=== PATIENT | female | born 1945 | race Caucasian/White ===

== ENCOUNTER → 2017-02-12 | Outpatient (CLI) | payer OTHER ==
[2017-02-12 17:01] LABS: ALT/SGPT 19 U/L (12-78); BLOOD UREA NITROGEN 8 mg/dl (7-18); BUN/CREATININE RATIO 9.8 (10-20); CALCIUM 8.9 mg/dl (8.5-10.1); CARBON DIOXIDE 29 mmol/L (21-32); CHLORIDE 106 mmol/L (98-107); CREATININE 0.86 mg/dl (0.60-1.20); GLUCOSE 106 mg/dl (70-99); POTASSIUM 4.2 mmol/L (3.5-5.1); SODIUM 142 mmol/L (136-145)
[2017-02-12 17:04] LABS: ALB/GLOB RATIO 1.2 (0.9-2); ALKALINE PHOSPHATASE 58 U/L (45-117); AST/SGOT 13 U/L (15-37)
[2017-02-12 18:19] LABS: BASO ABS # 0.07 K/uL (0-0.2); COMPLETE YES; EOS % 2.7 %; HEMATOCRIT 39.6 % (37-47); IG% 0.3 %; LYMPH % 27.1 %; MEAN CELL VOLUME 98.5 fL (80-100); MEAN CORPUSCULAR HEMOGLOBIN 34.3 pg (25-34); MEAN CORPUSCULAR HGB CONC 34.8 g/dl (32-36); MEAN PLATELET VOLUME 10.4 fL (7.4-10.4); MONO % 5.1 %; NEUT % 63.8 %; PLATELET COUNT 206 K/uL (130-400); RED BLOOD COUNT 4.02 M/uL (4.2-5.4); WHITE BLOOD COUNT 7.02 K/uL (4.8-10.8)
== END | disposition home or self-care (01) ==
LOC: C.LABBFT 15:50
PROVIDERS: ATTEND Physician Assistant Medical
DX: R10.811 Right upper quadrant abdominal tenderness (principal)

== ENCOUNTER → 2017-02-18 | Outpatient (CLI) | payer OTHER ==
--- NOTE | 2017-02-18 10:00 | DIAGNOSTIC IMAGING REPORT ---
Right upper quadrant ultrasound GALLBLADDER-ABD LIMITED CLINICAL HISTORY: Pain nausea TECHNIQUE: Ultrasound COMPARISON STUDY: None FINDINGS: Normal gallbladder. Gallbladder wall 2 mm. Common bile duct 5 mm. Liver demonstrates a left hepatic lobe cyst measuring 3.5 cm at maximum. Mild fatty infiltration. Pancreas and right kidney are unremarkable. 2 cm right renal cyst. IMPRESSION: Small cysts of the right kidney as well as liver. Otherwise negative study. Electronically signed by: Dieter Zee M.D. 02/18/2017 9:58 AM Dictated Date/Time: 02/18/2017 9:57 AM
== END | disposition home or self-care (01) ==
LOC: C.ULTR 09:10
PROVIDERS: ATTEND Physician Assistant Medical
DX: R10.811 Right upper quadrant abdominal tenderness (principal); N28.1 Cyst of kidney, acquired; K76.89 Other specified diseases of liver

== ENCOUNTER → 2017-02-19 | Outpatient (CLI) | payer OTHER ==
--- NOTE | 2017-02-19 13:13 | DIAGNOSTIC IMAGING REPORT ---
RIGHT KNEE 3 VIEWS CLINICAL HISTORY: BILATERAL KNEE PAIN Right pain COMPARISON: None DISCUSSION: Rather significant degenerative change all major joint compartments right knee. This is most significant involving the lateral compartment on the tunnel projection. Mild osteophytic change. Sclerosis of the articular services. Less prominent findings involve the left knee. There is no evidence for soft tissue swelling. 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 Mild degenerative change left knee. Electronically signed by: Dieter Zee M.D. 02/19/2017 1:11 PM Dictated Date/Time: 02/19/2017 1:10 PM
== END | disposition home or self-care (01) ==
LOC: C.RDSM 13:43
PROVIDERS: ATTEND Physician Assistant
DX: M25.569 Pain in unspecified knee (principal)

== ENCOUNTER → 2017-03-01 | Outpatient (CLI) | payer OTHER ==
[~2017-03-01] MED LIST: SINCALIDE IV ONE; SODIUM CHLORIDE 0.9% IV ONE
--- NOTE | 2017-03-01 13:01 | DIAGNOSTIC IMAGING REPORT ---
NUCLEAR HEPATOBILIARY SCAN WITH EJECTION FRACTION IMAGING CLINICAL HISTORY: Right upper quadrant abdominal pain. COMPARISON STUDY: Abdominal ultrasound dated 02/18/2017. TECHNIQUE: Dynamic images of the liver and anterior abdomen were obtained every 5 minutes for a total of 60 minutes following the IV administration of 5.5mCi of technetium 99m Choletec. 1.92 mcg of sincalide was then injected with additional images acquired every 5 minutes for 45 minutes to calculate the gallbladder ejection fraction. FINDINGS: The hepatobiliary scan shows prompt and homogeneous hepatic uptake. There is visualized activity within the intra and extrahepatic biliary tree at 15 minutes, and within the gallbladder at 20 minutes. There is normal biliary to bowel transit, with small bowel visualized by 35 minutes. On the sincalide imaging, the gallbladder ejection fraction was measured at 99%. IMPRESSION: 1. Unremarkable nuclear hepatobiliary scan. There is no scintigraphic evidence of cholecystitis. 2. The gallbladder ejection fraction measured 99% which is normal. Electronically signed by: Hua Huff M.D. 03/01/2017 12:59 PM Dictated Date/Time: 03/01/2017 12:57 PM
== END | disposition home or self-care (01) ==
LOC: C.NUCL 10:01
PROVIDERS: ATTEND Internal Medicine
DX: R10.811 Right upper quadrant abdominal tenderness (principal)

== ENCOUNTER → 2017-04-19 | Outpatient (CLI) | payer OTHER ==
[2017-04-19 17:43] LABS: HEMATOCRIT 40.4 % (37-47); MEAN CELL VOLUME 102.5 fL (80-100); MEAN CORPUSCULAR HEMOGLOBIN 34.8 pg (25-34); MEAN CORPUSCULAR HGB CONC 33.9 g/dl (32-36); MEAN PLATELET VOLUME 10.4 fL (7.4-10.4); PLATELET COUNT 220 K/uL (130-400); RED BLOOD COUNT 3.94 M/uL (4.2-5.4); WHITE BLOOD COUNT 7.03 K/uL (4.8-10.8)
[2017-04-19 17:55] LABS: ALT/SGPT 21 U/L (12-78); BLOOD UREA NITROGEN 15 mg/dl (7-18); BUN/CREATININE RATIO 15.4 (10-20); CARBON DIOXIDE 28 mmol/L (21-32); CHLORIDE 106 mmol/L (98-107); CREATININE 0.97 mg/dl (0.60-1.20); GLUCOSE 90 mg/dl (70-99); SODIUM 141 mmol/L (136-145)
[2017-04-19 18:05] LABS: ALB/GLOB RATIO 1.1 (0.9-2); ALKALINE PHOSPHATASE 60 U/L (45-117); AST/SGOT 13 U/L (15-37)
[2017-04-19 18:32] LABS: CALCIUM 9.5 mg/dl (8.5-10.1)
[2017-04-20 06:16] LABS: ESTIMATED AVERAGE GLUCOSE 108 mg/dl; HA1C FLAG Normal (Normal)
== END | disposition home or self-care (01) ==
LOC: C.LABBFT 12:35
PROVIDERS: ATTEND Internal Medicine
DX: I10 Essential (primary) hypertension (principal); R73.01 Impaired fasting glucose; E03.9 Hypothyroidism, unspecified

== ENCOUNTER 2018-02-10 18:03 | Emergency (ER) | payer OTHER ==
[~2018-02-10] VITALS: Ht 167.6 cm; Wt 96.1 kg
[2018-02-10 18:16] VITALS: TEMP 37; Ht 167.6 cm; Wt 96.1 kg
[2018-02-10] MEDS ORDERED: PRLSR20 PO (20:25)
[2018-02-10] MEDS ORDERED: LISI-725 PO (20:25)
[2018-02-10] MEDS ORDERED: LEVO112T4 PO (20:25)
[2018-02-10] MEDS ORDERED: ESCI10TA17 PO (20:25)
[2018-02-10] MEDS ORDERED: ATOR-22 PO (20:25)
[2018-02-10 20:43] LABS: BASO % 0.5 %; BASO ABS # 0.04 K/uL (0-0.2); EOS % 1.8 %; EOS ABS # 0.14 K/uL (0-0.5); HEMATOCRIT 38.7 % (37-47); HEMOGLOBIN 13.2 g/dL (12.0-16.0); IG# 0.02 K/uL (0.00-0.02); LYMPH % 18.1 %; LYMPH ABS # 1.42 K/uL (1.2-3.4); MEAN CELL VOLUME 100.8 fL (80-100); MEAN CORPUSCULAR HEMOGLOBIN 34.4 pg (25-34); MEAN CORPUSCULAR HGB CONC 34.1 g/dl (32-36); MEAN PLATELET VOLUME 10.2 fL (7.4-10.4); MONO % 7.4 %; MONO ABS # 0.58 K/uL (0.11-0.59); NEUT % 71.9 %; NEUT ABS # 5.65 K/uL (1.4-6.5); PLATELET COUNT 194 K/uL (130-400); RED CELL DISTRIBUTION WIDTH CV 14.1 % (11.5-14.5); RED CELL DISTRIBUTION WIDTH SD 52.1 fL (36.4-46.3); WHITE BLOOD COUNT 7.85 K/uL (4.8-10.8)
[2018-02-10 21:04] LABS: ALBUMIN 3.5 gm/dl (3.4-5.0); CREATININE 0.82 mg/dl (0.60-1.20); POTASSIUM 3.6 mmol/L (3.5-5.1)
--- NOTE | 2018-02-10 21:04 | DIAGNOSTIC IMAGING REPORT ---
ABD/PELVIS WITHOUT FOR STONE CLINICAL HISTORY: 73 years-old Female presenting with left abd pain, blood in urine. TECHNIQUE: Multidetector CT of the abdomen and pelvis was performed without the use of intravenous contrast. IV contrast: None. A dose lowering technique was used consistent with the principles of ALARA (as low as reasonably achievable). COMPARISON: None. CT DOSE (mGy.cm): The estimated cumulative dose is 1652.65 mGy.cm. 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 Lung bases: Lungs and pleural spaces clear. Normal heart size. No pericardial or pleural effusion. Liver: Normal morphology. Density consistent with hepatic steatosis. Multilobular hypodensity in the left hepatic lobe indeterminate but likely hepatic cyst. Biliary: No gross biliary ductal dilatation allowing for noncontrast technique. Normal gallbladder. Pancreas: Mild parenchymal atrophy. Spleen: Normal. Adrenal glands: Normal. Kidneys and ureters: Well-defined fat-containing 12 mm lesion in the interpolar region of the left kidney. No nephrolithiasis. Prominent parapelvic cyst suggested on the right. No hydronephrosis. Ureters normal. Bladder: Incompletely evaluated secondary to underdistention. Pelvic organs: Uterus surgically absent. No adnexal masses. Bowel: Diverticulosis of the sigmoid colon with extensive pericolonic inflammatory change in the mid to distal sigmoid colon. No adjacent fluid collection. No adjacent extraluminal gas. Few additional scattered diverticula noted in the descending colon. Mild stool burden. The appendix may be absent. No bowel obstruction. Small hiatal hernia. Peritoneal cavity: No free fluid or intraperitoneal gas. Lymph nodes: No gross lymphadenopathy allowing for noncontrast technique. Vasculature: Atherosclerosis of the normal caliber abdominal aorta. Abdominal wall: Small fat-containing umbilical hernia. Musculoskeletal: Degenerative changes of the spine. Degenerative changes of the right sacroiliac joint. IMPRESSION: 1. Findings consistent with acute uncomplicated diverticulitis of the sigmoid colon. No abscess or extraluminal gas. 2. 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 3. Hepatic steatosis. Electronically signed by: Anoop Toney M.D. 02/10/2018 9:03 PM Dictated Date/Time: 02/10/2018 8:57 PM
[2018-02-10 21:07] LABS: TOTAL PROTEIN 7.4 gm/dl (6.4-8.2)
[2018-02-10] MEDS ORDERED: PIPERACILLIN/TAZOBACTAM 4.5 GM/100ML D5W IV STA (21:26)
[2018-02-10] MEDS ORDERED: AMOXICIL/CLAVU 875MG HOME PACK PO ONE (21:45)
[2018-02-10 23:20] VITALS: BP 176/87; PULSE 72; O2SAT 98
[2018-02-10] MEDS ORDERED: AMOX875T PO (23:22)
--- NOTE | 2018-02-11 01:44 | EMERGENCY ROOM VISIT NOTE ---
History Report prepared by Kaity: Mariya Melo Under the Supervision of: Dr. Karl Brothers M.D. First contact with patient: 20:00 Chief Complaint: ABDOMINAL PAIN Stated Complaint: PAIN IN STOMACH AREA Nursing Triage Summary: patient reports ongoing abdominal pain for two days History of Present Illness The patient is a 73 year old female who presents to the Emergency Room with complaints of worsening abdominal pain for the past few days. The patient states that the pain is in the middle of her stomach and on the left side. She currently rates her pain as an 8/10 in severity. She reports that yesterday it was a 10/10 in severity and she couldn't walk. She notes that she has never had this pain before. The patient states that she has tried taking Ibuprofen with no relief. The patient complains of back pain. She states that it feels like her back is swelling. Pt denies a history of kidney stones, LOC, headache, fevers, chills, diaphoresis , visual changes, neck pain, chest pain, breathing difficulties, nausea, vomiting, melena, hematochezia, urinary symptoms, numbness, weakness, lymphadenopathy, rash, or other complaints. Source of History: patient Onset: few days ago Position: abdomen Symptom Intensity: 8/10 Timing: worsening Associated Symptoms: + back pain Review of Systems See HPI for pertinent positives and negatives. A total of ten systems were reviewed and were otherwise negative. Past Medical & Surgical Medical Problems: (1) Graves disease (2) Hypertension (3) Hyperthyroidism Surgical Problems: (1) S/P hysterectomy Family History Patient reports no known family medical history. Social History Smoking Status: Current Every Day Smoker Alcohol Use: occasionally Marital Status: Housing Status: lives with significant other Current/Historical Medications Scheduled Amoxicillin & Pot Clavulanate (Augmentin 875-125 mg), 875 MG PO BID Atorvastatin (Lipitor), 1 TAB PO DAILY Escitalopram (Lexapro), 10 MG PO DAILY Levothyroxine Sodium (Levothyroxine Sodium), 1 TAB PO DAILY Omeprazole (Prilosec), 20 MG PO DAILY Miscellaneous Medications Lisinopril (Zestril), 20 MG PO Allergies Coded Allergies: No Known Allergies (Verified , 10/22/04) Physical Exam Vital Signs Date Time Temp Pulse Resp B/P (MAP) Pulse Ox O2 Delivery O2 Flow Rate FiO2 02/10/18 23:20 72 16 176/87 98 Room Air 02/10/18 21:55 75 18 156/89 94 Room Air 02/10/18 20:30 78 18 136/80 95 Room Air 02/10/18 20:28 73 02/10/18 18:16 37.0 88 20 181/76 95 Room Air Physical Exam GENERAL: Awake, alert, uncomfortable-appearing, in no distress HENT: Normocephalic, atraumatic. Oropharynx unremarkable. EYES: Normal conjunctiva. Sclera non-icteric. NECK: Supple. No nuchal rigidity. FROM. No masses. RESPIRATORY: Clear to auscultation. No wheezes. No rales. Normal respiratory effort. CARDIAC: Normal rate. Normal rhythm. No murmurs. No rubs. Extremities warm and well perfused. Pulses equal. No JVD. GI: Soft, non-distended. Periumbilical, left lower quadrant, and left upper lateral tenderness to palpation. No rebound or guarding. No masses. RECTAL: Deferred. MUSCULOSKELETAL: Atraumatic. Chest examination reveals no tenderness. The back is symmetrical on inspection without obvious abnormality. There is no CVA tenderness to palpation. No joint edema. LOWER EXTREMITIES: Calves are equal size bilaterally and non-tender. No edema. No discoloration. NEURO: Normal sensorium. No sensory or motor deficits noted. SKIN: No rash or jaundice noted. Medical Decision & Procedures ER Provider Diagnostic Interpretation: Radiology results as stated below per my review and radiologist interpretation: ABD/PELVIS WITHOUT FOR STONE CLINICAL HISTORY: 73 years-old Female presenting with left abd pain, blood in urine. TECHNIQUE: Multidetector CT of the abdomen and pelvis was performed without the use of intravenous contrast. IV contrast: None. A dose lowering technique was used consistent with the principles of ALARA (as low as reasonably achievable). COMPARISON: None. CT DOSE (mGy.cm): The estimated cumulative dose is 1652.65 mGy.cm. FINDINGS: [employer] topogram: Unremarkable. Lung bases: Lungs and pleural spaces clear. Normal heart size. No pericardial or pleural effusion. Liver: Normal morphology. Density consistent with hepatic steatosis. Multilobular hypodensity in the left hepatic lobe indeterminate but likely hepatic cyst. Biliary: No gross biliary ductal dilatation allowing for noncontrast technique. Normal gallbladder. Pancreas: Mild parenchymal atrophy. Spleen: Normal. Adrenal glands: Normal. Kidneys and ureters: Well-defined fat-containing 12 mm lesion in the interpolar region of the left kidney. No nephrolithiasis. Prominent parapelvic cyst suggested on the right. No hydronephrosis. Ureters normal. Bladder: Incompletely evaluated secondary to underdistention. Pelvic organs: Uterus surgically absent. No adnexal masses. Bowel: Diverticulosis of the sigmoid colon with extensive pericolonic inflammatory change in the mid to distal sigmoid colon. No adjacent fluid collection. No adjacent extraluminal gas. Few additional scattered diverticula noted in the descending colon. Mild stool burden. The appendix may be absent. No bowel obstruction. Small hiatal hernia. Peritoneal cavity: No free fluid or intraperitoneal gas. Lymph nodes: No gross lymphadenopathy allowing for noncontrast technique. Vasculature: Atherosclerosis of the normal caliber abdominal aorta. Abdominal wall: Small fat-containing umbilical hernia. Musculoskeletal: Degenerative changes of the spine. Degenerative changes of the right sacroiliac joint. IMPRESSION: 1. Findings consistent with acute uncomplicated diverticulitis of the sigmoid colon. No abscess or extraluminal gas. 2. 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 3. Hepatic steatosis. Electronically signed by: Anoop Tonye M.D. 02/10/2018 9:03 PM Dictated Date/Time: 02/10/2018 8:57 PM Laboratory Results 02/10/18 20:25 Red Blood Count 3.84, Mean Corpuscular Volume 100.8, Mean Corpuscular Hemoglobin 34.4, Mean Corpuscular Hemoglobin Concent 34.1, Mean Platelet Volume 10.2, Neutrophils (%) (Auto) 71.9, Lymphocytes (%) (Auto) 18.1, Monocytes (%) ( Auto) 7.4, Eosinophils (%) (Auto) 1.8, Basophils (%) (Auto) 0.5, Neutrophils # ( Auto) 5.65, Lymphocytes # (Auto) 1.42, Monocytes # (Auto) 0.58, Eosinophils # ( Auto) 0.14, Basophils # (Auto) 0.04 02/10/18 20:25 Test 02/10/18 20:15 02/10/18 20:25 Urine Color DK YELLOW Urine Appearance CLEAR (CLEAR) Urine pH 5.5 (4.5-7.5) Urine Specific [place] 1.023 (1.000-1.030) Urine Protein NEG (NEG) Urine Glucose (UA) NEG (NEG) Urine Ketones TRACE (NEG) Urine Occult Blood 2+ (NEG) Urine Nitrite NEG (NEG) Urine Bilirubin NEG (NEG) Urine Urobilinogen NEG (NEG) Urine Leukocyte Esterase NEG (NEG) Urine WBC (Auto) 1-5 /hpf (0-5) Urine RBC (Auto) 10-30 /hpf (0-4) Urine Hyaline Casts (Auto) 1-5 /lpf (0-5) Urine Epithelial Cells (Auto) >30 /lpf (0-5) Urine Bacteria (Auto) NEG (NEG) White Blood Count 7.85 K/uL (4.8-10.8) Red Blood Count 3.84 M/uL (4.2-5.4) Hemoglobin 13.2 g/dL (12.0-16.0) Hematocrit 38.7 % (37-47) Mean Corpuscular Volume 100.8 fL (80-100) Mean Corpuscular Hemoglobin 34.4 pg (25-34) Mean Corpuscular Hemoglobin Concent 34.1 g/dl (32-36) Platelet Count 194 K/uL (130-400) Mean Platelet Volume 10.2 fL (7.4-10.4) Neutrophils (%) (Auto) 71.9 % Lymphocytes (%) (Auto) 18.1 % Monocytes (%) (Auto) 7.4 % Eosinophils (%) (Auto) 1.8 % Basophils (%) (Auto) 0.5 % Neutrophils # (Auto) 5.65 K/uL (1.4-6.5) Lymphocytes # (Auto) 1.42 K/uL (1.2-3.4) Monocytes # (Auto) 0.58 K/uL (0.11-0.59) Eosinophils # (Auto) 0.14 K/uL (0-0.5) Basophils # (Auto) 0.04 K/uL (0-0.2) RDW Standard Deviation 52.1 fL (36.4-46.3) RDW Coefficient of Variation 14.1 % (11.5-14.5) Immature Granulocyte % (Auto) 0.3 % Immature Granulocyte # (Auto) 0.02 K/uL (0.00-0.02) Anion Gap 6.0 mmol/L (3-11) Est Creatinine Clear Calc Drug Dose 73.5 ml/min Estimated GFR () 83.4 Estimated GFR (Non- 72.0 BUN/Creatinine Ratio 14.6 (10-20) Calcium Level 9.0 mg/dl (8.5-10.1) Total Bilirubin 0.6 mg/dl (0.2-1) Direct Bilirubin 0.2 mg/dl (0-0.2) Aspartate Amino Transf (AST/SGOT) 12 U/L (15-37) Alanine Aminotransferase (ALT/SGPT) 16 U/L (12-78) Alkaline Phosphatase 59 U/L (45-117) Total Protein 7.4 gm/dl (6.4-8.2) Albumin 3.5 gm/dl (3.4-5.0) Lipase 103 U/L (73-393) Laboratory results reviewed by me Medications Administered Medications (Trade) Dose Ordered Sig/Harman Route Start Time Stop Time Status Last Admin Dose Admin Piperacillin Sod/ Tazobactam Sod (Zosyn Iv) 4.5 gm NOW STAT IV 02/10/18 21:26 02/10/18 21:27 DC 02/10/18 21:51 4.5 GM Amoxicillin/ Clavulanate Potassium (Augmentin 875MG Home Pack) 1 homepack UD ONCE PO 02/10/18 21:45 02/10/18 21:46 DC 02/10/18 23:19 1 HOMEPACK ECG Per My Interpretation Indication: abdominal pain Rate (beats per minute): 74 Rhythm: normal sinus Findings: nonspecific-ST abn (Lateral), no acute ischemic change, no ectopy Comparison ECG Date: 10/23/2004 Change: Non specific ST laterally is new. ED Course 2001: The patient was evaluated in room C4. A complete history and physical exam was performed. 2125: Ordered Zosyn Iv 4.5 gm IV. 2133: I reevaluated the patient and she feels great. WE are going to let her finish the IV Zosyn and then she will be discharged. 2144: Ordered Augmentin 875MG Home Pack 1 homepack PO. 2222: I reevaluated the patient. Discussed results and discharge instructions: She verbalized understanding and agreement. The patient is ready for discharge. Medical Decision Prior records/ancillary studies reviewed. Triage Nursing notes reviewed and agree them. The patient's history was concerning for abdominal pain. Differential diagnosis: Etiologies such as appendicitis, diverticulitis, PUD, biliary pathology, UTI, pancreatitis, obstruction, mesenteric ischemia, aortic pathology, infections, inflammatory bowel disease, renal colic, as well as others were entertained. Physical examination findings: As above. ER treatment provided: Patient declined analgesia on multiple occasions IV Zosyn On reassessment the patient felt better. Augmentin home pack Diagnostics interpreted by me: ECG: Normal without acute ischemia The labs revealed an unremarkable CBC and chemistry panel. Urinalysis showed some hematuria. Imaging studies: CAT scan as above. Uncomplicated diverticulitis. Clinically the patient is doing well. There is no evidence of abscess or perforation. She declined analgesia. I discussed treatment options and she prefers to go home. Augmentin will be initiated. She will need close follow- up with her primary physician. If she worsens in any way she was instructed come back to the ER immediately. By the evaluation outlined above emergent etiologies such as appendicitis, diverticulitis, PUD, biliary pathology, UTI, pancreatitis, obstruction, mesenteric ischemia, aortic pathology, infections, inflammatory bowel disease, renal colic, as well as others were deemed relatively unlikely. The patient was informed about the findings as listed above. All questions were answered and she was pleased with the treatment. Return instructions were outlined and the patient was discharged in stable condition. Outpatient prescription management: Augmentin Referral: The patient was referred back to their primary care physician for follow-up for a recheck of the current condition. Medication Reconcilliation Current Medication List: was personally reviewed by me Blood Pressure Screening Patient's blood pressure: Elevated blood pressure Blood pressure disposition: Referred to PCP Impression Primary Impression: Diverticulitis Scribe Attestation The scribe's documentation has been prepared under my direction and personally reviewed by me in its entirety. I confirm that the note above accurately reflects all work, treatment, procedures, and medical decision making performed by me. Departure Information Dispostion Home / Self-Care Prescriptions Amoxicillin & Pot Clavulanate (Augmentin 875-125 mg) 1 Tab Tab 875 MG PO BID for 9 Days, #18 TAB Prov: Karl Brothers MD 02/10/18 Referrals Vince Reed M.D. (PCP) Forms Call Back Authorization, HOME CARE DOCUMENTATION FORM, IMPORTANT VISIT INFORMATION Patient Instructions My [facility] Additional Instructions DIVERTICULITIS INSTRUCTIONS: Amoxicillin Clavulanate (Augmentin) 875mg: Take one pill twice daily for 10 days for your bowel infection. All antibiotics can cause diarrhea. If this occurs and you feel worse or it does not resolve in 1-2 days follow up with your doctor or return to the Emergency Department as this could be signs of serious underlying problems. Any medication can cause an allergic reaction, stop the pills immediately and return to the ER for rash, hives, breathing difficulties, or swelling. Acetaminophen(Tylenol) may be used for fever or pain. Use 1000mg every six hours as needed. Avoid using more than 4000mg in a 24 hour period. Rest and drink plenty of fluids as tolerated. Slow sips of water or sports drinks are recommended instead of large amounts all at once. Continue current medications. Once your stomach is settled start with a clear liquid diet (jello, soup broth, etc.) and then advance as tolerated. You should avoid full, heavy meals for about 24 hrs from the time your symptoms resolved. Return to the ER immediately for worsening or persistent abdominal pain, vomiting, fevers, chest pains, difficulty breathing, black or bloody stools, worsening of your condition, or as needed. Follow up with your primary physician Wednesday for a recheck of your current condition.
== END 2018-02-10 23:28 | disposition home or self-care (01) ==
LOC: C.EDB 18:06 → C.EDC 23:28
DX: K57.32 Diverticulitis of large intestine without perforation or abscess without bleeding (principal); E05.00 Thyrotoxicosis with diffuse goiter without thyrotoxic crisis or storm; I10 Essential (primary) hypertension; Z90.710 Acquired absence of both cervix and uterus; F17.200 Nicotine dependence, unspecified, uncomplicated; Z79.899 Other long term (current) drug therapy

== ENCOUNTER 2018-03-08 20:00 | Emergency (ER) | payer OTHER ==
[~2018-03-08] VITALS: Ht 167.6 cm; Wt 96.3 kg
[~2018-03-08 20:00] MED LIST changes: +ATOR-22 PO; +ESCI10TA17 PO; +LEVO112T4 PO; +LISI-725 PO; +PRLSR20 PO; -SINCALIDE IV ONE; -SODIUM CHLORIDE 0.9% IV ONE
[2018-03-08 20:06] VITALS: TEMP 36.7; Ht 167.6 cm; Wt 96.3 kg
--- NOTE | 2018-03-08 21:04 | DIAGNOSTIC IMAGING REPORT ---
R KNEE 3 VIEWS CLINICAL HISTORY: Right knee pain COMPARISON: 02/19/2017 DISCUSSION: No acute fractures are visualized. There are progressive osteoarthritic changes. IMPRESSION: 1. Slight progression in the moderately advanced osteoarthritic change 2. No acute fractures Electronically signed by: Luis Carlos Farfan M.D. 03/08/2018 9:03 PM Dictated Date/Time: 03/08/2018 9:02 PM
--- NOTE | 2018-03-08 21:22 | EMERGENCY ROOM VISIT NOTE ---
ED Visit Note First contact with patient: 20:14 CHIEF COMPLAINT: "Right knee pain, popped". HISTORY OF PRESENT ILLNESS: The patient is a 73-year-old female who presents to the emergency department via private vehicle accompanied by male with complaints of right knee pain. The patient states that she has been experiencing right knee pain since earlier today around 6:30 PM when she was ambulating on steps, and felt as though her right leg was then to give out on her and her right knee popped and now she has pain in the posterior aspect of the right knee. She notes some degenerative change to the right knee/ arthritis. She denies any pain currently, swelling currently, or bruising. She states that it is worse with weightbearing. She denies any recent surgeries , injuries, or history of clots. She took 2 ibuprofen prior to arrival. REVIEW OF SYSTEMS: A review of systems was performed with positives and pertinent negatives listed in the history of present illness. All other systems were reviewed and are negative. ALLERGIES: No known drug allergies. MEDICATIONS: As noted below PMH: Hysterectomy, teeth extraction SOCIAL HISTORY: Patient lives locally. PHYSICAL EXAM: VITALS: Vitals are noted on the nurse's note and reviewed by myself. Vital signs stable. She is hypertensive. Oil Trough to be situational. GENERAL: 73-year-old female, in no acute distress, nondiaphoretic, well- developed well-nourished. SKIN: The skin was without rashes, erythema, edema, or bruising. EXTREMITIES: There is tenderness to palpation overlying the patient's posterior right knee. No calf tenderness. Negative Homans sign. Decreased range of motion secondary to tenderness. IMAGING: R KNEE 3 VIEWS CLINICAL HISTORY: Right knee pain COMPARISON: 02/19/2017 DISCUSSION: No acute fractures are visualized. There are progressive osteoarthritic changes. IMPRESSION: 1. Slight progression in the moderately advanced osteoarthritic change 2. No acute fractures Electronically signed by: Luis Carlos Farfan M.D. 03/08/2018 9:03 PM Dictated Date/Time: 03/08/2018 9:02 PM EMERGENCY DEPARTMENT COURSE: Patient was seen and evaluated in room D9. She has posterior knee pain status post a popping sound. This appears to be musculoskeletal in nature and given this event believe that DVT is much less likely. X-ray was obtained. Results as above. There appears to be some degenerative change. She certainly could have ligamentous injury therefore I will place her in a knee immobilizer and she is to follow with orthopedics. She is to maintain nonweightbearing status. She was given a walker. She is to return with worsening. She is to utilize vqje-ytz-[id number] pain medication as needed. She was educated upon management, educated upon worrisome symptoms which to return, had questions answered prior to discharge, and was discharged home in good condition. In regard to her blood pressure elevation I suspect this is likely secondary to situation however she is to follow with her family doctor regarding this. In the evaluation and treatment of this patient, the following differential diagnoses were considered: Patellar Fracture, Tibial Plateau Fracture, Distal Femur Fracture, ACL Injury, PCL Injury, Collateral Ligament Injury, Pes Anserine Bursitis, Maisonneuve Fracture. Problem List Medical Problems: (1) Graves disease Status: Chronic (2) Hypertension Status: Chronic Surgical Problems: (1) S/P hysterectomy Status: Resolved Current/Historical Medications Scheduled Atorvastatin (Lipitor), 1 TAB PO DAILY Escitalopram (Lexapro), 10 MG PO DAILY Levothyroxine Sodium (Levothyroxine Sodium), 1 TAB PO DAILY Omeprazole (Prilosec), 20 MG PO DAILY Miscellaneous Medications Lisinopril (Zestril), 20 MG PO Allergies Coded Allergies: No Known Allergies (Verified , 10/22/04) Vital Signs Date Time Temp Pulse Resp B/P (MAP) Pulse Ox O2 Delivery O2 Flow Rate FiO2 03/08/18 21:37 72 18 151/90 97 Room Air 03/08/18 20:06 36.7 73 18 190/116 99 Room Air Departure Information Impression Primary Impression: Knee pain Dispostion Home / Self-Care Condition GOOD Referrals Vince Reed M.D. (PCP) Anoop Wang M.D. Patient Instructions My [facility] Additional Instructions You have been treated in the Emergency Department for Knee Pain. Please have your blood pressure rechecked with family doctor For pain control, you can use the following [id number]-[id number] medicines - Regular strength (325mg/tab) Tylenol (acetaminophen) 2 tabs every 4-6 hours as needed. Do not exceed 12 tablets in a 24 hour period. Avoid taking more than 3 grams (3000 mg) of Tylenol per day. This includes any other sources of acetaminophen you may take on a regular basis. - Regular strength (200 mg/tab) Advil (ibuprofen) 1-2 tabs every 4-6 hours as needed. Do not exceed a dose of 3200 mg per day. If this is a recent injury (<24 hrs), ice can be applied to the area of pain for the first 3 days to help decrease pain and inflammation. Ice massages can be performed by freezing water in a paper cup, peeling back the cup to expose the ice and then massaging over the affected area. You have been provided the number for an Orthopaedic Surgeon. You should call this number as soon as possible to establish a follow-up visit from today's Emergency Department visit. Keep the knee brace in place until cleared by Orthopedics. Use the crutches you have been provided to keep ALL weight off of the knee until weight bearing is tolerable. Return to the Emergency Department if your current symptoms worsen despite treatment course outlined above.
[2018-03-08 21:37] VITALS: BP 151/90; PULSE 72; O2SAT 97
== END 2018-03-08 21:43 | disposition home or self-care (01) ==
LOC: C.EDB 20:01 → C.EDD 21:43
DX: M25.561 Pain in right knee (principal); E05.00 Thyrotoxicosis with diffuse goiter without thyrotoxic crisis or storm; I10 Essential (primary) hypertension; Z79.899 Other long term (current) drug therapy

== ENCOUNTER → 2018-06-07 | Outpatient (CLI) | payer OTHER ==
[~2018-06-07] MED LIST changes: +OPTIRAY 320 IV PRN
--- NOTE | 2018-06-07 16:33 | DIAGNOSTIC IMAGING REPORT ---
SOFT TISSUE NECK WITH HISTORY: 73 years-old Female ANTERIOR NECK PAIN, R/O ABSCESS VS MASS acute anterior neck pain and swelling COMPARISON: None available TECHNIQUE: Multiple axial CT images of the soft tissues of the neck were obtained following the intravenous administration of 88 mL Optiray 320 IV contrast. A dose lowering technique was used consistent with the principals of AIDE. FINDINGS: The nasopharynx, oral pharynx and hypopharynx are patent. Mild secretions noted within the vallecula. There is mild redundancy, thickening and rightward deviation about the left false vocal cord, image 120 series 3. No definite associated soft tissue mass identified. The true vocal cords appear normal. Air is noted within the glottic tissues. The bilateral parotid, sublingual and submandibular glands appear to be symmetric and within normal limits. No peritonsillar or retropharyngeal abscess. There are no pathologically enlarged lymph nodes about the neck identified. No thyroid mass. No definite thyroid tissue identified. Mixed plaquing about the bilateral carotid bulbs without high-grade stenosis identified. Mild paraseptal and centrilobular emphysematous changes about the imaged lung apices. Dependent groundglass opacities suggest atelectasis. Orbits and soft tissues appear unremarkable. No drainable fluid collections or focal inflammatory changes. Bones appear intact. Large left mastoid effusion with fluid also noted within the left middle ear cavity. Right mastoid air cells and middle ear cavities are clear. There is a suggested small osteoma of the right ethmoid air, 3 mm. Mild mucosal thickening of the maxillary sinuses and ethmoid air cells. Bilateral mathieu bullosa. Multilevel intervertebral disc space narrowing with spondylitic spurring and facet arthropathy. IMPRESSION: 1. Mild redundancy, thickening and rightward deviation about the left false vocal cord is noted without definite mass. This could be further evaluated with direct visualization. 2. Mild mucosal secretions noted within the vallecula. 3. No adenopathy or focal soft tissue swelling. 4. Emphysema. The above report was generated using voice recognition software. It may contain grammatical, syntax or spelling errors. Electronically signed by: Brant De Jesus M.D. 06/07/2018 4:32 PM Dictated Date/Time: 06/07/2018 4:22 PM
== END | disposition home or self-care (01) ==
LOC: C.CTS 16:02
PROVIDERS: ATTEND Nurse Practitioner
DX: M54.2 Cervicalgia (principal); J43.9 Emphysema, unspecified

== ENCOUNTER 2020-04-29 13:15 | Inpatient (IN) ==
[2020-04-29] MEDS ORDERED: ONDANSETRON INJ 2 MG/ML 2 ML VIAL IV STA (15:12)
[2020-04-29] MEDS ORDERED: SODIUM CHLORIDE 0.9% 1000ML 1,000 ML IV STA (15:12)
[2020-04-29] MEDS: HYDROmorphone INJ 0.5 MG/0.5 ML SYR IV PRN ×2 (15:27→18:33)
[2020-04-29 15:30] LABS: Basophils # (auto) 0.03 K/uL (0-0.2); Basophils % (auto) 0.4 %; Eosinophils # (auto) 0.08 K/uL (0-0.5); Hemoglobin 14.8 g/dL (12.0-16.0); Immature Granulocytes # (auto) 0.02 K/uL (0.00-0.02); Immature Granulocytes % (auto) 0.2 %; Lymphocytes # (auto) 1.05 K/uL (1.2-3.4); Lymphocytes % (auto) 12.5 %; Mean Corpuscular Hemoglobin 35.2 pg (25-34); Mean Corpuscular Hgb Conc 33.6 g/dL (32-36); Mean Corpuscular Volume 104.5 fL (80-100); Mean Platelet Volume 10.1 fL (7.4-10.4); Monocytes # (auto) 0.34 K/uL (0.11-0.59); Monocytes % (auto) 4.1 %; Neutrophils # (auto) 6.87 K/uL (1.4-6.5); Neutrophils % (auto) 81.8 %; Platelet Count 207 K/uL (130-400); RDW Coefficient of Variation 13.6 % (11.5-14.5); RDW Standard Deviation 51.9 fL (36.4-46.3); Red Blood Count 4.21 M/uL (4.2-5.4); White Blood Count 8.39 K/uL (4.8-10.8)
--- NOTE | 2020-04-29 15:33 | Electrocardiogram Report ---
Test Reason : Blood Pressure : / mmHG Vent. Rate : 060 BPM Atrial Rate : 060 BPM P-R Int : 192 ms QRS Dur : 082 ms QT Int : 408 ms P-R-T Axes : 034 070 050 degrees QTc Int : 408 ms Sinus rhythm with marked sinus arrhythmia Otherwise normal ECG When compared with ECG of 21-MAR-2019 18:39, Nonspecific T wave abnormality, improved in Lateral leads Confirmed by Saravanan Sims ([id number]) on 04/29/2020 3:33:03 PM Referred By: Confirmed By:Benoit Sims
[2020-04-29 15:50] LABS: Albumin Level 3.8 gm/dl (3.4-5.0); BUN Creatinine Ratio 11.4 (10-20); Calcium 9.1 mg/dl (8.5-10.1); Est GFR (African American) 73.5; Est GFR (Non-African American) 63.4; Potassium 3.5 mmol/L (3.5-5.1)
[2020-04-29 15:53] LABS: Albumin Globulin Ratio 1.1 (0.9-2); Bilirubin,Total 0.7 mg/dl (0.2-1); Globulin 3.5 gm/dl (2.5-4.0); Total Protein 7.3 gm/dl (6.4-8.2)
--- NOTE | 2020-04-29 16:23 | CT Scan Report ---
CT SCAN OF THE ABDOMEN AND PELVIS WITHOUT IV CONTRAST CLINICAL HISTORY: Vomiting. Lower abdominal pain. COMPARISON STUDY: Abdominal CT dated 07/13/2019. TECHNIQUE: CT scan of the abdomen and pelvis is performed from the lung bases to the proximal femora. Images are reviewed in the axial, sagittal, and coronal planes. IV contrast was not administered for this examination. Note that the examination was performed in suboptimal fashion without oral and IV contrast. A dose lowering technique was utilized adhering to the principles of ALARA. CT DOSE: 1077.42 mGycm FINDINGS: Lung bases: The heart is mildly enlarged and without pericardial effusion. There is a moderate hiatal hernia. Emphysematous changes suspected. There is bibasilar scarring/atelectasis. No airspace consol idation is seen typical for pneumonia and there is no pleural effusion. Liver: The unenhanced liver is normal in size, contour, and attenuation. There is no intrahepatic benjamin iary ductal dilatation. A 3.2 cm cyst is noted in the left lobe. Gallbladder: Unremarkable. Spleen: Normal in size and attenuation. Pancreas: The unenhanced pancreas is atrophic and grossly unremarkable. Adrenal glands: Unremarkable. Kidneys: The unenhanced kidneys demonstrate cortical atrophy and are without hydronephrosis. There ar e no renal calculi identified. 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 Parapelv ic cysts are noted on the right. Abdominal vasculature: The abdominal aorta is normal in course and caliber noting moderate atheroscle rotic calcification. Bowel: The colon is distended and filled with gas and stool. There is an abrupt change in caliber in the sigmoid colon seen on image #373. The rectosigmoid is decompressed, and the appearance is consist ent with a distal colonic obstruction. There is mild wall thickening and pericolonic inflammation see n involving the obstructed colon. The small bowel loops are normal in caliber. There is moderate sigm oid diverticulosis without CT evidence of acute diverticulitis. The appendix is not identified. Peritoneum: There is no intraperitoneal free air or abdominal ascites. There is a small fat and fluid containing umbilical hernia. Lymphadenopathy: None. Pelvic viscera: The bladder is normal as imaged. The uterus is surgically absent. No adnexal lesion i s seen. Skeletal structures: The skeletal structures are osteopenic. There is moderate lumbosacral spondylosi s. No lytic or blastic lesions are seen. IMPRESSION: 1. Findings are consistent with a distal colonic obstruction at the junction between the descending c olon/sigmoid. This could be related to stricture or obstructing stool. Underlying mass lesion would b e impossible to exclude and nonemergent follow-up with endoscopy is recommended for further assessmen t. 2. There is wall thickening with pericolonic inflammation identified involving the majority of the co pipe. This could related to obstruction or possibly an associated colitis. Clinical correlation will b e required. 3. The small bowel loops are normal in caliber. No intraperitoneal free air is seen. 4. There is moderate diverticulosis of the sigmoid colon without CT evidence of acute diverticulitis. 5. Moderate hiatal hernia. 6. Additional findings as above. ACT 112: Negative or not required by law. Electronically signed by: Hua Huff M.D. 04/29/2020 4:22 PM
--- NOTE | 2020-04-29 18:08 | History & Physical Report ---
Date of Service April 29, 2020 Assessment & Plan (1) Colonic obstruction: CT imaging appears to show a distinct cut-off in the descending colon/sigmoid. Distally there is compressed bowel; proximally the colon is dilated. Concerning for colonic mass. Diverticular stricture could also cause such. NPO. IV fluids. Pain meds. Consult Dr Rooney from GI - flex sig? other study for definitive diagnosis? Consult Dr Pichardo from gen surg. (2) Hypothyroidism: TSH minimally elevated 12/2019. repeat TSH am. Give levothyroxine IV at 1/2 the usual PO dose. (3) Tobacco dependence: nicoderm patch 21mg/day [facility] counseling [facility] to quit (4) Alcohol dependence: multiple days per week she consumes whiskey and beer. start on alcohol withdrawal protocol with gabapentin scheduled and PO ativan prn. thiamine 200mg IV BID. folic acid 1mg IV daily. place on telemetry. (5) COPD (chronic obstructive pulmonary disease): with early exacerbation?? place on scheduled nebs. O2 to maintain sats 90% or more. (6) Hypertension: place on scheduled hydralazine TID. enalapril IV prn for high systolics. treat abdominal pain. hold PO BP meds. (7) GERD (gastroesophageal reflux disease): IV PPI once daily (8) DVT prophylaxis: start lovenox once daily tomorrow evening care d/w GI and gen surg History of Present Illness Chief Complaint: abdominal pain and bloating Primary Care Provider: Vince Reed MD 75yo female with hypothyroidism, long-standing tobacco and alcohol dependence, and HTN who presents with 1 week of worsening abdominal pain, abdominal bloating, constipation (last BM was Wednesday - small, hard/firm, no blood) and then 3 episodes of vomiting today. No fever but has had chills. Has never had colonoscopy. Had 1 episode of diverticulitis in the past - she thinks about a year ago. Denies weight loss. Has had good appetite over the last few months but she developed anorexia in the last week. Allergies Allergy/AdvReac Type Severity Reaction Status Date / Time No Known Allergies Allergy Unknown Verified 04/29/20 17:04 Home Medications Home Medications Medication Instructions Recorded Confirmed Type albuterol sulfate [Ventolin HFA] 2 puff INHALATION QID PRN 03/21/19 04/29/20 History aspirin [Aspir-81] 81 mg PO QAM 03/21/19 04/29/20 History ibuprofen 200 mg PO TID PRN 03/21/19 04/29/20 History lisinopril 40 mg PO QAM 07/13/19 04/29/20 History atorvastatin 20 mg tablet 20 mg PO HS #90 tab 11/22/19 04/29/20 Rx omeprazole 20 mg capsule,delayed 20 mg PO QAM #90 cap 11/22/19 04/29/20 Rx release escitalopram oxalate 10 mg tablet 10 mg PO QAM #90 tab 12/18/19 04/29/20 Rx levothyroxine 125 mcg PO QAM 04/29/20 04/29/20 History oxybutynin chloride 5 mg PO QAM 04/29/20 04/29/20 History Past Med/Surg History Medical History Diverticulitis (Inactive 2017) Graves disease (Chronic) treated with radiation Hematuria, microscopic Hypertension (Chronic) Hyperthyroidism Mixed hearing loss, bilateral (Inactive) Psoriasis (Inactive) Surgical History History of tonsillectomy History of tubal ligation History of vaginal hysterectomy Family History Mother Ovarian cancer Father Myocardial infarction Denies family history of Colorectal cancer Social History (Updated 04/29/20 @ 18:26 by Douglas Ceja) Preferred Language: Belarusian Communication Ability: Effective Visual Impairment: No Limitations Hearing Ability: Normal Manager Product Required: No Beliefs That Will Affect Care: None marital status: Current Living Situation: Spouse current occupational status: retired Other Information That Helps Us Care for You: 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 Feels Safe at Home: Yes Safety Concerns: Feels Safe At This Time Smoking Status: Current every day smoker Tobacco Type: cigarettes ; Age Started Using Tobacco: 22 ; packs per day: 2 ; Cigarettes Per Day: 40 ; Hx Alcohol Use: Yes Alcohol type: beer and hard liquor Alcohol Intake Frequency: Daily Hx Substance Use: No Review of Systems Constitutional: + fatigue; no fever and no weight loss Eyes: + spots in vision (red spots - 2-3 mornings ago - now resolved; no flashes of light) Ear, Nose, Mouth, Throat: no dysphagia Respiratory: + cough and + dyspnea on exertion Cardiovascular: + edema; no chest pain Gastrointestinal: + abdominal pain, + bloating, + nausea, + vomiting and + constipation; no blood in stools Genitourinary: no dysuria Musculoskeletal: + back pain and + joint pain (knees) Integumentary: no rash Neurologic: no loss of sensation Psychiatric: + depression and + anxiety Endocrine: no diabetes Hematologic / Lymphatic: no easy bleeding and no easy bruising Physical Exam Constitutional: + acute distress (due to abd pain ), + ill appearing and + obese; no altered mental status Eyes: + anicteric sclerae and PERRL ENMT: external ear and nose normal, oropharynx normal Neck: trachea midline, no thyromegaly Respiratory: no respiratory distress Auscultation: + crackles (bases) and + wheezes (extensive b/l ) Cardiovascular: Rate/Rhythm: regular rate and regular rhythm Heart Sounds: normal S1 and normal S2; no murmur Vessels: posterior tibial pulses present and dorsalis pedis pulses present; no JVD Extremities: no edema Gastrointestinal (Abdomen): Inspection/Auscultation: + abdomen distended and normal bowel sounds Percussion/Palpation: + abdomen tender (multiple locations/generalized); no guarding, abdomen not rigid and no hepatosplenomegaly Musculoskeletal: no cyanosis or clubbing, extremities motor strength 5/5 Skin: no rashes, warm and dry Neurologic: deep tendon reflexes 2+ bilaterally and moves all extremities Psychiatric: Orientation: alert and oriented x 3 Lymphatic: no cervical lymphadenopathy and no subclavicular lymphadenopathy Results & Data Results & Data ([facility]) Vital Signs (Past 12 Hours) Vital Signs Temp Pulse Pulse Resp BP BP Pulse Ox 04/29/20 15:16 80 18 166/78 H 97 04/29/20 14:56 96 04/29/20 14:04 36.9 C 97 H 18 198/93 H 96 Laboratory Results Laboratory Results - last 24 hr 04/29/20 04/29/20 15:22 15:22 WBC 8.39 RBC 4.21 Hgb 14.8 Hct 44.0 MCV 104.5 H MCH 35.2 H MCHC 33.6 RDW Std Deviation 51.9 H RDW Coeff of Alan 13.6 Plt Count 207 MPV 10.1 Immature Gran % (Auto) 0.2 Neut % (Auto) 81.8 Lymph % (Auto) 12.5 Rawlins % (Auto) 4.1 Eos % (Auto) 1.0 Baso % (Auto) 0.4 Immature Gran # (Auto) 0.02 Neut # (Auto) 6.87 H Lymph # (Auto) 1.05 L Rawlins # (Auto) 0.34 Eos # (Auto) 0.08 Baso # (Auto) 0.03 Sodium 138 Potassium 3.5 Chloride 104 Carbon Dioxide 27 Anion Gap 8.0 BUN 10 Creatinine 0.90 Est Cr Clr Drug Dosing 67.0 Est GFR ( Amer) 73.5 Est GFR (Non-Af Amer) 63.4 BUN/Creatinine Ratio 11.4 Glucose 109 H Calcium 9.1 Total Bilirubin 0.7 AST 16 ALT 21 Alkaline Phosphatase 78 Total Protein 7.3 Albumin 3.8 Globulin 3.5 Albumin/Globulin Ratio 1.1 [address]ase [address] abd/pelvis - IMPRESSION: 1. Findings are consistent with a distal colonic obstruction at the junction between the descending colon/sigmoid. This could be related to stricture or obstructing stool. Underlying mass lesion would be impossible to exclude and nonemergent follow-up with endoscopy is recommended for further assessment. 2. There is wall thickening with pericolonic inflammation identified involving the majority of the colon. This could related to obstruction or possibly an associated colitis. Clinical correlation will be required. 3. The small bowel loops are normal in caliber. No intraperitoneal free air is seen. 4. There is moderate diverticulosis of the sigmoid colon without CT evidence of acute diverticulitis. 5. Moderate hiatal hernia. EKG - sinus arrhythmia, no acute ST changes Code Status & VTE Plan Code Status full VTE Prophylaxis Plan VTE Prophylaxis will be ordered: Yes PG Care Time/CCT Total # of Minutes Spent Total Time Spent with Patient: Total time spent is greater than 50% in coordination of care (as documented) at patient's floor/unit and/or counseling patient: Coding Level of Care Code 85819 Initial Inpt Care Lvl 3 Diagnoses Colonic obstruction K56.609 Hypothyroidism E03.9 Hypothyroidism type: acquired Tobacco dependence F17.200 Alcohol dependence F10.20 Substance use status: uncomplicated COPD (chronic obstructive pulmonary disease) J44.9 COPD type: unspecified COPD Hypertension I10 Hypertension type: essential hypertension GERD (gastroesophageal reflux disease) K21.9 Esophagitis presence: esophagitis presence not specified DVT prophylaxis Z29.9 (1) Alcohol dependence Substance use status: uncomplicated Qualified Code(s): F10.20 - Alcohol dependence, uncomplicated (2) Hypothyroidism Hypothyroidism type: acquired Qualified Code(s): E03.9 - Hypothyroidism, unspecified (3) COPD (chronic obstructive pulmonary disease) COPD type: unspecified COPD Qualified Code(s): J44.9 - Chronic obstructive pulmonary disease, unspecified (4) Hypertension Hypertension type: essential hypertension Qualified Code(s): I10 - Essential (primary) hypertension (5) GERD (gastroesophageal reflux disease) Esophagitis presence: esophagitis presence not specified Qualified Code(s): K21.9 - Gastro-esophageal reflux disease without esophagitis
--- NOTE | 2020-04-29 18:58 | Emergency Department Note ---
Impression & Plan Colonic obstruction, Abdominal pain, lower, Nausea & vomiting ED Provider Note NAME: AVRIL LEE AGE: 75 SEX: F ARRIVES VIA: Walk-In INFORMANT: [Patient] ED PROVIDER(S): Karl Brothers MD CHIEF COMPLAINT: Lower abdominal pain PLAN: Disposition: Admitted Condition: [Good] MEDICAL DECISION MAKING: Patient presented because of nausea and vomiting with lower abdominal pain. She was afebrile and did not have any peritoneal findings on exam. She was treated with Dilaudid and Zofran. Her blood work was unremarkable except for mild dehydration. Her twelve-lead ECG revealed a sinus rhythm without ischemia. CT imaging was performed and was concerning for a colonic obstruction. Mild colitis present. I did consult with gastroenterology, Dr. Rooney, general surgery, Dr. Christopher Pichardo, and internal medicine, Dr. Ceja. The patient was feeling better on reassessment after medication. She will be admitted by internal medicine with general surgery and GI consultation. Triage Nursing notes reviewed and agree them. Vital Signs: reviewed and remarkable for hypertension Differential diagnosis: Appendicitis, ovarian cyst, ovarian torsion, ectopic , TOA, PID, infections, diverticulitis, UTI, obstruction, mesenteric ischemia, aortic pathology, inflammatory bowel disease, renal colic, PUD, pancreatitis, biliary pathology, hernia, volvulus, constipation, as well as other pathologies. ER treatment provided: Saline hydration Dilaudid Zofran Diagnostics interpreted by me: ECG: Rate: 60 Rhythm:Normal sinus with sinus arrhythmia [place]:Normal QRS:Normal ST segements:No elevation or depression Other:No PACs or PVCs Cardiac Monitoring: Cardiac monitoring ordered by me: The patient was placed on continuous cardiac monitoring and observed. It revealed a normal sinus rhythm at 65 beats per minute without ectopy or evidence of dysrhythmia. Laboratory studies: [See below] unremarkable CBC and chemistry panel. Imaging studies: Obstruction noted at the distal descending colon with the junction of the sigmoid. Mild colitis present. I refer you to the EMR for further details. Consultation(s): General surgery Gastroenterology Internal medicine HPI: The patient is a 75 year old female who presents to the Emergency Room with complaints of lower abdominal pain. This started several days ago and is worsening. The patient also notes the following associated symptoms, nausea and vomiting. The patient has found no relieving factors. Current pain is rated as 6/10. Patient notes some mild change in bowel movement with some constipation. She has a chronic cough and states she has COPD. No new respiratory symptoms. No sick contacts. Pt denies LOC, headache, fevers, chills, diaphoresis, visual changes, neck pain, chest pain, breathing difficulties, back pain, melena, hematochezia, urinary symptoms, numbness, weakness, lymphadenopathy, rash, or other complaints. ROS: See above HPI for pertinent positives & negatives. A total of [10] systems reviewed and were otherwise negative. PAST MEDICAL HISTORY:[See Below] COPD, hypothyroidism, hypertension PAST SURGICAL HISTORY:[See Below]tubal ligation FAMILY HISTORY:[See Below] SOCIAL HISTORY:[See Below] HOME MEDICATIONS:[See Below] ALLERGIES:[See Below] VITALS:[See Below] PHYSICAL EXAMINATION: GENERAL: Awake, alert, uncomfortable-appearing, in no distress HENT: Normocephalic, atraumatic. Oropharynx unremarkable. EYES: Normal conjunctiva. Sclera non-icteric. NECK: Inspection normal. Non-tender. Supple. No nuchal rigidity. FROM. No masses. RESPIRATORY: Clear to auscultation. No wheezes. No rales. Normal respiratory effort. CARDIAC: Normal rate. Normal rhythm. No murmurs. No rubs. Extremities warm and well perfused. Pulses equal. No JVD. GI: Soft, non-distended. Bilateral lower quadrant tenderness to palpation. No rebound or guarding. No masses. RECTAL: Deferred. MUSCULOSKELETAL: Atraumatic. Chest examination reveals no tenderness. The back is symmetrical on inspection without obvious abnormality. There is no CVA tenderness to palpation. No joint edema. LOWER EXTREMITIES: Calves are equal size bilaterally and non-tender. No edema. No discoloration. NEURO: Normal sensorium. No sensory or motor deficits noted. SKIN: No rash or jaundice noted. ED COURSE: [Critical Care:] [None] Karl Brothers MD Past Med/Surg History Medical History Diverticulitis (Inactive 2017) Graves disease (Chronic) treated with radiation Hematuria, microscopic Hypertension (Chronic) Hyperthyroidism Mixed hearing loss, bilateral (Inactive) Psoriasis (Inactive) Surgical History History of tonsillectomy History of tubal ligation History of vaginal hysterectomy Family History Mother Ovarian cancer Father Myocardial infarction Denies family history of Colorectal cancer Social History (Updated 04/29/20 @ 18:26 by Douglas Ceja) Preferred Language: Telugu Communication Ability: Effective Visual Impairment: No Limitations Hearing Ability: Normal Bpm Analyst Required: No Beliefs That Will Affect Care: None marital status: Current Living Situation: Spouse current occupational status: retired Other Information That Helps Us Care for You: 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 Feels Safe at Home: Yes Safety Concerns: Feels Safe At This Time Smoking Status: Current every day smoker Tobacco Type: cigarettes ; Age Started Using Tobacco: 22 ; packs per day: 2 ; Cigarettes Per Day: 40 ; Hx Alcohol Use: Yes Alcohol type: beer and hard liquor Alcohol Intake Frequency: Daily Hx Substance Use: No Allergies Allergies Allergy/AdvReac Type Severity Reaction Status Date / Time No Known Allergies Allergy Unknown Verified 04/29/20 17:04 Home Meds Home Medications Medication Instructions Recorded Confirmed albuterol sulfate [Ventolin HFA] 2 puff INHALATION QID PRN 03/21/19 04/29/20 aspirin [Aspir-81] 81 mg PO QAM 03/21/19 04/29/20 ibuprofen 200 mg PO TID PRN 03/21/19 04/29/20 lisinopril 40 mg PO QAM 07/13/19 04/29/20 levothyroxine 125 mcg PO QAM 04/29/20 04/29/20 oxybutynin chloride 5 mg PO QAM 04/29/20 04/29/20 Previous Rx's Medication Instructions Recorded atorvastatin 20 mg tablet 20 mg PO HS #90 tab 11/22/19 omeprazole 20 mg capsule,delayed 20 mg PO QAM #90 cap 11/22/19 release escitalopram oxalate 10 mg tablet 10 mg PO QAM #90 tab 12/18/19 levothyroxine 112 mcg tablet 112 mcg PO QAM #30 tab 01/01/20 Results & Data (ED) Vital Signs Vital Signs - 24 hr 04/29/20 14:04 04/29/20 14:56 04/29/20 15:16 Temperature 36.9 C Temperature Source Oral Pulse Rate 97 H Pulse Rate [Apical] 80 Pulse Rhythm Regular Pulse Strength Normal Respiratory Rate 18 18 Respiratory Effort / Characteristics Non-Labored Spontaneous Respiratory Depth Normal Respiratory Pattern Regular Blood Pressure 198/93 H Blood Pressure [Left Arm] 166/78 H Blood Pressure Mean 128 Blood Pressure Mean [Left Arm] 107 Blood Pressure Position Sitting Pulse Oximetry 96 96 97 Oxygen Delivery Method Room Air Room Air Room Air Oxygen Flow Rate Sepsis Recent Fever Within 48 Hours No Sepsis New/Unexplained Change in Mental Status No Sepsis Action Taken by Nursing No Action Required 04/29/20 17:00 Temperature Temperature Source Pulse Rate Pulse Rate [Apical] 92 H Pulse Rhythm Pulse Strength Respiratory Rate 18 Respiratory Effort / Characteristics Respiratory Depth Respiratory Pattern Blood Pressure Blood Pressure [Left Arm] 171/102 H Blood Pressure Mean Blood Pressure Mean [Left Arm] 125 Blood Pressure Position Pulse Oximetry 95 Oxygen Delivery Method Nasal Cannula Oxygen Flow Rate 2 Sepsis Recent Fever Within 48 Hours Sepsis New/Unexplained Change in Mental Status Sepsis Action Taken by Nursing Laboratory Data Result diagrams: 04/29/20 15:22 04/29/20 15:22 Lab Results 04/29/20 04/29/20 Range/Units 15:22 15:22 WBC 8.39 (4.8-10.8) K/uL RBC 4.21 (4.2-5.4) M/uL Hgb 14.8 (12.0-16.0) g/dL Hct 44.0 (37-47) % MCV 104.5 H (80-100) fL MCH 35.2 H (25-34) pg MCHC 33.6 (32-36) g/dL RDW Std Deviation 51.9 H (36.4-46.3) fL RDW Coeff of Alan 13.6 (11.5-14.5) % Plt Count 207 (130-400) K/uL MPV 10.1 (7.4-10.4) fL Immature Gran % (Auto) 0.2 % Neut % (Auto) 81.8 % Lymph % (Auto) 12.5 % [place] % (Auto) 4.1 % Eos % (Auto) 1.0 % Baso % (Auto) 0.4 % Immature Gran # (Auto) 0.02 (0.00-0.02) K/uL Neut # (Auto) 6.87 H (1.4-6.5) K/uL Lymph # (Auto) 1.05 L (1.2-3.4) K/uL [place] # (Auto) 0.34 (0.11-0.59) K/uL Eos # (Auto) 0.08 (0-0.5) K/uL Baso # (Auto) 0.03 (0-0.2) K/uL Sodium 138 (136-145) mmol/L Potassium 3.5 (3.5-5.1) mmol/L Chloride 104 (98-107) mmol/L Carbon Dioxide 27 (21-32) mmol/L Anion Gap 8.0 (3-11) BUN 10 (7-18) mg/dl Creatinine 0.90 (0.6-1.2) mg/dl Est Cr Clr Drug Dosing 67.0 ml/min Est GFR ( Amer) 73.5 Est GFR (Non-Af Amer) 63.4 BUN/Creatinine Ratio 11.4 (10-20) Glucose 109 H (70-99) mg/dl Calcium 9.1 (8.5-10.1) mg/dl Total Bilirubin 0.7 (0.2-1) mg/dl AST 16 (15-37) U/L ALT 21 (12-78) U/L Alkaline Phosphatase 78 (45-117) U/L Total Protein 7.3 (6.4-8.2) gm/dl Albumin 3.8 (3.4-5.0) gm/dl Globulin 3.5 (2.5-4.0) gm/dl Albumin/Globulin Ratio 1.1 (0.9-2) Lipase 86 (73-393) U/L Administered Medications Hydromorphone HCl (Dilaudid) 0.5 mg IV Q15M PRN PRN Reason: Pain Stop: 05/13/20 15:11 Last Admin: 04/29/20 18:33 Dose: 0.5 mg Documented by: [id number] Admin: 04/29/20 15:27 Dose: 0.5 mg Documented by: [id number] Sodium Chloride (Nss 1000ml) 1,000 mls @ 125 mls/hr IV .Q8H STA Stop: 04/29/20 23:11 Last Admin: 04/29/20 15:28 Dose: 125 mls/hr Documented by: [id number] Discontinued Medications Ondansetron HCl (Zofran) 4 mg IV NOW STA Stop: 04/29/20 15:13 Last Admin: 04/29/20 15:28 Dose: 4 mg Documented by: [id number] Discharge Plan Visit Data Chief Complaint: Abdominal Pain Stated Complaint: ABD PAIN,COUGH,VOMITING,SOB,CONSTIPATION ED Provider: Karl Brothers Discharge Problem: Colonic obstruction, Abdominal pain, lower, Nausea & vomiting Forms Stand Alone Forms: [facility] [employer] Prescriptions Prescriptions: No Action atorvastatin 20 mg tablet 20 mg PO HS Qty: 90 RF: 3 omeprazole 20 mg capsule,delayed release(DR/EC) 20 mg PO QAM Qty: 90 RF: 3 escitalopram oxalate 10 mg tablet 10 mg PO QAM Qty: 90 RF: 3 levothyroxine 112 mcg tablet 112 mcg PO QAM Qty: 30 RF: 11 aspirin [Aspir-81] 81 mg Tablet,Delayed Release (Dr/Ec) 81 mg PO QAM RF: 0 ibuprofen 200 mg Tablet 200 mg PO TID PRN (Reason: Pain) RF: 0 albuterol sulfate [Ventolin HFA] 90 mcg/actuation HFA aerosol inhaler 2 puff inhalation QID PRN (Reason: Shortness Of Breath) RF: 0 levothyroxine 125 mcg tablet 125 mcg PO QAM RF: 0 oxybutynin chloride 5 mg tablet extended release 24hr 5 mg PO QAM RF: 0 lisinopril 40 mg tablet 40 mg PO QAM RF: 0
[2020-04-29] MEDS: D5NSS + 20MEQ KCL 20 MEQ/1,000 ML BAG IV SCH (20:23)
[2020-04-29] MEDS ORDERED: LORazepam 1 MG TAB PO PRN (20:46)
[2020-04-29] MEDS ORDERED: ENALAPRILAT 0.625 MG in SYRINGE 9.5 ML IV PRN (20:46)
[2020-04-29] MEDS ORDERED: GABAPENTIN 400 MG CAP PO ONE (20:46)
[2020-04-29] MEDS ORDERED: ACETAMINOPHEN 1000 MG/100 ML IV IV PRN (20:46)
[2020-04-29] MEDS ORDERED: ONDANSETRON INJ 2 MG/ML 2 ML VIAL IV PRN (20:46)
[2020-04-29] MEDS ORDERED: GABAPENTIN 800MG ALCOHOL WITHDRAWAL LOAD PO STA (20:46)
[2020-04-29] MEDS ORDERED: HYDROmorphone INJ 0.5 MG/0.5 ML SYR IV PRN (20:46)
[2020-04-29] MEDS ORDERED: THIAMINE HCL 200 MG in SYRINGE 9 ML IV SCH (21:00)
[2020-04-29] MEDS: HydrALAZINE HCL 20 MG/ML VIAL IV SCH (21:27)
[2020-04-29] MEDS: ALBUT/IPRATROP 3MG/0.5MG NEB 3 ML VIAL NEB SCH (21:30)
[2020-04-29] MEDS: FOLIC ACID 1 MG in SYRINGE 9.8 ML IV SCH (21:36)
[2020-04-29] MEDS: THIAMINE HCL 200 MG in SODIUM CHLORIDE 0.9% 50 ML IV SCH (21:37)
[2020-04-29] MEDS ORDERED: SOD PHOSPHATE/SOD BIPHOSPHATE ENEMA 132 ML BTL PR STA (21:52)
[2020-04-30 03:33] LABS: Appearance Urine Turbid (Clear); Bacteria Urine Automated 2+ (Negative); Blood Urine 3+ (Negative); Color Urine Dark Yellow; Epithelial Cell Urine Auto >30 /lpf (0-5); Glucose Urine UA Negative (Negative); Ketones Urine Negative (Negative); Leukocyte Esterase Urine Trace (Negative); Nitrite Urine Negative (Negative); Protein Urine 2+ (Negative); Specific Gravity Urine 1.025 (1.000-1.030); Urobilinogen Urine Negative (Negative); WBC Urine Automated >30 /hpf (0-5); pH Urine 5.5 (4.5-7.5)
[2020-04-30 03:46] LABS: Bilirubin Urine Negative (Negative); Ictotest Urine Negative (Negative)
[2020-04-30 03:48] LABS: Mucus Urine Present (None Prsent)
[2020-04-30] MEDS: HydrALAZINE HCL 20 MG/ML VIAL IV SCH ×3 (06:21→21:00)
[2020-04-30] MEDS: D5NSS + 20MEQ KCL 20 MEQ/1,000 ML BAG IV SCH (06:22)
[2020-04-30] MEDS: GABAPENTIN 400 MG CAP PO SCH ×3 (06:22→20:52)
--- NOTE | 2020-04-30 06:57 | Surgery Consultation ---
Date of Consultation April 30, 2020 Assessment & Plan (1) Abdominal pain, lower: waiting for gi evaluation no acute abd issues at this time Patient was taken for colonoscopy yesterday unable to do because of respiratory compromise May consider repeating colonoscopy under general anesthesia but I will leave that decision to GI At this point there is no acute evidence that surgical intervention is needed unless she would develop more abdominal distention and more proximal colonic distention We will follow along with you History of Present Illness Reason for Consultation: Abdominal pain sigmoid obstruction Attending Physician: Douglas Ceja History of Present Illness This 75-year-old female with significant past medical history including hypertension COPD alcohol and tobacco abuse is at approximate 1 week history of abdominal pain with associated emesis and no bowel movement for approximately 3 days was evaluated by CT scan which showed an obstructing lesion in the sigmoid colon not sure if this may be a stool plug or diverticular or a malignancy Allergies Allergy/AdvReac Type Severity Reaction Status Date / Time No Known Allergies Allergy Unknown Verified 04/29/20 17:04 Home Medications Home Medications Medication Instructions Recorded Confirmed Type albuterol sulfate [Ventolin HFA] 2 puff INHALATION QID PRN 03/21/19 04/29/20 History aspirin [Aspir-81] 81 mg PO QAM 03/21/19 04/29/20 History ibuprofen 200 mg PO TID PRN 03/21/19 04/29/20 History lisinopril 40 mg PO QAM 07/13/19 04/29/20 History atorvastatin 20 mg tablet 20 mg PO HS #90 tab 11/22/19 04/29/20 Rx omeprazole 20 mg capsule,delayed 20 mg PO QAM #90 cap 11/22/19 04/29/20 Rx release escitalopram oxalate 10 mg tablet 10 mg PO QAM #90 tab 12/18/19 04/29/20 Rx levothyroxine 125 mcg PO QAM 04/29/20 04/29/20 History oxybutynin chloride 5 mg PO QAM 04/29/20 04/29/20 History Patient History Medical History Diverticulitis (Inactive 2017) Graves disease (Chronic) treated with radiation Hematuria, microscopic Hypertension (Chronic) Hyperthyroidism Mixed hearing loss, bilateral (Inactive) Psoriasis (Inactive) Surgical History History of tonsillectomy History of tubal ligation History of vaginal hysterectomy Family History Mother Ovarian cancer Father Myocardial infarction Denies family history of Colorectal cancer Social History (Updated 04/29/20 @ 18:26 by Douglas Ceja) Preferred Language: Welsh Communication Ability: Effective Visual Impairment: No Limitations Hearing Ability: Normal Police Pilot Required: No Beliefs That Will Affect Care: None marital status: Current Living Situation: Spouse current occupational status: retired Other Information That Helps Us Care for You: 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 Feels Safe at Home: Yes Safety Concerns: Feels Safe At This Time Smoking Status: Current every day smoker Tobacco Type: cigarettes ; Age Started Using Tobacco: 22 ; packs per day: 2 ; Cigarettes Per Day: 40 ; Hx Alcohol Use: Yes Alcohol type: beer and hard liquor Alcohol Intake Frequency: Daily Hx Substance Use: No Physical Exam Physical Exam: She was alert obese in no distress complaining some abdominal pain Eyes: PERRL, conjunctivae normal, anicteric sclerae ENMT: external ear and nose normal, oropharynx normal Neck: trachea midline, no thyromegaly Respiratory: normal respiratory effort, lungs clear to auscultation Cardiovascular: RRR, no murmur, no edema Rate/Rhythm: regular rate Gastrointestinal (Abdomen): The abdomen is prominent due to her weight there is no localized tenderness she has some generalized guarding Results & Data Vital Signs (Past 12 Hours) Vital Signs Temp Pulse Pulse Pulse Resp BP BP 04/30/20 05:05 36.8 C 90 18 124/72 04/30/20 00:32 95 H 04/30/20 00:14 36.8 C 98 H 20 168/75 H 04/29/20 21:30 90 18 04/29/20 20:46 106 H 04/29/20 20:44 36.5 C 102 H 20 148/93 H 04/29/20 20:01 24 144/83 H 04/29/20 19:18 22 178/111 H Pulse Ox 04/30/20 05:05 95 04/30/20 00:32 04/30/20 00:14 92 04/29/20 21:30 92 04/29/20 20:46 04/29/20 20:44 92 04/29/20 20:01 90 04/29/20 19:18 90 PG Care Time/CCT Total # of Minutes Spent Total Time Spent with Patient: Total time spent is greater than 50% in coordination of care (as documented) at patient's floor/unit and/or counseling patient: Coding Level of Care Code 21890 Inpt Consult Level 4 Diagnoses Abdominal pain, lower R10.30
[2020-04-30 07:00] LABS: Hemoglobin 13.4 g/dL (12.0-16.0); Mean Corpuscular Hemoglobin 35.3 pg (25-34); Mean Corpuscular Hgb Conc 33.5 g/dL (32-36); Mean Corpuscular Volume 105.3 fL (80-100); Mean Platelet Volume 10.1 fL (7.4-10.4); Platelet Count 189 K/uL (130-400); RDW Coefficient of Variation 13.7 % (11.5-14.5); RDW Standard Deviation 52.6 fL (36.4-46.3); White Blood Count 9.36 K/uL (4.8-10.8)
[2020-04-30] MEDS ORDERED: SOD PHOSPHATE/SOD BIPHOSPHATE ENEMA 132 ML BTL PR ONE (07:00)
[2020-04-30] MEDS: ALBUT/IPRATROP 3MG/0.5MG NEB 3 ML VIAL NEB SCH ×4 (07:03→19:47)
[2020-04-30 07:32] LABS: BUN Creatinine Ratio 12.6 (10-20); Calcium 7.9 mg/dl (8.5-10.1); Est GFR (African American) 78.8; Magnesium 2.1 mg/dl (1.8-2.4); Potassium 3.3 mmol/L (3.5-5.1)
[2020-04-30 07:43] LABS: Thyroid Stimulating Hormone 4.46 uIu/ml (0.300-4.500)
--- NOTE | 2020-04-30 07:56 | Hospitalist Progress Note ---
Date of Service April 30, 2020 Assessment & Plan (1) Acute and chronic respiratory failure: Patient certainly has a baseline of COPD with extensive smoking history. Patient developed some lethargy and tachypnea with escalating hypoxia prior to endoscopy and any anesthesia given. Patient was rescued with BiPAP was transferred to telemetry unit given Solu-Medrol and ABG was obtained as well as a chest x-ray. In case symptoms were cardiogenic that she does have a pleuritic chest pain associated with that troponin EKG will also be obtained. Patient be continued on DuoNeb therapy. (2) Colonic obstruction: CT 04/30/20 IMPRESSION: 1. Findings are consistent with a distal colonic obstruction at the junction between the descending colon/sigmoid. This could be related to stricture or obstructing stool. Underlying mass lesion would be impossible to exclude 2. There is wall thickening with pericolonic inflammation identified involving the majority of the colon. This could related to obstruction or possibly an associated colitis. Clinical correlation will be required. 3. The small bowel loops are normal in caliber. No intraperitoneal free air is seen. 4. There is moderate diverticulosis of the sigmoid colon without CT evidence of acute diverticulitis. 5. Moderate hiatal hernia Consult Dr Rooney from GI -unable to perform sigmoidoscopy today. Consideration would be to do an operative study involving general surgery coordination. Given concerns for inflammation associate with this mass antibiotics will be begun, these also serves to treat any bronchitis or infectious component for COPD. Zosyn was chosen Consult Dr Pichardo from gen surg. (3) Hypothyroidism: TSH minimally elevated 12/2019. repeat TSH am. Give levothyroxine IV at 1/2 the usual PO dose. 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 start on alcohol withdrawal protocol with gabapentin scheduled and PO ativan prn. thiamine 200mg IV BID. folic acid 1mg IV daily. place on telemetry. (6) COPD (chronic obstructive pulmonary disease): (7) Hypertension: place on scheduled hydralazine TID. enalapril IV prn for high systolics. treat abdominal pain. hold PO BP meds. (8) GERD (gastroesophageal reflux disease): IV PPI once daily (9) DVT prophylaxis: SCDs will be used Admission and Anticipated Discharge Date Admission Date: April 29, 2020 Subjective pt was complaining of pleuritic chest pain that was associated with a non productive cough and feeling of shortness of breath along with abdominal distension later while in endoscopy she developed acute respiratory failure and lethargy cancelling the colonoscopy that was to be done for colonic obstruction Review of Systems Review of Systems: Moderate respiratory distress and fatigue no headache, blurry or double vision no speech or swallowing issues Pleuritic chest pain, but no pressure or palpitations Significant shortness of breath nonproductive cough no wheezes accessory muscle use no abdominal pain, nausea or vomiting, diarrhea or constipation no dysuria, hematuria or frequency no focal joint pain or swelling no back pain, CVA tenderness or radicular pain no bruising, bleeding or rashes no focal signs of weakness or numbness or altered sensation no complaints or anxiety or depression. Physical Exam Physical Exam: The patient appeared moderate respiratory distress Vital signs as documented. Tachypneic pursed lip breathing's accessory muscle use Head exam is normocephalic atraumatic no scleral icterus Neck is without JVD, thyromegaly, or carotid bruits. Lungs are diminished breath sounds throughout Cardiac exam, tachycardic but regular Abdominal exam reveals hypoactive bowel sounds, tympanitic and distended no focal tenderness no rebound Extremities are nonedematous and both pedal pulses are normal. Neurologic exam is alert but lethargic, no focal loss of strength or sensation Skin is without bruises or rashes Psychologically is unable to be assessed due to lethargy Results & Data Results & Data ([facility]) Vital Signs (Past 12 Hours) Vital Signs Temp Pulse Pulse Pulse Resp BP BP 04/30/20 07:07 94 H 104 H 18 04/30/20 05:05 98.2 F 90 18 124/72 04/30/20 00:32 95 H 04/30/20 00:14 98.2 F 98 H 20 168/75 H 04/29/20 21:30 90 18 04/29/20 20:46 106 H 04/29/20 20:44 97.7 F 102 H 20 148/93 H 04/29/20 20:01 24 144/83 H Pulse Ox 04/30/20 07:07 90 04/30/20 05:05 95 04/30/20 00:32 04/30/20 00:14 92 04/29/20 21:30 92 04/29/20 20:46 04/29/20 20:44 92 04/29/20 20:01 90 PG Care Time/CCT Total # of Minutes Spent Total Time Spent with Patient: Total time spent is greater than 50% in coordination of care (as documented) at patient's floor/unit and/or counseling patient: Coding Level of Care Code 90167 Subseq Hosp Care Lvl 3 Diagnoses Acute and chronic respiratory failure J96.20 Colonic obstruction K56.609 Hypothyroidism E03.9 Hypothyroidism type: acquired Tobacco dependence F17.200 Alcohol dependence F10.20 Substance use status: uncomplicated COPD (chronic obstructive pulmonary disease) J44.9 COPD type: unspecified COPD Hypertension I10 Hypertension type: essential hypertension GERD (gastroesophageal reflux disease) K21.9 Esophagitis presence: esophagitis presence not specified DVT prophylaxis Z29.9 (1) Alcohol dependence Substance use status: uncomplicated Qualified Code(s): F10.20 - Alcohol dependence, uncomplicated (2) Hypothyroidism Hypothyroidism type: acquired Qualified Code(s): E03.9 - Hypothyroidism, unspecified (3) COPD (chronic obstructive pulmonary disease) COPD type: unspecified COPD Qualified Code(s): J44.9 - Chronic obstructive pulmonary disease, unspecified (4) GERD (gastroesophageal reflux disease) Esophagitis presence: esophagitis presence not specified Qualified Code(s): K21.9 - Gastro-esophageal reflux disease without esophagitis (5) Hypertension Hypertension type: essential hypertension Qualified Code(s): I10 - Essential (primary) hypertension
[2020-04-30] MEDS ORDERED: POTASSIUM CHLORIDE 10 MEQ / 100ML WTR IV STA (08:00)
[2020-04-30] MEDS ORDERED: MAGNESIUM SULFATE / D5W 1 GM/100 ML BAG IV ONE (08:30)
[2020-04-30] MEDS: NICOTINE 21 MG/24 HR TDSY TD SCH (08:39)
[2020-04-30] MEDS: ESCITALOPRAM OXALATE 10 MG TAB PO SCH (08:40)
[2020-04-30] MEDS: THIAMINE HCL 200 MG in SODIUM CHLORIDE 0.9% 50 ML IV SCH ×2 (08:46→20:52)
[2020-04-30] MEDS ORDERED: ENOXAPARIN INJ 40 MG/0.4 ML SYR SQ SCH ×2 (09:00→18:00)
[2020-04-30] MEDS ORDERED: SOD PHOSPHATE/SOD BIPHOSPHATE ENEMA 132 ML BTL PR STA (09:10)
--- NOTE | 2020-04-30 09:24 | Gastrointestinal Consultation ---
Date of Consultation April 30, 2020 Assessment & Plan (1) Colonic obstruction: -Keep NPO -2 fleet enemas this AM -Colonoscopy today for further assessment -Further recommendations pending results of testing Thank you for allowing us to participate in the care of this patient. If you should have any further questions or concerns, do not hesitate to contact us at extension [phone] or [phone]. Present on Admission?: Yes Supervising Physician Co-Signing Physician Notes Agree with LUZ MARIA Torres Abd: Soft, NT, ND Proceed with Flex Sig today History of Present Illness Reason for Consultation: Colonic obstruction Attending Physician: Nilay Rodriguez MD History of Present Illness Patient is a 75 year old female who presented to [facility] with abdominal pain in the lower abdomen that has been ongoing for over 1 week. She reports that she was struggling with constipation and it worsened dramatically yesterday. The patient also notes the following associated sympt oms, nausea and vomiting. She does not take any medication at home for constipation. She reports recent medication changes to her thyroid meds. Her Current pain is rated as 4/10. She reports she has never had a colonoscopy but has completed "stool cards" in the past. She denies family history of GI malignancy. She reports that she has not had any rectal bleeding. She cannot recall the last bowel movement she had. She has a chronic cough and reports she has COPD. She denies any new respiratory symptoms. In the ED, she was found to have CT findings of a distal colonic obstruction between the descending and sigmoid colon. It is unclear if this is auto service representative of stricturing or stool. There was also wall-thickening throughout the colon. Her CBC & metabolic panel are unremarkable. Allergies Allergy/AdvReac Type Severity Reaction Status Date / Time No Known Allergies Allergy Unknown Verified 04/29/20 17:04 Home Medications Home Medications Medication Instructions Recorded Confirmed Type albuterol sulfate [Ventolin HFA] 2 puff INHALATION QID PRN 03/21/19 04/29/20 History aspirin [Aspir-81] 81 mg PO QAM 03/21/19 04/29/20 History ibuprofen 200 mg PO TID PRN 03/21/19 04/29/20 History lisinopril 40 mg PO QAM 07/13/19 04/29/20 History atorvastatin 20 mg tablet 20 mg PO HS #90 tab 11/22/19 04/29/20 Rx omeprazole 20 mg capsule,delayed 20 mg PO QAM #90 cap 11/22/19 04/29/20 Rx release escitalopram oxalate 10 mg tablet 10 mg PO QAM #90 tab 12/18/19 04/29/20 Rx levothyroxine 125 mcg PO QAM 04/29/20 04/29/20 History oxybutynin chloride 5 mg PO QAM 04/29/20 04/29/20 History Patient History Medical History Diverticulitis (Inactive 2017) Graves disease (Chronic) treated with radiation Hematuria, microscopic Hypertension (Chronic) Hyperthyroidism Mixed hearing loss, bilateral (Inactive) Psoriasis (Inactive) Surgical History History of tonsillectomy History of tubal ligation History of vaginal hysterectomy Family History Mother Ovarian cancer Father Myocardial infarction Denies family history of Colorectal cancer Social History (Updated 04/29/20 @ 18:26 by Douglas Ceja) Preferred Language: Greek Communication Ability: Effective Visual Impairment: No Limitations Hearing Ability: Normal Maid Cleaning Cooking Required: No Beliefs That Will Affect Care: None marital status: Current Living Situation: Spouse current occupational status: retired Other Information That Helps Us Care for You: 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 Feels Safe at Home: Yes Safety Concerns: Feels Safe At This Time Smoking Status: Current every day smoker Tobacco Type: cigarettes ; Age Started Using Tobacco: 22 ; packs per day: 2 ; Cigarettes Per Day: 40 ; Hx Alcohol Use: Yes Alcohol type: beer and hard liquor Alcohol Intake Frequency: Daily Hx Substance Use: No Review of Systems Constitutional: no fever and no chills Eyes: no problem reported Ear, Nose, Mouth, Throat: no problem reported Respiratory: + cough; no dyspnea Cardiovascular: no chest pain Gastrointestinal: + abdominal pain, + change in bowel habits and + constipation; no diarrhea/loose stools and no blood in stools Musculoskeletal: no problem reported Integumentary: no rash Neurologic: no generalized weakness Psychiatric: no problem reported Physical Exam Constitutional: WD/WN, vitals as above Eyes: PERRL, conjunctivae normal, anicteric sclerae ENMT: external ear and nose normal, oropharynx normal Neck: normal visual inspection Respiratory: normal respiratory effort, lungs clear to auscultation Cardiovascular: RRR, no murmur, no edema Gastrointestinal (Abdomen): Inspection/Auscultation: + abdomen distended and + hypoactive bowel sounds Percussion/Palpation: + abdomen tender Musculoskeletal: Head/Neck/Chest: normocephalic Skin: no rashes, warm and dry Neurologic: Speech / Cognition: normal speech Psychiatric: Orientation: alert and oriented x 3 Results & Data ([facility]) Vital Signs (Past 12 Hours) Vital Signs Temp Pulse Pulse Resp BP Pulse Ox 04/30/20 07:25 36.7 C 105 H 22 132/78 88 L 04/30/20 07:07 94 H 104 H 18 90 04/30/20 05:05 36.8 C 90 18 124/72 95 04/30/20 00:32 95 H 04/30/20 00:14 36.8 C 98 H 20 168/75 H 92 04/29/20 21:30 90 18 92 PG Care Time/CCT Total # of Minutes Spent Total Time Spent with Patient: Total time spent is greater than 50% in coordination of care (as documented) at patient's floor/unit and/or counseling patient: Coding Level of Care Code 29074 Initial Inpt Care Lvl 3 Diagnoses Colonic obstruction K56.609
[2020-04-30] MEDS: LEVOTHYROXINE SODIUM 62.5 MCG in SYRINGE 0 ML IV SCH (10:03)
[2020-04-30] MEDS: PANTOprazole 40 MG in SYRINGE 0 ML IV SCH (11:05)
[2020-04-30] MEDS: FOLIC ACID 1 MG in SYRINGE 9.8 ML IV SCH (11:05)
[2020-04-30] MEDS: POTASSIUM CHLORIDE / WTR 10 MEQ/100 ML PLCT IV SCH ×3 (11:05→14:38)
[2020-04-30] MEDS ORDERED: ATROPINE SULFATE 0.1 MG/ML 10ML SYR IV PRN (12:27)
[2020-04-30] MEDS ORDERED: ePHEDrine sulfate 50 MG/ML AMP IV PRN (12:27)
--- NOTE | 2020-04-30 12:27 | Anesthesiology Consultation ---
Date of Service April 30, 2020 Assessment & Plan ASA ASA4E Proposed Anesthesia Anesthesia Type: MAC Risk / Benefits Reviewed With: PT / POA / Parent / Guardian, Accepts Plan and Informed Consent Obtained Additional Comments: pt with an acute COPD exacerbation. Pt cannot wait for this to be resolved because of potential bowel obstruction. I consulted with Dr. Rooney about this urgency History Surgery Operation Date: 04/30/20 16:55 Proposed Procedures p Colonoscopy Dr. Toribio Rooney, DO Height/Weight Height: 5 ft 6 in Weight: 101.8 kg Allergies Allergy/AdvReac Type Severity Reaction Status Date / Time No Known Allergies Allergy Unknown Verified 04/29/20 17:04 Medications Home Medications Medication Instructions Recorded Confirmed Last Taken albuterol sulfate [Ventolin HFA] 2 puff INHALATION QID PRN 03/21/19 04/29/20 04/28/20 aspirin [Aspir-81] 81 mg PO QAM 03/21/19 04/29/20 04/28/20 ibuprofen 200 mg PO TID PRN 03/21/19 04/29/20 04/29/20 08:00 400 mg lisinopril 40 mg PO QAM 07/13/19 04/29/20 04/28/20 atorvastatin 20 mg tablet 20 mg PO HS #90 tab 11/22/19 04/29/20 04/28/20 omeprazole 20 mg capsule,delayed 20 mg PO QAM #90 cap 11/22/19 04/29/20 04/28/20 release escitalopram oxalate 10 mg tablet 10 mg PO QAM #90 tab 12/18/19 04/29/20 04/28/20 levothyroxine 125 mcg PO QAM 04/29/20 04/29/20 04/28/20 oxybutynin chloride 5 mg PO QAM 04/29/20 04/29/20 04/28/20 Active Medications Generic Name Dose Route Start Last Admin Trade Name Freq PRN Reason Stop Dose Admin Albuterol 3 ml 04/29/20 20:46 04/30/20 10:55 Duoneb NEB 05/29/20 20:45 3 ml QIDR HARJEET Administration Escitalopram Oxalate 10 mg 04/30/20 09:00 04/30/20 08:40 Lexapro Tab PO 05/30/20 08:59 10 mg QAM HARJEET Administration Hydralazine HCl 5 mg 04/29/20 22:00 04/30/20 06:21 Hydralazine Hcl IV 05/29/20 21:59 5 mg Q8 HARJEET Administration Hydromorphone HCl 0.25 mg 04/29/20 20:46 04/29/20 21:28 Dilaudid IV 05/13/20 20:45 0.25 mg Q4H PRN Administration Pain Potassium Chloride/Dextrose/Sod Cl 20 meq in 1,000 mls @ 100 mls/hr 04/29/20 19:00 04/30/20 06:22 D5nss + 20meq Kcl IV 05/29/20 18:59 100 mls/hr .Q10H HARJEET Administration Levothyroxine Sodium 62.5 mcg/ 3.125 mls @ 2 mls/min 04/30/20 09:00 04/30/20 10:03 Syringe IV 05/30/20 08:59 2 mls/min DAILY@0900 HARJEET Administration Folic Acid 1 mg/ Syringe 10 mls @ 5 mls/min 04/29/20 21:00 04/30/20 11:05 IV 05/29/20 20:59 5 mls/min QAM HARJEET Administration Pantoprazole Sodium 40 mg/ 10 mls @ 5 mls/min 04/30/20 11:00 04/30/20 11:05 Syringe IV 05/30/20 10:59 5 mls/min DAILY@1100 HARJEET Administration Thiamine HCl 200 mg/ Sodium 52 mls @ 210 mls/hr 04/29/20 21:00 04/30/20 10:06 Chloride IV 05/29/20 20:59 Infused BID HARJEET Infusion Miscellaneous 1 ea 04/30/20 08:59 04/30/20 08:57 Remove Nicoderm Patch N/A 05/30/20 08:58 Not Given DAILY@0859 HARJEET Nicotine 21 mg 04/30/20 09:00 04/30/20 08:39 Nicoderm Cq TD 05/30/20 08:59 21 mg QAM HARJEET Administration Ondansetron HCl 4 mg 04/29/20 20:46 04/29/20 21:27 Zofran IV 05/29/20 20:45 4 mg Q6H PRN Administration Nausea Past Medical History Medical History Diverticulitis (Inactive 2017) Graves disease (Chronic) treated with radiation Hematuria, microscopic Hypertension (Chronic) Hyperthyroidism Mixed hearing loss, bilateral (Inactive) Psoriasis (Inactive) Exercise / Class Metabolic Activity II 4-5 Yardwork/Stairs/Walk up hill Past Family History Family History Mother Ovarian cancer Father Myocardial infarction Denies family history of Colorectal cancer Past Surgical History Surgical History History of tonsillectomy History of tubal ligation History of vaginal hysterectomy Past Anesthesia History No Hx of Anesthesia Complications and No Family Hx of Anesthesia Complications History of PONV No Hx of PONV and No Hx of Motion Sickness Social History Smoking Status: Current every day smoker tobacco type: cigarettes Smoking cigarettes per day: 40 Hx Alcohol Use: Yes Alcohol type: beer and hard liquor alcohol intake frequency: 0-2 drinks per day Hx Substance Use: No Review of Systems denies fever/cough/ chest pain/ GREGORY positive cough/SOB Constitutional: no fever and no chills Respiratory: + cough; no dyspnea denies GREGORY Cardiovascular: + dyspnea on exertion; no chest pain Physical Exam Vital Signs Last Vital Signs Temp 36.7 C 04/30/20 07:25 Pulse 99 H 04/30/20 10:59 Resp 20 04/30/20 10:59 BP 132/78 04/30/20 07:25 Pulse Ox 90 04/30/20 10:59 ENMT Mouth: + edentulous; no TMJ abnormality and no dentition abnormality Thyromental Distance: > or= 3.5 Finger Breadths Mallampati Class: II Neck neck extension not limited Respiratory normal respiratory effort, + uses accessory muscles, + cough and + audible wheezes; no respiratory distress Cardiovascular Rate/Rhythm: regular rate and regular rhythm Neurologic moves all extremities Psychiatric Orientation: alert and oriented x 3 Testing Laboratory Results 04/30/20 06:43 04/30/20 06:43 Urine Color Dark Yellow 04/30/20 03:05 Urine Appearance Turbid (Clear) A 04/30/20 03:05 Urine pH 5.5 (4.5-7.5) 04/30/20 03:05 Ur Specific [place] 1.025 (1.000-1.030) 04/30/20 03:05 Urine Protein 2+ (Negative) H 04/30/20 03:05 Urine Glucose (UA) Negative (Negative) 04/30/20 03:05 Urine Ketones Negative (Negative) 04/30/20 03:05 Urine Nitrite Negative (Negative) 04/30/20 03:05 Ur Leukocyte Esterase Trace (Negative) H 04/30/20 03:05 Urine WBC (Auto) >30 /hpf (0-5) H 04/30/20 03:05 Urine RBC (Auto) 10-30 /hpf (0-4) H 04/30/20 03:05 U Hyaline Cast (Auto) 10-30 /lpf (0-5) H 04/30/20 03:05 U Epithel Cells (Auto) >30 /lpf (0-5) H 04/30/20 03:05 Urine Bacteria (Auto) 2+ (Negative) H 04/30/20 03:05
[2020-04-30] MEDS ORDERED: MIDAZOLAM HCL 1 MG/ML 2ML VIAL ONE (12:34)
--- NOTE | 2020-04-30 12:54 | Anesthesiology Progress Note ---
Date of Service April 30, 2020 Subjective Pt was saturating 90% on 2L O2 in holding. When she came to the procedure room and laid flat her saturation was 67% on 2L. Pt had increase RR and tachycardic. Pt placed on simple mask and 10L o2 saturations improved to 92%. Still increased work of breating, RR, and tachycardia. Procedure canceled. Contacted her hospitalist and ordered Bipap and ABG. will monitor for respiratory failure. Physical Exam Vital Signs: Last Vital Signs Temp 36.8 C 04/30/20 12:04 Pulse 102 H 04/30/20 12:04 Resp 24 04/30/20 12:04 BP 177/84 H 04/30/20 12:04 Pulse Ox 89 L 04/30/20 12:04 Results & Data Medications Administered Albuterol (Duoneb) 3 ml NEB QIDR HARJEET Stop: 05/29/20 20:45 Last Admin: 04/30/20 10:55 Dose: 3 ml Documented by: [id number] Admin: 04/30/20 07:03 Dose: 3 ml Documented by: [id number] Admin: 04/29/20 21:30 Dose: 3 ml Documented by: [id number] Escitalopram Oxalate (Lexapro Tab) 10 mg PO QAM HARJEET Stop: 05/30/20 08:59 Last Admin: 04/30/20 08:40 Dose: 10 mg Documented by: [id number] Hydralazine HCl (Hydralazine Hcl) 5 mg IV Q8 HARJEET Stop: 05/29/20 21:59 Last Admin: 04/30/20 06:21 Dose: 5 mg Documented by: [id number] Admin: 04/29/20 21:27 Dose: 5 mg Documented by: [id number] Hydromorphone HCl (Dilaudid) 0.25 mg IV Q4H PRN PRN Reason: Pain Stop: 05/13/20 20:45 Last Admin: 04/29/20 21:28 Dose: 0.25 mg Documented by: [id number] Potassium Chloride/Dextrose/Sod Cl (D5nss + 20meq Kcl) 20 meq in 1,000 mls @ 100 mls/hr IV .Q10H HARJEET Stop: 05/29/20 18:59 Last Admin: 04/30/20 06:22 Dose: 100 mls/hr Documented by: [id number] Infusion: 04/30/20 06:22 Dose: 100 mls/hr Documented by: [id number] Admin: 04/29/20 20:23 Dose: 100 mls/hr Documented by: [id number] Levothyroxine Sodium 62.5 mcg/ (Syringe) 3.125 mls @ 2 mls/min IV DAILY@0900 [facility] Stop: 05/30/20 08:59 Last Admin: 04/30/20 10:03 Dose: 2 mls/min Documented by: [id number] Folic Acid 1 mg/ Syringe 10 mls @ 5 mls/min IV QAM [facility] Stop: 05/29/20 20:59 Last Admin: 04/30/20 11:05 Dose: 5 mls/min Documented by: [id number] Admin: 04/29/20 21:36 Dose: 5 mls/min Documented by: [id number] Pantoprazole Sodium 40 mg/ (Syringe) 10 mls @ 5 mls/min IV DAILY@1100 [facility] Stop: 05/30/20 10:59 Last Admin: 04/30/20 11:05 Dose: 5 mls/min Documented by: [id number] Thiamine HCl 200 mg/ Sodium (Chloride) 52 mls @ 210 mls/hr IV BID [facility] Stop: 05/29/20 20:59 Last Infusion: 04/30/20 10:06 Dose: 0 mls/hr Documented by: [id number] Admin: 04/30/20 08:46 Dose: 210 mls/hr Documented by: [id number] Infusion: 04/29/20 21:53 Dose: 0 mls/hr Documented by: [id number] Admin: 04/29/20 21:37 Dose: 210 mls/hr Documented by: [id number] Miscellaneous (Remove Nicoderm Patch) 1 ea N/A DAILY@0859 [facility] Stop: 05/30/20 08:58 Last Admin: 04/30/20 08:57 Dose: Not Given Documented by: [id number] Nicotine (Nicoderm Cq) 21 mg TD QAM [facility] Stop: 05/30/20 08:59 Last Admin: 04/30/20 08:39 Dose: 21 mg Documented by: [id number] Ondansetron HCl (Zofran) 4 mg IV Q6H PRN PRN Reason: Nausea Stop: 05/29/20 20:45 Last Admin: 04/29/20 21:27 Dose: 4 mg Documented by: [id number]
--- NOTE | 2020-04-30 12:55 | Anesthesiology Progress Note ---
Date of Service April 30, 2020 Anesthesia Post Procedure Vital Signs Vital Signs: Temp Pulse Pulse Pulse Resp BP BP 04/30/20 12:04 36.8 C 102 H 24 04/30/20 10:59 99 H 20 04/30/20 07:25 36.7 C 105 H 22 04/30/20 07:07 94 H 104 H 18 04/30/20 05:05 36.8 C 90 18 04/30/20 00:32 95 H 04/30/20 00:14 36.8 C 98 H 20 04/29/20 21:30 90 18 04/29/20 20:46 106 H 04/29/20 20:44 36.5 C 102 H 20 04/29/20 20:01 24 144/83 H 04/29/20 19:18 22 178/111 H 04/29/20 17:00 92 H 18 171/102 H 04/29/20 15:16 80 18 166/78 H 04/29/20 14:56 04/29/20 14:04 36.9 C 97 H 18 198/93 H BP Pulse Ox 04/30/20 12:04 177/84 H 89 L 04/30/20 10:59 90 04/30/20 07:25 132/78 88 L 04/30/20 07:07 90 04/30/20 05:05 124/72 95 04/30/20 00:32 04/30/20 00:14 168/75 H 92 04/29/20 21:30 92 04/29/20 20:46 04/29/20 20:44 148/93 H 92 04/29/20 20:01 90 04/29/20 19:18 90 04/29/20 17:00 95 04/29/20 15:16 97 04/29/20 14:56 96 04/29/20 14:04 96 Transfer of Care Handoff Completed per policy Notes Mental Status: alert / awake / arousable and participated in evaluation Patient Amnestic to Procedure: Yes Nausea / Vomiting: adequately controlled Pain: adequately controlled Airway Patency, RR, SpO2: see Notes below (see progress note, increased WOB RR, Tachycardia) BP & HR: see Notes below (tachycardia) Hydration State: stable & adequate Anesthetic Complications: no major complications apparent and Pt Satisfied with anesthetic care
[2020-04-30] MEDS ORDERED: methylPREDNISolone 40 MG in SYRINGE 0 ML IV ONE (14:05)
[2020-04-30] MEDS ORDERED: PIPERACILL/TAZOBAC CONSULT ACTIVE PRN (14:21)
[2020-04-30] MEDS ORDERED: PIPERACILLIN/TAZOBACTAM 3.375 GM in DEXTROSE 5% 100 ML IV SCH (14:30)
[2020-04-30] MEDS ORDERED: PIPERACILLIN/TAZOBACTAM 4.5 GM in DEXTROSE 5% 100 ML IV STA (14:40)
[2020-04-30 14:56] LABS: Base Excess ABG -1.1 mEq/L (-9-1.8); HCO3 ABG 26 mmol/L (19-24); Oxygen Saturation ABG 93.3 % (90-95); PCO2 ABG 53 mmHg (35-46); PO2 ABG 67 mmHg (80-95); pH ABG 7.31 (7.35-7.45)
[2020-04-30 14:57] LABS: Allen Test Pos (Pos)
[2020-04-30 15:27] LABS: Calcium 7.9 mg/dl (8.5-10.1); Creatinine Clr Calc Pharmacy 81.6 ml/min; Est GFR (African American) 93.2; Est GFR (Non-African American) 80.4; Potassium 3.9 mmol/L (3.5-5.1); Troponin I 0.027 ng/ml (0-0.045)
--- NOTE | 2020-04-30 15:45 | XRay Report ---
XR chest 1V portable CLINICAL HISTORY: shortness of breath dyspnea COMPARISON STUDY: 03/21/2019 FINDINGS: Moderate cardiomegaly. Prominent pulmonary vasculature. Very slight blunting of the lateral costophrenic angles. IMPRESSION: Congestive heart failure ACT 112: Negative or not required by law. The above report was generated using voice recognition software. It may contain grammatical, syntax or spelling errors. Electronically signed by: Dieter Zee M.D. 04/30/2020 3:44 PM
[2020-04-30] MEDS ORDERED: FUROSEMIDE 20 MG in SYRINGE 0 ML IV ONE (16:30)
[2020-04-30] MEDS: PIPERACILLIN/TAZOBACTAM 4.5 GM in DEXTROSE 5% 100 ML IV SCH (20:52)
[2020-05-01] MEDS: GABAPENTIN 400 MG CAP PO SCH ×3 (04:16→23:41)
[2020-05-01] MEDS: PIPERACILLIN/TAZOBACTAM 4.5 GM in DEXTROSE 5% 100 ML IV SCH ×3 (04:16→20:14)
[2020-05-01] MEDS: HydrALAZINE HCL 20 MG/ML VIAL IV SCH ×2 (04:16→18:20)
[2020-05-01 06:20] LABS: Hematocrit (blood only) 37.7 % (37-47); Hemoglobin 12.3 g/dL (12.0-16.0); Mean Corpuscular Hemoglobin 34.8 pg (25-34); Mean Corpuscular Hgb Conc 32.6 g/dL (32-36); Mean Corpuscular Volume 106.8 fL (80-100); Mean Platelet Volume 9.9 fL (7.4-10.4); Platelet Count 177 K/uL (130-400); RDW Standard Deviation 54.6 fL (36.4-46.3); Red Blood Count 3.53 M/uL (4.2-5.4)
[2020-05-01 06:23] LABS: Base Excess ABG 0.1 mEq/L (-9-1.8); HCO3 ABG 26 mmol/L (19-24); PCO2 ABG 44 mmHg (35-46); PO2 ABG 76 mmHg (80-95); pH ABG 7.38 (7.35-7.45)
[2020-05-01 06:24] LABS: Allen Test Pos (Pos)
[2020-05-01 06:52] LABS: BUN Creatinine Ratio 14.6 (10-20); Calcium 7.9 mg/dl (8.5-10.1); Creatinine Clr Calc Pharmacy 63.9 ml/min; Est GFR (African American) 68.9; Est GFR (Non-African American) 59.4; Potassium 3.8 mmol/L (3.5-5.1)
--- NOTE | 2020-05-01 07:07 | XRay Report ---
XR chest 1V portable CLINICAL HISTORY: eval for heart failure dyspnea COMPARISON STUDY: 04/30/2020 FINDINGS: Improving components of congestive heart failure. Mild stable cardiomegaly. Diminished prom inence of pulmonary vasculature. IMPRESSION: Improving congestive heart failure ACT 112: Negative or not required by law. The above report was generated using voice recognition software. It may contain grammatical, syntax or spelling errors. Electronically signed by: Dieter Zee M.D. 05/01/2020 7:06 AM
--- NOTE | 2020-05-01 07:14 | Hospitalist Progress Note ---
Date of Service May 01, 2020 Assessment & Plan (1) Acute and chronic respiratory failure: Patient certainly has a baseline of COPD with extensive smoking history. on 04/30/20 Patient developed some lethargy and tachypnea with escalating hypoxia prior to endoscopy and any anesthesia given. Patient was rescued with BiPAP was transferred to telemetry unit given Solu-Medrol and ABG was obtained as well as a chest x-ray. Acute pulmonary edema, resolved, after treatment with lasix the pt had great improvement and heart failure was ruled out with a relatively normal echo. it is felt that the abdominal distension if limiting her underlying lung issues causing significant respiratory difficulty, continue to treat with steroids and nebs will likely need home oxygen (2) Colonic obstruction: CT 04/30/20 IMPRESSION: 1. Findings are consistent with a distal colonic obstruction at the junction between the descending colon/sigmoid. This could be related to stricture or obstructing stool. Underlying mass lesion would be impossible to exclude 2. There is wall thickening with pericolonic inflammation identified involving the majority of the colon. This could related to obstruction or possibly an associated colitis. Clinical correlation will be required. 3. The small bowel loops are normal in caliber. No intraperitoneal free air is seen. 4. There is moderate diverticulosis of the sigmoid colon without CT evidence of acute diverticulitis. 5. Moderate hiatal hernia Consult Dr Rooney from GI -unable to perform sigmoidoscopy04/30 will re try 05/01 and attempt to stent stenosis/obstruction as pt adamantly refuses any surgery She refuses surgery even if she is going to from bowel rupture, and her supports her in this due to a poor experience with her mother and a colostomy Given concerns for inflammation associate with this mass and low grade temperature, antibiotics were begun, these also serves to treat any bronchitis or infectious component for COPD. Zosyn was chosen Consulted Dr Pichardo from gen surg. but now pt is refusing surgery (3) Hypothyroidism: TSH minimally elevated 12/2019. Give levothyroxine IV at 1/2 the usual PO dose. (4) Tobacco dependence: nicoderm patch 21mg/day corporate counselor to quit, pt is not intereseted (5) Alcohol dependence: multiple days per week she consumes whiskey and beer. start on alcohol withdrawal protocol with gabapentin scheduled and PO ativan prn. thiamine 200mg IV BID. folic acid 1mg IV daily. (6) COPD (chronic obstructive pulmonary disease): likely impacted on abdominal distension limiting excursion of diaphragm, place on scheduled nebs plus iv steroids will likley need home oxygen O2 to maintain sats 90% or more. (7) Hypertension: enalapril IV prn for high systolics. treat abdominal pain. hold PO BP meds. (8) GERD (gastroesophageal reflux disease): IV PPI once daily (9) DVT prophylaxis: SCDs will be used Admission and Anticipated Discharge Date Admission Date: April 29, 2020 Subjective Patient is much improved today over her respiratory failure from 1 day prior. Patient is much anxiety regarding work-up of her colonic obstruction. She adamantly refuses the consideration of a colostomy. She reluctantly permits a colonoscopy to evaluate for stenosis with the attempts of possible stent placement to relieve her colonic obstruction. If this is cannot be achieved the patient says she does not want anything done and understands she might . I did phone the patient's with her permission and he says he will support his 's decision whether would end up in her or not. At this time the patient is taken to the operating room for endoscopy Review of Systems Review of Systems: Moderate respiratory distress and fatigue no headache, blurry or double vision no speech or swallowing issues Pleuritic chest pain, but no pressure or palpitations Significant shortness of breath nonproductive cough no wheezes accessory muscle use no abdominal pain, nausea or vomiting, diarrhea or constipation no dysuria, hematuria or frequency no focal joint pain or swelling no back pain, CVA tenderness or radicular pain no bruising, bleeding or rashes no focal signs of weakness or numbness or altered sensation no complaints or anxiety or depression. Endocrine: no diabetes Physical Exam Physical Exam: The patient appeared mild respiratory distress, she is anxious Vital signs as documented. Tachypneic Head exam is normocephalic atraumatic no scleral icterus Neck is without JVD, thyromegaly, or carotid bruits. Lungs are diminished breath sounds throughout Cardiac exam, tachycardic but regular Abdominal exam reveals hypoactive bowel sounds, tympanitic and remains distended no focal tenderness no rebound Extremities are nonedematous and both pedal pulses are normal. Neurologic exam is alert but lethargic, no focal loss of strength or sensation Skin is without bruises or rashes Psychologically is unable to be assessed due to lethargy Results & Data Results & Data ([facility]) Vital Signs (Past 12 Hours) Vital Signs Temp Pulse Pulse Resp BP Pulse Ox 05/01/20 03:34 98.6 F 65 22 126/64 95 05/01/20 02:17 65 20 95 04/30/20 23:54 81 04/30/20 23:39 97.7 F 67 20 115/72 94 04/30/20 23:09 66 22 93 04/30/20 19:49 72 21 93 04/30/20 19:48 70 21 92 04/30/20 19:45 98.6 F 70 20 123/66 98 PG Care Time/CCT Total # of Minutes Spent Total Time Spent with Patient: Total time spent is greater than 50% in coordination of care (as documented) at patient's floor/unit and/or counseling patient: Coding Level of Care Code 96179 Subseq Hosp Care Lvl 3 Diagnoses Acute and chronic respiratory failure J96.20 Colonic obstruction K56.609 Hypothyroidism E03.9 Hypothyroidism type: acquired Tobacco dependence F17.200 Alcohol dependence F10.20 Substance use status: uncomplicated COPD (chronic obstructive pulmonary disease) J44.9 COPD type: unspecified COPD Hypertension I10 Hypertension type: essential hypertension GERD (gastroesophageal reflux disease) K21.9 Esophagitis presence: esophagitis presence not specified DVT prophylaxis Z29.9 (1) Alcohol dependence Substance use status: uncomplicated Qualified Code(s): F10.20 - Alcohol dependence, uncomplicated (2) Hypothyroidism Hypothyroidism type: acquired Qualified Code(s): E03.9 - Hypothyroidism, unspecified (3) COPD (chronic obstructive pulmonary disease) COPD type: unspecified COPD Qualified Code(s): J44.9 - Chronic obstructive pulmonary disease, unspecified (4) GERD (gastroesophageal reflux disease) Esophagitis presence: esophagitis presence not specified Qualified Code(s): K21.9 - Gastro-esophageal reflux disease without esophagitis (5) Hypertension Hypertension type: essential hypertension Qualified Code(s): I10 - Essential (primary) hypertension
[2020-05-01] MEDS: ALBUT/IPRATROP 3MG/0.5MG NEB 3 ML VIAL NEB SCH ×4 (07:17→20:29)
[2020-05-01] MEDS ORDERED: PERFLUTREN LIPID MICROSPHERE (DEFINITY) IV ONE (07:44)
--- NOTE | 2020-05-01 08:47 | XRay Report ---
KUB CLINICAL HISTORY: evaluate bowel gas pattern/distention COMPARISON STUDY: CT of the abdomen and pelvis April 29, 2020. FINDINGS: Moderate gaseous distention of the colon has increased since exam of April 29, 2020. Descend ing colon measures 7.6 cm in caliber. It previously measured 5.1 cm. There is a paucity of rectal gas . No small bowel dilatation is identified. IMPRESSION: Increase in moderate gaseous distention of the colon since prior exam with transition po int at the junction of the descending colon and sigmoid. This favors a progressive colonic obstructio n. ACT 112: Negative or not required by law. Electronically signed by: Cj Cooney M.D. 05/01/2020 8:46 AM
[2020-05-01] MEDS: FOLIC ACID 1 MG in SYRINGE 9.8 ML IV SCH (08:53)
[2020-05-01] MEDS: NICOTINE 21 MG/24 HR TDSY TD SCH (08:54)
[2020-05-01] MEDS: ESCITALOPRAM OXALATE 10 MG TAB PO SCH (08:54)
[2020-05-01] MEDS: LEVOTHYROXINE SODIUM 62.5 MCG in SYRINGE 0 ML IV SCH (09:01)
[2020-05-01] MEDS: THIAMINE HCL 200 MG in SODIUM CHLORIDE 0.9% 50 ML IV SCH ×2 (09:02→21:02)
--- NOTE | 2020-05-01 09:51 | Surgery Progress Note ---
Date of Service May 01, 2020 Assessment & Plan (1) Colonic obstruction: Patient here with colonic obstruction GI unable to proceed with colonoscopy yesterday due to respiratory distress KUB this AM shows increase in gaseous distention of the colon with transition point at the junction of the descending colon and sigmoid We will tentatively plan to place the pt on the schedule tomorrow for possible diverting colostomy. Dr. Pichardo will discuss with GI the potential of planning for a colonoscopy at the same time NPO for midnight Pt discussed with Dr. Pichardo Supervising Physician Co-Signing Physician Notes I reviewed the KUB from this morning which shows colonic distention area is about 7.1 cm so The patient is resting comfortably at this time the abdomen is distended has not passed any flatus I discussed with the patient likely need of a colostomy since the obstruction of the sigmoid colon not knowing the etiology of it will likely cause more colonic distention The patient refuses even consider a colostomy even to the point that she would rather I discussed the case with GI Dr. Rooney and he is planning to do a colonoscopy in the main OR today under general anesthesia since the patient could not tolerate colonoscopy with sedation only yesterday The option is to consider possibly stenting this lesion and avoiding a colostomy Dr. Rooney will proceed accordingly with that intervention in mind We will follow the patient Subjective Patient seen resting in bed. States he abdominal pain is improved. Denies nausea/vomiting. She is not passing flatus or BM's. Physical Exam Physical Exam: awake Gastrointestinal (Abdomen): Inspection/Auscultation: + abdomen distended Percussion/Palpation: + abdomen tender (some discomfort to palpation in lower abdomen) and abdomen soft Results & Data Vital Signs (Past 12 Hours) Vital Signs Temp Pulse Pulse Resp BP Pulse Ox 05/01/20 08:06 36.5 C 80 20 128/71 93 05/01/20 07:18 78 26 H 96 05/01/20 03:34 37.0 C 65 22 126/64 95 05/01/20 02:17 65 20 95 04/30/20 23:54 81 04/30/20 23:39 36.5 C 67 20 115/72 94 04/30/20 23:09 66 22 93 KUB CLINICAL HISTORY: evaluate bowel gas pattern/distention COMPARISON STUDY: CT of the abdomen and pelvis April 29, 2020. FINDINGS: Moderate gaseous distention of the colon has increased since exam of April 29, 2020. Descending colon measures 7.6 cm in caliber. It previously measured 5.1 cm. There is a paucity of rectal gas. No small bowel dilatation is identified. IMPRESSION: Increase in moderate gaseous distention of the colon since prior exam with transition point at the junction of the descending colon and sigmoid. This favors a progressive colonic obstruction. ACT 112: Negative or not required by law. Electronically signed by: Cj Cooney M.D. 05/01/2020 8:46 AM PG Care Time/CCT Total # of Minutes Spent Total Time Spent with Patient: Total time spent is greater than 50% in coordination of care (as documented) at patient's floor/unit and/or counseling patient: Coding Level of Care Code 42295 Subseq Hosp Care Lvl 1 Diagnoses Colonic obstruction K56.609
--- NOTE | 2020-05-01 09:54 | Gastroenterology Progress Note ---
Date of Service May 01, 2020 Assessment & Plan (1) Colonic obstruction: Will coordinate care amongst GI, hospitalist, & general surgery as patient likely requires surgery. Admission and Anticipated Discharge Date Admission Date: April 29, 2020 Supervising Physician Co-Signing Physician Notes Agree with LUZ MARIA Torres Abd: Soft, Tender LLQ, Distended Proceed with Colonoscopy today with possible stent placement for decompression. Continue supportive care Subjective Patient is a 75 yo female who is currently hospitalized with a colonic obstruction. Imaging from this morning suggests worsening of distention & obstruction. The patient was to have a colonoscopy on 04/30 for decompression, however this was cancelled due to her respiratory status as she desaturated into the 60s. This AM she has come off of bipap and is now saturating at 93% on 6L O2. She reports her abdominal pain has improved. She has still had no bowel movement. She denies any further symptoms at the present time. Review of Systems Constitutional: no fever and no chills Eyes: no problem reported Respiratory: no cough Cardiovascular: no chest pain Gastrointestinal: no abdominal pain Physical Exam Constitutional: well developed and well nourished Respiratory: + cough prolonged expiratory phase Cardiovascular: RRR, no murmur, no edema Gastrointestinal (Abdomen): Inspection/Auscultation: + abdomen distended and + hypoactive bowel sounds Percussion/Palpation: abdomen nontender Musculoskeletal: Head/Neck/Chest: normocephalic Skin: no rashes, warm and dry Psychiatric: A+Ox3, euthymic affect Results & Data Results & Data ([facility]) Vital Signs (Past 12 Hours) Vital Signs Temp Pulse Pulse Resp BP Pulse Ox 05/01/20 08:06 36.5 C 80 20 128/71 93 05/01/20 07:18 78 26 H 96 05/01/20 03:34 37.0 C 65 22 126/64 95 05/01/20 02:17 65 20 95 04/30/20 23:54 81 04/30/20 23:39 36.5 C 67 20 115/72 94 04/30/20 23:09 66 22 93 PG Care Time/CCT Total # of Minutes Spent Total Time Spent with Patient: Total time spent is greater than 50% in coordination of care (as documented) at patient's floor/unit and/or counseling patient: Coding Level of Care Code 16614 Subseq Hosp Care Lvl 2 Diagnoses Colonic obstruction K56.603
--- NOTE | 2020-05-01 12:11 | XCELERA ---
[id number]
[2020-05-01] MEDS: PANTOprazole 40 MG in SYRINGE 0 ML IV SCH (12:14)
[2020-05-01] MEDS ORDERED: KETAMINE HCL INJ 50 MG/ML 10 ML VIAL ONE ×2 (13:37→13:38)
[2020-05-01] MEDS ORDERED: MIDAZOLAM HCL 1 MG/ML 2ML VIAL ONE (13:37)
[2020-05-01] MEDS ORDERED: ONDANSETRON INJ 2 MG/ML 2 ML VIAL IV PRN (13:52)
[2020-05-01] MEDS ORDERED: ATROPINE SULFATE 0.1 MG/ML 10ML SYR IV PRN (13:52)
[2020-05-01] MEDS ORDERED: ePHEDrine sulfate 50 MG/ML AMP IV PRN (13:52)
--- NOTE | 2020-05-01 13:52 | Anesthesiology Consultation ---
Date of Service May 01, 2020 Assessment & Plan ASA ASA4 Proposed Anesthesia Anesthesia Type: MAC Risk / Benefits Reviewed With: PT / POA / Parent / Guardian, Accepts Plan and Informed Consent Obtained History Surgery Operation Date: 04/30/20 16:55 Proposed Procedures p Colonoscopy Dr. Toribio Velez Case, DO Operation Date: 05/01/20 07:00 Proposed Procedures p Colonoscopy with Stent Shwetha Velez Case, DO Operation Date: 05/02/20 08:40 Proposed Procedures p Colostomy - Christopher Pichardo MD Height/Weight Height: 5 ft 6 in Weight: 102.8 kg Allergies Allergy/AdvReac Type Severity Reaction Status Date / Time No Known Allergies Allergy Unknown Verified 04/29/20 17:04 Medications Home Medications Medication Instructions Recorded Confirmed Last Taken albuterol sulfate [Ventolin HFA] 2 puff INHALATION QID PRN 03/21/19 04/29/20 04/28/20 aspirin [Aspir-81] 81 mg PO QAM 03/21/19 04/29/20 04/28/20 ibuprofen 200 mg PO TID PRN 03/21/19 04/29/20 04/29/20 08:00 400 mg lisinopril 40 mg PO QAM 07/13/19 04/29/20 04/28/20 atorvastatin 20 mg tablet 20 mg PO HS #90 tab 11/22/19 04/29/20 04/28/20 omeprazole 20 mg capsule,delayed 20 mg PO QAM #90 cap 11/22/19 04/29/20 04/28/20 release escitalopram oxalate 10 mg tablet 10 mg PO QAM #90 tab 12/18/19 04/29/20 04/28/20 levothyroxine 125 mcg PO QAM 04/29/20 04/29/20 04/28/20 oxybutynin chloride 5 mg PO QAM 04/29/20 04/29/20 04/28/20 Active Medications Generic Name Dose Route Start Last Admin Trade Name Freq PRN Reason Stop Dose Admin Albuterol 3 ml 04/29/20 20:46 05/01/20 11:11 Duoneb NEB 05/29/20 20:45 3 ml QIDR HARJEET Administration Escitalopram Oxalate 10 mg 04/30/20 09:00 05/01/20 08:54 Lexapro Tab PO 05/30/20 08:59 10 mg QAM HARJEET Administration Gabapentin 400 mg 04/30/20 22:00 05/01/20 04:16 Neurontin PO 05/01/20 14:01 400 mg Q8H HARJEET Administration Hydralazine HCl 5 mg 04/29/20 22:00 05/01/20 04:16 Hydralazine Hcl IV 05/29/20 21:59 5 mg Q8 HARJEET Administration Levothyroxine Sodium 62.5 mcg/ 3.125 mls @ 2 mls/min 04/30/20 09:00 05/01/20 09:01 Syringe IV 05/30/20 08:59 2 mls/min DAILY@0900 HARJEET Administration Folic Acid 1 mg/ Syringe 10 mls @ 5 mls/min 04/29/20 21:00 05/01/20 08:53 IV 05/29/20 20:59 5 mls/min QAM HARJEET Administration Pantoprazole Sodium 40 mg/ 10 mls @ 5 mls/min 04/30/20 11:00 05/01/20 12:14 Syringe IV 05/30/20 10:59 5 mls/min DAILY@1100 HARJEET Administration Thiamine HCl 200 mg/ Sodium 52 mls @ 210 mls/hr 04/29/20 21:00 05/01/20 09:20 Chloride IV 05/29/20 20:59 Infused BID HARJEET Infusion Piperacillin Sod/Tazobactam 120 mls @ 30 mls/hr 04/30/20 20:00 05/01/20 12:14 Sod 4.5 gm/ Dextrose IV 05/10/20 19:59 30 mls/hr Q8H HARJEET Administration Protocol Miscellaneous 1 ea 04/30/20 08:59 05/01/20 08:53 Remove Nicoderm Patch N/A 05/30/20 08:58 1 ea DAILY@0859 HARJEET Administration Nicotine 21 mg 04/30/20 09:00 05/01/20 08:54 Nicoderm Cq TD 05/30/20 08:59 21 mg QAM HARJEET Administration Ondansetron HCl 4 mg 04/29/20 20:46 04/29/20 21:27 Zofran IV 05/29/20 20:45 4 mg Q6H PRN Administration Nausea NPO Date Last Intake of Fluids: 06/16/20 Time Last Intake of Fluids: 08:30 Last Intake of Fluids Comment: sips with morningmeds Date Last Intake of Solids: 04/28/20 Time Last Intake of Solids: 18:00 Past Medical History Medical History Diverticulitis (Inactive 2017) Graves disease (Chronic) treated with radiation Hematuria, microscopic Hypertension (Chronic) Hyperthyroidism Mixed hearing loss, bilateral (Inactive) Psoriasis (Inactive) Exercise / Class Metabolic Activity II 4-5 Yardwork/Stairs/Walk up hill Past Family History Family History Mother Ovarian cancer Father Myocardial infarction Denies family history of Colorectal cancer Past Surgical History Surgical History History of tonsillectomy History of tubal ligation History of vaginal hysterectomy Past Anesthesia History No Hx of Anesthesia Complications and No Family Hx of Anesthesia Complications History of PONV No Hx of PONV and No Hx of Motion Sickness Social History Smoking Status: Current every day smoker tobacco type: cigarettes Smoking cigarettes per day: 40 Hx Alcohol Use: Yes Alcohol type: beer and hard liquor alcohol intake frequency: 0-2 drinks per day Hx Substance Use: No Review of Systems denies fever/colds/ chest pain/ GREGORY positive cough and SOB Constitutional: no fever and no chills Cardiovascular: no chest pain and no dyspnea on exertion Physical Exam Vital Signs Last Vital Signs Temp 36.7 C 05/01/20 11:25 Pulse 82 05/01/20 11:25 Resp 20 05/01/20 11:25 BP 142/66 H 05/01/20 11:25 Pulse Ox 95 05/01/20 11:25 ENMT Mouth: + edentulous; no TMJ abnormality and no dentition abnormality Thyromental Distance: > or= 3.5 Finger Breadths Mallampati Class: II Neck neck extension not limited Respiratory normal respiratory effort, + uses accessory muscles and + cough; no respiratory distress Auscultation: + rhonchi Cardiovascular Rate/Rhythm: regular rate and regular rhythm Neurologic moves all extremities Psychiatric Orientation: alert and oriented x 3 Testing Laboratory Results 05/01/20 06:06 05/01/20 06:06 Urine Color Dark Yellow 04/30/20 03:05 Urine Appearance Turbid (Clear) A 04/30/20 03:05 Urine pH 5.5 (4.5-7.5) 04/30/20 03:05 Ur Specific [place] 1.025 (1.000-1.030) 04/30/20 03:05 Urine Protein 2+ (Negative) H 04/30/20 03:05 Urine Glucose (UA) Negative (Negative) 04/30/20 03:05 Urine Ketones Negative (Negative) 04/30/20 03:05 Urine Nitrite Negative (Negative) 04/30/20 03:05 Ur Leukocyte Esterase Trace (Negative) H 04/30/20 03:05 Urine WBC (Auto) >30 /hpf (0-5) H 04/30/20 03:05 Urine RBC (Auto) 10-30 /hpf (0-4) H 04/30/20 03:05 U Hyaline Cast (Auto) 10-30 /lpf (0-5) H 04/30/20 03:05 U Epithel Cells (Auto) >30 /lpf (0-5) H 04/30/20 03:05 Urine Bacteria (Auto) 2+ (Negative) H 04/30/20 03:05 04/30/20 03:05 Urine Culture - Final Urine,Clean Catch Three types of organisms present, all moderate counts. Repeat collection recommended. No further identifications or sensitivities to follow. 05/01/20 05/01/20 11:35 07:31 POC Glucose 116 H 115 H
[2020-05-01] MEDS ORDERED: PROPOFOL IV EMULSION 10 MG/ML 20 ML VIAL IV ONE ×2 (14:50→15:46)
--- NOTE | 2020-05-01 15:17 | Electrocardiogram Report ---
Test Reason : Blood Pressure : / mmHG Vent. Rate : 087 BPM Atrial Rate : 087 BPM P-R Int : 170 ms QRS Dur : 080 ms QT Int : 386 ms P-R-T Axes : 049 073 131 degrees QTc Int : 464 ms Normal sinus rhythm Nonspecific ST abnormality Abnormal ECG When compared with ECG of 29-APR-2020 15:15, QT has lengthened Confirmed by Saravanan Sims ([id number]) on 05/01/2020 3:17:11 PM Referred By: REFERRED SELF Confirmed By:Benoit Sims
[2020-05-01] MEDS ORDERED: LABETALOL HCL IV 5 MG/ML 20ML IV ONE ×2 (15:24→15:49)
--- NOTE | 2020-05-01 16:00 | GI REPORT ---
Patient Name: Makenzie Segura Procedure Date: 05/01/2020 1:49 PM Date of : 1945 Admit Type: Inpatient Age: 75 Gender: Female Attending MD: Kei Rooney DO Procedure: Colonoscopy Providers: Kei Rooney DO Referring MD: Nilay Rodriguez Indications: Abnormal CT of the GI tract Medicines: Monitored Anesthesia Care Complications: No immediate complications. Estimated Blood Loss: Estimated blood loss: none. Procedure: Pre-Anesthesia Assessment: - Prior to the procedure, a History and Physical was performed, and patient medications and allergies were reviewed. The patient's tolerance of previous anesthesia was also reviewed. The risks and benefits of the procedure and the sedation options and risks were discussed with the patient. All questions were answered, and informed consent was obtained. Prior Anticoagulants: The patient has taken aspirin, last dose was 3 days prior to procedure. ASA Grade Assessment: IV - A patient with severe systemic disease that is a constant threat to life. After reviewing the risks and benefits, the patient was deemed in satisfactory condition to undergo the procedure. After I obtained informed consent, the scope was passed under direct vision. Throughout the procedure, the patient's blood pressure, pulse, and oxygen saturations were monitored continuously. The scope was introduced through the anus with the intention of advancing to the ileum. The scope was advanced to the transverse colon before the procedure was aborted. Medications were given. The colonoscopy was technically difficult and complex due to bowel stenosis and inadequate bowel prep. Successful completion of the procedure was aided by changing the patient to a supine position, using manual pressure, withdrawing the scope and replacing with the pediatric colonoscope and withdrawing the scope and replacing with the 'babyscope'. The patient tolerated the procedure well. The quality of the bowel preparation was poor. The rectum was photographed. Findings: The perianal and digital rectal examinations were normal. Many small and large-mouthed diverticula were found in the sigmoid colon. There was narrowing of the colon in association with the diverticular opening. A large amount of liquid solid stool was found in the rectum, in the sigmoid colon, in the descending colon, at the splenic flexure and in the transverse colon, making visualization difficult. Lavage of the area was performed using copious amounts of normal saline, resulting in incomplete clearance with continued poor visualization. Impression: - Preparation of the colon was poor. - Severe diverticulosis in the sigmoid colon. There was narrowing of the colon in association with the diverticular opening. - Stool in the rectum, in the sigmoid colon, in the descending colon, at the splenic flexure and in the transverse colon. - No specimens collected. Recommendation: - Return patient to [facility] for [facility] care. - Clear liquid diet. - Perform a CT scan (computed tomography) of abdomen with contrast and pelvis with contrast in 1 day. - Continue present medications. - Miralax 1 capful (17 grams) in 8 ounces of water PO BID indefinitely. Kei Rooney, DO 05/01/2020 4:00:14 PM This report has been signed electronically. Note Initiated On: 05/01/2020 1:49 PM Number of Addenda: 0 I attest to the content of the Intraoperative Record and orders documented therein, exceptions below {[id number]}
--- NOTE | 2020-05-01 16:33 | Anesthesiology Progress Note ---
Date of Service May 01, 2020 Anesthesia Post Procedure Vital Signs Vital Signs: Temp Pulse Pulse Pulse Resp BP BP 05/01/20 16:25 67 24 144/68 H 05/01/20 16:15 80 18 141/69 H 05/01/20 16:05 36.2 C L 87 16 151/81 H 05/01/20 11:25 36.7 C 82 20 142/66 H 05/01/20 11:13 70 16 05/01/20 08:06 36.5 C 80 20 128/71 05/01/20 07:18 78 26 H 05/01/20 07:00 79 05/01/20 03:34 37.0 C 65 22 126/64 05/01/20 02:17 65 20 04/30/20 23:54 81 04/30/20 23:39 36.5 C 67 20 115/72 04/30/20 23:09 66 22 04/30/20 19:49 72 21 04/30/20 19:48 70 21 04/30/20 19:45 37.0 C 70 20 123/66 04/30/20 18:35 83 Pulse Ox 05/01/20 16:25 94 05/01/20 16:15 93 05/01/20 16:05 93 05/01/20 11:25 95 05/01/20 11:13 96 05/01/20 08:06 93 05/01/20 07:18 96 05/01/20 07:00 05/01/20 03:34 95 05/01/20 02:17 95 04/30/20 23:54 04/30/20 23:39 94 04/30/20 23:09 93 04/30/20 19:49 93 04/30/20 19:48 92 04/30/20 19:45 98 04/30/20 18:35 Transfer of Care Handoff Completed per policy Notes Mental Status: alert / awake / arousable Patient Amnestic to Procedure: Yes Nausea / Vomiting: adequately controlled Pain: adequately controlled Airway Patency, RR, SpO2: stable & adequate BP & HR: stable & adequate Hydration State: stable & adequate Anesthetic Complications: no major complications apparent
[2020-05-01] MEDS ORDERED: LAVAGE SOLUTION 4000ML PO SCH (17:30)
[2020-05-01] MEDS ORDERED: HydrALAZINE HCL 20 MG/ML VIAL IV PRN (18:32)
[2020-05-02] MEDS: PIPERACILLIN/TAZOBACTAM 4.5 GM in DEXTROSE 5% 100 ML IV SCH ×3 (03:41→21:17)
[2020-05-02] MEDS: ALBUT/IPRATROP 3MG/0.5MG NEB 3 ML VIAL NEB SCH ×4 (07:24→19:29)
[2020-05-02 07:44] LABS: Hematocrit (blood only) 35.5 % (37-47); Hemoglobin 11.9 g/dL (12.0-16.0); Mean Corpuscular Hemoglobin 35.1 pg (25-34); Mean Corpuscular Hgb Conc 33.5 g/dL (32-36); Mean Corpuscular Volume 104.7 fL (80-100); Mean Platelet Volume 10.4 fL (7.4-10.4); Platelet Count 163 K/uL (130-400); RDW Coefficient of Variation 13.8 % (11.5-14.5); RDW Standard Deviation 52.3 fL (36.4-46.3); Red Blood Count 3.39 M/uL (4.2-5.4); White Blood Count 7.76 K/uL (4.8-10.8)
[2020-05-02] MEDS: NICOTINE 21 MG/24 HR TDSY TD SCH (07:53)
[2020-05-02] MEDS: THIAMINE HCL 200 MG in SODIUM CHLORIDE 0.9% 50 ML IV SCH ×2 (07:56→22:07)
[2020-05-02] MEDS: ESCITALOPRAM OXALATE 10 MG TAB PO SCH (07:59)
[2020-05-02] MEDS: FOLIC ACID 1 MG in SYRINGE 9.8 ML IV SCH (07:59)
[2020-05-02 08:15] LABS: BUN Creatinine Ratio 14.1 (10-20); Calcium 8.4 mg/dl (8.5-10.1); Creatinine Clr Calc Pharmacy 75.2 ml/min; Est GFR (African American) 83.5; Est GFR (Non-African American) 72.1; Potassium 3.8 mmol/L (3.5-5.1)
--- NOTE | 2020-05-02 09:21 | Gastroenterology Progress Note ---
Date of Service May 02, 2020 Assessment & Plan (1) Colonic obstruction: (2) Diverticular stricture: -CT abdomen/pelvis with IV/po contrast today -Miralax 17 gm BID -General surgery input appreciated; Patient reports she is willing to have any surgery that does not result in a colostomy, however expresses that she would rather than live with a colostomy Admission and Anticipated Discharge Date Admission Date: April 29, 2020 Supervising Physician Co-Signing Physician Notes Agree with Skye George, PAC Abd: Soft, NT, distended States she has had 2 BM's today and is feeling better Continue stool regimen She is not interested in surgery at this time Subjective Patient is a 75 yo female with a colonic obstruction. She underwent endoscopic decompression on 05/01 and it appears that she has stricturing diverticular disease. A CT scan of the abdomen/pelvis is pending this morning. She reports resolution of abdominal pain. She has had 2 bowel movements since her procedure. She has discussed her situation with general surgery and has voiced that she does not want a colostomy even if it is life-saving. She reports to me today that she would rather than have a colostomy. Of note, she is alert & oriented x 3. Review of Systems Constitutional: no fever and no chills Respiratory: no cough and no dyspnea Cardiovascular: no chest pain Gastrointestinal: no abdominal pain and no blood in stools Physical Exam Constitutional: WD/WN, vitals as above Neck: normal visual inspection Respiratory: + prolonged expiratory phase Cardiovascular: Rate/Rhythm: regular rate and regular rhythm Gastrointestinal (Abdomen): Inspection/Auscultation: + abdomen distended (distention improving) and + hypoactive bowel sounds Skin: no rashes, warm and dry Psychiatric: A+Ox3, euthymic affect Results & Data Results & Data ([facility]) Vital Signs (Past 12 Hours) Vital Signs Temp Pulse Pulse Resp BP Pulse Ox 05/02/20 07:28 87 18 91 05/02/20 07:10 37.4 C 88 18 170/77 H 90 05/02/20 04:01 37.5 C 100 H 18 174/81 H 90 05/02/20 00:00 88 05/01/20 23:31 36.9 C 72 20 165/77 H 92 PG Care Time/CCT Total # of Minutes Spent Total Time Spent with Patient: Total time spent is greater than 50% in coordination of care (as documented) at patient's floor/unit and/or counseling patient: Coding Level of Care Code 18558 Subseq Hosp Care Lvl 3 Diagnoses Colonic obstruction K56.609 Diverticular stricture K56.699
[2020-05-02] MEDS: LEVOTHYROXINE SODIUM 62.5 MCG in SYRINGE 0 ML IV SCH (09:44)
[2020-05-02] MEDS: PANTOprazole 40 MG in SYRINGE 0 ML IV SCH (10:06)
--- NOTE | 2020-05-02 10:33 | Surgery Progress Note ---
Date of Service May 02, 2020 Assessment & Plan (1) Colonic obstruction: Patient here with colonic obstruction GI unable to proceed with colonoscopy yesterday due to respiratory distress KUB this AM shows increase in gaseous distention of the colon with transition point at the junction of the descending colon and sigmoid We will tentatively plan to place the pt on the schedule tomorrow for possible diverting colostomy. Dr. Pichardo will discuss with GI the potential of planning for a colonoscopy at the same time NPO for midnight Pt discussed with Dr. Pichardo 05/02/20 Patient underwent colonoscopy yesterday I was present and evaluation Dr. Rooney had no problem going through the narrow area and this seems like it is related to a diverticular stricture The patient overnight has had few bowel movements At this point there is no further need for our services of note the patient and adamantly refused any colostomy at any time We will be available if any new issues arise Results & Data Vital Signs (Past 12 Hours) Vital Signs Temp Pulse Pulse Resp BP Pulse Ox 05/02/20 07:28 87 18 91 05/02/20 07:10 37.4 C 88 18 170/77 H 90 05/02/20 04:01 37.5 C 100 H 18 174/81 H 90 05/02/20 00:00 88 05/01/20 23:31 36.9 C 72 20 165/77 H 92 PG Care Time/CCT Total # of Minutes Spent Total Time Spent with Patient: Total time spent is greater than 50% in coordination of care (as documented) at patient's floor/unit and/or counseling patient: Coding Level of Care Code 92317 Subseq Hosp Care Lvl 2 Diagnoses Colonic obstruction K56.609
[2020-05-02] MEDS: GABAPENTIN 400 MG CAP PO SCH (11:26)
--- NOTE | 2020-05-02 11:27 | Hospitalist Progress Note ---
Date of Service May 02, 2020 Assessment & Plan (1) Acute and chronic respiratory failure: Patient certainly has a baseline of COPD with extensive smoking history. on 04/30/20 Patient developed some lethargy and tachypnea with escalating hypoxia prior to endoscopy and any anesthesia given. Patient was rescued with BiPAP was transferred to telemetry unit given Solu-Medrol and ABG was obtained as well as a chest x-ray. Acute pulmonary edema, resolved, after treatment with lasix the pt had great improvement and heart failure was ruled out with a relatively normal echo. it is felt that the abdominal distension if limiting her underlying lung issues causing significant respiratory difficulty, continue to treat with steroids and nebs will likely need home oxygen (2) Colonic obstruction: CT 04/30/20 IMPRESSION: 1. Findings are consistent with a distal colonic obstruction at the junction between the descending colon/sigmoid. This could be related to stricture or obstructing stool. Underlying mass lesion would be impossible to exclude 2. There is wall thickening with pericolonic inflammation identified involving the majority of the colon. This could related to obstruction or possibly an associated colitis. Clinical correlation will be required. 3. The small bowel loops are normal in caliber. No intraperitoneal free air is seen. 4. There is moderate diverticulosis of the sigmoid colon without CT evidence of acute diverticulitis. 5. Moderate hiatal hernia Consult Dr Rooney from GI -unable to perform sigmoidoscopy04/30 05/01 decompression and improvement, good bm afterward will continue to assure go od bowel movements She refuses surgery even if she is going to from bowel rupture, and her supports her in this due to a poor experience with her mother and a colostomy (3) Hypothyroidism: TSH minimally elevated 12/2019. resume synthroid 125 mcg PO dose. (4) Tobacco dependence: nicoderm patch 21mg/day health counselor to quit, pt is not intereseted (5) Alcohol dependence: multiple days per week she consumes whiskey and beer. start on alcohol withdrawal protocol with gabapentin scheduled and PO ativan prn. thiamine 200mg IV BID. folic acid 1mg IV daily. (6) COPD (chronic obstructive pulmonary disease): likely impacted on abdominal distension limiting excursion of diaphragm, place on scheduled nebs plus iv steroids will nikki need home oxygen O2 to maintain sats 90% or more., concern will be if she needs home oxygen (7) Hypertension: had held typical home meds now restart lisinopril at 50% of her home dose 05/02 (8) GERD (gastroesophageal reflux disease): IV PPI once daily, eventual transition to po (9) DVT prophylaxis: SCDs will be used Admission and Anticipated Discharge Date Admission Date: April 29, 2020 Subjective Patient is a 75 yo female with initial concern for colonic obstruction. She underwent endoscopic decompression on 05/01 and it appears that she has stricturing diverticular disease. A CT scan of the abdomen/pelvis . She reports resolution of abdominal pain. She has had 2 bowel movements since her procedure. She has discussed her situation with general surgery and has voiced that she does not want a colostomy even if it is life-saving. She reports to me today that she would rather than have a colostomy. Of note, she is alert & oriented x 3. Review of Systems 2 Review of Systems: Moderate respiratory distress and fatigue no headache, blurry or double vision no speech or swallowing issues Pleuritic chest pain, but no pressure or palpitations Significant shortness of breath nonproductive cough no wheezes accessory muscle use resolved abdominal pain,no nausea or vomiting, did have bowel movements no dysuria, hematuria or frequency no focal joint pain or swelling no back pain, CVA tenderness or radicular pain no bruising, bleeding or rashes no focal signs of weakness or numbness or altered sensation no complaints or anxiety or depression. Physical Exam Physical Exam: The patient appeared mild respiratory distress, she is anxious Vital signs as documented. Tachypneic Head exam is normocephalic atraumatic no scleral icterus Neck is without JVD, thyromegaly, or carotid bruits. Lungs are diminished breath sounds throughout Cardiac exam, tachycardic but regular Abdominal exam reveals normoactive bowel sounds, less distended and non tender Extremities are nonedematous and both pedal pulses are normal. Neurologic exam is alert but lethargic, no focal loss of strength or sensation Skin is without bruises or rashes Psychologically is unable to be assessed due to lethargy Results & Data Results & Data ([facility]) Vital Signs (Past 12 Hours) Vital Signs Temp Pulse Pulse Resp BP Pulse Ox 05/02/20 11:16 86 18 92 05/02/20 07:28 87 18 91 05/02/20 07:10 99.3 F 88 18 170/77 H 90 05/02/20 04:01 99.5 F 100 H 18 174/81 H 90 05/02/20 00:00 88 05/01/20 23:31 98.4 F 72 20 165/77 H 92 PG Care Time/CCT Total # of Minutes Spent Total Time Spent with Patient: Total time spent is greater than 50% in coordination of care (as documented) at patient's floor/unit and/or counseling patient: Coding Level of Care Code 79089 Subseq Hosp Care Lvl 3 Diagnoses Acute and chronic respiratory failure J96.20 Colonic obstruction K56.609 Hypothyroidism E03.9 Hypothyroidism type: acquired Tobacco dependence F17.200 Alcohol dependence F10.20 Substance use status: uncomplicated COPD (chronic obstructive pulmonary disease) J44.9 COPD type: unspecified COPD Hypertension I10 Hypertension type: essential hypertension GERD (gastroesophageal reflux disease) K21.9 Esophagitis presence: esophagitis presence not specified DVT prophylaxis Z29.9 (1) Hypothyroidism Hypothyroidism type: acquired Qualified Code(s): E03.9 - Hypothyroidism, unspecified (2) Alcohol dependence Substance use status: uncomplicated Qualified Code(s): F10.20 - Alcohol dependence, uncomplicated (3) COPD (chronic obstructive pulmonary disease) COPD type: unspecified COPD Qualified Code(s): J44.9 - Chronic obstructive pulmonary disease, unspecified (4) Hypertension Hypertension type: essential hypertension Qualified Code(s): I10 - Essential (primary) hypertension (5) GERD (gastroesophageal reflux disease) Esophagitis presence: esophagitis presence not specified Qualified Code(s): K21.9 - Gastro-esophageal reflux disease without esophagitis
[2020-05-02] MEDS ORDERED: IOVERSOL 100ml IV PRN (12:05)
--- NOTE | 2020-05-02 12:24 | CT Scan Report ---
CT SCAN OF THE ABDOMEN AND PELVIS WITH IV CONTRAST CLINICAL HISTORY: Colonic obstruction. COMPARISON STUDY: Abdominal CT dated 05/01/2020. TECHNIQUE: Following the IV administration of 94 cc of atrophy 20, CT scan of the abdomen and pelvis is performed from the lung bases to the proximal femora. Images are reviewed in the axial, sagittal, and coronal planes. IV contrast was administered without complication. Oral contrast was utilized. A dose lowering technique was utilized adhering to the principles of ALARA. CT DOSE: 1758.72 mGy.cm FINDINGS: Lung bases: The heart is mildly enlarged and without pericardial effusion. There are coronary artery calcifications. There is a moderate hiatal hernia. Emphysematous change is suspected. There are small pleural effusions with dense bibasilar consolidation. Liver: The contrast-enhanced liver is normal in size, contour, and attenuation. There is no intrahepa tic biliary ductal dilatation. A 3.2 cm cyst is noted in the left lobe. The hepatic veins and portal veins are patent. Gallbladder: Unremarkable. Spleen: Normal in size and attenuation. Pancreas: The pancreas is atrophic and grossly unremarkable. Adrenal glands: Unremarkable. Kidneys: The contrast-enhanced kidneys demonstrate cortical atrophy and are without hydronephrosis. 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 Parapelvic cysts are noted on the right . The kidneys enhance symmetrically. Abdominal vasculature: The abdominal aorta is normal in course and caliber noting moderate atheroscle rotic calcification. Bowel: There is unchanged distention of the stool filled colon. A focal transition point is again see n in the sigmoid colon seen on image #[id number]. The rectosigmoid is decompressed, and the appearance remai ns consistent with a distal colonic obstruction. Mild inflammatory change around the obstructing colo n has improved. The small bowel loops are normal in caliber. Enteric contrast has reached the cecum. There is moderate sigmoid diverticulosis without CT evidence of acute diverticulitis. The appendix i s not identified. Peritoneum: There is no intraperitoneal free air or abdominal ascites. There is a small fat and fluid containing umbilical hernia. Lymphadenopathy: None. Pelvic viscera: The bladder is decompressed around a Love catheter and cannot be evaluated. Foci of intraluminal gas are likely related to instrumentation. The uterus is surgically absent. No adnexal l esion is seen. Skeletal structures: The skeletal structures are osteopenic. There is moderate lumbosacral spondylosi s. No lytic or blastic lesions are seen. IMPRESSION: 1. Findings remain consistent with a distal colonic obstruction at the junction between the descendin g colon/sigmoid. This is similar in appearance to 04/29/2020. Differential considerations remain the s lety. 2. Inflammation around the obstructed colon has improved as compared to 04/29/2020. 3. The small bowel loops are normal in caliber an enteric contrast reaches the cecum. No intraperiton eal free air is seen. 4. There is moderate diverticulosis of the sigmoid colon without CT evidence of acute diverticulitis. 5. Cardiomegaly and moderate hiatal hernia. 6. There are small pleural effusions with dense bibasilar consolidation. This is new from 04/29/2020 a nd could represent segmental atelectasis. Correlate clinically for evidence of pneumonia/aspiration p neumonitis. 7. Additional findings as above. ACT 112: Negative or not required by law. Electronically signed by: Hua Huff M.D. 05/02/2020 12:23 PM
[2020-05-02] MEDS ORDERED: lisinopriL 20 MG TAB PO STA (12:26)
[2020-05-02] MEDS: POLYETHYLENE (MIRALAX) 17 GM PACK PO SCH (20:37)
[2020-05-03] MEDS: ALBUT/IPRATROP 3MG/0.5MG NEB 3 ML VIAL NEB SCH ×3 (04:17→11:14)
[2020-05-03] MEDS: PIPERACILLIN/TAZOBACTAM 4.5 GM in DEXTROSE 5% 100 ML IV SCH (04:27)
[2020-05-03 06:02] LABS: Hematocrit (blood only) 38.5 % (37-47); Mean Corpuscular Hemoglobin 34.9 pg (25-34); Mean Corpuscular Hgb Conc 33.8 g/dL (32-36); Mean Corpuscular Volume 103.2 fL (80-100); Mean Platelet Volume 10.2 fL (7.4-10.4); Platelet Count 172 K/uL (130-400); RDW Coefficient of Variation 13.5 % (11.5-14.5); RDW Standard Deviation 50.9 fL (36.4-46.3); Red Blood Count 3.73 M/uL (4.2-5.4); White Blood Count 7.64 K/uL (4.8-10.8)
[2020-05-03] MEDS ORDERED: LEVOTHYROXINE SODIUM 125 MCG TABLET PO SCH (06:30)
[2020-05-03 06:40] LABS: BUN Creatinine Ratio 12.3 (10-20); Calcium 8.4 mg/dl (8.5-10.1); Creatinine Clr Calc Pharmacy 88.3 ml/min; Est GFR (African American) 100.1; Est GFR (Non-African American) 86.4; Potassium 2.9 mmol/L (3.5-5.1)
[2020-05-03] MEDS: NICOTINE 21 MG/24 HR TDSY TD SCH (08:51)
[2020-05-03] MEDS: FOLIC ACID 1 MG in SYRINGE 9.8 ML IV SCH (08:52)
[2020-05-03] MEDS: ESCITALOPRAM OXALATE 10 MG TAB PO SCH (08:53)
[2020-05-03] MEDS ORDERED: ASPIRIN 81 MG ECTAB PO SCH (09:00)
[2020-05-03] MEDS ORDERED: POTASSIUM CHLORIDE 20 MEQ TABCR PO SCH (09:00)
[2020-05-03] MEDS ORDERED: lisinopriL 20 MG TAB PO SCH (09:00)
[2020-05-03] MEDS ORDERED: NON-FORMULARY MEDICATION (Omeprazole 20 MG) PO SCH (09:00)
[2020-05-03] MEDS ORDERED: lisinopriL 40 MG TAB PO SCH (09:00)
[2020-05-03] MEDS: THIAMINE HCL 200 MG in SODIUM CHLORIDE 0.9% 50 ML IV SCH (09:56)
[2020-05-03] MEDS: POLYETHYLENE (MIRALAX) 17 GM PACK PO SCH (09:57)
[2020-05-03] MEDS: PANTOprazole 40 MG in SYRINGE 0 ML IV SCH (11:34)
[2020-05-03] MEDS ORDERED: GABAPENTIN 400 MG CAP PO SCH (12:00)
--- NOTE | 2020-05-03 15:05 | Discharge Summary ---
Date of Service May 03, 2020 Admission HPI Per Admitting Provider 75yo female with hypothyroidism, long-standing tobacco and alcohol dependence, and HTN who presents with 1 week of worsening abdominal pain, abdominal bloating, constipation (last BM was Wednesday - small, hard/firm, no blood) and then 3 episodes of vomiting today. No fever but has had chills. Has never had colonoscopy. Had 1 episode of diverticulitis in the past - she thinks about a year ago. Denies weight loss. Has had good appetite over the last few months but she developed anorexia in the last week. Principal Diagnosis colonic obstruction due to stricture from diverticulosis COPD exacerbtion acute on chronic respiratory failure with hypoxia alcohol abuse tobacco abuse Discharge Exam pt appears chronically ill. she is with chronically short of breath using accessory muscles of breathig distended typanitic abdomen, normal bowel sounds Discharge Data Allergies Allergy/AdvReac Type Severity Reaction Status Date / Time No Known Allergies Allergy Unknown Verified 04/29/20 17:04 Consultations 04/29/20 17:15 ED Decision to Admit Stat 04/29/20 20:46 Consult Gastroenterology Routine Consult General Surgery Routine Procedures Performed Operation Date: 04/30/20 16:55 Actual Procedures p Colonoscopy - Kei G. Case, DO Operation Date: 05/01/20 07:00 Actual Procedures p Colonoscopy - Kei G. Case, DO Operation Date: 05/02/20 08:40 <No data on this case meets the specified criteria> Ordered Studies 04/29/20 15:12 CT abd pelvis wo con Stat 05/02/20 09:14 CT abd pelvis oral and IV con Routine Hospital Course (1) Acute and chronic respiratory failure: Patient certainly has a baseline of COPD with extensive smoking history. on 04/30/20 Patient developed some lethargy and tachypnea with escalating hypoxia prior to endoscopy and any anesthesia given. Patient was rescued with BiPAP was transferred to telemetry unit given one dose of Solu-Medrol Acute pulmonary edema, resolved, after treatment with lasix the pt had great improvement and heart failure was ruled out with a relatively normal echo. Pt requires home oxygen, not sure of her compliance but will need significant replacement she was councelled about smoking cessation and recommended to continue nicotine patch (2) Colonic obstruction: CT 04/30/20 IMPRESSION: 1. Findings are consistent with a distal colonic obstruction at the junction between the descending colon/sigmoid. This could be related to stricture or obstructing stool. Underlying mass lesion would be impossible to exclude 2. There is wall thickening with pericolonic inflammation identified involving the majority of the colon. This could related to obstruction or possibly an associated colitis. Clinical correlation will be required. 3. The small bowel loops are normal in caliber. No intraperitoneal free air is seen. 4. There is moderate diverticulosis of the sigmoid colon without CT evidence of acute diverticulitis. 5. Moderate hiatal hernia Consult Dr Rooney from GI -unable to perform sigmoidoscopy04/30 performed on 05/01 decompression and improvement, good bm afterward will continue to assure good bowel movements She refuses surgery even if she is going to from bowel rupture, and her supports her in this due to a poor experience with her mother and a colostomy she was educated that she is at risk for future episiodes and needs to assure avoidance of constipaiton (3) Hypothyroidism: TSH minimally elevated 12/2019. resume synthroid 125 mcg PO dose. (4) Tobacco dependence: nicoderm patch 21mg/day enrollment counselor to quit (5) Alcohol dependence: multiple days per week she consumes whiskey and beer. pt coucelled on cessation and to be involved with AA (6) COPD (chronic obstructive pulmonary disease): likely impacted on abdominal distension limiting excursion of diaphragm, will be home on albuterol and atrovent plus oxygen (7) Hypertension: lisinopril 40 mg a day (8) GERD (gastroesophageal reflux disease): IV PPI once daily, eventual transition to po Total Time Total Time Spent Total Time Spent (In Minutes): It required greater than 30 minutes to prepare this patient for discharge Discharge Plan Discharge Items Patient Disposition: Home - Home Health Services Reason For Visit: DISTAL COLONIC OBSTRUCTION Discharge Diagnosis: bowel obstruction from scarring and constipation COPD,now requiring oxygen tobacco related lung damage alcohol withdrawal Activity: Per Instructions section Activity Comment: slowly increase activity Non-emergency contact: Primary Care Provider Call non-emergency contact if: you have any medication questions, your symptoms worsen and your pain is not controlled Follow-up/Referrals: Vince Reed III, MD [Primary Care Provider] - 05/10/20 10:00 am (Please, follow up with Dr. Reed on WednesdayMay 10 at 10:00 am. *If you need to change this appointment, call the office at [phone].) Diet: Low Fiber Addtl Attending Provider Instructions: please stop smoking and wear your home oxygen, you can get some nicotine patches over the counter to help stop smoking please be sure to have one bowel movement a day, if you have more than one, reduce your laxative dose be sure to follow up with DR Reed Pending Studies at Discharge: No Stand-Alone Forms: My [facility], Smoking Cessation Medications and DC Order Prescriptions: New polyethylene glycol 3350 [Miralax] 17 gram Powder In Packet 17 g PO BID Qty: 60 RF: 3 Atrovent HFA 17 mcg/actuation HFA aerosol inhaler 2 puffs INH Q6H Qty: 12.9 RF: 0 amoxicillin-pot clavulanate [Augmentin XR] 1,000-62.5 mg tablet extended release 12 hr 1 tab PO BID Qty: 10 RF: 0 albuterol sulfate [Ventolin HFA] 90 mcg/actuation HFA aerosol inhaler 2 puff inhalation QID PRN (Reason: Shortness Of Breath) Qty: 1 RF: 3 Continued atorvastatin 20 mg tablet 20 mg PO HS Qty: 90 RF: 3 omeprazole 20 mg capsule,delayed release(DR/EC) 20 mg PO QAM Qty: 90 RF: 3 escitalopram oxalate 10 mg tablet 10 mg PO QAM Qty: 90 RF: 3 aspirin [Aspir-81] 81 mg Tablet,Delayed Release (Dr/Ec) 81 mg PO QAM RF: 0 levothyroxine 125 mcg tablet 125 mcg PO QAM RF: 0 lisinopril 40 mg tablet 40 mg PO QAM RF: 0 Discontinued ibuprofen 200 mg Tablet 200 mg PO TID PRN (Reason: Pain) RF: 0 oxybutynin chloride 5 mg tablet extended release 24hr 5 mg PO QAM RF: 0 Discharge Orders: Discharge Order (Routine); Ordered 05/03/20 Ordered By: Nilay Rodriguez Admission Data Admit Date/Time: 04/29/20 18:06 Attending Provider: Nilay Rodriguez Admit Provider: Douglas Ceja Primary Care Provider: Vince Reed III Other Providers: Douglas Ceja ; Kei Rooney ; Christopher Pichardo Other Interventions: Discharge Summary Assessment (RN) Last Done: 05/03/20 11:56 DC Date/Time DO NOT enter until pt leaves facility: 05/03/20 13:11 Coding Level of Care Code D/C Day Management >30 mins Diagnoses Acute and chronic respiratory failure J96.20 Colonic obstruction K56.609 Hypothyroidism E03.9 Hypothyroidism type: acquired Tobacco dependence F17.200 Alcohol dependence F10.20 Substance use status: uncomplicated COPD (chronic obstructive pulmonary disease) J44.9 COPD type: unspecified COPD Hypertension I10 Hypertension type: essential hypertension GERD (gastroesophageal reflux disease) K21.9 Esophagitis presence: esophagitis presence not specified
== END 2020-05-03 13:11 | disposition home health service (06) | DRG 388 ==
LOC: ED 13:15 → 2N 18:06 → SUATTDRO 18:06 → 2N 20:24 → 2S 04-30 13:40 → 3N 05-02 12:15

== ENCOUNTER 2020-05-17 16:34 | Inpatient (IN) ==
--- NOTE | 2020-05-17 19:09 | Emergency Department Note ---
History of Present Illness General Chief complaint: Shortness of Breath/Dyspnea Stated complaint: BLOCKAGE IN COLON, NEEDS OXYGEN Time Seen by Provider: 05/17/20 18:52 Source: patient and family ( who is at the bedside) Mode of arrival: ambulatory Limitations: no limitations History of Present Illness This patient comes in complaining of continuing abdominal pain. This started last month and she was hospitalized here and diagnosed with a diverticular stricture. At the time she also has some respiratory issues and went into res piratory failure. Since she left the hospital here, she has been on home oxygen but nothing is changed recently. She has had minimal chronic cough. She refused surgery at the time and went home and finished a course of antibiotics. She went to [facility] this past week and was hospitalized for 2 days for the same complaints and again signed herself out AGAINST MEDICAL ADVICE and refused intervention. She comes in today because she says she is just not getting any better and seems more open to getting an intervention. She has had diarrhea. She has had some nausea. She tells me she was COVID tested within the last 5 days and was negative at [facility]. No fever or chills. No fall or trauma. No dysuria or hematuria. Home Medications Home Medications Medication Instructions Recorded Confirmed Type aspirin [Aspir-81] 81 mg PO QAM 03/21/19 05/17/20 History lisinopril 40 mg PO QAM 07/13/19 05/17/20 History atorvastatin 20 mg tablet 20 mg PO HS #90 tab 11/22/19 05/17/20 Rx omeprazole 20 mg capsule,delayed 20 mg PO QAM #90 cap 11/22/19 05/17/20 Rx release escitalopram oxalate 10 mg tablet 10 mg PO QAM #90 tab 12/18/19 05/17/20 Rx levothyroxine 125 mcg PO QAM 04/29/20 05/17/20 History albuterol sulfate [Ventolin HFA] 2 puff INHALATION QID PRN #1 05/03/20 05/17/20 Rx inhaler ipratropium bromide [Atrovent HFA] 2 puffs INH Q6H #12.9 gm 05/03/20 05/17/20 Rx polyethylene glycol 3350 [Miralax] 17 g PO BID #60 ea 05/03/20 05/17/20 Rx oxybutynin chloride 5 mg 5 mg PO QAM #30 tab 05/10/20 05/17/20 Rx tablet,extended release 24 hr ibuprofen 400 mg PO Q6H PRN 05/17/20 05/17/20 History Allergies Allergy/AdvReac Type Severity Reaction Status Date / Time No Known Allergies Allergy Unknown Verified 05/17/20 19:59 Past Med/Surg History Medical History Diverticulitis (Inactive 2017) Graves disease (Chronic) treated with radiation Hematuria, microscopic Hypertension (Chronic) Hyperthyroidism Mixed hearing loss, bilateral (Inactive) Psoriasis (Inactive) Surgical History History of tonsillectomy History of tubal ligation History of vaginal hysterectomy Family History Mother Ovarian cancer Father Myocardial infarction Denies family history of Colorectal cancer Social History Preferred Language: Serbian Communication Ability: Effective Visual Impairment: No Limitations Hearing Ability: Normal 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 Beliefs That Will Affect Care: None marital status: Current Living Situation: Spouse 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 Feels Safe at Home: Yes Smoking Status: Current some day smoker Tobacco Type: cigarettes ; Age Started Using Tobacco: 22 ; packs per day: 2 ; Cigarettes Per Day: 40 ; Hx Alcohol Use: Yes Alcohol type: beer and hard liquor Alcohol Intake Frequency: Daily Hx Substance Use: No Review of Systems A total of 10 systems reviewed and were otherwise negative Physical Exam Vital Signs Vital Signs - 24 hr 05/17/20 16:37 05/17/20 19:33 05/17/20 19:34 Temperature 36.7 C Temperature Source Oral Pulse Rate 89 Pulse Rate [Apical] 74 Respiratory Rate 20 18 Respiratory Effort / Characteristics Non-Labored Respiratory Depth Normal Respiratory Pattern Blood Pressure 123/73 Blood Pressure [Right Arm] 146/79 H Blood Pressure Mean 89 Blood Pressure Mean [Right Arm] 101 Pulse Oximetry 93 96 96 Oxygen Delivery Method Room Air Room Air Oxygen Flow Rate 3 Sepsis Recent Fever Within 48 Hours No Sepsis New/Unexplained Change in Mental Status No Sepsis Action Taken by Nursing No Action Required 05/17/20 20:06 05/17/20 20:55 Temperature Temperature Source Pulse Rate Pulse Rate [Apical] 74 70 Respiratory Rate 22 23 Respiratory Effort / Characteristics Non-Labored Spontaneous Respiratory Depth Normal Respiratory Pattern Regular Blood Pressure Blood Pressure [Right Arm] 130/68 134/80 Blood Pressure Mean Blood Pressure Mean [Right Arm] 88 98 Pulse Oximetry 96 100 Oxygen Delivery Method Nasal Cannula Nasal Cannula Oxygen Flow Rate 3 3 Sepsis Recent Fever Within 48 Hours Sepsis New/Unexplained Change in Mental Status Sepsis Action Taken by Nursing General: Well developed well nourished chronically ill-appearing older female who is wearing supplemental oxygen but in no acute distress, breathing comfortably on room air. Normal speech HEENT: Normal cephalic atraumatic. Pupils are equal round and reactive to light. Extraocular movements are intact. Oropharynx is pink with moist mucous membranes. No swelling of the mouth lips or tongue. Neck: Supple with a midline trachea. No meningeal signs or stiffness, no JVD or bruits. No Stridor. Chest: Clear to auscultation bilaterally. No wheezes or rhonchi. No increased work of breathing. Heart: Regular rate and rhythm without murmurs or gallops. Abdomen: Soft nontender, she is somewhat distended distended without rebound guarding or rigidity. Extremities: No cyanosis clubbing or edema. No calf tenderness or assymetry Spine/Back. Non tender to palpation. No CVA tenderness Skin: Good turgor without rashes. Neurologic exam: Cranial nerves two through 12 are intact. Motor and sensation are intact and symmetrical throughout. Course Administered Medications Sodium Chloride (Nss) 500 mls @ 125 mls/hr IV .Q4H [facility] Stop: 06/16/20 20:44 Last Admin: 05/17/20 20:54 Dose: 125 mls/hr Documented by: [id number] Miscellaneous Information (Consult) 1 ea N/A UD PRN PRN Reason: Consult Stop: 06/16/20 20:36 Last Admin: 05/17/20 20:54 Dose: 1 ea Documented by: [id number] Discontinued Medications Piperacillin Sod/Tazobactam Sod (Zosyn) 4.5 gm in 120 mls @ 240 mls/hr IV NOW ONE Stop: 05/17/20 21:06 Last Admin: 05/17/20 20:54 Dose: 240 mls/hr Documented by: [id number] Medical Decision Making Differential Diagnosis Bowel obstruction, malignancy, infection, CHF, COPD, sepsis, electrolyte or m etabolic abnormalities, cardiac disease, arrhythmia Medical Records Attestation: I reviewed the patient's medical records. Home Medications Current Medication List: was personally reviewed by me Laboratory Data Attestation: I reviewed the patient's lab results. Result diagrams: 05/17/20 19:28 05/17/20 19:28 Lab Results 05/17/20 05/17/20 05/17/20 Range/Units 19:28 19:28 19:28 WBC 3.90 L (4.8-10.8) K/uL RBC 3.96 L (4.2-5.4) M/uL Hgb 13.4 (12.0-16.0) g/dL Hct 40.3 (37-47) % MCV 101.8 H (80-100) fL MCH 33.8 (25-34) pg MCHC 33.3 (32-36) g/dL RDW Std Deviation 49.2 H (36.4-46.3) fL RDW Coeff of Alan 13.1 (11.5-14.5) % Plt Count 206 (130-400) K/uL MPV 11.0 H (7.4-10.4) fL Immature Gran % (Auto) 0.0 % Neut % (Auto) 60.0 % Lymph % (Auto) 29.0 % Sampson % (Auto) 7.7 % Eos % (Auto) 2.8 % Baso % (Auto) 0.5 % Neut # (Auto) 2.34 (1.4-6.5) K/uL Lymph # (Auto) 1.13 L (1.2-3.4) K/uL Sampson # (Auto) 0.30 (0.11-0.59) K/uL Eos # (Auto) 0.11 (0-0.5) K/uL Baso # (Auto) 0.02 (0-0.2) K/uL Immature Gran # (Auto) 0.00 (0.00-0.02) K/uL PT 11.7 (9.0-12.0) Seconds INR 1.1 (0.9-1.1) APTT 25.7 (21.0-31.0) Seconds PTT Ratio 0.9 Sodium 138 (136-145) mmol/L Potassium 3.6 (3.5-5.1) mmol/L Chloride 106 (98-107) mmol/L Carbon Dioxide 25 (21-32) mmol/L Anion Gap 7.0 (3-11) BUN 14 (7-18) mg/dl Creatinine 0.81 (0.6-1.2) mg/dl Est Cr Clr Drug Dosing 70.7 ml/min Est GFR ( Amer) 83.5 Est GFR (Non-Af Amer) 72.1 BUN/Creatinine Ratio 17.1 (10-20) Glucose 95 (70-99) mg/dl Lactate (0.4-2.0) mmol/L Calcium 8.9 (8.5-10.1) mg/dl Magnesium 1.8 (1.8-2.4) mg/dl Total Bilirubin 0.9 (0.2-1) mg/dl AST 15 (15-37) U/L ALT 21 (12-78) U/L Alkaline Phosphatase 64 (45-117) U/L Troponin I 0.020 (0-0.045) ng/ml NT-Pro-B Natriuret Pep 656 (0-900) pg/ml Total Protein 6.5 (6.4-8.2) gm/dl Albumin 3.4 (3.4-5.0) gm/dl Globulin 3.1 (2.5-4.0) gm/dl Albumin/Globulin Ratio 1.1 (0.9-2) 05/17/20 Range/Units 19:28 WBC (4.8-10.8) K/uL RBC (4.2-5.4) M/uL Hgb (12.0-16.0) g/dL Hct (37-47) % MCV (80-100) fL MCH (25-34) pg MCHC (32-36) g/dL RDW Std Deviation (36.4-46.3) fL RDW Coeff of Alan (11.5-14.5) % Plt Count (130-400) K/uL MPV (7.4-10.4) fL Immature Gran % (Auto) % Neut % (Auto) % Lymph % (Auto) % Sampson % (Auto) % Eos % (Auto) % Baso % (Auto) % Neut # (Auto) (1.4-6.5) K/uL Lymph # (Auto) (1.2-3.4) K/uL Sampson # (Auto) (0.11-0.59) K/uL Eos # (Auto) (0-0.5) K/uL Baso # (Auto) (0-0.2) K/uL Immature Gran # (Auto) (0.00-0.02) K/uL PT (9.0-12.0) Seconds INR (0.9-1.1) APTT (21.0-31.0) Seconds PTT Ratio Sodium (136-145) mmol/L Potassium (3.5-5.1) mmol/L Chloride (98-107) mmol/L Carbon Dioxide (21-32) mmol/L Anion Gap (3-11) BUN (7-18) mg/dl Creatinine (0.6-1.2) mg/dl Est Cr Clr Drug Dosing ml/min Est GFR ( Amer) Est GFR (Non-Af Amer) BUN/Creatinine Ratio (10-20) Glucose (70-99) mg/dl Lactate 1.2 (0.4-2.0) mmol/L Calcium (8.5-10.1) mg/dl Magnesium (1.8-2.4) mg/dl Total Bilirubin (0.2-1) mg/dl AST (15-37) U/L ALT (12-78) U/L Alkaline Phosphatase (45-117) U/L Troponin I (0-0.045) ng/ml NT-Pro-B Natriuret Pep (0-900) pg/ml Total Protein (6.4-8.2) gm/dl Albumin (3.4-5.0) gm/dl Globulin (2.5-4.0) gm/dl Albumin/Globulin Ratio (0.9-2) Imaging Data Attestation: I personally reviewed and interpreted this imaging study as follows: My Impression: Chest x-ray: Cardiomegaly there may be infiltrate or effusion on the right base but otherwise lung edward are clear Radiologist's Impression: SINGLE VIEW CHEST CLINICAL HISTORY: Sepsis. FINDINGS: An AP, portable, upright chest radiograph is compared to study dated 05/01/2020 and correlated with chest CT dated 03/21/2019. The examination is degraded by portable technique and apical lordotic positioning. The heart is mildly enlarged noting atherosclerotic calcification of the thoracic aorta. The pulmonary vasculature is noncongested. There are trace pleural effusions with dependent atelectasis. No pneumothorax is seen. The skeletal structures are osteopenic. The bony thorax is grossly intact. Colonic distention is noted in th e upper abdomen. IMPRESSION: 1. Cardiomegaly without radiographic evidence of congestive failure. 2. Trace pleural effusions and bibasilar atelectasis. CT SCAN OF THE ABDOMEN AND PELVIS WITHOUT IV CONTRAST CLINICAL HISTORY: Generalized abdominal pain. COMPARISON STUDY: Recent abdominal CT scans, most recently dated 05/02/2020. TECHNIQUE: CT scan of the abdomen and pelvis is performed from the lung bases to the proximal femora. Images are reviewed in the axial, sagittal, and coronal planes. IV contrast was not administered for this examination as per the referring clinician. Note that the examination was performed in suboptimal fashion without oral and IV contrast. A dose lowering technique was utilized adhering to the principles of ALARA. CT DOSE: 1552.96 mGy.cm FINDINGS: Lung bases: The heart is mildly enlarged and without pericardial effusion. There is a moderate hiatal hernia. Emphysematous change is suspected. There are trace pleural effusions and dependent atelectasis. Liver: The unenhanced liver is normal in size, contour, and attenuation. There is no intrahepatic biliary ductal dilatation. A 3.2 cm cyst is noted in the left lobe. Gallbladder: Hyperdense material within the gallbladder lumen likely represents vicariously excreted contrast. The gallbladder is otherwise normal in appearance. Spleen: Normal in size and attenuation. Pancreas: The unenhanced pancreas is atrophic and grossly unremarkable. Adrenal glands: Unremarkable. Kidneys: The unenhanced kidneys demonstrate cortical atrophy and are without hydronephrosis. There are no renal calculi identified. 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 Parapelvic cysts are noted on the right. Abdominal vasculature: The abdominal aorta is normal in course and caliber noting moderate atherosclerotic calcification. Bowel: There is evidence of persistent colonic obstruction. A transition point is again seen in the sigmoid colon on image #[id number]. The upstream colon is distended and fluid-filled. The cecum measures up to 8 cm in diameter. The small bowel loops are normal in caliber. There is moderate sigmoid diverticulosis without CT evidence of acute diverticulitis. The appendix is not identified. Peritoneum: There is no intraperitoneal free air or abdominal ascites. There is a small fat and fluid containing umbilical hernia. Lymphadenopathy: None. Pelvic viscera: The bladder is decompressed and grossly unremarkable. The uterus is surgically absent. No adnexal lesion is seen. Skeletal structures: The skeletal structures are osteopenic. There is moderate lumbosacral spondylosis. No lytic or blastic lesions are seen. IMPRESSION: 1. Persistent distal colonic obstruction. 2. The small bowel loops are normal in caliber. No intraperitoneal free air is seen. 3. Trace pleural effusions and bibasilar atelectasis. 4. There is moderate diverticulosis of the sigmoid colon without CT evidence of acute diverticulitis. 5. Moderate hiatal hernia. 6. Additional findings as above. ECG Data Attestation: I personally reviewed and interpreted this ECG as follows: Indication: + SOB/dyspnea Rate (beats per minute): 80 Rhythm: + normal sinus ECG Intervals/blocks: + Normal QRS, + Normal QT and + Normal MS ECG [place]: + Right axis deviation ECG ST segments: + Nonspecific ST abnormalities Comparison ECG Date: from (04/30/20) Change: no significant change Blood Pressure Blood Pressure Findings: Normal blood pressure Blood Pressure Disposition: did not require urgent referral MDM Narrative This patient comes in as described above. She was placed in room B12. She is here for treatment and evaluation of continuing abdominal pain. She has a known stricture. She also has had some shortness of breath and has been requiring oxygen since she left the hospital. That does not appear to be acutely new today. IV asked established multiple blood testing was obtained using the sepsis order set. I also order a CAT scan of the abdomen out contrast and a chest x-ray EKG. She was reassessed frequently. Chest x-ray does not show congestive heart failure pneumonia or pneumothorax. She has no significant electrolyte or metabolic abnormalities. She has nothing to suggest sepsis. Her EKG does not suggest acute coronary syndrome or ischemia her CAT scan does show that she does have the continued bowel obstruction and narrowing. I talked to her and her at length. When she was admitted before she had refused surgery as she was worried about getting an ostomy and in fact went as far as to say that she would rather than have an ostomy. I talked to her about this and she has changed her mind. She says that she does not feel well and is now willing to get surgery. I told her that she possibly could get an ostomy and she acknowledges this and understands but I told her she needs to talk to the surgeon about this. I did order Zosyn 4.5 g IV for antibiotic coverage given her bowel obstruction. She will be admitted to medicine and have a surgical consultation as well. I have talked to Dr. Edgar who will be admitting her for these measures. Continuous cardiac monitoring: Due to the patient's complaint of shortness of breath she was placed on continuous cardiac monitoring. An order was placed in the electronic medical record. She was noted to be normal sinus rhythm with a rate of 90. Impression & Plan Abdominal pain, SOB (shortness of breath), Bowel obstruction, COPD (chronic obstructive pulmonary disease), O2 dependent Discharge Plan Visit Data Chief Complaint: Shortness of Breath/Dyspnea Stated Complaint: BLOCKAGE IN COLON, NEEDS OXYGEN ED Provider: Wade Valdez Discharge Problem: Abdominal pain, SOB (shortness of breath), Bowel obstruction, COPD (chronic obstructive pulmonary disease), O2 dependent Forms Stand Alone Forms: My [facility] [employer] Prescriptions Prescriptions: No Action atorvastatin 20 mg tablet 20 mg PO HS Qty: 90 RF: 3 omeprazole 20 mg capsule,delayed release(DR/EC) 20 mg PO QAM Qty: 90 RF: 3 escitalopram oxalate 10 mg tablet 10 mg PO QAM Qty: 90 RF: 3 oxybutynin chloride 5 mg tablet extended release 24hr 5 mg PO QAM Qty: 30 RF: 11 aspirin [Aspir-81] 81 mg Tablet,Delayed Release (Dr/Ec) 81 mg PO QAM RF: 0 levothyroxine 125 mcg tablet 125 mcg PO QAM RF: 0 polyethylene glycol 3350 [Miralax] 17 gram Powder In Packet 17 g PO BID Qty: 60 RF: 3 Atrovent HFA 17 mcg/actuation HFA aerosol inhaler 2 puffs INH Q6H Qty: 12.9 RF: 0 albuterol sulfate [Ventolin HFA] 90 mcg/actuation HFA aerosol inhaler 2 puff inhalation QID PRN (Reason: Shortness Of Breath) Qty: 1 RF: 3 ibuprofen 200 mg Tablet 400 mg PO Q6H PRN (Reason: Fever Or Pain) RF: 0 lisinopril 40 mg tablet 40 mg PO QAM RF: 0 Discharge Problem: Abdominal pain Qualifiers: Abdominal location: generalized Qualified Code(s): R10.84 - Generalized abdominal pain Bowel obstruction Qualifiers: Intestinal obstruction type: unspecified Intestinal obstruction extent: partial Qualified Code(s): K56.600 - Partial intestinal obstruction, unspecified as to cause COPD (chronic obstructive pulmonary disease) Qualifiers: COPD type: unspecified COPD Qualified Code(s): J44.9 - Chronic obstructive pulmonary disease, unspecified
[2020-05-17 19:41] LABS: Basophils # (auto) 0.02 K/uL (0-0.2); Basophils % (auto) 0.5 %; Eosinophils # (auto) 0.11 K/uL (0-0.5); Eosinophils % (auto) 2.8 %; Hematocrit (blood only) 40.3 % (37-47); Hemoglobin 13.4 g/dL (12.0-16.0); Lymphocytes # (auto) 1.13 K/uL (1.2-3.4); Mean Corpuscular Hemoglobin 33.8 pg (25-34); Mean Corpuscular Hgb Conc 33.3 g/dL (32-36); Mean Corpuscular Volume 101.8 fL (80-100); Monocytes % (auto) 7.7 %; Neutrophils # (auto) 2.34 K/uL (1.4-6.5); Platelet Count 206 K/uL (130-400); RDW Coefficient of Variation 13.1 % (11.5-14.5); RDW Standard Deviation 49.2 fL (36.4-46.3); Red Blood Count 3.96 M/uL (4.2-5.4)
[2020-05-17 19:52] LABS: INR 1.1 (0.9-1.1); Partial Thromboplastin Ratio 0.9; Partial Thromboplastin Time 25.7 Seconds (21.0-31.0); Prothrombin Time 11.7 Seconds (9.0-12.0)
--- NOTE | 2020-05-17 19:53 | CT Scan Report ---
CT SCAN OF THE ABDOMEN AND PELVIS WITHOUT IV CONTRAST CLINICAL HISTORY: Generalized abdominal pain. COMPARISON STUDY: Recent abdominal CT scans, most recently dated 05/02/2020. TECHNIQUE: CT scan of the abdomen and pelvis is performed from the lung bases to the proximal femora. Images are reviewed in the axial, sagittal, and coronal planes. IV contrast was not administered for this examination as per the referring clinician. Note that the examination was performed in suboptim al fashion without oral and IV contrast. A dose lowering technique was utilized adhering to the princ iples of AIDE. CT DOSE: 1552.96 mGy.cm FINDINGS: Lung bases: The heart is mildly enlarged and without pericardial effusion. There is a moderate hiatal hernia. Emphysematous change is suspected. There are trace pleural effusions and dependent atelectas is. Liver: The unenhanced liver is normal in size, contour, and attenuation. There is no intrahepatic benjamin iary ductal dilatation. A 3.2 cm cyst is noted in the left lobe. Gallbladder: Hyperdense material within the gallbladder lumen likely represents vicariously excreted contrast. The gallbladder is otherwise normal in appearance. Spleen: Normal in size and attenuation. Pancreas: The unenhanced pancreas is atrophic and grossly unremarkable. Adrenal glands: Unremarkable. Kidneys: The unenhanced kidneys demonstrate cortical atrophy and are without hydronephrosis. There ar e no renal calculi identified. 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 Parapelv ic cysts are noted on the right. Abdominal vasculature: The abdominal aorta is normal in course and caliber noting moderate atheroscle rotic calcification. Bowel: There is evidence of persistent colonic obstruction. A transition point is again seen in the s igmoid colon on image #395. The upstream colon is distended and fluid-filled. The cecum measures up t o 8 cm in diameter. The small bowel loops are normal in caliber. There is moderate sigmoid diverticul osis without CT evidence of acute diverticulitis. The appendix is not identified. Peritoneum: There is no intraperitoneal free air or abdominal ascites. There is a small fat and fluid containing umbilical hernia. Lymphadenopathy: None. Pelvic viscera: The bladder is decompressed and grossly unremarkable. The uterus is surgically absent . No adnexal lesion is seen. Skeletal structures: The skeletal structures are osteopenic. There is moderate lumbosacral spondylosi s. No lytic or blastic lesions are seen. IMPRESSION: 1. Persistent distal colonic obstruction. 2. The small bowel loops are normal in caliber. No intraperitoneal free air is seen. 3. Trace pleural effusions and bibasilar atelectasis. 4. There is moderate diverticulosis of the sigmoid colon without CT evidence of acute diverticulitis. 5. Moderate hiatal hernia. 6. Additional findings as above. ACT 112: Negative or not required by law. Electronically signed by: uHa Huff M.D. 05/17/2020 7:52 PM
[2020-05-17 19:58] LABS: Albumin Level 3.4 gm/dl (3.4-5.0); BUN Creatinine Ratio 17.1 (10-20); Calcium 8.9 mg/dl (8.5-10.1); Creatinine Clr Calc Pharmacy 70.7 ml/min; Est GFR (African American) 83.5; Est GFR (Non-African American) 72.1; Magnesium 1.8 mg/dl (1.8-2.4); Potassium 3.6 mmol/L (3.5-5.1)
[2020-05-17 20:03] LABS: Albumin Globulin Ratio 1.1 (0.9-2); Bilirubin,Total 0.9 mg/dl (0.2-1); Globulin 3.1 gm/dl (2.5-4.0); Total Protein 6.5 gm/dl (6.4-8.2); Troponin I 0.02 ng/ml (0-0.045)
--- NOTE | 2020-05-17 20:28 | XRay Report ---
SINGLE VIEW CHEST CLINICAL HISTORY: Sepsis. FINDINGS: An AP, portable, upright chest radiograph is compared to study dated 05/01/2020 and correlat ed with chest CT dated 03/21/2019. The examination is degraded by portable technique and apical lordoti c positioning. The heart is mildly enlarged noting atherosclerotic calcification of the thoracic aort a. The pulmonary vasculature is noncongested. There are trace pleural effusions with dependent atelec tasis. No pneumothorax is seen. The skeletal structures are osteopenic. The bony thorax is grossly in tact. Colonic distention is noted in the upper abdomen. IMPRESSION: 1. Cardiomegaly without radiographic evidence of congestive failure. 2. Trace pleural effusions and bibasilar atelectasis. ACT 112: Negative or not required by law. Electronically signed by: Hua Huff M.D. 05/17/2020 8:27 PM
[2020-05-17] MEDS ORDERED: PIPERACILL/TAZOBAC CONSULT ACTIVE PRN ×2 (20:37→23:01)
[2020-05-17] MEDS ORDERED: PIPERACILLIN/TAZOBACTAM 4.5 GM/120 ML BAG IV ONE (20:37)
[2020-05-17] MEDS ORDERED: SODIUM CHLORIDE 0.9% 500 ML IV SCH (20:45)
--- NOTE | 2020-05-17 22:05 | History & Physical Report ---
Date of Service May 17, 2020 Assessment & Plan (1) Bowel obstruction: Persistent distal colonic bowel obstruction/moderate sigmoid diverticulosis/moderate hiatal hernia/history of diverticular stricture- Patient was initially omitted for same symptoms and similar CT abdomen and pelvis reading on 05/02/2020. Patient is more willing now to accept surgery and possible colostomy as she was advised could happen before, and during which admission she had left [place]. She most recently left [facility], due to preference of returning to [facility] and having care here. NPO NSS + KCl 20 mEq at 100 mils per hour Zofran 4 mg IV every 6 hours as needed Zosyn 3.375 mg IV every 8 hours Famotidine 20 mg IV every 12 hours Consult general surgery Present on Admission?: Yes (2) COPD (chronic obstructive pulmonary disease): Oxygen dependent COPD- Secondary to long history of tobacco abuse DuoNebs 4 times daily and every 2 hours as needed. Hold routine inhalers Nasal cannula oxygen, titrate to keep pulse ox 92 to 94% History of acute on chronic respiratory failure Present on Admission?: Yes (3) Diverticular stricture: As noted above. Present on Admission?: Yes (4) GERD (gastroesophageal reflux disease): Present on Admission?: Yes (5) O2 dependent: See above Present on Admission?: Yes (6) Tobacco dependence: Noted. Has not smoked in a while. Present on Admission?: Yes (7) Alcohol dependence: Noted history. Has not had alcohol intake in a while, and should not be concerned regarding acute alcohol withdrawal Present on Admission?: Yes (8) Hypothyroidism: On levothyroxine 125 mcg p.o. every morning. Converted to IV dosing Present on Admission?: Yes (9) Hypertension: Hold aspirin, lisinopril due to relative hypotension and n.p.o. status Present on Admission?: Yes (10) Hyperlipidemia: Hold atorvastatin Present on Admission?: Yes (11) Bladder spasms: Hold oxybutynin. Love catheter Present on Admission?: Yes History of Present Illness Chief Complaint: The patient presents to the emergency department with persistent abdominal pain, shortness of breath and dyspnea on exertion, and decreased oral intake to both liquids and solids. Primary Care Provider: Vince Reed MD The patient is a 75-year-old female with a past medical history including bowel obstruction, oxygen dependent COPD, diverticular stricture, acute on chronic respiratory failure, GERD, alcohol dependence, tobacco dependence, hypothyroidism, hypertension, and Graves' disease. She had been admitted to [facility] from 04/29-05/03/2020, and left [place] on 05/03/2020. During that visit, she had been diagnosed with a bowel obstruction, and had been told that surgery could potentially end up in a colostomy, which she was not willing to accept, and decided to leave [place]. She was most recently admitted to [facility] for 5 days, for which she and her report was a second opinion, and where they did in fact get the same recommendation. Her reports that she is back to [facility] today to have whatever surgery and treatment is considered necessary. Allergies Allergy/AdvReac Type Severity Reaction Status Date / Time No Known Allergies Allergy Unknown Verified 05/17/20 19:59 Home Medications Home Medications Medication Instructions Recorded Confirmed Type aspirin [Aspir-81] 81 mg PO QAM 03/21/19 05/17/20 History lisinopril 40 mg PO QAM 07/13/19 05/17/20 History atorvastatin 20 mg tablet 20 mg PO HS #90 tab 11/22/19 05/17/20 Rx omeprazole 20 mg capsule,delayed 20 mg PO QAM #90 cap 11/22/19 05/17/20 Rx release escitalopram oxalate 10 mg tablet 10 mg PO QAM #90 tab 12/18/19 05/17/20 Rx levothyroxine 125 mcg PO QAM 04/29/20 05/17/20 History albuterol sulfate [Ventolin HFA] 2 puff INHALATION QID PRN #1 05/03/20 05/17/20 Rx inhaler ipratropium bromide [Atrovent HFA] 2 puffs INH Q6H #12.9 gm 05/03/20 05/17/20 Rx polyethylene glycol 3350 [Miralax] 17 g PO BID #60 ea 05/03/20 05/17/20 Rx oxybutynin chloride 5 mg 5 mg PO QAM #30 tab 05/10/20 05/17/20 Rx tablet,extended release 24 hr ibuprofen 400 mg PO Q6H PRN 05/17/20 05/17/20 History Past Med/Surg History Medical History Diverticulitis (Inactive 2017) Graves disease (Chronic) treated with radiation Hematuria, microscopic Hypertension (Chronic) Hyperthyroidism Mixed hearing loss, bilateral (Inactive) Psoriasis (Inactive) Surgical History History of tonsillectomy History of tubal ligation History of vaginal hysterectomy Family History Mother Ovarian cancer Father Myocardial infarction Denies family history of Colorectal cancer Social History Preferred Language: French Communication Ability: Effective Visual Impairment: No Limitations Hearing Ability: Normal Felt Pad Cutter Required: No Beliefs That Will Affect Care: None marital status: Current Living Situation: Spouse current occupational status: retired Other Information That Helps Us Care for You: 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 Feels Safe at Home: Yes Safety Concerns: Feels Safe At This Time Smoking Status: Current every day smoker Tobacco Type: cigarettes ; Age Started Using Tobacco: 22 ; packs per day: 2 ; Cigarettes Per Day: 40 ; Do You Dip or Chew Tobacco: No ; Second Hand Exposure: No ; Hx Alcohol Use: Yes Alcohol type: beer and hard liquor Alcohol Intake Frequency: Daily Hx Substance Use: No Review of Systems Review of Systems: The patient denies chest pain, palpitations, cough, lower extremity swelling, sore throat, fevers, chills, sweats, blood in urine or stool, dysuria, urinary frequency or urgency, loss of consciousness, rash, abnormal bruising or bleeding, imbalance, focal weakness, numbness or tingling in arms or legs, back or neck pain, or night sweats. The review of systems is otherwise negative other than for that already noted above, and at least 10 systems have been reviewed. Physical Exam Physical Exam: The patient is awake, lethargic, looks chronically ill and garcia-white tone, normocephalic and atraumatic, lying in bed and in no acute distress. HEENT--PERRL, EOMI, mucous membranes and oropharynx dry. Neck--supple. No JVD. No bruits. Thyroid normal, trachea midline, no adenopathy. Heart--normal S1 and S2. No murmurs, rubs or gallops. Lungs--clear bilaterally, no respiratory distress, no accessory muscle use. Abdomen-decreased bowel sounds and soft. Generalized tenderness. Mildly distended. Extremities--no cyanosis or clubbing. No edema. Dermatologic--poor skin tone, appearing garcia-white tone Neurologic--cranial nerves II through XII grossly intact. Rheumatologic--normal range of motion. Psychiatric--lethargic. Results & Data Results & Data ([facility]) Vital Signs (Past 12 Hours) Vital Signs Temp Pulse Pulse Resp BP BP Pulse Ox 05/17/20 22:01 71 18 143/74 H 98 05/17/20 20:55 70 23 134/80 100 05/17/20 20:06 74 22 130/68 96 05/17/20 19:34 96 05/17/20 19:33 74 18 146/79 H 96 05/17/20 16:37 98.1 F 89 20 123/73 93 Laboratory Results Laboratory Results WBC 3.90 K/uL (4.8-10.8) L 05/17/20 19:28 RBC 3.96 M/uL (4.2-5.4) L 05/17/20 19:28 Hgb 13.4 g/dL (12.0-16.0) 05/17/20 19:28 Hct 40.3 % (37-47) 05/17/20 19:28 MCV 101.8 fL (80-100) H 05/17/20 19:28 MCH 33.8 pg (25-34) 05/17/20 19:28 MCHC 33.3 g/dL (32-36) 05/17/20 19:28 RDW Std Deviation 49.2 fL (36.4-46.3) H 05/17/20 19:28 RDW Coeff of Alan 13.1 % (11.5-14.5) 05/17/20 19:28 Plt Count 206 K/uL (130-400) 05/17/20 19:28 MPV 11.0 fL (7.4-10.4) H 05/17/20 19:28 Immature Gran % (Auto) 0.0 % 05/17/20 19:28 Neut % (Auto) 60.0 % 05/17/20 19:28 Lymph % (Auto) 29.0 % 05/17/20 19:28 [place] % (Auto) 7.7 % 05/17/20 19: Eos % (Auto) 2.8 % 05/17/20 19: Baso % (Auto) 0.5 % 05/17/20 19: Neut # (Auto) 2.34 K/uL (1.4-6.5) 05/17/20 19: Lymph # (Auto) 1.13 K/uL (1.2-3.4) L 05/17/20 19: [place] # (Auto) 0.30 K/uL (0.11-0.59) 05/17/20 19: Eos # (Auto) 0.11 K/uL (0-0.5) 05/17/20 19: Baso # (Auto) 0.02 K/uL (0-0.2) 05/17/20: Immature Gran # (Auto) 0.00 K/uL (0.00-0.02) 05/17/20 19: PT 11.7 Seconds (9.0-12.0) 05/17/20 19: INR 1.1 (0.9-1.1) 05/17/20 19: APTT 25.7 Seconds (21.0-31.0) 05/17/20: PTT Ratio 0.9 05/17/20 19: Sodium 138 mmol/L (136-145) 05/17/20 19: Potassium 3.6 mmol/L (3.5-5.1) 05/17/20 19: Chloride 106 mmol/L (98-107) 05/17/20: Carbon Dioxide 25 mmol/L (21-32) 05/17/20: Anion Gap 7.0 (3-11) 05/17/20 19: BUN 14 mg/dl (7-18) 05/17/20 19: Creatinine 0.81 mg/dl (0.6-1.2) 05/17/20: Est Cr Clr Drug Dosing 70.7 ml/min 05/17/20 19:28 Est GFR ( Amer) 83.5 05/17/20 19: Est GFR (Non-Af Amer) 72.1 05/17/20 19:28 BUN/Creatinine Ratio 17.1 (10-20) 05/17/20 19:28 Glucose 95 mg/dl (70-99) 05/17/20 19:28 Lactate 1.2 mmol/L (0.4-2.0) 05/17/20 19:28 Calcium 8.9 mg/dl (8.5-10.1) 05/17/20 19:28 Magnesium 1.8 mg/dl (1.8-2.4) 05/17/20 19:28 Total Bilirubin 0.9 mg/dl (0.2-1) 05/17/20 19:28 AST 15 U/L (15-37) 05/17/20 19:28 ALT 21 U/L (12-78) 05/17/20 19:28 Alkaline Phosphatase 64 U/L (45-117) 05/17/20 19:28 Troponin I 0.020 ng/ml (0-0.045) 05/17/20 19:28 NT-Pro-B Natriuret Pep 656 pg/ml (0-900) 05/17/20 19:28 Total Protein 6.5 gm/dl (6.4-8.2) 05/17/20 19:28 Albumin 3.4 gm/dl (3.4-5.0) 05/17/20 19:28 Globulin 3.1 gm/dl (2.5-4.0) 05/17/20 19:28 Albumin/Globulin Ratio 1.1 (0.9-2) 05/17/20 19:28 Diagnostic Findings [facility] [place] [phone] XRay Report Patient: AVRIL LEE Date: 05/17/20 MR#: [id number]: [address] Acct ID:[id number]: Date: 1945[facility] Zip: [place] [address] Age: 75Location: ED Sex: F Room/Bed: Att Phy:Diagnosis: BLOCKAGE IN COLON, NEEDS OXYGEN Goldie Phy: Vince Reed, III, MDService Date: 05/17/20 Fam Phy:Interpreting Phy: Hua Huff MD Admit Phy: Ordering Phy: Wade Valdez M.D. cc: ~ SINGLE VIEW CHEST CLINICAL HISTORY: Sepsis. FINDINGS: An AP, portable, upright chest radiograph is compared to study dated 05/01/2020 and correlated with chest CT dated 03/21/2019. The examination is degraded by portable technique and apical lordotic positioning. The heart is mildly enlarged noting atherosclerotic calcification of the thoracic aorta. The pulmonary vasculature is noncongested. There are trace pleural effusions with dependent atelectasis. No pneumothorax is seen. The skeletal structures are osteopenic. The bony thorax is grossly intact. Colonic distention is noted in the upper abdomen. IMPRESSION: 1. Cardiomegaly without radiographic evidence of congestive failure. 2. Trace pleural effusions and bibasilar atelectasis. ACT 112: Negative or not required by law. Electronically signed by: Hua Huff M.D. 05/17/2020 8:27 PM Dictated: 05/17/202024 Transcribed: 05/17/202024 [place], [place] [phone] CT Scan Report Patient: AVRIL LEE Date: 05/17/20 MR#: [id number]: [address] [facility] Acct ID:[id number]: Date: 1945[facility] Zip: [place] [address] Age: 75Location: ED Sex: F Room/Bed: Att Phy:Diagnosis: BLOCKAGE IN COLON, NEEDS OXYGEN Goldie Phy: Vince Reed III, MDService Date: 05/17/20 Fam Phy:Interpreting Phy: Hua Huff MD Admit Phy: Ordering Phy: Wade Valdez M.D. cc: ~ CT SCAN OF THE ABDOMEN AND PELVIS WITHOUT IV CONTRAST CLINICAL HISTORY: Generalized abdominal pain. COMPARISON STUDY: Recent abdominal CT scans, most recently dated 05/02/2020. TECHNIQUE: CT scan of the abdomen and pelvis is performed from the lung bases to the proximal femora. Images are reviewed in the axial, sagittal, and coronal planes. IV contrast was not administered for this examination as per the referring clinician. Note that the examination was performed in suboptimal fashion without oral and IV contrast. A dose lowering technique was utilized adhering to the principles of ALARA. CT DOSE: 1552.96 mGy.cm FINDINGS: Lung bases: The heart is mildly enlarged and without pericardial effusion. There is a moderate hiatal hernia. Emphysematous change is suspected. There are trace pleural effusions and dependent atelectasis. Liver: The unenhanced liver is normal in size, contour, and attenuation. There is no intrahepatic biliary ductal dilatation. A 3.2 cm cyst is noted in the left lobe. Gallbladder: Hyperdense material within the gallbladder lumen likely represents vicariously excreted contrast. The gallbladder is otherwise normal in appearance. Spleen: Normal in size and attenuation. Pancreas: The unenhanced pancreas is atrophic and grossly unremarkable. Adrenal glands: Unremarkable. Kidneys: The unenhanced kidneys demonstrate cortical atrophy and are without hydronephrosis. There are no renal calculi identified. 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 Parapelvic cysts are noted on the right. Abdominal vasculature: The abdominal aorta is normal in course and caliber noting moderate atherosclerotic calcification. Bowel: There is evidence of persistent colonic obstruction. A transition point is again seen in the sigmoid colon on image #395. The upstream colon is distended and fluid-filled. The cecum measures up to 8 cm in diameter. The small bowel loops are normal in caliber. There is moderate sigmoid diverticulosis without CT evidence of acute diverticulitis. The appendix is not identified. Peritoneum: There is no intraperitoneal free air or abdominal ascites. There is a small fat and fluid containing umbilical hernia. Lymphadenopathy: None. Pelvic viscera: The bladder is decompressed and grossly unremarkable. The uterus is surgically absent. No adnexal lesion is seen. Skeletal structures: The skeletal structures are osteopenic. There is moderate lumbosacral spondylosis. No lytic or blastic lesions are seen. IMPRESSION: 1. Persistent distal colonic obstruction. 2. The small bowel loops are normal in caliber. No intraperitoneal free air is seen. 3. Trace pleural effusions and bibasilar atelectasis. 4. There is moderate diverticulosis of the sigmoid colon without CT evidence of acute diverticulitis. 5. Moderate hiatal hernia. 6. Additional findings as above. ACT 112: Negative or not required by law. Electronically signed by: Hua Huff M.D. 05/17/2020 7:52 PM Dictated: 05/17/201944 Transcribed: 05/17/201944 Code Status & VTE Plan Code Status Full code VTE Prophylaxis Plan VTE Prophylaxis will be ordered: Yes PG Care Time/CCT Total # of Minutes Spent Total Time Spent with Patient: Total time spent is greater than 50% in coordination of care (as documented) at patient's floor/unit and/or counseling patient: Coding Level of Care Code 94065 Initial Inpt Care Lvl 3 Diagnoses Bowel obstruction K56.600 Intestinal obstruction extent: partial Intestinal obstruction type: unspecified COPD (chronic obstructive pulmonary disease) J44.9 COPD type: unspecified COPD Diverticular stricture K56.699 GERD (gastroesophageal reflux disease) K21.9 Esophagitis presence: esophagitis presence not specified O2 dependent Z99.81 Tobacco dependence F17.200 Alcohol dependence F10.20 Substance use status: uncomplicated Hypothyroidism E03.9 Hypothyroidism type: acquired Hypertension I10 Hypertension type: essential hypertension Hyperlipidemia E78.5 Bladder spasms N32.89 (1) Bowel obstruction Intestinal obstruction extent: partial Intestinal obstruction type: unspecified Qualified Code(s): K56.600 - Partial intestinal obstruction, unspecified as to cause (2) COPD (chronic obstructive pulmonary disease) COPD type: unspecified COPD Qualified Code(s): J44.9 - Chronic obstructive pulmonary disease, unspecified (3) GERD (gastroesophageal reflux disease) Esophagitis presence: esophagitis presence not specified Qualified Code(s): K21.9 - Gastro-esophageal reflux disease without esophagitis (4) Alcohol dependence Substance use status: uncomplicated Qualified Code(s): F10.20 - Alcohol dependence, uncomplicated (5) Hypothyroidism Hypothyroidism type: acquired Qualified Code(s): E03.9 - Hypothyroidism, unspecified (6) Hypertension Hypertension type: essential hypertension Qualified Code(s): I10 - Essential (primary) hypertension
[2020-05-17] MEDS ORDERED: ONDANSETRON INJ 2 MG/ML 2 ML VIAL IV PRN (23:01)
[2020-05-17] MEDS: FAMOTIDINE 20 MG in SYRINGE 3 ML IV SCH (23:29)
[2020-05-17] MEDS: NSS + 20MEQ KCL 20 MEQ/1,000 ML BAG IV SCH (23:29)
[2020-05-18] MEDS: PIPERACILLIN/TAZOBACTAM 3.375 GM in DEXTROSE 5% 100 ML IV SCH ×3 (02:07→18:03)
[2020-05-18] MEDS: ALBUT/IPRATROP 3MG/0.5MG NEB 3 ML VIAL NEB SCH ×4 (07:08→19:03)
[2020-05-18 08:22] LABS: Basophils # (auto) 0.02 K/uL (0-0.2); Basophils % (auto) 0.5 %; Eosinophils % (auto) 2.6 %; Hematocrit (blood only) 42.5 % (37-47); Hemoglobin 13.9 g/dL (12.0-16.0); Lymphocytes # (auto) 0.91 K/uL (1.2-3.4); Lymphocytes % (auto) 23.2 %; Mean Corpuscular Hemoglobin 33.9 pg (25-34); Mean Corpuscular Hgb Conc 32.7 g/dL (32-36); Mean Corpuscular Volume 103.7 fL (80-100); Mean Platelet Volume 11.1 fL (7.4-10.4); Monocytes # (auto) 0.31 K/uL (0.11-0.59); Monocytes % (auto) 7.9 %; Neutrophils # (auto) 2.58 K/uL (1.4-6.5); Neutrophils % (auto) 65.8 %; Platelet Count 199 K/uL (130-400); RDW Coefficient of Variation 13.1 % (11.5-14.5); RDW Standard Deviation 49.9 fL (36.4-46.3); White Blood Count 3.92 K/uL (4.8-10.8)
[2020-05-18] MEDS: FAMOTIDINE 20 MG in SYRINGE 3 ML IV SCH ×2 (08:26→22:21)
[2020-05-18] MEDS: ONDANSETRON INJ 2 MG/ML 2 ML VIAL IV PRN ×2 (08:26→21:06)
[2020-05-18] MEDS: ACETAMINOPHEN 1000 MG/100 ML IV IV PRN (08:26)
[2020-05-18 08:28] LABS: INR 1.1 (0.9-1.1); Partial Thromboplastin Ratio 0.9; Partial Thromboplastin Time 26.5 Seconds (21.0-31.0); Prothrombin Time 11.5 Seconds (9.0-12.0)
[2020-05-18 08:45] LABS: BUN Creatinine Ratio 19.3 (10-20); Calcium 8.7 mg/dl (8.5-10.1); Est GFR (African American) 101.1; Est GFR (Non-African American) 87.2; Magnesium 1.8 mg/dl (1.8-2.4); Potassium 3.5 mmol/L (3.5-5.1)
[2020-05-18] MEDS: NSS + 20MEQ KCL 20 MEQ/1,000 ML BAG IV SCH ×2 (09:27→19:25)
--- NOTE | 2020-05-18 10:07 | Surgery Consultation ---
Date of Consultation May 18, 2020 Assessment & Plan (1) Diverticular stricture: poor surgical candidate would recommend GI evaluation for stent placement and subsequent prep to avoid possibility of colostomy; likely at [place] once prepped needs exploration and sigmoid resection passing liquid stool and minimal discomfort Present on Admission?: Yes History of Present Illness Attending Physician: Donte Mcallister History of Present Illness The patient is a 75-year-old female with a past medical history including sigmoid diverticular stricture with a partial large bowel obstruction, oxygen dependent COPD, acute on chronic respiratory failure, GERD, alcohol dependence, tobacco dependence, hypothyroidism, hypertension, and Graves' disease. She had been admitted to [facility] from 04/29-05/03/2020, and left [place] on 05/03/2020. During that visit, she had been diagnosed with the large bowel obstruction, and had been told that surgery could potentially end up in a colostomy, which she was not willing to accept, and decided to leave [place]. She has approximately the same smptoms and presents for definitive care. Allergies Allergy/AdvReac Type Severity Reaction Status Date / Time No Known Allergies Allergy Unknown Verified 05/17/20 19:59 Home Medications Home Medications Medication Instructions Recorded Confirmed Type aspirin [Aspir-81] 81 mg PO QAM 03/21/19 05/17/20 History lisinopril 40 mg PO QAM 07/13/19 05/17/20 History atorvastatin 20 mg tablet 20 mg PO HS #90 tab 11/22/19 05/17/20 Rx omeprazole 20 mg capsule,delayed 20 mg PO QAM #90 cap 11/22/19 05/17/20 Rx release escitalopram oxalate 10 mg tablet 10 mg PO QAM #90 tab 12/18/19 05/17/20 Rx levothyroxine 125 mcg PO QAM 04/29/20 05/17/20 History albuterol sulfate [Ventolin HFA] 2 puff INHALATION QID PRN #1 05/03/20 05/17/20 Rx inhaler ipratropium bromide [Atrovent HFA] 2 puffs INH Q6H #12.9 gm 05/03/20 05/17/20 Rx polyethylene glycol 3350 [Miralax] 17 g PO BID #60 ea 05/03/20 05/17/20 Rx oxybutynin chloride 5 mg 5 mg PO QAM #30 tab 05/10/20 05/17/20 Rx tablet,extended release 24 hr ibuprofen 400 mg PO Q6H PRN 05/17/20 05/17/20 History Patient History Medical History (Updated 05/18/20 @ 10:08 by Dayo Ansari MD) Bladder spasms Diverticulitis (Inactive 2017) Graves disease (Chronic) treated with radiation Hematuria, microscopic Hyperlipidemia Hypertension (Chronic) Hyperthyroidism Mixed hearing loss, bilateral (Inactive) Psoriasis (Inactive) Surgical History History of tonsillectomy History of tubal ligation History of vaginal hysterectomy Family History Mother Ovarian cancer Father Myocardial infarction Denies family history of Colorectal cancer Social History Preferred Language: Sami Communication Ability: Effective Visual Impairment: No Limitations Hearing Ability: Normal Executive Vice President Of Sales Required: No Beliefs That Will Affect Care: None marital status: Current Living Situation: Spouse current occupational status: retired Other Information That Helps Us Care for You: 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 Feels Safe at Home: Yes Safety Concerns: Feels Safe At This Time Smoking Status: Current every day smoker Tobacco Type: cigarettes ; Age Started Using Tobacco: 22 ; packs per day: 2 ; Cigarettes Per Day: 40 ; Do You Dip or Chew Tobacco: No ; Second Hand Exposure: No ; Hx Alcohol Use: Yes Alcohol type: beer and hard liquor Alcohol Intake Frequency: Daily Hx Substance Use: No Review of Systems Constitutional: no fever and no chills Respiratory: no cough and no dyspnea Cardiovascular: + dyspnea; no chest pain Gastrointestinal: + change in bowel habits and + diarrhea/loose stools; no abdominal pain, no nausea and no vomiting Genitourinary: no dysuria Musculoskeletal: no back pain Integumentary: no rash Neurologic: no problem reported Psychiatric: no problem reported Endocrine: + fatigue Physical Exam Constitutional: well developed and well nourished; no acute distress Neck: trachea midline Respiratory: normal respiratory effort, lungs clear to auscultation Cardiovascular: RRR, no murmur, no edema Gastrointestinal (Abdomen): Inspection/Auscultation: abdomen normal to inspection, + abdomen distended and normal bowel sounds Percussion/Palpation: abdomen nontender, no guarding, abdomen not rigid and no hernia Musculoskeletal: Head/Neck/Chest: normocephalic Skin: no jaundice Psychiatric: Orientation: alert and oriented x 3 Lymphatic: no lymphadenopathy Results & Data Vital Signs (Past 12 Hours) Vital Signs Temp Pulse Pulse Pulse Resp BP BP 05/18/20 07:05 59 L 16 05/18/20 07:00 36.5 C 61 20 147/85 H 05/18/20 04:00 36.7 C 73 20 151/86 H 05/18/20 01:05 72 05/18/20 00:32 36.6 C 71 71 22 119/75 05/17/20 23:26 36.8 C 112 H 20 122/65 05/17/20 22:20 23 Pulse Ox 05/18/20 07:05 94 05/18/20 07:00 95 05/18/20 04:00 95 05/18/20 01:05 05/18/20 00:32 91 05/17/20 23:26 96 05/17/20 22:[address] SCAN OF THE ABDOMEN AND PELVIS WITHOUT IV CONTRAST CLINICAL HISTORY: Generalized abdominal pain. COMPARISON STUDY: Recent abdominal CT scans, most recently dated 05/02/2020. TECHNIQUE: CT scan of the abdomen and pelvis is performed from the lung bases to the proximal femora. Images are reviewed in the axial, sagittal, and coronal planes. IV contrast was not administered for this examination as per the referring clinician. Note that the examination was performed in suboptimal fashion without oral and IV contrast. A dose lowering technique was utilized adhering to the principles of ALARA. CT DOSE: 1552.96 mGy.cm FINDINGS: Lung bases: The heart is mildly enlarged and without pericardial effusion. There is a moderate hiatal hernia. Emphysematous change is suspected. There are trace pleural effusions and dependent atelectasis. Liver: The unenhanced liver is normal in size, contour, and attenuation. There i s no intrahepatic biliary ductal dilatation. A 3.2 cm cyst is noted in the left lobe. Gallbladder: Hyperdense material within the gallbladder lumen likely represents vicariously excreted contrast. The gallbladder is otherwise normal in appearance. Spleen: Normal in size and attenuation. Pancreas: The unenhanced pancreas is atrophic and grossly unremarkable. Adrenal glands: Unremarkable. Kidneys: The unenhanced kidneys demonstrate cortical atrophy and are without hydronephrosis. There are no renal calculi identified. 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 Parapelvic cysts are noted on the right. Abdominal vasculature: The abdominal aorta is normal in course and caliber noting moderate atherosclerotic calcification. Bowel: There is evidence of persistent colonic obstruction. A transition point is again seen in the sigmoid colon on image #395. The upstream colon is distended and fluid-filled. The cecum measures up to 8 cm in diameter. The small bowel loops are normal in caliber. There is moderate sigmoid diverticulosis without CT evidence of acute diverticulitis. The appendix is not identified. Peritoneum: There is no intraperitoneal free air or abdominal ascites. There is a small fat and fluid containing umbilical hernia. Lymphadenopathy: None. Pelvic viscera: The bladder is decompressed and grossly unremarkable. The uterus is surgically absent. No adnexal lesion is seen. Skeletal structures: The skeletal structures are osteopenic. There is moderate lumbosacral spondylosis. No lytic or blastic lesions are seen. IMPRESSION: 1. Persistent distal colonic obstruction. 2. The small bowel loops are normal in caliber. No intraperitoneal free air is seen. 3. Trace pleural effusions and bibasilar atelectasis. 4. There is moderate diverticulosis of the sigmoid colon without CT evidence of acute diverticulitis. 5. Moderate hiatal hernia. 6. Additional findings as above.
[2020-05-18 12:49] LABS: Appearance Urine Cloudy (Clear); Bacteria Urine Automated Negative (Negative); Blood Urine Negative (Negative); Color Urine Dark Yellow; Epithelial Cell Urine Auto >30 /lpf (0-5); Glucose Urine UA Negative (Negative); Ketones Urine 1+ (Negative); Leukocyte Esterase Urine Negative (Negative); Nitrite Urine Negative (Negative); Protein Urine 1+ (Negative); Specific Gravity Urine 1.041 (1.000-1.030); Urobilinogen Urine Negative (Negative)
--- NOTE | 2020-05-18 12:49 | Gastrointestinal Consultation ---
Date of Consultation May 18, 2020 Assessment & Plan (1) Diverticular stricture: (2) Large bowel obstruction: Patient's colonic stricture is not amenable to stenting I did discuss the case with Dr. Siddiqui of [facility] as well and he agreed that patient should undergo surgery I would recommend advancing to clear liquid diet only I discussed the case with Dr. Mcallister, and recommended that the patient be non- emergently transferred to [facility] for surgery. [facility] may request further endoscopic evaluation at that time, but I would not recommend any invasive testing here at present. Continue supportive care History of Present Illness Reason for Consultation: Large Bowel Obstruction Attending Physician: Donte Mcallister History of Present Illness I had the pleasure of seeing Makenzie Segura today at her bedside. She was recently admitted for a Large Bowel obstruction in mid-April, and returned yesterday with complaints of abdominal pain and vomiting, and was subsequently found to have a persistent LBO. She did undergo a colonoscopy by me on 05/01, and at that time, she had a complex colon with need to switch to a super slip colonoscope, and incomplete colonoscopy due to a non-inflammatory diverticular stricture with questionable adhesive disease. The lesion was not felt to be amenable to stenting at that time. At the time that I saw her this AM she was feeling slightly better. She was having some liquid BM's. She complains of LLQ abdominal pain rated as 4/10 in intensity, with associated bowel distention. She denies any exacerbating factors. She was previously against any surgery for the treatment of her disease, however, states, "I want to live, so if I need surgery I will do what I need to." She denies any fevers, chills, nausea, vomiting, hematemesis, melena or hematochezia at this time. Allergies Allergy/AdvReac Type Severity Reaction Status Date / Time No Known Allergies Allergy Unknown Verified 05/17/20 19:59 Home Medications Home Medications Medication Instructions Recorded Confirmed Type aspirin [Aspir-81] 81 mg PO QAM 03/21/19 05/17/20 History lisinopril 40 mg PO QAM 07/13/19 05/17/20 History atorvastatin 20 mg tablet 20 mg PO HS #90 tab 11/22/19 05/17/20 Rx omeprazole 20 mg capsule,delayed 20 mg PO QAM #90 cap 11/22/19 05/17/20 Rx release escitalopram oxalate 10 mg tablet 10 mg PO QAM #90 tab 12/18/19 05/17/20 Rx levothyroxine 125 mcg PO QAM 04/29/20 05/17/20 History albuterol sulfate [Ventolin HFA] 2 puff INHALATION QID PRN #1 05/03/20 05/17/20 Rx inhaler ipratropium bromide [Atrovent HFA] 2 puffs INH Q6H #12.9 gm 05/03/20 05/17/20 Rx polyethylene glycol 3350 [Miralax] 17 g PO BID #60 ea 05/03/20 05/17/20 Rx oxybutynin chloride 5 mg 5 mg PO QAM #30 tab 05/10/20 05/17/20 Rx tablet,extended release 24 hr ibuprofen 400 mg PO Q6H PRN 05/17/20 05/17/20 History Patient History Medical History (Updated 05/18/20 @ 12:59 by Kei Rooney, DO) Bladder spasms Diverticulitis (Inactive 2016) Graves disease (Chronic) treated with radiation Hematuria, microscopic Hyperlipidemia Hypertension (Chronic) Hyperthyroidism Mixed hearing loss, bilateral (Inactive) Psoriasis (Inactive) Surgical History History of tonsillectomy History of tubal ligation History of vaginal hysterectomy Family History Mother Ovarian cancer Father Myocardial infarction Denies family history of Colorectal cancer Social History Preferred Language: Turkmen Communication Ability: Effective Visual Impairment: No Limitations Hearing Ability: Normal Mine Manager Required: No Beliefs That Will Affect Care: None marital status: Current Living Situation: Spouse current occupational status: retired Other Information That Helps Us Care for You: 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 Feels Safe at Home: Yes Safety Concerns: Feels Safe At This Time Smoking Status: Current every day smoker Tobacco Type: cigarettes ; Age Started Using Tobacco: 22 ; packs per day: 2 ; Cigarettes Per Day: 40 ; Do You Dip or Chew Tobacco: No ; Second Hand Exposure: No ; Hx Alcohol Use: Yes Alcohol type: beer and hard liquor Alcohol Intake Frequency: Daily Hx Substance Use: No Review of Systems Review of Systems: All systems reviewed & are unremarkable except as noted in HPI & below Physical Exam Constitutional: WD/WN, vitals as above + morbidly obese Eyes: PERRL, conjunctivae normal, anicteric sclerae ENMT: external ear and nose normal, oropharynx normal Neck: trachea midline, no thyromegaly Respiratory: normal respiratory effort, lungs clear to auscultation Cardiovascular: RRR, no murmur, no edema Gastrointestinal (Abdomen): Inspection/Auscultation: + abdomen distended; + abnormal bowel sounds Percussion/Palpation: + abdomen tender (LLQ); no guarding and abdomen not rigid Skin: no rashes, warm and dry Psychiatric: A+Ox3, euthymic affect Results & Data ([facility]) Vital Signs (Past 12 Hours) Vital Signs Temp Pulse Pulse Resp BP Pulse Ox 05/18/20 11:18 36.4 C L 68 20 147/80 H 99 05/18/20 10:58 70 20 96 05/18/20 07:05 59 L 16 94 05/18/20 07:00 36.5 C 61 20 147/85 H 95 05/18/20 04:00 36.7 C 73 20 151/86 H 95 05/18/20 01:05 72 PG Care Time/CCT Total # of Minutes Spent Total Time Spent with Patient: Total time spent is greater than 50% in coordination of care (as documented) at patient's floor/unit and/or counseling patient: Coding Level of Care Code 83470 Initial Inpt Care Lvl 3 Diagnoses Diverticular stricture K56.699 Large bowel obstruction K56.609
[2020-05-18 13:15] LABS: Bilirubin Urine Negative (Negative); Ictotest Urine Negative (Negative)
--- NOTE | 2020-05-18 14:30 | Electrocardiogram Report ---
Test Reason : Blood Pressure : / mmHG Vent. Rate : 080 BPM Atrial Rate : 080 BPM P-R Int : 174 ms QRS Dur : 078 ms QT Int : 368 ms P-R-T Axes : 000 141 151 degrees QTc Int : 424 ms Poor data quality, interpretation may be adversely affected Normal sinus rhythm Right axis deviation Nonspecific ST and T wave abnormality Abnormal ECG When compared with ECG of 30-APR-2020 14:07, QRS axis Shifted right Confirmed by Compa Hurtado ([id number]) on 05/18/2020 2:30:19 PM Referred By: REFERRED SELF Confirmed By:Compa Hurtado
[2020-05-18] MEDS: NICOTINE 21 MG/24 HR TDSY TD SCH (15:00)
--- NOTE | 2020-05-18 23:21 | Hospitalist Progress Note ---
Date of Service May 18, 2020 Assessment & Plan (1) Bowel obstruction: Persistent distal colonic bowel obstruction/moderate sigmoid diverticulosis/moderate hiatal hernia/history of diverticular stricture- Patient was initially omitted for same symptoms and similar CT abdomen and pelvis reading on 05/02/2020. Patient is more willing now to accept surgery and possible colostomy as she was advised could happen before, and during which admission she had left [place]. She most recently left [facility], due to preference of returning to [facility] and having care here. NPO Patient is not a candidate for stent placement due to the stricture being non- inflammatory. will await input from Dr. Jovel on Wednesday to see if he is will to pursue the surgery here. (2) COPD (chronic obstructive pulmonary disease): Oxygen dependent COPD- Secondary to long history of tobacco abuse DuoNebs 4 times daily and every 2 hours as needed. Hold routine inhalers Nasal cannula oxygen, titrate to keep pulse ox 92 to 94% History of acute on chronic respiratory failure (3) Diverticular stricture: As noted above. (4) GERD (gastroesophageal reflux disease): (5) O2 dependent: See above (6) Tobacco dependence: Noted. Has not smoked in a while. (7) Alcohol dependence: Noted history. Has not had alcohol intake in a while, and should not be concerned regarding acute alcohol withdrawal (8) Hypothyroidism: On levothyroxine 125 mcg p.o. every morning. Converted to IV dosing (9) Hypertension: Hold aspirin, lisinopril due to relative hypotension and n.p.o. status (10) Hyperlipidemia: Hold atorvastatin (11) Bladder spasms: Hold oxybutynin. Love catheter Admission and Anticipated Discharge Date Admission Date: May 17, 2020 Subjective Patient reports she would like to have surgery here if possible. Patient reports feeling comfortable, she has no new complaints. Review of Systems Review of Systems: All systems reviewed & are unremarkable except as noted in HPI & below Physical Exam Physical Exam: The patient is awake, looks chronically ill and garcia-white tone, normocephalic and atraumatic, lying in bed and in no acute distress. HEENT--PERRL, EOMI, mucous membranes and oropharynx dry. Neck--supple. No JVD. No bruits. Thyroid normal, trachea midline, no adenopathy. Heart--normal S1 and S2. No murmurs, rubs or gallops. Lungs--clear bilaterally, no respiratory distress, no accessory muscle use. Abdomen-decreased bowel sounds and soft. Generalized tenderness. Mildly distended. Extremities--no cyanosis or clubbing. No edema. Dermatologic--poor skin tone, appearing garcia-white tone Neurologic--cranial nerves II through XII grossly intact. Rheumatologic--normal range of motion Results & Data Results & Data ([facility]) Vital Signs (Past 12 Hours) Vital Signs Temp Pulse Pulse Resp BP Pulse Ox 05/18/20 19:03 74 20 94 05/18/20 19:00 36.8 C 81 20 119/74 92 05/18/20 15:19 36.7 C 72 18 150/83 H 99 05/18/20 15:06 81 05/18/20 15:03 76 18 94 PG Care Time/CCT Total # of Minutes Spent Total Time Spent with Patient: Total time spent is greater than 50% in coordination of care (as documented) at patient's floor/unit and/or counseling patient: Coding Level of Care Code 38680 Subseq Hosp Care Lvl 3 Diagnoses Bowel obstruction K56.600 Intestinal obstruction extent: partial Intestinal obstruction type: unspecified COPD (chronic obstructive pulmonary disease) J44.9 COPD type: unspecified COPD Diverticular stricture K56.699 GERD (gastroesophageal reflux disease) K21.9 Esophagitis presence: esophagitis presence not specified O2 dependent Z99.81 Tobacco dependence F17.200 Alcohol dependence F10.20 Substance use status: uncomplicated Hypothyroidism E03.9 Hypothyroidism type: acquired Hypertension I10 Hypertension type: essential hypertension Hyperlipidemia E78.5 Bladder spasms N32.89 Time Spent (min) 35 (1) Bowel obstruction Intestinal obstruction extent: partial Intestinal obstruction type: unspecified Qualified Code(s): K56.600 - Partial intestinal obstruction, uns pecified as to cause (2) COPD (chronic obstructive pulmonary disease) COPD type: unspecified COPD Qualified Code(s): J44.9 - Chronic obstructive pulmonary disease, unspecified (3) GERD (gastroesophageal reflux disease) Esophagitis presence: esophagitis presence not specified Qualified Code(s): K21.9 - Gastro-esophageal reflux disease without esophagitis (4) Alcohol dependence Substance use status: uncomplicated Qualified Code(s): F10.20 - Alcohol dependence, uncomplicated (5) Hypothyroidism Hypothyroidism type: acquired Qualified Code(s): E03.9 - Hypothyroidism, unspecified (6) Hypertension Hypertension type: essential hypertension Qualified Code(s): I10 - Essential (primary) hypertension
[2020-05-19] MEDS: PIPERACILLIN/TAZOBACTAM 3.375 GM in DEXTROSE 5% 100 ML IV SCH ×2 (02:20→09:59)
[2020-05-19] MEDS: NSS + 20MEQ KCL 20 MEQ/1,000 ML BAG IV SCH ×2 (05:44→15:38)
[2020-05-19] MEDS: ALBUT/IPRATROP 3MG/0.5MG NEB 3 ML VIAL NEB SCH (07:10)
[2020-05-19] MEDS: FAMOTIDINE 20 MG in SYRINGE 3 ML IV SCH ×2 (07:48→21:30)
[2020-05-19] MEDS: ACETAMINOPHEN 1000 MG/100 ML IV IV PRN (07:48)
[2020-05-19] MEDS: NICOTINE 21 MG/24 HR TDSY TD SCH (07:49)
[2020-05-19 07:50] LABS: Basophils # (auto) 0.02 K/uL (0-0.2); Basophils % (auto) 0.5 %; Eosinophils # (auto) 0.15 K/uL (0-0.5); Hematocrit (blood only) 35.4 % (37-47); Hemoglobin 11.9 g/dL (12.0-16.0); Immature Granulocytes # (auto) 0.01 K/uL (0.00-0.02); Immature Granulocytes % (auto) 0.3 %; Lymphocytes # (auto) 0.92 K/uL (1.2-3.4); Lymphocytes % (auto) 24.5 %; Mean Corpuscular Hemoglobin 34.4 pg (25-34); Mean Corpuscular Hgb Conc 33.6 g/dL (32-36); Mean Corpuscular Volume 102.3 fL (80-100); Mean Platelet Volume 10.4 fL (7.4-10.4); Monocytes # (auto) 0.31 K/uL (0.11-0.59); Monocytes % (auto) 8.3 %; Neutrophils # (auto) 2.34 K/uL (1.4-6.5); Neutrophils % (auto) 62.4 %; Platelet Count 168 K/uL (130-400); RDW Coefficient of Variation 13.4 % (11.5-14.5); RDW Standard Deviation 50.5 fL (36.4-46.3); Red Blood Count 3.46 M/uL (4.2-5.4); White Blood Count 3.75 K/uL (4.8-10.8)
[2020-05-19 08:11] LABS: INR 1.1 (0.9-1.1); Partial Thromboplastin Time 26.7 Seconds (21.0-31.0); Prothrombin Time 11.9 Seconds (9.0-12.0)
[2020-05-19 08:20] LABS: Albumin Level 2.8 gm/dl (3.4-5.0); BUN Creatinine Ratio 12.2 (10-20); Calcium 7.7 mg/dl (8.5-10.1); Creatinine Clr Calc Pharmacy 88.8 ml/min; Est GFR (African American) 101.1; Est GFR (Non-African American) 87.2; Magnesium 1.6 mg/dl (1.8-2.4); Potassium 3.7 mmol/L (3.5-5.1)
[2020-05-19 08:23] LABS: Bilirubin,Total 0.7 mg/dl (0.2-1); Globulin 2.8 gm/dl (2.5-4.0); Total Protein 5.6 gm/dl (6.4-8.2)
--- NOTE | 2020-05-19 09:17 | Surgery Progress Note ---
Date of Service May 19, 2020 Assessment & Plan (1) Large bowel obstruction: unable to prep well with near obstruction Dr Jovel will see tomorrow and may be surgical candidate this week for exploration and possible resection and/or diversion medical team to optimize con't only liquids Present on Admission?: Yes Subjective stent not feasible per GI medicine passing liquid stool pain minimal still distended Review of Systems Constitutional: + anorexia; no fever and no chills Respiratory: no cough and no dyspnea Cardiovascular: no chest pain Gastrointestinal: + abdominal pain and + diarrhea/loose stools; no nausea and no vomiting Genitourinary: no dysuria Musculoskeletal: no back pain Integumentary: no rash and no lesions Neurologic: no problem reported Psychiatric: no problem reported Physical Exam Constitutional: WD/WN, vitals as above Neck: trachea midline Respiratory: normal respiratory effort, lungs clear to auscultation Cardiovascular: RRR, no murmur, no edema Gastrointestinal (Abdomen): Inspection/Auscultation: + abdomen distended and normal bowel sounds Percussion/Palpation: abdomen nontender, no guarding and no hernia Musculoskeletal: Head/Neck/Chest: normocephalic and head atraumatic Skin: no rashes, warm and dry no jaundice Neurologic: moves all extremities Results & Data Vital Signs (Past 12 Hours) Vital Signs Temp Pulse Pulse Pulse Resp BP Pulse Ox 05/19/20 07:37 37.2 C 84 20 156/84 H 97 05/19/20 07:10 94 H 18 92 05/19/20 04:30 72 122/82 05/19/20 03:59 37 C 95 H 20 184/77 H 91 05/18/20 23:21 36.8 C 79 20 116/73 93 05/18/20 23:01 80
[2020-05-19] MEDS ORDERED: ALBUT/IPRATROP 3MG/0.5MG NEB 3 ML VIAL NEB PRN (10:05)
--- NOTE | 2020-05-19 10:31 | Hospitalist Progress Note ---
Date of Service May 19, 2020 Assessment & Plan (1) Bowel obstruction: Persistent distal colonic bowel obstruction/moderate sigmoid diverticulosis/moderate hiatal hernia/history of diverticular stricture- Patient was initially omitted for same symptoms and similar CT abdomen and pelvis reading on 05/02/2020. Patient is more willing now to accept surgery and possible colostomy as she was advised could happen before, and during which admission she had left [place]. She most recently left [facility], due to preference of returning to [facility] and having care here. NPO Patient is not a candidate for stent placement due to the stricture being non- inflammatory. will await input from Dr. Jovel on Wednesday to see if he is will to pursue the surgery here. Will discontinue antibiotics at this time as no indication. Will likely require prophylaxis antibiotics prior to procedure (2) COPD (chronic obstructive pulmonary disease): Oxygen dependent COPD- Secondary to long history of tobacco abuse DuoNebs 4 times daily and every 2 hours as needed. Hold routine inhalers Nasal cannula oxygen, titrate to keep pulse ox 92 to 94% History of acute on chronic respiratory failure (3) Diverticular stricture: As noted above. (4) GERD (gastroesophageal reflux disease): (5) O2 dependent: See above (6) Tobacco dependence: Noted. Has not smoked in a while. (7) Alcohol dependence: Noted history. Has not had alcohol intake in a while, and should not be concerned regarding acute alcohol withdrawal (8) Hypothyroidism: On levothyroxine 125 mcg p.o. every morning. Converted to IV dosing (9) Hypertension: Hold aspirin, lisinopril due to n.p.o. status BP has not been uncontrolled. currently systolic blood pressure in the 150s. (10) Hyperlipidemia: Hold atorvastatin (11) Bladder spasms: Hold oxybutynin. Love catheter Admission and Anticipated Discharge Date Admission Date: May 17, 2020 Subjective Patient reports having no abdominal pain. She reports she has been having loose stools. She denies any nausea, vomiting, or diarrhea. Review of Systems Review of Systems: All systems reviewed & are unremarkable except as noted in HPI & below Physical Exam Physical Exam: The patient is awake, looks chronically ill and garcia-white tone, normocephalic and atraumatic, lying in bed and in no acute distress. HEENT--PERRL, EOMI, mucous membranes and oropharynx dry. Neck--supple. No JVD. No bruits. Thyroid normal, trachea midline, no adenopathy. Heart--normal S1 and S2. No murmurs, rubs or gallops. Lungs--clear bilaterally, no respiratory distress, no accessory muscle use. Abdomen-decreased bowel sounds and soft. Generalized tenderness. Mildly distended. Extremities--no cyanosis or clubbing. No edema. Dermatologic--poor skin tone, appearing garcia-white tone Neurologic--cranial nerves II through XII grossly intact. Rheumatologic--normal range of motion Results & Data Results & Data ([facility]) Vital Signs (Past 12 Hours) Vital Signs Temp Pulse Pulse Pulse Resp BP Pulse Ox 05/19/20 07:37 37.2 C 84 20 156/84 H 97 05/19/20 07:10 94 H 18 92 05/19/20 04:30 72 122/82 05/19/20 03:59 37 C 95 H 20 184/77 H 91 05/18/20 23:21 36.8 C 79 20 116/73 93 05/18/20 23:01 80 PG Care Time/CCT Total # of Minutes Spent Total Time Spent with Patient: Total time spent is greater than 50% in coordination of care (as documented) at patient's floor/unit and/or counseling patient: Coding Level of Care Code 76893 Subseq Hosp Care Lvl 2 Diagnoses Bowel obstruction K56.600 Intestinal obstruction extent: partial Intestinal obstruction type: unspecified COPD (chronic obstructive pulmonary disease) J44.9 COPD type: unspecified COPD Diverticular stricture K56.699 GERD (gastroesophageal reflux disease) K21.9 Esophagitis presence: esophagitis presence not specified O2 dependent Z99.81 Tobacco dependence F17.200 Alcohol dependence F10.20 Substance use status: uncomplicated Hypothyroidism E03.9 Hypothyroidism type: acquired Hypertension I10 Hypertension type: essential hypertension Hyperlipidemia E78.5 Bladder spasms N32.89 Time Spent (min) 25 (1) Alcohol dependence Substance use status: uncomplicated Qualified Code(s): F10.20 - Alcohol dependence, uncomplicated (2) Hypothyroidism Hypothyroidism type: acquired Qualified Code(s): E03.9 - Hypothyroidism, unspecified (3) Bowel obstruction Intestinal obstruction extent: partial Intestinal obstruction type: un specified Qualified Code(s): K56.600 - Partial intestinal obstruction, unspecified as to cause (4) COPD (chronic obstructive pulmonary disease) COPD type: unspecified COPD Qualified Code(s): J44.9 - Chronic obstructive pulmonary disease, unspecified (5) GERD (gastroesophageal reflux disease) Esophagitis presence: esophagitis presence not specified Qualified Code(s): K21.9 - Gastro-esophageal reflux disease without esophagitis (6) Hypertension Hypertension type: essential hypertension Qualified Code(s): I10 - Essential (primary) hypertension
[2020-05-19] MEDS: UMECLIDINIUM/VILANTEROL 62.5/25MCG 7 PUFFS/INHALER INH SCH (11:53)
[2020-05-20] MEDS: ACETAMINOPHEN 1000 MG/100 ML IV IV PRN (00:52)
[2020-05-20] MEDS: NSS + 20MEQ KCL 20 MEQ/1,000 ML BAG IV SCH ×2 (02:35→11:34)
[2020-05-20 07:49] LABS: Basophils # (auto) 0.03 K/uL (0-0.2); Basophils % (auto) 0.8 %; Hematocrit (blood only) 37.3 % (37-47); Hemoglobin 12.5 g/dL (12.0-16.0); Immature Granulocytes # (auto) 0.01 K/uL (0.00-0.02); Immature Granulocytes % (auto) 0.3 %; Lymphocytes # (auto) 0.77 K/uL (1.2-3.4); Lymphocytes % (auto) 19.3 %; Mean Corpuscular Hgb Conc 33.5 g/dL (32-36); Mean Corpuscular Volume 101.4 fL (80-100); Mean Platelet Volume 10.6 fL (7.4-10.4); Monocytes # (auto) 0.29 K/uL (0.11-0.59); Monocytes % (auto) 7.3 %; Neutrophils % (auto) 67.3 %; Platelet Count 176 K/uL (130-400); RDW Coefficient of Variation 13.2 % (11.5-14.5); RDW Standard Deviation 49.1 fL (36.4-46.3); Red Blood Count 3.68 M/uL (4.2-5.4)
[2020-05-20 07:59] LABS: INR 1.2 (0.9-1.1); Partial Thromboplastin Time 27.1 Seconds (21.0-31.0); Prothrombin Time 12.2 Seconds (9.0-12.0)
[2020-05-20 08:26] LABS: Albumin Level 2.9 gm/dl (3.4-5.0); BUN Creatinine Ratio 6.9 (10-20); Bilirubin,Total 0.6 mg/dl (0.2-1); Creatinine Clr Calc Pharmacy 109.4 ml/min; Est GFR (African American) 108.5; Est GFR (Non-African American) 93.6; Magnesium 1.6 mg/dl (1.8-2.4); Potassium 3.6 mmol/L (3.5-5.1); Total Protein 5.9 gm/dl (6.4-8.2)
[2020-05-20] MEDS: UMECLIDINIUM/VILANTEROL 62.5/25MCG 7 PUFFS/INHALER INH SCH (09:04)
[2020-05-20] MEDS: FAMOTIDINE 20 MG in SYRINGE 3 ML IV SCH (09:04)
[2020-05-20] MEDS: NICOTINE 21 MG/24 HR TDSY TD SCH (09:04)
--- NOTE | 2020-05-20 11:12 | Surgery Progress Note ---
Date of Service pt is stable, less abdominal pain, no nausea, no vomiting, passed some liquid stool, May 20, 2020 Assessment & Plan (1) Large bowel obstruction: unable to prep well with near obstruction Dr Jovel will see tomorrow and may be surgical candidate this week for exploration and possible resection and/or diversion medical team to optimize con't only liquids 05/20/2020 11:15AM, DR. Jovel (1) Diverticular stricture: poor surgical candidate would recommend to transfer to [facility] for colorectal surgeon to do exploration and sigmoid resection, D/W benefits, risks and alternatives of the transfer, pt and her understood, they agree with the transfer, D/W Hospitalist. Present on Admission?: Yes Subjective stent not feasible per GI medicine passing liquid stool pain minimal still distended Review of Systems Constitutional: + anorexia; no fever and no chills Gastrointestinal: + abdominal pain and + diarrhea/loose stools; no nausea and no vomiting Endocrine: + fatigue Physical Exam Constitutional: WD/WN, vitals as above well developed and well nourished Eyes: PERRL, conjunctivae normal, anicteric sclerae ENMT: external ear and nose normal, oropharynx normal Neck: trachea midline, no thyromegaly Respiratory: normal respiratory effort, lungs clear to auscultation normal respiratory effort Cardiovascular: RRR, no murmur, no edema Rate/Rhythm: regular rate and regular rhythm Gastrointestinal (Abdomen): normal bowel sounds, soft, nontender, no hepatosplenomegaly mild tenderness at LLQ area, no rebound pain, no distend, BS + Musculoskeletal: no cyanosis or clubbing, extremities motor strength 5/5 Skin: no rashes, warm and dry Neurologic: patellar DTR's 2+ bilat, sensation intact awake Psychiatric: Orientation: alert and oriented x 3 Results & Data Vital Signs (Past 12 Hours) Vital Signs Temp Pulse Resp BP Pulse Ox 05/20/20 07:26 36.8 C 77 16 171/91 H 93 05/20/20 02:43 182/94 H 05/20/20 02:37 37 C 97 H 22 182/104 H 97 Laboratory Results Abnormal lab results 05/20/20 05/20/20 05/20/20 Range/Units 07:16 07:16 07:16 WBC 4.00 L (4.8-10.8) K/uL RBC 3.68 L (4.2-5.4) M/uL MCV 101.4 H (80-100) fL RDW Std Deviation 49.1 H (36.4-46.3) fL MPV 10.6 H (7.4-10.4) fL Lymph # (Auto) 0.77 L (1.2-3.4) K/uL PT 12.2 H (9.0-12.0) Seconds INR 1.2 H (0.9-1.1) Chloride 108 H (98-107) mmol/L BUN 4 L (7-18) mg/dl Creatinine 0.54 L (0.6-1.2) mg/dl BUN/Creatinine Ratio 6.9 L (10-20) Glucose 69 L (70-99) mg/dl Calcium 8.0 L (8.5-10.1) mg/dl Magnesium 1.6 L (1.8-2.4) mg/dl Total Protein 5.9 L (6.4-8.2) gm/dl Albumin 2.9 L (3.4-5.0) gm/dl Diagnostic Findings CT SCAN OF THE ABDOMEN AND PELVIS WITHOUT IV CONTRAST CLINICAL HISTORY: Generalized abdominal pain. COMPARISON STUDY: Recent abdominal CT scans, most recently dated 05/02/2020. TECHNIQUE: CT scan of the abdomen and pelvis is performed from the lung bases to the proximal femora. Images are reviewed in the axial, sagittal, and coronal planes. IV contrast was not administered for this examination as per the referring clinician. Note that the examination was performed in [facility] without oral and IV contrast. A dose lowering technique was utilized adhering to the principles of ALARA. CT DOSE: 1552.96 mGy.cm FINDINGS: Lung bases: The heart is mildly enlarged and without pericardial effusion. There is a moderate hiatal hernia. Emphysematous change is suspected. There are trace pleural effusions and dependent atelectasis. Liver: The unenhanced liver is normal in size, contour, and attenuation. There is no intrahepatic biliary ductal dilatation. A 3.2 cm cyst is noted in the left lobe. Gallbladder: Hyperdense material within the gallbladder lumen likely represents vicariously excreted contrast. The gallbladder is otherwise normal in appearance. Spleen: Normal in size and attenuation. Pancreas: The unenhanced pancreas is atrophic and grossly unremarkable. Adrenal glands: Unremarkable. Kidneys: The unenhanced kidneys demonstrate cortical atrophy and are without hydronephrosis. There are no renal calculi identified. 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 Parapelvic cysts are noted on the right. Abdominal vasculature: The abdominal aorta is normal in course and caliber noting moderate atherosclerotic calcification. Bowel: There is evidence of persistent colonic obstruction. A transition point is again seen in the sigmoid colon on image #[id number]. The upstream colon is distended and fluid-filled. The cecum measures up to 8 cm in diameter. The small bowel loops are normal in caliber. There is moderate sigmoid diverticulosis without CT evidence of acute diverticulitis. The appendix is not identified. Peritoneum: There is no intraperitoneal free air or abdominal ascites. There is a small fat and fluid containing umbilical hernia. Lymphadenopathy: None. Pelvic viscera: The bladder is decompressed and grossly unremarkable. The uterus is surgically absent. No adnexal lesion is seen. Skeletal structures: The skeletal structures are osteopenic. There is moderate lumbosacral spondylosis. No lytic or blastic lesions are seen. IMPRESSION: 1. Persistent distal colonic obstruction. 2. The small bowel loops are normal in caliber. No intraperitoneal free air is seen. 3. Trace pleural effusions and bibasilar atelectasis. 4. There is moderate diverticulosis of the sigmoid colon without CT evidence of acute diverticulitis. 5. Moderate hiatal hernia. 6. Additional findings as above.
--- NOTE | 2020-05-27 07:58 | Discharge Summary ---
Date of Service May 20, 2020 Admission HPI Per Admitting Provider The patient is a 75-year-old female with a past medical history including bowel obstruction, oxygen dependent COPD, diverticular stricture, acute on chronic respiratory failure, GERD, alcohol dependence, tobacco dependence, hypothyroidism, hypertension, and Graves' disease. She had been admitted to [facility] from 04/29-05/03/2020, and left [place] on 05/03/2020. During that visit, she had been diagnosed with a bowel obstruction, and had been told that surgery could potentially end up in a colostomy, which she was not willing to accept, and decided to leave [place]. She was most recently admitted to [facility] for 5 days, for which she and her report was a second opinion, and where they did in fact get the same recommendation. Her reports that she is back to [facility] [address] today to have whatever surgery and treatment is considered necessary. Principal Diagnosis Large Bowel Obstruction Discharge Exam The patient is awake, looks chronically ill and garcia-white tone, normocephalic and atraumatic, lying in bed and in no acute distress. HEENT--PERRL, EOMI, mucous membranes and oropharynx dry. Neck--supple. No JVD. No bruits. Thyroid normal, trachea midline, no adenopathy. Heart--normal S1 and S2. No murmurs, rubs or gallops. Lungs--clear bilaterally, no respiratory distress, no accessory muscle use. Abdomen-decreased bowel sounds and soft. Generalized tenderness. Mildly distended. Extremities--no cyanosis or clubbing. No edema. Dermatologic--poor skin tone, appearing garcia-white tone Neurologic--cranial nerves II through XII grossly intact. Rheumatologic--normal range of motion Discharge Data Allergies Allergy/AdvReac Type Severity Reaction Status Date / Time No Known Allergies Allergy Unknown Verified 05/17/20 19:59 Consultations 05/17/20 20:39 ED Decision to Admit Stat 05/17/20 23:01 Consult Case Management - Discharge Planning Routine Consult General Surgery Routine 05/18/20 11:17 Consult Gastroenterology Routine 05/20/20 14:37 Burn CD for patient Stat Ordered Studies 05/17/20 19:03 CT abd pelvis wo con Stat Hospital Course (1) Bowel obstruction: Persistent distal colonic bowel obstruction/moderate sigmoid diverticulosis/moderate hiatal hernia/history of diverticular stricture- Patient was initially omitted for same symptoms and similar CT abdomen and pelvis reading on 05/02/2020. Patient is more willing now to accept surgery and possible colostomy as she was advised could happen before, and during which admission she had left AM. She most recently left [facility] AMA, due to preference of returning to [facility] and having care here. NPO Patient is not a candidate for stent placement due to the stricture being non- inflammatory. will await input from Dr. Jovel on Wednesday to see if he is will to pursue the surgery here. Will discontinue antibiotics at this time as no indication. Will likely require prophylaxis antibiotics prior to procedure. On day of discharge, patient left [place] as she did not want to be transferred to [place]. She was worried about cost, eventhough it was explained that her insurance will cover it, she still left [place]. Arrangements and accepting provider were already completed. Spent over 60 minutes of her case arranging for transport and obtaining accepting provider. Had initially obtained transfer to [facility], but insurance did not accept transfer. (2) COPD (chronic obstructive pulmonary disease): Oxygen dependent COPD- Secondary to long history of tobacco abuse DuoNebs 4 times daily and every 2 hours as needed. Hold routine inhalers Nasal cannula oxygen, titrate to keep pulse ox 92 to 94% History of acute on chronic respiratory failure (3) Diverticular stricture: As noted above. (4) GERD (gastroesophageal reflux disease): (5) O2 dependent: See above (6) Tobacco dependence: Noted. Has not smoked in a while. (7) Alcohol dependence: Noted history. Has not had alcohol intake in a while, and should not be concerned regarding acute alcohol withdrawal (8) Hypothyroidism: On levothyroxine 125 mcg p.o. every morning. Converted to IV dosing (9) Hypertension: Hold aspirin, lisinopril due to n.p.o. status BP has not been uncontrolled. currently systolic blood pressure in the 150s. (10) Hyperlipidemia: Hold atorvastatin (11) Bladder spasms: Hold oxybutynin. Love catheter Total Time Total Time Spent Total Time Spent (In Minutes): 62 Discharge Plan Discharge Items Patient Disposition: Against Medical Advice Reason For Visit: SBO Discharge Diagnosis: large bowel obstruction Activity: As commented below Follow-up/Referrals: Vince Reed III, MD [Primary Care Provider] - Stand-Alone Forms: My [facility], Smoking Cessation Medications and DC Order Prescriptions: No Action atorvastatin 20 mg tablet 20 mg PO HS Qty: 90 RF: 3 omeprazole 20 mg capsule,delayed release(DR/EC) 20 mg PO QAM Qty: 90 RF: 3 escitalopram oxalate 10 mg tablet 10 mg PO QAM Qty: 90 RF: 3 oxybutynin chloride 5 mg tablet extended release 24hr 5 mg PO QAM Qty: 30 RF: 11 aspirin [Aspir-81] 81 mg Tablet,Delayed Release (Dr/Ec) 81 mg PO QAM RF: 0 levothyroxine 125 mcg tablet 125 mcg PO QAM RF: 0 polyethylene glycol 3350 [Miralax] 17 gram Powder In Packet 17 g PO BID Qty: 60 RF: 3 Atrovent HFA 17 mcg/actuation HFA aerosol inhaler 2 puffs INH Q6H Qty: 12.9 RF: 0 albuterol sulfate [Ventolin HFA] 90 mcg/actuation HFA aerosol inhaler 2 puff inhalation QID PRN (Reason: Shortness Of Breath) Qty: 1 RF: 3 ibuprofen 200 mg Tablet 400 mg PO Q6H PRN (Reason: Fever Or Pain) RF: 0 lisinopril 40 mg tablet 40 mg PO QAM RF: 0 Discharge Orders: Left Against Medical Advice (Routine); Ordered 05/20/20 Ordered By: Donte Mcallister Admission Data Admit Date/Time: 05/17/20 21:52 Attending Provider: Donte Mcallister Admit Provider: Ron Ceron Primary Care Provider: Vince Reed III Other Providers: Ron Ceron ; Dayo Ansari ; Kei Rooney DC Date/Time DO NOT enter until pt leaves facility: 05/20/20 17:25 Coding Level of Care Code D/C Day Management >30 mins Diagnoses Bowel obstruction K56.600 Intestinal obstruction extent: partial Intestinal obstruction type: unspecified COPD (chronic obstructive pulmonary disease) J44.9 COPD type: unspecified COPD Diverticular stricture K56.699 GERD (gastroesophageal reflux disease) K21.9 Esophagitis presence: esophagitis presence not specified O2 dependent Z99.81 Tobacco dependence F17.200 Alcohol dependence F10.20 Substance use status: uncomplicated Hypothyroidism E03.9 Hypothyroidism type: acquired Hypertension I10 Hypertension type: essential hypertension Hyperlipidemia E78.5 Bladder spasms N32.89 Time Spent (min) 65
== END 2020-05-20 17:25 | disposition left against medical advice (07) | DRG 389 ==
LOC: ED 16:34 → 2W 21:52 → SUATTDRO 21:52 → 2W 22:20

== ENCOUNTER 2022-08-09 01:19 | Inpatient (IN) ==
[2022-08-09] MEDS ORDERED: ALBUT/IPRATROP 3MG/0.5MG NEB 3 ML VIAL ONE (01:29)
[2022-08-09] MEDS ORDERED: methylPREDNISolone 125 MG/2 ML VIAL ONE (01:30)
[2022-08-09] MEDS ORDERED: ALBUTEROL 0.083% NEBU SOLN 3 ML VIAL ONE (01:30)
[2022-08-09] MEDS ORDERED: ALBUT/IPRATROP 3MG/0.5MG NEB 3 ML VIAL NEB ONE (01:42)
[2022-08-09] MEDS ORDERED: SODIUM CHLORIDE 0.9% 1000ML 1,000 ML IV ONE (01:46)
[2022-08-09] MEDS ORDERED: methylPREDNISolone 125 MG/2 ML VIAL IV STA (01:48)
[2022-08-09 01:53] LABS: Basophils # (auto) 0.11 K/uL (0-0.2); Basophils % (auto) 1.1 %; Eosinophils # (auto) 0.29 K/uL (0-0.50); Hematocrit (blood only) 39.1 % (34.1-44.9); Hemoglobin 13.5 g/dl (12.0-16.0); Immature Granulocytes # (auto) 0.03 K/uL (0.00-0.02); Immature Granulocytes % (auto) 0.3 %; Lymphocytes # (auto) 3.23 K/uL (1.2-3.4); Lymphocytes % (auto) 33.7 %; Mean Corpuscular Hemoglobin 33.5 pg (25.0-34.0); Mean Corpuscular Hgb Conc 34.5 g/dL (32.0-36.0); Monocytes # (auto) 0.55 K/uL (0.24-0.82); Monocytes % (auto) 5.7 %; Neutrophils # (auto) 5.37 K/uL (1.4-6.5); Neutrophils % (auto) 56.2 %; Platelet Count 234 K/uL (130-400); RDW Coefficient of Variation 12.9 % (11.5-14.5); RDW Standard Deviation 46.3 fL (36.4-46.3); Red Blood Count 4.03 M/uL (3.93-5.22); White Blood Count 9.58 K/ul (4.8-10.8)
--- NOTE | 2022-08-09 02:03 | Emergency Department Note ---
Impression & Plan Acute respiratory failure with hypercapnia, COPD (chronic obstructive pulmonary disease), Mucus plugging of bronchi ED Provider Note NAME: AVRIL LEE AGE: 77 SEX: F ARRIVES VIA: Ambulance INFORMANT: Patient, family ED PROVIDER(S): Tello Carrillo MD CHIEF COMPLAINT: SOB PLAN: Disposition: Admit MEDICAL DECISION MAKING: The patient is a 77-year-old woman with a past medical history of COPD, previously O2 dependent but subsequently no longer on home oxygen, history of alcohol dependence where family report that she has been sober for a year or more who presents emergency department via EMS after they were on their way home from a family republican and she had an acute coughing episode where she suddenly became severely short of breath and could not catch her breath. Thus they called 911 and made an ambulance on on the roadside. Patient ports prior to her acute shortness of breath tonight she has been in her normal state of health denies fevers, chills, new cough or congestion, GI or symptoms. On arrival the patient is in severe respiratory distress with increased work of breathing, tripoding O2 saturation 98% on 2 L nasal cannula but again labored. She has wheezes of bilateral lung edward with prolonged expiratory phase and in termittent rhonchi bilateral lung edward. She is afebrile. She appears clinically dry. The patient was immediately placed on BiPAP with continuous DuoNeb given her acute respiratory failure. EKG without overt acute ischemia. Chest x-ray with interstitial thickening and bibasilar densities per my preliminary review. WBC, H/H and platelets within normal limits. Initial VBG with mild hypercapnia with PCO2 of 58 and pH of 7.31. Chemistry without metabolic acidosis. Electrolytes without significant abnormality. LFTs unremarkable. High- sensitivity troponin 11.1, within normal limits. Lipase is not elevated. Covid- 19 PCR negative. Influenza and RSV PCR negative. The patient was additionally treated with IV fluid hydration, guaifenesin and Solu-Medrol and continued to improve and had stabilized while on BiPAP. Suspect symptoms primarily due to COPD flare with suspicion of mucous plugging given abrupt onset of symptoms. Appreciate consultation/evaluation for admission by Dr. Rodriguez, [facility] hospitalist. Further management per admitting team. Triage Nursing notes reviewed and agree them. Prior medical records reviewed Vital Signs: reviewed and remarkable for tachypnea. Differential diagnosis: Reactive airway disease, pneumonia, pneumothorax, COPD, CHF, infections, cardiac ischemia, pulmonary embolism, musculoskeletal, gastrointestinal, as well as other pathologies. ER treatment provided: See below. Diagnostics interpreted by me: ECG: Sinus rhythm with sinus arrhythmia, first-degree AV block, 89 bpm, no ectopy, no overt ST elevation or depression, QTC 420, QRS 68. Cardiac Monitoring: An order for continuous cardiac monitoring was placed and demonstrated Sinus rhythm with sinus arrhythmia, first-degree AV block, 89 bpm, no ectopy. Laboratory studies: See below Imaging studies: See below Consultation(s): Dr. Rodriguez, [facility] hospitalist. HPI: The patient is a 77-year-old woman with a past medical history of COPD, previously O2 dependent but subsequently no longer on home oxygen, history of alcohol dependence where family report that she has been sober for a year or more who presents emergency department via EMS after they were on their way home from a family republican and she had an acute coughing episode where she suddenly became severely short of breath and could not catch her breath. Thus they called 911 and made an ambulance on on the roadside. Patient ports prior to her acute shortness of breath tonight she has been in her normal state of health denies fevers, chills, new cough or congestion, GI or symptoms. ROS: See above HPI for pertinent positives & negatives. A total of 10 systems reviewed and were otherwise negative. VITALS:See Below PHYSICAL EXAMINATION: GENERAL: Awake, alert, ill-appearing, in no distress HENT: Normocephalic, atraumatic. Oropharynx with dry mucous membranes and otherwise unremarkable. EYES: Normal conjunctiva. Sclera non-icteric. NECK: Supple. No nuchal rigidity. FROM. No JVD. RESPIRATORY: Severe respiratory distress with increased work of breathing, tripoding. Wheezes of bilateral lung edward with prolonged expiratory phase and intermittent rhonchi of bilateral lung edward. CARDIAC: Regular rate, normal rhythm. Extremities warm and well perfused. Pulses equal. ABDOMEN: Soft, non-distended. No tenderness to palpation. No rebound or guarding. No masses. RECTAL: Deferred. MUSCULOSKELETAL: Chest examination reveals no tenderness. The back is symm etrical on inspection without obvious abnormality. There is no CVA tenderness to palpation. No joint edema. LOWER EXTREMITIES: Calves are equal size bilaterally and non-tender. No edema. No discoloration. NEURO: Normal sensorium. No sensory or motor deficits noted. SKIN: No rash or jaundice noted. ED COURSE: Critical Care: I have personally spent greater than 65 minutes of critical care time in the direct management of this patient. This includes bedside care, interpretation of diagnostic studies, and testing, discussion with consultants, patient, and family members, and other required patient management activities. This 65 minutes is in excess of all separately billable procedures. Tello Carrillo MD Past Med/Surg History Medical History Angiomyolipoma Anxiety Bladder spasms Cardiac murmur since childhood Complex renal cyst pt unaware COPD (chronic obstructive pulmonary disease) no longer on O2 at home > rare res inh use Diverticular disease GERD (gastroesophageal reflux disease) no meds at present per pt Graves disease treated with radiation History of radioactive iodine thyroid ablation Hyperlipidemia Hypertension Hyperthyroidism Ileus seen in ED for this 06/17/21 [facility] > on liquid diet for a week/ Zofran added Mixed hearing loss, bilateral Osteopenia Psoriasis Surgical History History of cataract surgery LEFT History of colonoscopy History of colostomy reversal Sep 2020 History of esophagogastroduodenoscopy (EGD) History of tonsillectomy History of tooth extraction History of tubal ligation History of vaginal hysterectomy S/P partial colectomy (06/04/20) [facility] Dr. Elton Cast, performed due to diverticular stricture/mass, colostomy formed> since reversed Family History Mother Ovarian cancer Father Myocardial infarction Denies family history of Prostate cancer Breast cancer Colorectal cancer Social History Smoking Status: Heavy tobacco smoker Tobacco Type: Cigarettes Age Started Using Tobacco: 22; packs per day: 1; Cigarettes Per Day: 20; Second Hand Exposure: No; Hx Alcohol Use: Yes Alcohol type: beer and hard liquor Hx Substance Use: No Preferred Language: Malaysian Communication Ability: Effective Visual Impairment: No Limitations Hearing Ability: Normal [employer] Required: No Beliefs That Will Affect Care: None marital status: Current Living Situation: Spouse current occupational status: retired current occupation: retired from [employer] and [employer] Other Information That Helps Us Care for You: 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 Feels Safe at Home: Yes Childhood Exposure to Second-Hand Smoke: Yes Dental Care, Regularly: No Physical Activity Frequency: Daily Seatbelt Use: always Sunscreen Use: No Assistive Devices: Denture - Upper, Denture - Lower and Glasses Allergies Allergies Allergy/AdvReac Type Severity Reaction Status Date / Time amlodipine AdvReac Unknown Unknown Verified 01/14/22 13:51 Home Meds Home Medications Medication Instructions Recorded Confirmed ibuprofen 200 mg tablet 400 mg PO Q6H PRN Fever Or Pain 05/17/20 08/09/22 aspirin 81 mg tablet,delayed 81 mg PO QAM 10/21/20 08/09/22 release ipratropium bromide 17 2 puffs inhalation Q6H PRN 06/18/21 08/09/22 mcg/actuation HFA aerosol inhaler Shortness Of Breath Or Wheezing (Atrovent HFA) Previous Rx's Medication Instructions Recorded albuterol sulfate 90 mcg/actuation 2 puff inhalation QID PRN 05/03/20 aerosol inhaler (Ventolin HFA) Shortness Of Breath #1 inhaler escitalopram oxalate 10 mg tablet 10 mg PO QAM #90 tabs 01/26/22 hydrochlorothiazide 25 mg tablet 25 mg PO QAM #90 tabs 01/26/22 atorvastatin 20 mg tablet 20 mg PO QAM #90 tabs 05/07/22 levothyroxine 125 mcg tablet 125 mcg PO QAM #30 tabs 05/25/22 lisinopril 40 mg tablet 40 mg PO QAM #90 tabs 07/23/22 Results & Data (ED) Vital Signs Vital Signs - 24 hr 08/09/22 01:27 08/09/22 01:38 08/09/22 01:41 Temperature 36.4 C L Temperature Source Oral Pulse Rate 100 H Pulse Rate [Finger] Pulse Rate from SpO2 Sensor Respiratory Rate 18 Respiratory Effort / Characteristics Moaning Nasal Congestion Short of Breath Labored Short of Breath Respiratory Depth Shallow Shallow Respiratory Pattern Blood Pressure 145/96 H Blood Pressure Mean 112 Pulse Oximetry 98 Oxygen Delivery Method Nasal Cannula Nasal Cannula Nasal Cannula Oxygen Flow Rate 1 1 1 Fraction of Inspired Oxygen Sepsis Recent Fever Within 48 Hours No Sepsis New/Unexplained Change in Mental Status No Sepsis Action Taken by Nursing No Action Required 08/09/22 02:00 08/09/22 02:09 08/09/22 01:27 Temperature Temperature Source Pulse Rate 98 H 106 H Pulse Rate [Finger] 92 H Pulse Rate from SpO2 Sensor 101 H Respiratory Rate 30 H 24 28 H Respiratory Effort / Characteristics Spontaneous Labored Short of Breath Spontaneous Labored Short of Breath Respiratory Depth Deep Respiratory Pattern Tachypnea Blood Pressure Blood Pressure Mean Pulse Oximetry 99 100 95 Oxygen Delivery Method BiPAP Oxygen Flow Rate Fraction of Inspired Oxygen 35 35 Sepsis Recent Fever Within 48 Hours Sepsis New/Unexplained Change in Mental Status Sepsis Action Taken by Nursing 08/09/22 01:30 08/09/22 01:45 08/09/22 01:54 Temperature Temperature Source Pulse Rate 96 H 90 90 Pulse Rate [Finger] Pulse Rate from SpO2 Sensor 95 H 92 H 90 Respiratory Rate 20 23 23 Respiratory Effort / Characteristics Respiratory Depth Respiratory Pattern Blood Pressure 172/70 H Blood Pressure Mean 104 Pulse Oximetry 98 97 100 Oxygen Delivery Method Oxygen Flow Rate Fraction of Inspired Oxygen Sepsis Recent Fever Within 48 Hours Sepsis New/Unexplained Change in Mental Status Sepsis Action Taken by Nursing 08/09/22 02:00 08/09/22 02:00 08/09/22 02:15 Temperature Temperature Source Pulse Rate 95 H 98 H Pulse Rate [Finger] Pulse Rate from SpO2 Sensor 95 H 96 H Respiratory Rate 21 18 Respiratory Effort / Characteristics Respiratory Depth Respiratory Pattern Blood Pressure 134/102 H Blood Pressure Mean 112 Pulse Oximetry 100 89 L Oxygen Delivery Method Oxygen Flow Rate Fraction of Inspired Oxygen Sepsis Recent Fever Within 48 Hours Sepsis New/Unexplained Change in Mental Status Sepsis Action Taken by Nursing 08/09/22 02:16 Temperature Temperature Source Pulse Rate 90 Pulse Rate [Finger] Pulse Rate from SpO2 Sensor 92 H Respiratory Rate 19 Respiratory Effort / Characteristics Respiratory Depth Respiratory Pattern Blood Pressure 180/73 H Blood Pressure Mean 108 Pulse Oximetry 100 Oxygen Delivery Method Oxygen Flow Rate Fraction of Inspired Oxygen Sepsis Recent Fever Within 48 Hours Sepsis New/Unexplained Change in Mental Status Sepsis Action Taken by Nursing Laboratory Data Attestation: I reviewed the patient's lab results. Result diagrams: 08/09/22 01:30 08/09/22 01:30 Lab Results 08/09/22 08/09/22 Range/Units 01:30 01:30 WBC 9.58 (4.8-10.8) K/ul RBC 4.03 (3.93-5.22) M/uL Hgb 13.5 (12.0-16.0) g/dl Hct 39.1 (34.1-44.9) % MCV 97.0 (80.0-100.0) fL MCH 33.5 (25.0-34.0) pg MCHC 34.5 (32.0-36.0) g/dL RDW Std Deviation 46.3 (36.4-46.3) fL RDW Coeff of Alan 12.9 (11.5-14.5) % Plt Count 234 (130-400) K/uL MPV 10.0 (9.4-12.3) fL Immature Gran % (Auto) 0.3 % Neut % (Auto) 56.2 % Lymph % (Auto) 33.7 % [place] % (Auto) 5.7 % Eos % (Auto) 3.0 % Baso % (Auto) 1.1 % Neut # (Auto) 5.37 (1.4-6.5) K/uL Lymph # (Auto) 3.23 (1.2-3.4) K/uL [place] # (Auto) 0.55 (0.24-0.82) K/uL Eos # (Auto) 0.29 (0-0.50) K/uL Baso # (Auto) 0.11 (0-0.2) K/uL Immature Gran # (Auto) 0.03 H (0.00-0.02) K/uL Sodium 133 L (136-145) mmol/L Potassium 3.7 (3.5-5.1) mmol/L Chloride 100 (98-107) mmol/L Carbon Dioxide 26 (21-32) mmol/L Anion Gap 7 (3-11) BUN 24 H (6-23) mg/dl Creatinine 0.66 (0.6-1.2) mg/dl Est Cr Clr Drug Dosing 78.8 ml/min Est GFR ( Amer) 100.2 ml/min Est GFR (Non-Af Amer) 86.4 ml/min BUN/Creatinine Ratio 36.4 H (10-20) Glucose 98 (70-99(Fasting)) mg/dl Calcium 9.5 (8.5-10.1) mg/dl Phosphorus 3.5 (2.5-4.9) mg/dl Magnesium 1.9 (1.7-2.4) mg/dl Total Bilirubin 0.3 (0.2-1.0) mg/dl AST 17 (13-39) U/L ALT 13 (7-52) U/L Alkaline Phosphatase 65 (34-104) U/L Troponin I High Sens 11.1 (0-14) pg/ml Total Protein 7.3 (6.0-8.3) gm/dl Albumin 4.4 (3.4-5.0) gm/dl Globulin 2.9 (2.5-4.0) gm/dl Albumin/Globulin Ratio 1.5 (0.9-2) Lipase 47 (11-82) U/L Administered Medications Aspirin (Aspirin 81 Mg Ectab) [facility]: 09/08/22 08:59 Last Admin: 08/09/22 07:51 Dose: 81 mg Documented By: SENA Escitalopram Oxalate (Escitalopram Oxalate 10 Mg Tab) 10 [facility] Stop: 09/08/22 08:59 Last Admin: 08/09/22 07:50 Dose: 10 mg Documented By: SENA Guaifenesin (Guaifenesin 600 Mg Tabcr) 1,200 mg PO Q12 [facility]JE[facility] Stop: 09/08/22 08:59 Last Admin: 08/09/22 07:51 Dose: 1,200 mg Documented By: SENA Heparin Sodium (Porcine) (Heparin Sod 5,000 Unit/0.5 Ml Vial) 5,000 units SQ Q12 HARJEET Stop: 09/08/22 08:59 Last Admin: 08/09/22 07:53 Dose: 5,000 units Documented By: SENA Hydrochlorothiazide (Hydrochlorothiazide 25 Mg Tab) 25 mg PO QAM HARJEET Stop: 09/08/22 08:59 Last Admin: 08/09/22 07:50 Dose: 25 mg Documented By: SENA Methylprednisolone 40 mg/ (Syringe) 0.64 mls @ 1.5 mls/min IV Q12H HARJEET Stop: 09/08/22 07:59 Last Admin: 08/09/22 07:52 Dose: 1.5 mls/min Documented By: SENA Insulin Aspart (Insulin Aspart Per Unit) 0 units SC ACHS HARJEET Stop: 09/08/22 07:29 Last Admin: 08/09/22 17:15 Dose: Not Given Documented By: Admin: 08/09/22 12:16 Dose: 1 units Documented By: SENA Co-signed By: LUBA Admin: 08/09/22 08:04 Dose: 2 units Documented By: SENA Co-signed By: LUBA Levothyroxine Sodium (Levothyroxine Sodium 125 Mcg Tablet) [address] [facility] Stop: 09/08/22 06:29 Last Admin: 08/09/22 06:28 Dose: 125 mcg Documented By: CARLOS Lisinopril (Lisinopril 40 Mg Tab) 40 mg PO QAM HARJEET Stop: 09/08/22 08:59 Last Admin: 08/09/22 07:52 Dose: 40 mg Documented By: SENA Discontinued Medications Albuterol (Albut/Ipratrop 3mg/0.5mg Neb 3 Ml Vial) 12 ml NEB ONE ONE; Protocol Stop: 08/09/22 01:43 Last Admin: 08/09/22 01:59 Dose: 12 ml Documented By: SHIREEN Albuterol (Albut/Ipratrop 3mg/0.5mg Neb 3 Ml Vial) 3 ml NEB Q4R HARJEET; Protocol Stop: 09/08/22 06:59 Last Admin: 08/09/22 15:56 Dose: 3 ml Documented By: Admin: 08/09/22 11:39 Dose: 3 ml Documented By: Admin: 08/09/22 07:20 Dose: 3 ml Documented By: TORRI Sodium Chloride (Nss 1000ml) 1,000 mls @ 999 mls/hr IV .Q1H1M ONE Stop: 08/09/22 02:46 Last Infusion: 08/09/22 04:30 Dose: 0 mls/hr Documented By: Admin: 08/09/22 02:03 Dose: 999 mls/hr Documented By: ROBERT Methylprednisolone (Methylprednisolone 125 Mg/2 Ml Vial) 125 mg IV NOW STA Stop: 08/09/22 01:49 Last Admin: 08/09/22 02:03 Dose: 125 mg Documented By: ROBERT Imaging Data Radiologist's Impression: Chest X-Ray 08/09/22 01:42 SINGLE VIEW CHEST CLINICAL HISTORY: Atypical chest pain. Dyspnea. FINDINGS: An AP, portable, upright chest radiograph is compared to study dated 10/21/2020. The heart is enlarged noting atherosclerotic calcification of the thoracic aorta. The pulmonary vasculature is noncongested. Chronic interstitial thickening similar to previous. There are dependent airspace opacities seen at both lung bases. No large pleural effusion or pneumothorax is seen. The skeletal structures are osteopenic. The bony thorax is grossly intact. IMPRESSION: 1. Cardiomegaly without radiographic evidence of congestive failure. 2. There are bibasilar airspace opacities. This could represent atelectasis and/or an infectious/inflammatory pneumonitis. Clinical correlation will be required. ACT 112: Negative or not required by law. Electronically signed by: Hua Huff M.D. 08/09/2022 7:37 AM Discharge Plan Visit Data Chief Complaint: Shortness of Breath/Dyspnea ED Provider: Tello Carrillo Discharge Problem: Acute respiratory failure with hypercapnia, COPD (chronic obstructive pulmonary disease), Mucus plugging of bronchi Patient Disposition: Admitted As Inpatient Discharge Instructions Interventions: ED Discharge Assessment Last Done: 08/09/22 04:59
--- NOTE | 2022-08-09 02:22 | History & Physical Report ---
Date of Service August 09, 2022 Assessment & Plan (1) COPD (chronic obstructive pulmonary disease): Plan: COPD with acute exacerbation possibly mucous plug as event occurred during a coughing paroxysm. Patient was given intravenous Solu-Medrol in emergency department this will be continued at 40 mg IV every 8 hours. Patient will have duo nebs twice daily. mucinex Patient is on BiPAP I will attempt to reduce his supplemental oxygen if we can (2) Impaired fasting glucose: Plan: Patient has a history of an impaired fasting glucose which will likely be worsened by the intravenous Solu-Medrol. Hemoglobin A1c be checked and to be placed on insulin sliding scale on a carbohydrate conservative diet (3) Hypothyroidism: Plan: Patient with TSH level added to admitting laboratories will continue on her levothyroxine (4) Hypertension: Plan: Patient typically takes lisinopril and hydrochlorothiazide. This will be continued Plan Patient will be on heparin for DVT prevention History of Present Illness Primary Care Provider: NO PCP 77-year-old woman with a past medical history of COPD, previously O2 dependent but subsequently no longer on home oxygen, history of alcohol dependence where family report that she has been sober for a year or more who presents emergency department via EMS after they were on their way home from a family libertarian and she had an acute coughing episode where she suddenly became severely short of breath and could not catch her breath. Thus they called 911 and made an ambulance on on the roadside. Patient ports prior to her acute shortness of breath tonight she has been in her normal state of health denies fevers, chills, new cough or congestion, GI or symptoms. On arrival the patient is in severe respiratory distress with increased work of breathing, tripoding O2 saturation 98% on 2 L nasal cannula but again labored. She has wheezes of bilateral lung edward with prolonged expiratory phase and intermittent rhonchi bilateral lung edward. She appears clinically dry. The patient was immediately placed on BiPAP with continuous DuoNeb given her acute respiratory failure this pt improved dramatically and will be attempted to move to [place] oxygen in the ER Allergies Allergy/AdvReac Type Severity Reaction Status Date / Time amlodipine AdvReac Unknown Unknown Verified 01/14/22 13:51 Home Medications Medication Instructions Recorded Confirmed Type albuterol sulfate 90 mcg/actuation 2 puff inhalation QID PRN 05/03/20 08/09/22 Rx aerosol inhaler (Ventolin HFA) Shortness Of Breath #1 inhaler ibuprofen 200 mg tablet 400 mg PO Q6H PRN Fever Or Pain 05/17/20 08/09/22 History aspirin 81 mg tablet,delayed 81 mg PO QAM 10/21/20 08/09/22 History release ipratropium bromide 17 2 puffs inhalation Q6H PRN 06/18/21 08/09/22 History mcg/actuation HFA aerosol inhaler Shortness Of Breath Or Wheezing (Atrovent HFA) escitalopram oxalate 10 mg tablet 10 mg PO QAM #90 tabs 01/26/22 08/09/22 Rx hydrochlorothiazide 25 mg tablet 25 mg PO QAM #90 tabs 01/26/22 08/09/22 Rx atorvastatin 20 mg tablet 20 mg PO QAM #90 tabs 05/07/22 08/09/22 Rx levothyroxine 125 mcg tablet 125 mcg PO QAM #30 tabs 05/25/22 08/09/22 Rx lisinopril 40 mg tablet 40 mg PO QAM #90 tabs 07/23/22 08/09/22 Rx Past Med/Surg History Medical History (Updated 06/08/22 @ 09:21 by Marlen Luna) Angiomyolipoma Anxiety Bladder spasms Cardiac murmur since childhood Complex renal cyst pt unaware COPD (chronic obstructive pulmonary disease) no longer on O2 at home > rare res inh use Diverticular disease GERD (gastroesophageal reflux disease) no meds at present per pt Graves disease treated with radiation History of radioactive iodine thyroid ablation Hyperlipidemia Hypertension Hyperthyroidism Ileus seen in ED for this 06/17/21 [facility] > on liquid diet for a week/ Zofran added Mixed hearing loss, bilateral Osteopenia Psoriasis Surgical History History of cataract surgery LEFT History of colonoscopy History of colostomy reversal Sep 2020 History of esophagogastroduodenoscopy (EGD) History of tonsillectomy History of tooth extraction History of tubal ligation History of vaginal hysterectomy S/P partial colectomy (06/04/20) [facility] Dr. 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 Beliefs That Will Affect Care: None marital status: Current Living Situation: Spouse current occupational status: retired 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 Feels Safe at Home: Yes Childhood Exposure to Second-Hand Smoke: Yes Dental Care, Regularly: No Physical Activity Frequency: Daily Seatbelt Use: always Sunscreen Use: No Assistive Devices: Denture - Upper, Denture - Lower and Glasses Review of Systems Review of Systems: initially moderate distress and fatigue,now resolved no headache, no visual changes no speech or swallowing issues no chest pain, pressure or palpitations shortness of breath, non productive cough no abdominal pain, nausea or vomiting, diarrhea or constipation no dysuria, hematuria or frequency no focal joint pain or swelling no back pain, CVA tenderness or radicular pain no bruising, bleeding or rashes no focal signs of weakness or numbness or altered sensation no complaints of anxiety or depression.. Physical Exam Physical Exam: The patient appeared well nourished and normally developed. she appeared older than stated age Vital signs as documented. Head exam is normocephalic atraumatic Neck is without JVD, thyromegaly, or carotid bruits. Lungs are coarse b/l on exam no focal loss or wheeze Cardiac exam, Rhythm is regular.. No murmurs, rubs or gallops. Abdominal exam reveals normal bowel sounds, soft non tender, no masses Extremities are nonedematous and both pedal pulses are present Neurologic exam is alert and oriented, no focal loss of strength or sensation Skin is without bruises or rashes Psychologically is without concerns for anxiety or depression.. Results & Data Results & Data ([facility]) Vital Signs (Past 12 Hours) Vital Signs Temp Pulse Pulse Resp BP Pulse Ox O2 Del Method 08/09/22 02:09 98 H 24 100 08/09/22 02:00 92 H 30 H 99 BiPAP 08/09/22 01:41 Nasal Cannula 08/09/22 01:38 Nasal Cannula 08/09/22 01:27 97.5 F L 100 H 18 145/96 H 98 Nasal Cannula O2 Flow Rate FiO2 08/09/22 02:09 35 08/09/22 02:00 35 08/09/22 01:41 1 08/09/22 01:38 1 08/09/22 01:27 1 Diagnostic Findings Chest x-ray shows hyperinflation without evidence of pneumonia PG Care Time/CCT Total # of Minutes Spent Total Time Spent with Patient: Total time spent is greater than 50% in coordination of care (as documented) at patient's floor/unit and/or counseling patient: Coding Level of Care Code INT OBSERVATION CARE 50M LVL 2 Diagnoses COPD (chronic obstructive pulmonary disease) J44.9 COPD type: unspecified COPD Impaired fasting glucose R73.01 Hypothyroidism E03.9 Hypothyroidism type: acquired Hypertension I10 Hypertension type: essential hypertension (1) Hypothyroidism Hypothyroidism type: acquired Qualified Code(s): E03.9 - Hypothyroidism, unspecified (2) COPD (chronic obstructive pulmonary disease) COPD type: unspecified COPD Qualified Code(s): J44.9 - Chronic obstructive pulmonary disease, unspecified (3) Hypertension Hypertension type: essential hypertension Qualified Code(s): I10 - Essential (primary) hypertension
[2022-08-09 02:31] LABS: Troponin I High Sensitivity 11.1 pg/ml (0-14)
[2022-08-09 02:36] LABS: Albumin Globulin Ratio 1.5 (0.9-2); Albumin Level 4.4 gm/dl (3.4-5.0); BUN Creatinine Ratio 36.4 (10-20); Bilirubin,Total 0.3 mg/dl (0.2-1.0); Calcium 9.5 mg/dl (8.5-10.1); Creatinine Clr Calc Pharmacy 78.8 ml/min; Est GFR (African American) 100.2 ml/min; Est GFR (Non-African American) 86.4 ml/min; Globulin 2.9 gm/dl (2.5-4.0); Magnesium 1.9 mg/dl (1.7-2.4); Phosphorus 3.5 mg/dl (2.5-4.9); Potassium 3.7 mmol/L (3.5-5.1); Total Protein 7.3 gm/dl (6.0-8.3)
[2022-08-09 03:04] LABS: Base Excess VBG 1.6 mEq/L; HCO3 VBG 29 mmol/L; Oxygen Saturation VBG < 60.0 %; PCO2 VBG 58 mmHg (38-50); PO2 VBG 29 mmHg; pH VBG 7.31 (7.36-7.41)
[2022-08-09 03:49] LABS: Influenza A virus by PCR Negative (Neg); Influenza B virus by PCR Negative (Neg); RSV by PCR Negative (Neg); SARS CoV2 RNA(COVID-19) InHosp NEGATIVE (Negative)
[2022-08-09] MEDS ORDERED: ONDANSETRON INJ 2 MG/ML 2 ML VIAL IV PRN (05:31)
[2022-08-09] MEDS ORDERED: GLUCOSE 10 TAB/TUBE PO PRN (05:31)
[2022-08-09] MEDS ORDERED: ALUMINUM/MAGNESIUM SUSP 30 ML UDC PO PRN (05:31)
[2022-08-09] MEDS ORDERED: GLUCOSE 40% GEL 15 GM TUBE PO PRN (05:31)
[2022-08-09] MEDS ORDERED: DEXTROSE 50% 50 ML SYRINGE IV PRN (05:31)
[2022-08-09] MEDS ORDERED: hydrALAZINE HCL 20 MG/ML VIAL IV PRN (05:31)
[2022-08-09] MEDS ORDERED: GLUCAGON FOR INJ 1 MG VIAL SQ PRN (05:31)
[2022-08-09] MEDS ORDERED: ACETAMINOPHEN 325 MG TAB PO PRN (05:31)
[2022-08-09] MEDS ORDERED: CARBOHYDRATES FOR HYPOGLYCEMIA PO PRN (05:31)
[2022-08-09] MEDS: LEVOTHYROXINE SODIUM 125 MCG TABLET PO SCH (06:28)
[2022-08-09] MEDS: ALBUT/IPRATROP 3MG/0.5MG NEB 3 ML VIAL NEB SCH ×3 (07:20→15:56)
--- NOTE | 2022-08-09 07:39 | XRay Report ---
SINGLE VIEW CHEST CLINICAL HISTORY: Atypical chest pain. Dyspnea. FINDINGS: An AP, portable, upright chest radiograph is compared to study dated 10/21/2020. The heart i s enlarged noting atherosclerotic calcification of the thoracic aorta. The pulmonary vasculature is n oncongested. Chronic interstitial thickening similar to previous. There are dependent airspace opacit ies seen at both lung bases. No large pleural effusion or pneumothorax is seen. The skeletal structur es are osteopenic. The bony thorax is grossly intact. IMPRESSION: 1. Cardiomegaly without radiographic evidence of congestive failure. 2. There are bibasilar airspace opacities. This could represent atelectasis and/or an infectious/infl ammatory pneumonitis. Clinical correlation will be required. ACT 112: Negative or not required by law. Electronically signed by: Hua Huff M.D. 08/09/2022 7:37 AM
[2022-08-09] MEDS: hydroCHLOROthiazide 25 MG TAB PO SCH (07:50)
[2022-08-09] MEDS: ESCITALOPRAM OXALATE 10 MG TAB PO SCH (07:50)
[2022-08-09] MEDS: ASPIRIN 81 MG ECTAB PO SCH (07:51)
[2022-08-09] MEDS: guaiFENesin 600 MG TABCR PO SCH ×2 (07:51→20:17)
[2022-08-09] MEDS: lisinopril 40 MG TAB PO SCH (07:52)
[2022-08-09] MEDS: methylPREDNISolone 40 MG in SYRINGE 0 ML IV SCH ×2 (07:52→20:16)
[2022-08-09] MEDS: HEPARIN SOD 5,000 UNIT/0.5 ML VIAL SQ SCH ×2 (07:53→20:17)
[2022-08-09] MEDS: INSULIN ASPART PER UNIT SC SCH ×4 (08:04→20:15)
--- NOTE | 2022-08-09 15:13 | Hospitalist Progress Note ---
Date of Service August 09, 2022 Assessment & Plan (1) COPD (chronic obstructive pulmonary disease): Plan: COPD with acute exacerbation Possibly mucous plug as event occurred during a coughing paroxysm. Patient was given intravenous Solu-Medrol in emergency department this will be continued at 40 mg IV every 8 hours. Patient will have duo nebs twice daily. Mucinex 1200 mg PO BID Currently weaned down to 2 L/min via nasal cannula. Maintain SaO2 between 88 an d 92% Pulmonary function testing has been requested from [facility] Based on patient's greater than [id number] smoking history and clinical presentation, will discontinue scheduled nebulizer treatments and start patient on Breo Ellipta (ICS/LABA) and Incruse Ellipta (AC) Would recommend discharging patient home on Trelegy Ellipta Should refer patient to pulmonary clinic for outpatient follow-up Also continue to encourage complete tobacco abstention. Will start patient on nicotine patch while inpatient. This can be continued on discharge (2) Tobacco dependence: Plan: Greater than [id number] smoking history Significant change in respiratory status Patient continues to smoke 2-1/2 packs/day Due to adventitious breath sounds and high oxygen requirements on admission, will request CT scan of the chest to rule out acute pathology Nicotine patch 21 mg daily, remove at bedtime Lengthy discussion with patient that she will need to stop smoking or expect to have worsening respiratory status (3) Impaired fasting glucose: Plan: Patient has a history of an impaired fasting glucose which will likely be worsened by the intravenous Solu-Medrol. Hemoglobin A1c 5.4 01/30/2022 Check repeat value with a.m. labs Continue insulin sliding scale on a carbohydrate conservative diet (4) Hypothyroidism: Plan: Patient with TSH level added to admitting laboratories will continue on her levothyroxine (5) Hypertension: Plan: Patient typically takes lisinopril and hydrochlorothiazide. This will be continued Plan Patient will be on heparin for DVT prevention Admission and Anticipated Discharge Date Admission Date: August 09, 2022 Supervising Physician Co-Signing Physician Notes The patient was not seen by me. However, the case was discussed with Hua Galvin, physicians clinical research assistant. Agree with assessment and plan Subjective Attending: Dr. Jung Patient admitted after midnight. She was seen in room 285 today. She is doing much better than on admission. Currently she is weaned down to 2 L/min via nasal cannula and saturating at 93%. Patient reports that she smokes 2-1/2 packs/day. She has never seen a fish pitcher. She states that she did have pulmonary function test performed at [facility] but these are unavailable Patient reports that she is on 2 inhalers at home but is unable to tell me what they are at this time. She states that these are prescribed by her primary care physician Patient has no chest pain or tightness. She is anxious to go home. Deep breath causes significant cough. She has scattered wheezes throughout on examination. She denies fever, chills, sweats, rigors. No significant sputum production. Review of Systems Review of Systems: A total of 10 systems was reviewed and is negative other than as listed in the HPI Physical Exam Physical Exam: GENERAL : No acute distress EYES: No icterus, gaze conjugate NOSE: No evidence of epistaxis MOUTH: No lesions or candidiasis NECK: Supple LUNGS: Extremely diminished throughout. Scattered wheezes. Significant rales and rhonchi. Cough with deep inspiration HEART: Regular, rate controlled ABDOMEN: Soft, NT, ND, BS Present EXTREMITIES: No LE edema, pedal pulses intact NEURO: A&OX3 Results & Data Results & Data ([facility]) Vital Signs (Past 12 Hours) Vital Signs Temp Pulse Pulse Resp BP BP BP 08/09/22 08:00 08/09/22 11:39 96 H 24 08/09/22 11:29 37.4 C 101 H 20 136/68 08/09/22 07:51 36.5 C 98 H 20 129/72 08/09/22 07:20 97 H 16 08/09/22 07:10 90 08/09/22 05:21 82 08/09/22 05:52 08/09/22 05:52 36.5 C 75 18 151/53 H 08/09/22 04:45 91 H 17 135/69 08/09/22 04:30 94 H 20 145/67 H 08/09/22 04:15 87 18 137/80 08/09/22 03:39 78 21 08/09/22 04:00 82 17 08/09/22 04:00 140/82 08/09/22 03:45 81 23 08/09/22 03:45 162/67 H 08/09/22 03:30 74 26 H 08/09/22 03:30 151/80 H 08/09/22 03:15 85 23 08/09/22 03:15 142/64 H Pulse Ox O2 Del Method O2 Flow Rate FiO2 08/09/22 08:00 Nasal Cannula 2 08/09/22 11:39 94 Nasal Cannula 2 08/09/22 11:29 92 Nasal Cannula 2 08/09/22 07:51 96 Nasal Cannula 2 08/09/22 07:20 94 Nasal Cannula 2 08/09/22 07:10 08/09/22 05:21 08/09/22 05:52 Nasal Cannula 2 08/09/22 05:52 98 Room Air 2 08/09/22 04:45 94 08/09/22 04:30 95 08/09/22 04:15 95 08/09/22 03:39 100 35 08/09/22 04:00 96 08/09/22 04:00 08/09/22 03:45 97 Room Air 08/09/22 03:45 08/09/22 03:30 100 BiPAP 08/09/22 03:30 08/09/22 03:15 100 08/09/22 03:15 Critical Care Results & Data Vital Signs (Past 12 Hours) Vital Signs Temp Pulse Pulse Resp BP BP BP 08/09/22 16:00 97 H 08/09/22 15:56 100 H 20 08/09/22 15:27 36.9 C 99 H 20 122/74 08/09/22 08:00 08/09/22 11:39 96 H 24 08/09/22 11:29 37.4 C 101 H 20 136/68 08/09/22 07:51 36.5 C 98 H 20 129/72 08/09/22 07:20 97 H 16 08/09/22 07:10 90 08/09/22 05:21 82 08/09/22 05:52 08/09/22 05:52 36.5 C 75 18 151/53 H 08/09/22 04:45 91 H 17 135/69 Pulse Ox O2 Del Method O2 Flow Rate 08/09/22 16:00 08/09/22 15:56 95 Nasal Cannula 2 08/09/22 15:27 95 Nasal Cannula 2 08/09/22 08:00 Nasal Cannula 2 08/09/22 11:39 94 Nasal Cannula 2 08/09/22 11:29 92 Nasal Cannula 2 08/09/22 07:51 96 Nasal Cannula 2 08/09/22 07:20 94 Nasal Cannula 2 08/09/22 07:10 08/09/22 05:21 08/09/22 05:52 Nasal Cannula 2 08/09/22 05:52 98 Room Air 2 08/09/22 04:45 94 Lab & Micro Results (Past 24 Hours) RBC 4.03 M/uL (3.93-5.22) 08/09/22 WBC 9.58 K/ul (4.8-10.8) 08/09/22 Hgb 13.5 g/dl (12.0-16.0) 08/09/22 Hct 39.1 % (34.1-44.9) 08/09/22 MCV 97.0 fL (80.0-100.0) 08/09/22 MCH 33.5 pg (25.0-34.0) 08/09/22 MCHC 34.5 g/dL (32.0-36.0) 08/09/22 RDW Standard Deviation 46.3 fL (36.4-46.3) 08/09/22 RDW Coefficient of Variation 12.9 % (11.5-14.5) 08/09/22 Plt Count 234 K/uL (130-400) 08/09/22 MPV 10.0 fL (9.4-12.3) 08/09/22 Neutrophils (%) (Auto) 56.2 % 08/09/22 Lymphocytes (%) (Auto) 33.7 % 08/09/22 Monocytes # (Auto) 0.55 K/uL (0.24-0.82) 08/09/22 Eosinophils # (Auto) 0.29 K/uL (0-0.50) 08/09/22 Immature Granulocyte % (Auto) 0.3 % 08/09/22 Neutrophils # (Auto) 5.37 K/uL (1.4-6.5) 08/09/22 Lymphocytes # (Auto) 3.23 K/uL (1.2-3.4) 08/09/22 Monocytes # (Auto) 0.55 K/uL (0.24-0.82) 08/09/22 Eosinophils # (Auto) 0.29 K/uL (0-0.50) 08/09/22 Basophils # (Auto) 0.11 K/uL (0-0.2) 08/09/22 Immature Granulocyte # (Auto) 0.03 K/uL (0.00-0.02) H 08/09 Na 133 mmol/L (136-145) L 08/09/22 K 3.7 mmol/L (3.5-5.1) 08/09/22 Cl 100 mmol/L (98-107) 08/09/22 CO2 26 mmol/L (21-32) 08/09/22 Anion Gap 7 (3-11) 08/09/22 BUN 24 mg/dl (6-23) H 08/09/22 Creatinine 0.66 mg/dl (0.6-1.2) 08/09/22 Estimated GFR ( Amer) 100.2 ml/min 08/09/22 Estimated GFR (Non-Af Amer) 86.4 ml/min 08/09/22 BUN/Creatinine Ratio 36.4 (10-20) H 08/09/22 Glu 98 mg/dl (70-99(Fasting)) 08/09/22 Ca 9.5 mg/dl (8.5-10.1) 08/09/22 Phosphorus Level 3.5 mg/dl (2.5-4.9) 08/09/22 Total Bilirubin 0.3 mg/dl (0.2-1.0) 08/09/22 AST 17 U/L (13-39) 08/09/22 ALT 13 U/L (7-52) 08/09/22 Alkaline Phosphatase 65 U/L (34-104) 08/09/22 TP 7.3 gm/dl (6.0-8.3) 08/09/22 Albumin 4.4 gm/dl (3.4-5.0) 08/09/22 Globulin 2.9 gm/dl (2.5-4.0) 08/09/22 Albumin/Globulin Ratio 1.5 (0.9-2) 08/09/22 Mg 1.9 mg/dl (1.7-2.4) 08/09/22 01:30 Calcium Level 9.5 mg/dl (8.5-10.1) 08/09/22 01:30 Venous Blood pH 7.31 (7.36-7.41) L 08/09/22 02:52 Venous Blood Partial Pressure CO2 58 mmHg (38-50) H 08/09/22 02 :52 Venous Blood Partial Pressure O2 29 mmHg 08/09/22 02:52 Venous Blood HCO3 29 mmol/L 08/09/22 02:52 Venous Blood Base Excess 1.6 mEq/L 08/09/22 02:52 Venous Blood Oxygen Saturation < 60.0 % 08/09/22 02:52 Diagnostic Findings (Past 24 Hours) Chest X-Ray 08/09/22 01:42 SINGLE VIEW CHEST CLINICAL HISTORY: Atypical chest pain. Dyspnea. FINDINGS: An AP, portable, upright chest radiograph is compared to study dated 10/21/2020. The heart is enlarged noting atherosclerotic calcification of the thoracic aorta. The pulmonary vasculature is noncongested. Chronic interstitial thickening similar to previous. There are dependent airspace opacities seen at both lung bases. No large pleural effusion or pneumothorax is seen. The skeletal structures are osteopenic. The bony thorax is grossly intact. IMPRESSION: 1. Cardiomegaly without radiographic evidence of congestive failure. 2. There are bibasilar airspace opacities. This could represent atelectasis and/or an infectious/inflammatory pneumonitis. Clinical correlation will be required. ACT 112: Negative or not required by law. Electronically signed by: Hua Huff M.D. 08/09/2022 7:37 AM I & O Totals 24 Hours 08/08/22 08/09/22 08/10/22 06:59 06:59 06:59 Intake Total 1000 / 1000 Balance 1000 / 1000 Cumulative 08/09/22 01:08 thru 08/09/22 06:33 Intake Total 1000 Balance 1000 RT Ventilator Mngmt (Last Documented) Ventilator Ordered Settings Respiratory Rate 20 08/09/22 15:56 Fraction of Inspired Oxygen 35 08/09/22 03:39 Ventilator - PT Measurements Respiratory Rate 20 PG Care Time/CCT Total # of Minutes Spent Total Time Spent with Patient: Total time spent is greater than 50% in coordination of care (as documented) at patient's floor/unit and/or counseling patient: Coding Level of Care Code None Diagnoses COPD (chronic obstructive pulmonary disease) J44.9 COPD type: unspecified COPD Tobacco dependence F17.200 Impaired fasting glucose R73.01 Hypothyroidism E03.9 Hypothyroidism type: acquired Hypertension I10 Hypertension type: essential hypertension Comment Patient admitted after midnight. Please see admission H&P (1) Hypothyroidism Hypothyroidism type: acquired Qualified Code(s): E03.9 - Hypothyroidism, unspecified (2) COPD (chronic obstructive pulmonary disease) COPD type: unspecified COPD Qualified Code(s): J44.9 - Chronic obstructive pulmonary disease, unspecified (3) Hypertension Hypertension type: essential hypertension Qualified Code(s): I10 - Essential (primary) hypertension
[2022-08-09] MEDS ORDERED: ALBUT/IPRATROP 3MG/0.5MG NEB 3 ML VIAL NEB PRN (16:52)
[2022-08-09] MEDS: UMECLIDINIUM BROMIDE 62.5MCG/BLISTER 7 PUFFS/INHALER INH SCH (18:02)
[2022-08-09] MEDS: FLUTICASONE/VILANTEROL 100/25MCG 14 PUFFS/INHALER INH SCH (18:02)
--- NOTE | 2022-08-09 19:46 | Electrocardiogram Report ---
Test Reason : Blood Pressure : / mmHG Vent. Rate : 089 BPM Atrial Rate : 089 BPM P-R Int : 230 ms QRS Dur : 068 ms QT Int : 346 ms P-R-T Axes : 077 081 089 degrees QTc Int : 420 ms Poor data quality, interpretation may be adversely affected Sinus rhythm with sinus arrhythmia with 1st degree A-V block Abnormal ECG When compared with ECG of 21-OCT-2020 09:59, [place] interval has increased Confirmed by Pineda Vee ([id number]) on 08/09/2022 7:45:47 PM Referred By: REFERRED SELF Confirmed By:Pineda Vee
--- NOTE | 2022-08-09 20:05 | CT Scan Report ---
CT SCAN OF THE CHEST WITHOUT IV CONTRAST CLINICAL HISTORY: Hypoxia. COMPARISON STUDY: Chest x-ray dated 08/09/2022. Chest CT dated 03/21/2019. TECHNIQUE: CT scan of the thorax was performed from the thoracic inlet to the upper abdomen. Images are reviewed in the axial, sagittal, and coronal planes. IV contrast was not administered for this ex amination as per the referring clinician. A dose lowering technique was utilized [facility] DOSE: 289.82 mGy.cm FINDINGS: Thyroid: Atrophic. Thoracic aorta: There is evidence chronic calcification of the thoracic aorta, which is normal in taylor iber and demonstrates standard 3-vessel arch anatomy. Heart: The heart is top normal in size and without pericardial effusion. The coronary arteries are de nsely calcified. Lungs and pleural spaces: Vlkp-ip-ssslccpt emphysema is noted. The trachea and central airways are cl ear. There are trace pleural effusions with bibasilar scarring/atelectasis. No airspace consolidation typical for pneumonia is identified. A 3 mm left apical pulmonary nodule is seen on image #50. Mediastinum: There is no mediastinal lymphadenopathy. Chiquis: Not well assessed without IV contrast. Axillae: There is no axillary lymphadenopathy. Upper abdomen: A 3.6 cm cyst is noted in the left lobe of liver. There is a menyt-ty-lyciuqau hiatal hernia. Partially visualized upper abdominal viscera is otherwise grossly unremarkable. Skeletal structures: The skeletal structures are osteopenic. Degenerative change and hyperkyphosis is noted in the thoracic spine. Arthritic change is seen in the shoulders. No lytic or blastic bony les ions are seen. IMPRESSION: 1. Emphysema. 2. Trace pleural effusions with bibasilar atelectasis. 3. No airspace consolidation is seen typical for pneumonia. 4. A 3 mm left apical pulmonary nodule is pathologically indeterminate but new from 2019. If clinical ly warranted this can be followed as per the Fleischner criteria below. 5. Additional findings as above. Please refer to below summary of Fleischner criteria recommendations for follow-up of incidental CT n odules (Abdi Krause, Guidelines for management of small pulmonary nodules detected on CT scans: A sta tement from the Fleischner Society, Radiology 237: [phone].) SOLID NODULES Solitary nodule size: <6 mm * low risk patients: no follow-up needed * high risk patients: optional CT at 12 months Solitary nodule size: 6-8 mm * low risk patients: follow-up at 6-12 months, then consider further follow-up at 18-24 months * high risk patients: initial follow-up CT at 6-12 months and then at 18-24 months if no change Solitary nodule size: >8 mm * either low or high risk patients - consider follow-up CT at 3 months, and/or CT-PET, and/or biopsy Multiple nodules size: <6 mm * low risk patients: no routine follow-up * high risk patients: optional CT at 12 months Multiple nodules size: 6-8 mm * low risk patients: follow-up at 3-6 months, then consider further follow-up at 18-24 months * high risk patients: follow-up at 3-6 months, then at 18-24 months if no change Multiple nodules size: >8 mm * low risk patients: follow-up at 3-6 months, then consider further follow-up at 18-24 months * high risk patients: follow-up at 3-6 months, then at 18-24 months if no change Note: newly detected indeterminate nodule in persons 35 years of age or older. * low risk patients: minimal or absent history of smoking and/or other known risk factors * high risk patients: history of smoking or of other known risk factors (e.g. first degree relative with lung cancer, or exposure to asbestos, radon, uranium) * if a nodule up to 8 mm is partly solid or is ground glass further follow-up is required after 24 m onths to exclude possible slow growing adenocarcinoma (DEANDRA) SUBSOLID NODULES Solitary pure ground-glass nodule * nodule size <6 mm - no CT follow-up required * nodule size >=6 mm - follow-up CT at 6-12 months, then every 2 years until 5 years Solitary part-solid nodule * nodule size <6 mm - no CT follow-up required * nodule size >=6 mm - follow-up CT at 3-6 months. If unchanged, and solid component remains <6 mm, then annual follow-up for 5 years Multiple subsolid nodules * nodule size <6 mm - follow-up CT at 3-6 months, consider further follow-up at 2 and 4 years if sta ble * nodule size >=6 mm - follow-up CT at 3-6 months, subsequent management based on the most suspiciou s nodule(s) ACT 112: Negative or not required by law. Electronically signed by: Hua Huff M.D. 08/09/2022 8:04 PM
[2022-08-10] MEDS: LEVOTHYROXINE SODIUM 125 MCG TABLET PO SCH (05:42)
[2022-08-10 06:23] LABS: Hematocrit (blood only) 33.5 % (34.1-44.9); Hemoglobin 11.8 g/dl (12.0-16.0); Mean Corpuscular Hemoglobin 33.8 pg (25.0-34.0); Mean Corpuscular Hgb Conc 35.2 g/dL (32.0-36.0); Mean Platelet Volume 9.7 fL (9.4-12.3); Platelet Count 190 K/uL (130-400); RDW Coefficient of Variation 13.1 % (11.5-14.5); RDW Standard Deviation 46.3 fL (36.4-46.3); Red Blood Count 3.49 M/uL (3.93-5.22); White Blood Count 10.58 K/ul (4.8-10.8)
[2022-08-10 07:51] LABS: BUN Creatinine Ratio 33.3 (10-20); Calcium 8.7 mg/dl (8.5-10.1); Creatinine Clr Calc Pharmacy 63.8 ml/min; Est GFR (African American) 82.3 ml/min; Magnesium 1.9 mg/dl (1.7-2.4); Potassium 4.1 mmol/L (3.5-5.1)
[2022-08-10] MEDS: INSULIN ASPART PER UNIT SC SCH ×4 (07:54→22:26)
[2022-08-10] MEDS: UMECLIDINIUM BROMIDE 62.5MCG/BLISTER 7 PUFFS/INHALER INH SCH (07:54)
[2022-08-10] MEDS: FLUTICASONE/VILANTEROL 100/25MCG 14 PUFFS/INHALER INH SCH (07:54)
[2022-08-10] MEDS: HEPARIN SOD 5,000 UNIT/0.5 ML VIAL SQ SCH ×2 (07:54→20:27)
[2022-08-10] MEDS: NICOTINE 21 MG/24 HR TDSY TD SCH (07:55)
[2022-08-10] MEDS: ESCITALOPRAM OXALATE 10 MG TAB PO SCH (07:55)
[2022-08-10] MEDS: ASPIRIN 81 MG ECTAB PO SCH (07:55)
[2022-08-10] MEDS: guaiFENesin 600 MG TABCR PO SCH ×2 (07:55→20:27)
[2022-08-10] MEDS: methylPREDNISolone 40 MG in SYRINGE 0 ML IV SCH ×2 (07:55→20:27)
[2022-08-10] MEDS: lisinopril 40 MG TAB PO SCH (07:55)
[2022-08-10] MEDS: hydroCHLOROthiazide 25 MG TAB PO SCH (07:55)
[2022-08-10 08:19] LABS: Estimated Average Glucose 114 mg/dl; Hemoglobin A1C 5.6 % (4.5-5.6)
--- NOTE | 2022-08-10 11:30 | Pulmonary Consultation ---
Date of Consultation August 10, 2022 Assessment & Plan (1) COPD (chronic obstructive pulmonary disease): COPD type: unspecified COPD Qualified Code(s): J44.9 - Chronic obstructive pulmonary disease, unspecified (2) Tobacco dependence: Plan Attending: Dr. Leyva Impression: 77-year-old female with a greater than [id number] smoking history presents for COPD exacerbation and mild hypoxia. Patient currently smokes 2-1/2 packs of cigarettes per day. She reports being on inhalers as prescribed by her family doctor but no previous pulmonary follow-up. Patient appears to be on albuterol and Atrovent inhalers as an outpatient. Pulmonary function testing as well as all the pulmonary records were quested from [facility]. Patient currently saturated 92% on 2 L/min by nasal cannula. No acute discomfort this morning. Recommendations: 1. COPD: * No prior pulmonary function testing to establish Gold class * COPD with acute exacerbation * Possibly mucous plug as event occurred during a coughing paroxysm. * Patient was given intravenous Solu-Medrol in emergency department. This can be transitioned to prednisone 40 mg p.o. daily. * Continue with duo nebs as needed. Also continue with Breo Ellipta and Incruse Ellipta. * Mucinex 1200 mg PO BID * Currently weaned down to 2 L/min via nasal cannula. Maintain SaO2 between 88 and 92% * Patient may require supplemental oxygen on discharge. I have asked the nurse to ambulate the patient in the hallway and start with incentive spirometry. * Pulmonary function testing and other pulmonary records have been requested from [facility] and are pending * Would recommend discharging patient home on Trelegy Ellipta follow-up in the pulmonary clinic. * Continue to encourage complete tobacco abstention. * Continue nicotine patch 21mg daily while inpatient. This can be continued on discharge with a taper * Increase ambulation as tolerated 2. Tobacco abuse: * Greater than [id number] smoking history * Significant change in respiratory status * Patient continues to smoke 2-1/2 packs/day * CT scan of the chest without contrast reveals solitary 3 mm pulmonary nodule in the left apex. * No need to follow the 3 mm nodule this time. Will recommend low-dose CT scan for screening secondary to nicotine dependence in 12 months. * Nicotine patch 21 mg daily, remove at bedtime * Lengthy discussion with patient that she will need to stop smoking or expect to have worsening respiratory status * Patient lives in [facility] and prefers to follow in the [place] office 3. Hypoxia: * Most likely this is a chronic condition. reports the patient was on oxygen in the past and stopped using it. * Nursing to ambulate the patient on the floor with oxygen * Will require two-step evaluation prior to discharge * Discussed with patient that she most likely will need some oxygen at the time of discharge and that she will not be able to smoke with the oxygen in place * Continue with incentive spirometry and increase ambulation as tolerated Thank you for including us in the care of this patient. We will continue to follow along with you. Supervising Physician Co-Signing Physician Notes Patient seen and examined. EMR reviewed. Discussed with patient and spouse at bedside as well as with pulmonary PA. The patient is clinically improved. Continue current inhalers. Rapid taper of prednisone. Assess for supplemental oxygen prior to discharge. Continue current inhalers. She will likely need to go home on Anoro or Stiolto and supplemental oxygen. Outpatient PFTs and pulmonary follow-up. Will reassess in the a.m. but anticipate the patient should be able to potentially discharge from the hospital once supplemental oxygen is arranged. She was advised that continued tobacco abuse will likely result in progressive respiratory issues History of Present Illness Reason for Consultation: COPD exacerbation Requesting Physician: Dr. Rosario Attending Physician: Ashlyn Rosario MD History of Present Illness Attending: Dr. Leyva This is a 77-year-old female who presents for acute respiratory failure with hypercapnia. Patient reports a past medical history including COPD, tobacco abuse, GERD, diverticular stricture, angiomyolipoma, laryngeal polyp, hyperlipidemia, hypertension, Graves' disease, impaired fasting glucose. We are asked to evaluate this patient for COPD exacerbation. Patient has a greater than [id number] smoking history and currently smokes 2-1/2 packs of cigarettes per day. Patient reports that previously she was on oxygen but decided she did not need it so she stopped using it at home. She also reports that she does follow with her family care doctor for COPD but has never seen a oil spreader operator. She does report that she had pulmonary function testing performed at [facility] but does not know when and is not aware. Patient states that she is on 2 inhalers but she is unaware what those inhalers are. Medication reconciliation reveals the patient is on albuterol rescue inhaler and Atrovent. Patient denies any chronic prednisone use. Patient presented for shortness of breath and was found to be hypoxic at 89% but appeared to be in stress so she was placed on BiPAP. VBG was performed and showed a pH of 7.31, PCO2 of 58, PaO2 of 29, HCO3 of 29. Patient has been trans itioned to nasal cannula and is currently on 2 L/min and is saturating 92%. On admission, patient was given 125 mg of Solu-Medrol and started on methylprednisolone 40 mg every 8 hours. She was also placed on duo nebs every 4 hours scheduled. This was changed to as needed and patient was started on Breo Ellipta and Incruse Ellipta. This medication changes, patient reports significant improvement in her comfort level. Patient continues to have some shortness of breath with ambulation but is comfortable at rest. Patient is questioning discharge planning. Patient was started on a NicoDerm patch at 21 mg daily and request that this be continued on discharge to assist in decreasing cigarette usage. Patient denies any history of malignancy. She also denies any history of first- degree relative malignancy. She has not aware of any screening CTs independent. A CT chest has been ordered for this admission. Patient denies any chest pain or tightness. She has no fever. She has a dry c ough. She has been started on flutter valve and incentive spirometry and is able to cough up some clear mucus. She denies any hemoptysis. She has no leg pain or calf pain. She denies any pleuritic pain. She has no other acute complaints. Allergies Allergy/AdvReac Type Severity Reaction Status Date / Time amlodipine AdvReac Unknown Unknown Verified 01/14/22 13:51 Home Medications Medication Instructions Recorded Confirmed Type albuterol sulfate 90 mcg/actuation 2 puff inhalation QID PRN 05/03/20 08/09/22 Rx aerosol inhaler (Ventolin HFA) Shortness Of Breath #1 inhaler ibuprofen 200 mg tablet 400 mg PO Q6H PRN Fever Or Pain 05/17/20 08/09/22 History aspirin 81 mg tablet,delayed 81 mg PO QAM 10/21/20 08/09/22 History release ipratropium bromide 17 2 puffs inhalation Q6H PRN 06/18/21 08/09/22 History mcg/actuation HFA aerosol inhaler Shortness Of Breath Or Wheezing (Atrovent HFA) escitalopram oxalate 10 mg tablet 10 mg PO QAM #90 tabs 01/26/22 08/09/22 Rx hydrochlorothiazide 25 mg tablet 25 mg PO QAM #90 tabs 01/26/22 08/09/22 Rx atorvastatin 20 mg tablet 20 mg PO QAM #90 tabs 05/07/22 08/09/22 Rx levothyroxine 125 mcg tablet 125 mcg PO QAM #30 tabs 05/25/22 08/09/22 Rx lisinopril 40 mg tablet 40 mg PO QAM #90 tabs 07/23/22 08/09/22 Rx Patient History Medical History Angiomyolipoma Anxiety Bladder spasms Cardiac murmur since childhood Complex renal cyst pt unaware COPD (chronic obstructive pulmonary disease) no longer on O2 at home > rare res inh use Diverticular disease GERD (gastroesophageal reflux disease) no meds at present per pt Graves disease treated with radiation History of radioactive iodine thyroid ablation Hyperlipidemia Hypertension Hyperthyroidism Ileus seen in ED for this 06/17/21 [facility] > on liquid diet for a week/ Zofran added Mixed hearing loss, bilateral Osteopenia Psoriasis Surgical History History of cataract surgery LEFT History of colonoscopy History of colostomy reversal Sep 2020 History of esophagogastroduodenoscopy (EGD) History of tonsillectomy History of tooth extraction History of tubal ligation History of vaginal hysterectomy S/P partial colectomy (06/04/20) [facility] Dr. Elton Cast, performed due to diverticular stricture/mass, colostomy formed> since reversed Family History Mother Ovarian cancer Father Myocardial infarction Denies family history of Prostate cancer Breast cancer Colorectal cancer Social History Smoking Status: Heavy tobacco smoker Tobacco Type: Cigarettes Age Started Using Tobacco: 22; packs per day: 1; Cigarettes Per Day: 20; Second Hand Exposure: No; Hx Alcohol Use: Yes Alcohol type: beer and hard liquor Hx Substance Use: No Preferred Language: Bahamian Communication Ability: Effective Visual Impairment: No Limitations Hearing Ability: Normal Paediatrician Required: No Beliefs That Will Affect Care: None marital status: Current Living Situation: Spouse current occupational status: retired 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 Other Information That Helps Us Care for You: 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 Patient does still have some scattered wheezes and some bibasilar crackles. No use of accessory muscles today. HEART: Regular, rate controlled ABDOMEN: Soft, NT, ND, BS Present EXTREMITIES: No LE edema, pedal pulses intact NEURO: A&OX3 Results & Data Results & Data ([facility]) Vital Signs (Past 12 Hours) Vital Signs Temp Pulse Pulse Resp BP Pulse Ox Pulse Ox 08/10/22 09:45 08/10/22 08:20 36.6 C 73 16 132/63 92 08/10/22 05:31 92 08/10/22 03:36 36.6 C 92 H 20 156/78 H 92 08/09/22 23:24 36.8 C 97 H 22 149/81 H 92 08/09/22 23:43 96 H O2 Del Method O2 Del Method O2 Flow Rate O2 Flow Rate 08/10/22 09:45 Nasal Cannula 2 08/10/22 08:20 Nasal Cannula 2 08/10/22 05:31 Nasal Cannula 2 08/10/22 03:36 Nasal Cannula 2 08/09/22 23:24 Nasal Cannula 2 08/09/22 23:43 Critical Care Results & Data Vital Signs (Past 12 Hours) Vital Signs Temp Pulse Pulse Resp BP Pulse Ox Pulse Ox 08/10/22 09:45 08/10/22 08:20 36.6 C 73 16 132/63 92 08/10/22 05:31 92 08/10/22 03:36 36.6 C 92 H 20 156/78 H 92 08/09/22 23:24 36.8 C 97 H 22 149/81 H 92 08/09/22 23:43 96 H O2 Del Method O2 Del Method O2 Flow Rate O2 Flow Rate 08/10/22 09:45 Nasal Cannula 2 08/10/22 08:20 Nasal Cannula 2 08/10/22 05:31 Nasal Cannula 2 08/10/22 03:36 Nasal Cannula 2 08/09/22 23:24 Nasal Cannula 2 08/09/22 23:43 Lab & Micro Results (Past 24 Hours) RBC 3.49 M/uL (3.93-5.22) L 08/10/22 WBC 10.58 K/ul (4.8-10.8) 08/10/22 Hgb 11.8 g/dl (12.0-16.0) L 08/10/22 Hct 33.5 % (34.1-44.9) L 08/10/22 MCV 96.0 fL (80.0-100.0) 08/10/22 MCH 33.8 pg (25.0-34.0) 08/10/22 MCHC 35.2 g/dL (32.0-36.0) 08/10/22 RDW Standard Deviation 46.3 fL (36.4-46.3) 08/10/22 RDW Coefficient of Variation 13.1 % (11.5-14.5) 08/10/22 Plt Count 190 K/uL (130-400) 08/10/22 MPV 9.7 fL (9.4-12.3) 08/10/22 Na 135 mmol/L (136-145) L 08/10/22 K 4.1 mmol/L (3.5-5.1) 08/10/22 Cl 103 mmol/L (98-107) 08/10/22 CO2 25 mmol/L (21-32) 08/10/22 Anion Gap 7 (3-11) 08/10/22 BUN 27 mg/dl (6-23) H 08/10/22 Creatinine 0.81 mg/dl (0.6-1.2) 08/10/22 Estimated GFR ( Amer) 82.3 ml/min 08/10/22 Estimated GFR (Non-Af Amer) 71.0 ml/min 08/10/22 BUN/Creatinine Ratio 33.3 (10-20) H 08/10/22 Glu 133 mg/dl (70-99(Fasting)) H 08/10/22 Ca 8.7 mg/dl (8.5-10.1) 08/10/22 Mg 1.9 mg/dl (1.7-2.4) 08/10/22 06:02 Calcium Level 8.7 mg/dl (8.5-10.1) 08/10/22 06:02 Diagnostic Findings (Past 24 Hours) Chest CT 08/09/22 16:49 CT SCAN OF THE CHEST WITHOUT IV CONTRAST CLINICAL HISTORY: Hypoxia. COMPARISON STUDY: Chest x-ray dated 08/09/2022. Chest CT dated 03/21/2019. TECHNIQUE: CT scan of the thorax was performed from the thoracic inlet to the upper abdomen. Images are reviewed in the axial, sagittal, and coronal planes. IV contrast was not administered for this examination as per the referring clinician. A dose lowering technique was utilized adhering to the principles of ALARA. CT DOSE: 289.82 mGy.cm FINDINGS: Thyroid: Atrophic. Thoracic aorta: There is evidence chronic calcification of the thoracic aorta, which is normal in caliber and demonstrates standard 3-vessel arch anatomy. Heart: The heart is top normal in size and without pericardial effusion. The coronary arteries are densely calcified. Lungs and pleural spaces: Jplt-oz-nqitgdat emphysema is noted. The trachea and central airways are clear. There are trace pleural effusions with bibasilar scarring/atelectasis. No airspace consolidation typical for pneumonia is identified. A 3 mm left apical pulmonary nodule is seen on image #50. Mediastinum: There is no mediastinal lymphadenopathy. Chiquis: Not well assessed without IV contrast. Axillae: There is no axillary lymphadenopathy. Upper abdomen: A 3.6 cm cyst is noted in the left lobe of liver. There is a psdba-ld-ueocjynf hiatal hernia. Partially visualized upper abdominal viscera is otherwise grossly unremarkable. Skeletal structures: The skeletal structures are osteopenic. Degenerative change and hyperkyphosis is noted in the thoracic spine. Arthritic change is seen in th e shoulders. No lytic or blastic bony lesions are seen. IMPRESSION: 1. Emphysema. 2. Trace pleural effusions with bibasilar atelectasis. 3. No airspace consolidation is seen typical for pneumonia. 4. A 3 mm left apical pulmonary nodule is pathologically indeterminate but new from 2019. If clinically warranted this can be followed as per the Fleischner criteria below. 5. Additional findings as above. Please refer to below summary of Fleischner criteria recommendations for follow- up of incidental CT nodules (Abdi Krause, Guidelines for management of small pul monary nodules detected on CT scans: A statement from the Fleischner Society, Radiology 237: [phone].) SOLID NODULES Solitary nodule size: <6 mm * low risk patients: no follow-up needed * high risk patients: optional CT at 12 months Solitary nodule size: 6-8 mm * low risk patients: follow-up at 6-12 months, then consider further follow-up at 18-24 months * high risk patients: initial follow-up CT at 6-12 months and then at 18-24 months if no change Solitary nodule size: >8 mm * either low or high risk patients - consider follow-up CT at 3 months, and/or CT-PET, and/or biopsy Multiple nodules size: <6 mm * low risk patients: no routine follow-up * high risk patients: optional CT at 12 months Multiple nodules size: 6-8 mm * low risk patients: follow-up at 3-6 months, then consider further follow-up at 18-24 months * high risk patients: follow-up at 3-6 months, then at 18-24 months if no change Multiple nodules size: >8 mm * low risk patients: follow-up at 3-6 months, then consider further follow-up at 18-24 months * high risk patients: follow-up at 3-6 months, then at 18-24 months if no change Note: newly detected indeterminate nodule in persons 35 years of age or older. * low risk patients: minimal or absent history of smoking and/or other known risk factors * high risk patients: history of smoking or of other known risk factors (e.g. first degree relative with lung cancer, or exposure to asbestos, radon, uranium) * if a nodule up to 8 mm is partly solid or is ground glass further follow-up is required after 24 months to exclude possible slow growing adenocarcinoma (DEANDRA) SUBSOLID NODULES Solitary pure ground-glass nodule * nodule size <6 mm - no CT follow-up required * nodule size >=6 mm - follow-up CT at 6-12 months, then every 2 years until 5 years Solitary part-solid nodule * nodule size <6 mm - no CT follow-up required * nodule size >=6 mm - follow-up CT at 3-6 months. If unchanged, and solid component remains <6 mm, then annual follow-up for 5 years Multiple subsolid nodules * nodule size <6 mm - follow-up CT at 3-6 months, consider further follow-up at 2 and 4 years if stable * nodule size >=6 mm - follow-up CT at 3-6 months, subsequent management based on the most suspicious nodule(s) ACT 112: Negative or not required by law. Electronically signed by: Hua Huff M.D. 08/09/2022 8:04 PM I & O Totals 24 Hours 08/09/22 08/10/22 08/11/22 06:59 06:59 06:59 Intake Total 1000 / 1000 450 / 450 Balance 1000 / 1000 450 / 450 Cumulative 08/09/22 01:08 thru 08/10/22 06:24 Intake Total 1450 Balance 1450 RT Ventilator Mngmt (Last Documented) Ventilator Ordered Settings Respiratory Rate 16 08/10/22 08:20 Fraction of Inspired Oxygen 35 08/09/22 03:39 Ventilator - PT Measurements Respiratory Rate 16 PG Care Time/CCT Total # of Minutes Spent Total Time Spent with Patient: Total time spent is greater than 50% in coordination of care (as documented) at patient's floor/unit and/or counseling patient:45 minutes Coding Level of Care Code 51912 Inpt Consult Level 4 Diagnoses COPD (chronic obstructive pulmonary disease) J44.9 COPD type: unspecified COPD Tobacco dependence F17.200 Time Spent (min) 45
--- NOTE | 2022-08-10 15:39 | Hospitalist Progress Note ---
Date of Service August 10, 2022 Assessment & Plan (1) COPD (chronic obstructive pulmonary disease): Plan: Has a 100 pack smoking hx Presents with SOB Received some Solumedrol in the ED continued on Duonebs Evaluated by Pulm, suggest inhalational steroids, antichrlinergics, LABA will discharge on Telegy Follow up with Pulm outpatient for PFT (2) Acute respiratory failure with hypercapnia: Plan: Secondary to COPD Used to be on oxygen at home, however stopped will need home oxygen evaluation prior to discharge (3) Tobacco dependence: Plan: continues to smoke, has been adviced to quit for her own sake Plan d/c in the next 24 hrs Admission and Anticipated Discharge Date Admission Date: August 09, 2022 Subjective patient seen and examined, still with some SOB, but much better compared to admission Review of Systems Review of Systems: All systems reviewed are negative, apart from the ones contained in the history. Physical Exam Physical Exam: The patient is awake, alert and oriented 3, well developed and well nourished, normocephalic and atraumatic, lying in bed and in no acute distress. HEENT--PERRL, EOMI, mucous membranes and oropharynx mildly dry Neck--supple. No JVD. No bruits. Thyroid normal, trachea midline, no adenopathy. Heart--normal S1 and S2. No murmurs, rubs or gallops. Lungs--Reduced air entry on auscultation Abdomen--normal bowel sounds and soft. Mild epigastric and left sided abdominal pain Extremities--no cyanosis or clubbing. No edema. Dermatologic--normal skin turgor, normal color, no abnormal lymph nodes, no rash. Neurologic--cranial nerves II through XII grossly intact. Rheumatologic--normal range of motion. Psychiatric--normal affect. Results & Data Results & Data ([facility]) Vital Signs (Past 12 Hours) Vital Signs Temp Pulse Resp BP Pulse Ox Pulse Ox O2 Del Method 08/10/22 15:23 98.1 F 82 20 133/73 94 Nasal Cannula 08/10/22 11:31 98.8 F 76 16 133/74 96 Nasal Cannula 08/10/22 09:45 Nasal Cannula 08/10/22 08:20 97.9 F 73 16 132/63 92 Nasal Cannula 08/10/22 05:31 92 08/10/22 03:36 97.9 F 92 H 20 156/78 H 92 Nasal Cannula O2 Del Method O2 Flow Rate O2 Flow Rate 08/10/22 15:23 2 08/10/22 11:31 2 08/10/22 09:45 2 08/10/22 08:20 2 08/10/22 05:31 Nasal Cannula 2 08/10/22 03:36 2 PG Care Time/CCT Total # of Minutes Spent Total Time Spent with Patient: Total time spent is greater than 50% in coordination of care (as documented) at patient's floor/unit and/or counseling patient: Coding Level of Care Code 24304 Subseq Hosp Care Lvl 2 Diagnoses COPD (chronic obstructive pulmonary disease) J44.9 Acute respiratory failure with hypercapnia J96.02 Tobacco dependence F17.200 Time Spent (min) 35
[2022-08-11] MEDS: LEVOTHYROXINE SODIUM 125 MCG TABLET PO SCH (06:30)
[2022-08-11 06:50] LABS: Hematocrit (blood only) 35.3 % (34.1-44.9); Hemoglobin 12.3 g/dl (12.0-16.0); Mean Corpuscular Hemoglobin 33.4 pg (25.0-34.0); Mean Corpuscular Hgb Conc 34.8 g/dL (32.0-36.0); Mean Corpuscular Volume 95.9 fL (80.0-100.0); Mean Platelet Volume 10.2 fL (9.4-12.3); Platelet Count 211 K/uL (130-400); RDW Coefficient of Variation 13.1 % (11.5-14.5); RDW Standard Deviation 46.4 fL (36.4-46.3); Red Blood Count 3.68 M/uL (3.93-5.22); White Blood Count 7.42 K/ul (4.8-10.8)
[2022-08-11 07:11] LABS: BUN Creatinine Ratio 41.6 (10-20); Creatinine Clr Calc Pharmacy 66.5 ml/min; Est GFR (African American) 87.5 ml/min; Est GFR (Non-African American) 75.5 ml/min; Potassium 3.9 mmol/L (3.5-5.1)
[2022-08-11] MEDS: INSULIN ASPART PER UNIT SC SCH ×2 (08:36→12:24)
[2022-08-11] MEDS: ESCITALOPRAM OXALATE 10 MG TAB PO SCH (08:37)
[2022-08-11] MEDS: guaiFENesin 600 MG TABCR PO SCH (08:37)
[2022-08-11] MEDS: ASPIRIN 81 MG ECTAB PO SCH (08:37)
[2022-08-11] MEDS: hydroCHLOROthiazide 25 MG TAB PO SCH (08:37)
[2022-08-11] MEDS: UMECLIDINIUM BROMIDE 62.5MCG/BLISTER 7 PUFFS/INHALER INH SCH (08:38)
[2022-08-11] MEDS: NICOTINE 21 MG/24 HR TDSY TD SCH (08:38)
[2022-08-11] MEDS: methylPREDNISolone 40 MG in SYRINGE 0 ML IV SCH (08:38)
[2022-08-11] MEDS: FLUTICASONE/VILANTEROL 100/25MCG 14 PUFFS/INHALER INH SCH (08:38)
[2022-08-11] MEDS: HEPARIN SOD 5,000 UNIT/0.5 ML VIAL SQ SCH (08:38)
[2022-08-11] MEDS: lisinopril 40 MG TAB PO SCH (08:38)
--- NOTE | 2022-08-11 12:54 | Discharge Summary ---
Date of Service August 11, 2022 Admission HPI Per Admitting Provider 77-year-old woman with a past medical history of COPD, previously O2 dependent but subsequently no longer on home oxygen, history of alcohol dependence where family report that she has been sober for a year or more who presents emergency department via EMS after they were on their way home from a family republican and she had an acute coughing episode where she suddenly became severely short of breath and could not catch her breath. Thus they called 911 and made an ambulance on on the roadside. Patient ports prior to her acute shortness of breath tonight she has been in her normal state of health denies fevers, chills, new cough or congestion, GI or symptoms. On arrival the patient is in severe respiratory distress with increased work of breathing, tripoding O2 saturation 98% on 2 L nasal cannula but again labored. She has wheezes of bilateral lung edward with prolonged expiratory phase and intermittent rhonchi bilateral lung edward. She appears clinically dry. The patient was immediately placed on BiPAP with continuous DuoNeb given her acute respiratory failure this pt improved dramatically and will be attempted to move to [place] oxygen in the ER Principal Diagnosis Acute exacerbation COPD, acute exacerbation of chronic hypoxic/hypercapnic respiratory failure Discharge Exam General-alert and oriented x3, no fevers, no chills HEENT-head atraumatic and normocephalic, pupils equal and reactive to light, extraocular muscles intact Neck-no lymphadenopathy or thyromegaly, trachea midline Chest-markedly diminished breath sounds bilaterally. Scattered bilateral rhonchi. No audible wheezing Cardiac-regular rate and rhythm, normal S1 and S2, no murmurs Abdomen-normal bowel sounds, nontender, no hepatosplenomegaly Extremities-no cyanosis, clubbing, or edema Neuro-cranial nerves II through XII intact, motor and sensory function within normal limits, strength symmetrical , no focal deficits Psych-normal affect, normal mood Discharge Data Allergies Allergy/AdvReac Type Severity Reaction Status Date / Time amlodipine AdvReac Unknown Unknown Verified 01/14/22 13:51 Consultations 08/09/22 03:10 ED Decision to Admit Stat 08/09/22 15:26 HIM [Consult Health Information Management] Routine 08/10/22 08:38 Consult Pulmonology Routine Ordered Studies 08/09/22 16:49 CT chest diagnostic wo con Routine Total Time Total Time Spent Total Time Spent (In Minutes): 35 minutes Discharge Plan Discharge Items Patient Disposition: Home - Self-Care Reason For Visit: COPD EXACERBATION Discharge Diagnosis: acute exacerbation COPD, acute on chronic hypoxic/hypercapnic respiratory failure Activity: Resume your previous activity Non-emergency contact: Primary Care Provider Call non-emergency contact if: you have any medication questions Follow-up/Referrals: Kelly Amor PA-C [Physician Horticultural Agent] - 08/19/22 11:00 am Diet: Heart Healthy Addtl Attending Provider Instructions: Wear oxygen at all times at 2 L/min per nasal cannula. New inhaler is Trelegy. Stop smoking if possible Pending Studies at Discharge: No Stand-Alone Forms: [facility] [employer], Smoking Cessation Medications and DC Order Prescriptions: New Trelegy Ellipta 100-62.5-25 mcg blister with device 1 inh inhalation DAILY Qty: 28 0RF Continued escitalopram oxalate 10 mg tablet 10 mg PO QAM Qty: 90 3RF hydrochlorothiazide 25 mg tablet 25 mg PO QAM Qty: 90 3RF atorvastatin 20 mg tablet 20 mg PO QAM Qty: 90 3RF levothyroxine 125 mcg tablet 125 mcg PO QAM Qty: 30 11RF lisinopril 40 mg tablet 40 mg PO QAM Qty: 90 3RF albuterol sulfate [Ventolin HFA] 90 mcg/actuation HFA aerosol inhaler 2 puff inhalation QID PRN (Reason: Shortness Of Breath) Qty: 1 3RF ibuprofen 200 mg Tablet 400 mg PO Q6H PRN (Reason: Fever Or Pain) aspirin 81 mg Tablet,Delayed Release (Dr/Ec) 81 mg PO QAM Atrovent HFA 17 mcg/actuation HFA aerosol inhaler 2 puffs INH Q6H PRN (Reason: Shortness Of Breath Or Wheezing) Discharge Orders: Discharge Order (Routine); Ordered 08/11/22 Ordered By: Kwasi Jung Admission Data Admit Date/Time: 08/09/22 02:28 Attending Provider: Kwasi Jung Admit Provider: Nilay Rodriguez Primary Care Provider: PCP,NO Other Providers: Nilay Rodriguez ; Ghulam Leyva Coding Level of Care Code D/C DAY MANAGEMENT >30 MINS
== END 2022-08-11 13:57 | disposition home or self-care (01) | DRG 190 ==
LOC: ED 01:19 → SUATTDRO 02:28 → 2N 02:28

== ENCOUNTER 2023-12-08 23:09 | Inpatient (IN) ==
[2023-12-08] MEDS ORDERED: ALBUT/IPRATROP 3MG/0.5MG NEB 3 ML VIAL ONE (23:23)
[2023-12-08] MEDS ORDERED: methylPREDNISolone 125 MG/2 ML VIAL IV STA (23:28)
[2023-12-08] MEDS ORDERED: ALBUT/IPRATROP 3MG/0.5MG NEB 3 ML VIAL NEB STA (23:28)
--- NOTE | 2023-12-08 23:33 | Emergency Department Note ---
Impression & Plan COPD (chronic obstructive pulmonary disease) ADMIT ED Provider Note HPI: History obtained from patient. The patient is a 78-year-old female with history of COPD, anxiety reactions, vocal cord nodules (patient states she follows with [facility] providers for this issue), presents emergency department with a chief complaint of acute onset shortness of breath. Patient states earlier tonight when she was playing cards with her family she felt acutely short of breath similar to episodes that she has had recently. Patient states that she began to feel very anxious and felt as if she was having a panic attack. Patient denies any chest pain, on arrival the patient is anxious appearing, she is tachypneic, she exhibits expiratory wheezing bilaterally. Patient is saturating well on room air on arrival and is otherwise hemodynamically stable. ROS: - Per HPI Differential Diagnosis: Acute bronchospasm, COPD exacerbation with cough, esophageal foreign body, panic attack, acute coronary syndrome, laryngospasm, epiglottitis, amongst other potential pathologies. *Outpatient medications and allergy history reviewed. PE: General: Alert, anxious appearing HEENT: Normocephalic, trachea midline Eyes: Extraocular eye movement is intact, no scleral erythema Pulmonary: Slightly diminished breath sounds bilaterally with moderate expiratory wheezing with tachypnea Cardio: Regular rate and rhythm GI: Abdomen is soft to palpation : No suprapubic tenderness MSK: No evidence of trauma or malformation of the extremities, no edema Skin: No evidence of rash Neuro: Alert, no focal deficits Psychiatric: Cooperative INDEPENDENT INTERPRETATIONS: haul truck driver: (As interpreted by myself): - An order was placed for continuous cardiac monitoring - Patient was noted to be in sinus rhythm with rate of 96 EKG: (As interpreted by myself): Rate: 96 Rhythm: Sinus rhythm Intervals: NH interval prolonged at 236 ms, otherwise within normal limits ST changes: No ST elevation Time: 1116 Chest x-ray: (As interpreted by myself): No acute disease Interventions provided in ED: -IV Solu-Medrol, DuoNeb breathing treatment x 2, potassium chloride Medical Decision Making: IV was established and lab work obtained, patient was placed on airplane pilot commercial. Patient was initiated on DuoNeb breathing treatment shortly after arrival and given IV Solu-Medrol. Lab work shows no leukocytosis, hemoglobin is normal, platelet count is normal, CMP does not show any critical findings, venous blood gas shows a normal pH. CMP shows mild hypokalemia at 3.3 which was ordered for oral repletion. Chest x-ray per my interpretation does not show any evidence of any acute abnormalities. Viral panel testing is negative. EKG per my interpretation does not show any evidence of acute ischemic changes. Initial high-sensitivity troponin level here in the ED is mildly elevated at 45.6. Therefore following a short period of observation and a repeat delta troponin level was obtained and is unfortunately elevated at 149.8. Patient continues to deny any chest pain however given acute change in delta troponin level I feel the patient would benefit from admission for further management and workup. Low suspicion for PE given lack of any hypoxia or chest pain. Patient presented with wheezing consistent more with acute bronchospasm. She does appear symptomatically much improved following DuoNeb breathing treatments here in the ED on my reassessment. Her tachypnea is gone. Wheezing is improved. Patient and her son at the bedside are in agreement to this plan. [facility] hospitalist service was consulted for admission and the patient was placed for admission in stable condition. Consultants/Discussions held with other healthcare providers: -Hospitalist, Dr. Ceron Disposition discussion held by myself with: -Patient and son at bedside Diagnosis: 1. Acute bronchospasm with dyspnea 2. Elevated high-sensitivity troponin level 3. Hypokalemia, acute Disposition: Admission Dieter Lyles DO Emergency Medicine Past Med/Surg History Medical History (Updated 12/09/23 @ 02:24 by Dieter Lyles DO) Sleep apnea GREGORY diagnosis within past few months, has not received CPAP device yet Vocal cord mass History of radioactive iodine thyroid ablation Angiomyolipoma Osteopenia Complex renal cyst Per records, pt unaware GERD (gastroesophageal reflux disease) Diverticular disease Anxiety situational Cardiac murmur since childhood COPD (chronic obstructive pulmonary disease) Stable Ileus seen in ED for this 06/17/21 [facility], placed on liquid diet for a week/ Zofran added - resolved, no issues sofia Hyperlipidemia Mixed hearing loss, bilateral Psoriasis Hyperthyroidism Graves disease treated with radiation Hypertension Surgical History (Updated 07/22/23 @ 09:50 by Artem Luna DO) History of colostomy History of cataract surgery bilateral History of esophagogastroduodenoscopy (EGD) History of colonoscopy History of tooth extraction History of colostomy reversal Sep 2020 S/P partial colectomy (06/04/20) [facility] Dr. Elton Cast, performed due to diverticular stricture/mass, colostomy formed> since reversed History of vaginal hysterectomy History of tubal ligation History of tonsillectomy Family History Mother Ovarian cancer Father Myocardial infarction Other No family history of adverse response to anesthesia No family history of bleeding disorder Denies family history of Prostate cancer Breast cancer Colorectal cancer Social History Smoking Status: Current every day smoker Tobacco Type: Cigarettes Age Started Using Tobacco: 24; packs per day: 2; Cigarettes Per Day: 30 cigs/day x 30+ years; Second Hand Exposure: Yes; Do You Dip or Chew Tobacco: No; Hx Alcohol Use: No Hx Substance Use: No Preferred Language: Mexican Communication Ability: Effective Visual Impairment: No Limitations Hearing Ability: Normal Vascular Ultrasound Technologist Required: No Beliefs That Will Affect Care: None marital status: Current Living Situation: Spouse current occupational status: retired current occupation: 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 Feels Safe at Home: Yes Childhood Exposure to Second-Hand Smoke: Yes Diet: regular Dental Care, Regularly: No Physical Activity Frequency: Daily Seatbelt Use: always Sunscreen Use: No Assistive Devices: Denture - Upper, Denture - Lower and Glasses Allergies Allergies Allergy/AdvReac Type Severity Reaction Status Date / Time amlodipine AdvReac Unknown Unknown Verified 07/22/23 09:30 Home Meds Home Medications Medication Instructions Recorded Confirmed ibuprofen 200 mg tablet 400 mg PO Q6H PRN Fever Or Pain 05/17/20 12/09/23 aspirin 81 mg tablet,delayed 81 mg PO QAM 10/21/20 12/09/23 release polyethylene glycol 3350 17 17 g PO Q2D 12/22/22 12/09/23 gram/dose oral powder (Miralax) Previous Rx's Medication Instructions Recorded guaifenesin 600 mg tablet, 600 mg PO BID PRN congestion #60 09/21/22 extended release 12 hr (Mucinex) tabs Auto Titrating CPAP #1 ea 01/26/23 CPAP Supplies #1 ea 01/26/23 albuterol sulfate 90 mcg/actuation 2 puff inhalation QID PRN 01/26/23 aerosol inhaler (Ventolin HFA) Shortness Of Breath #1 inhaler fluticasone fur. 100 mcg-umeclid 1 inh inhalation DAILY #60 ea 01/26/23 62.5 mcg-vilant 25 mcg inhalat.powder (Trelegy Ellipta) pantoprazole 40 mg tablet,delayed 40 mg PO DAILY #90 tabs 03/09/23 release levothyroxine 125 mcg tablet 125 mcg PO QAM #90 tabs 07/26/23 lisinopril 40 mg tablet 40 mg PO QAM #90 tabs 07/26/23 buspirone 5 mg tablet 5 mg PO BID #60 tabs 10/18/23 atorvastatin 20 mg tablet 20 mg PO QAM #90 tabs 11/17/23 escitalopram oxalate 20 mg tablet 20 mg PO DAILY #90 tabs 11/17/23 hydrochlorothiazide 25 mg tablet 25 mg PO QAM #90 tabs 11/17/23 Results & Data (ED) Vital Signs Vital Signs - 24 hr 12/08/23 23:00 12/08/23 23:00 12/08/23 23:23 Temperature 36.5 C Temperature Source Oral Pulse Rate 110 H Respiratory Rate 22 Respiratory Effort / Characteristics Grunting Tripoding Blood Pressure 142/98 H Blood Pressure Mean 112 Pulse Oximetry 94 94 Oxygen Delivery Method Room Air Room Air Room Air Sepsis Recent Fever Within 48 Hours No Sepsis New/Unexplained Change in Mental Status No Sepsis Action Taken by Nursing No Action Required 12/08/23 23:43 Temperature Temperature Source Pulse Rate 94 H Respiratory Rate Respiratory Effort / Characteristics Blood Pressure Blood Pressure Mean Pulse Oximetry Oxygen Delivery Method Sepsis Recent Fever Within 48 Hours Sepsis New/Unexplained Change in Mental Status Sepsis Action Taken by Nursing Laboratory Data 12/09/23 00:03 12/09/23 00:03 Lab Results 12/09/23 12/09/23 12/09/23 Range/Units 00:03 00:12 00:20 WBC 7.66 (4.8-10.8) K/ul RBC 3.99 L (4.20-5.40) M/uL Hgb 13.2 (12.0-16.0) g/dl Hct 39.3 (37.0-47.0) % MCV 98.5 (80.0-100.0) fL MCH 33.1 (25.0-34.0) pg MCHC 33.6 (32.0-36.0) g/dL RDW Std Deviation 47.6 H (36.4-46.3) fL RDW Coeff of Alan 13.0 (11.5-14.5) % Plt Count 224 (130-400) K/uL MPV 10.4 (9.4-12.4) fL Immature Gran % (Auto) 0.3 % Neut % (Auto) 68.3 % Lymph % (Auto) 20.9 % [place] % (Auto) 6.3 % Eos % (Auto) 2.9 % Baso % (Auto) 1.3 % Neut # (Auto) 5.24 (1.40-6.50) K/uL Lymph # (Auto) 1.60 (1.20-3.40) K/uL [place]wood # (Auto) 0.48 (0.11-0.59) K/uL Eos # (Auto) 0.22 (0.00-0.50) K/uL Baso # (Auto) 0.10 (0.00-0.20) K/uL Immature Gran # (Auto) 0.02 (0.01-0.20) K/uL PT 11.1 (9.0-12.0) Seconds INR 1.0 (0.9-1.1) APTT 25 (21-31) Seconds PTT Ratio 0.9 VBG pH 7.37 (7.36-7.41) VBG pCO2 50 (38-50) mmHg VBG pO2 23 mmHg VBG HCO3 29 mmol/L VBG O2 Saturation < 60.0 % VBG Base Excess 2.7 mEq/L Sodium 135 L (136-145) mmol/L Potassium 3.3 L (3.5-5.1) mmol/L Chloride 100 (98-107) mmol/L Carbon Dioxide 26 (21-32) mmol/L Anion Gap 9 (3-11) BUN 19 (6-23) mg/dl Creatinine 0.87 (0.6-1.2) mg/dl Est Cr Clr Drug Dosing 51.5 ml/min Est GFR ( Amer) 75.0 ml/min Est GFR (Non-Af Amer) 64.7 ml/min BUN/Creatinine Ratio 21.8 H (10-20) Glucose 109 H (70-99(Fasting)) mg/dl Calcium 9.0 (8.6-10.3) mg/dl Total Bilirubin 0.3 (0.2-1.0) mg/dl AST 12 L (13-39) U/L ALT 10 (7-52) U/L Alkaline Phosphatase 57 (34-104) U/L Troponin I High Sens 45.6 H (0-14) pg/ml B-Natriuretic Peptide 66 (0-100) pg/ml Total Protein 6.8 (6.0-8.3) gm/dl Albumin 4.1 (3.4-5.0) gm/dl Globulin 2.7 (2.5-4.0) gm/dl Albumin/Globulin Ratio 1.5 (0.9-2) Adenovirus (PCR) Not Detected (NotDetected) B. pertussis DNA (PCR) Not Detected (NotDetected) B.parapertussis DNA PCR Not Detected (NotDetected) C. pneumoniae DNA (PCR) Not Detected (NotDetected) Coronavirus OC43 (PCR) Not Detected (NotDetected) Coronavirus HKU1 (PCR) Not Detected (NotDetected) Coronavirus 229E (PCR) Not Detected (NotDetected) SARS-CoV-2 (PCR) Not Detected (NotDetected) Coronavirus NL63 (PCR) Not Detected (NotDetected) Human Metapneumovir PCR Not Detected (NotDetected) Influenza Type A (PCR) Not Detected (NotDetected) Influenza Type B (PCR) Not Detected (NotDetected) M. pneumoniae (PCR) Not Detected (NotDetected) Parainfluenza 1 (PCR) Not Detected (NotDetected) Parainfluenza 2 (PCR) Not Detected (NotDetected) Parainfluenza 3 (PCR) Not Detected (NotDetected) Parainfluenza 4 (PCR) Not Detected (NotDetected) RSV (PCR) Not Detected (NotDetected) Entero/Rhino (PCR) Not Detected (NotDetected) 12/09/23 Range/Units 01:44 WBC (4.8-10.8) K/ul RBC (4.20-5.40) M/uL Hgb (12.0-16.0) g/dl Hct (37.0-47.0) % MCV (80.0-100.0) fL MCH (25.0-34.0) pg MCHC (32.0-36.0) g/dL RDW Std Deviation (36.4-46.3) fL RDW Coeff of Alan (11.5-14.5) % Plt Count (130-400) K/uL MPV (9.4-12.4) fL Immature Gran % (Auto) % Neut % (Auto) % Lymph % (Auto) % [place] % (Auto) % Eos % (Auto) % Baso % (Auto) % Neut # (Auto) (1.40-6.50) K/uL Lymph # (Auto) (1.20-3.40) K/uL [place] # (Auto) (0.11-0.59) K/uL Eos # (Auto) (0.00-0.50) K/uL Baso # (Auto) (0.00-0.20) K/uL Immature Gran # (Auto) (0.01-0.20) K/uL PT (9.0-12.0) Seconds INR (0.9-1.1) APTT (21-31) Seconds PTT Ratio VBG pH (7.36-7.41) VBG pCO2 (38-50) mmHg VBG pO2 mmHg VBG HCO3 mmol/L VBG O2 Saturation % VBG Base Excess mEq/L Sodium (136-145) mmol/L Potassium (3.5-5.1) mmol/L Chloride (98-107) mmol/L Carbon Dioxide (21-32) mmol/L Anion Gap (3-11) BUN (6-23) mg/dl Creatinine (0.6-1.2) mg/dl Est Cr Clr Drug Dosing ml/min Est GFR ( Amer) ml/min Est GFR (Non-Af Amer) ml/min BUN/Creatinine Ratio (10-20) Glucose (70-99(Fasting)) mg/dl Calcium (8.6-10.3) mg/dl Total Bilirubin (0.2-1.0) mg/dl AST (13-39) U/L ALT (7-52) U/L Alkaline Phosphatase (34-104) U/L Troponin I High Sens 149.8 H* D (0-14) pg/ml B-Natriuretic Peptide (0-100) pg/ml Total Protein (6.0-8.3) gm/dl Albumin (3.4-5.0) gm/dl Globulin (2.5-4.0) gm/dl Albumin/Globulin Ratio (0.9-2) Adenovirus (PCR) (NotDetected) B. pertussis DNA (PCR) (NotDetected) B.parapertussis DNA PCR (NotDetected) C. pneumoniae DNA (PCR) (NotDetected) Coronavirus OC43 (PCR) (NotDetected) Coronavirus HKU1 (PCR) (NotDetected) Coronavirus 229E (PCR) (NotDetected) SARS-CoV-2 (PCR) (NotDetected) Coronavirus NL63 (PCR) (NotDetected) Human Metapneumovir PCR (NotDetected) Influenza Type A (PCR) (NotDetected) Influenza Type B (PCR) (NotDetected) M. pneumoniae (PCR) (NotDetected) Parainfluenza 1 (PCR) (NotDetected) Parainfluenza 2 (PCR) (NotDetected) Parainfluenza 3 (PCR) (NotDetected) Parainfluenza 4 (PCR) (NotDetected) RSV (PCR) (NotDetected) Entero/Rhino (PCR) (NotDetected) Administered Medications Discontinued Medications Albuterol (Albut/Ipratrop 3mg/0.5mg Neb 3 Ml Vial) Confirm Administered Dose 3 ml .ROUTE .[facility] ONE Stop: 12/08/23 23:24 Last Admin: 12/09/23 00:15 Dose: Not Given Documented By: JAX Albuterol (Albut/Ipratrop 3mg/0.5mg Neb 3 Ml Vial) 3 ml NEB NOW STA; Protocol Stop: 12/08/23 23:29 Last Admin: 12/08/23 23:28 Dose: 3 ml Documented By: JAX Albuterol (Albut/Ipratrop 3mg/0.5mg Neb 3 Ml Vial) 3 ml NEB NOW STA; Protocol Stop: 12/09/23 00:11 Last Admin: 12/09/23 00:22 Dose: 3 ml Documented By: JAX Aspirin (Aspirin Chew 324 Mg) 324 mg PO NOW STA Stop: 12/09/23 02:31 Last Admin: 12/09/23 02:41 Dose: 324 mg Documented By: JAX Methylprednisolone (Methylprednisolone 125 Mg/2 Ml Vial) 125 mg IV NOW STA Stop: 12/08/23 23:29 Last Admin: 12/09/23 00:15 Dose: 125 mg Documented By: JAX Potassium Chloride (Potassium Chloride Crtab 20 Meq Tabcr) 20 meq PO NOW STA Stop: 12/09/23 00:58 Last Admin: 12/09/23 02:26 Dose: 20 meq Documented By: JAX Discharge Plan Visit Data Chief Complaint: Shortness of Breath/Dyspnea ED Provider: Dieter Lyles Discharge Problem: COPD (chronic obstructive pulmonary disease) Forms Stand Alone Forms: [facility] [employer] Prescriptions Prescriptions: No Action lisinopril 40 mg tablet 40 mg PO QAM Qty: 90 3RF levothyroxine 125 mcg tablet 125 mcg PO QAM Qty: 90 3RF buspirone 5 mg tablet 5 mg PO BID Qty: 60 2RF atorvastatin 20 mg tablet 20 mg PO QAM Qty: 90 3RF escitalopram oxalate 20 mg tablet 20 mg PO DAILY Qty: 90 3RF hydrochlorothiazide 25 mg tablet 25 mg PO QAM Qty: 90 3RF pantoprazole 40 mg tablet,delayed release (DR/EC) 40 mg PO DAILY Qty: 90 3RF guaifenesin [Mucinex] 600 mg tablet extended release 12hr 600 mg PO BID PRN (Reason: congestion) Qty: 60 1RF Rx Instructions: Take 1 tab p.o. twice a day for 7 days and then as needed albuterol sulfate [Ventolin HFA] 90 mcg/actuation HFA aerosol inhaler 2 puff inhalation QID PRN (Reason: Shortness Of Breath) Qty: 1 3RF Trelegy Ellipta 100-62.5-25 mcg blister with device 1 inh inhalation DAILY Qty: 60 8RF (DME) Auto Titrating CPAP Misc See Rx Instructions .MEDSUPPLY Qty: 1 0RF Rx Instructions: Auto PAP with 5-15 cm H20. Lifetime usage. G47.33 (DME) CPAP Supplies Misc See Rx Instructions .MEDSUPPLY Qty: 1 0RF Rx Instructions: CPAP supplies, mask, headgear, filters, tubing, water chamber. G47.33 ibuprofen 200 mg Tablet 400 mg PO Q6H PRN (Reason: Fever Or Pain) aspirin 81 mg Tablet,Delayed Release (Dr/Ec) 81 mg PO QAM polyethylene glycol 3350 [Miralax] 17 gram/dose Powder 17 g PO Q2D Referrals Referrals: Artem Luna DO [Primary Care Provider] - Discharge Problem: COPD (chronic obstructive pulmonary disease) Qualifiers: COPD type: unspecified COPD Qualified Code(s): J44.9 - Chronic obstructive pulmonary disease, unspecified
[2023-12-09] MEDS ORDERED: ALBUT/IPRATROP 3MG/0.5MG NEB 3 ML VIAL NEB STA (00:10)
[2023-12-09 00:17] LABS: Base Excess VBG 2.7 mEq/L; HCO3 VBG 29 mmol/L; Oxygen Saturation VBG < 60.0 %; PCO2 VBG 50 mmHg (38-50); PO2 VBG 23 mmHg; pH VBG 7.37 (7.36-7.41)
[2023-12-09 00:24] LABS: Basophils % (auto) 1.3 %; Eosinophils # (auto) 0.22 K/uL (0.00-0.50); Eosinophils % (auto) 2.9 %; Hematocrit (blood only) 39.3 % (37.0-47.0); Hemoglobin 13.2 g/dl (12.0-16.0); Immature Granulocytes # (auto) 0.02 K/uL (0.01-0.20); Immature Granulocytes % (auto) 0.3 %; Lymphocytes % (auto) 20.9 %; Mean Corpuscular Hemoglobin 33.1 pg (25.0-34.0); Mean Corpuscular Hgb Conc 33.6 g/dL (32.0-36.0); Mean Corpuscular Volume 98.5 fL (80.0-100.0); Mean Platelet Volume 10.4 fL (9.4-12.4); Monocytes # (auto) 0.48 K/uL (0.11-0.59); Monocytes % (auto) 6.3 %; Neutrophils # (auto) 5.24 K/uL (1.40-6.50); Neutrophils % (auto) 68.3 %; Platelet Count 224 K/uL (130-400); RDW Standard Deviation 47.6 fL (36.4-46.3); Red Blood Count 3.99 M/uL (4.20-5.40); White Blood Count 7.66 K/ul (4.8-10.8)
[2023-12-09 00:35] LABS: Albumin Globulin Ratio 1.5 (0.9-2); Albumin Level 4.1 gm/dl (3.4-5.0); BUN Creatinine Ratio 21.8 (10-20); Bilirubin,Total 0.3 mg/dl (0.2-1.0); Creatinine Clr Calc Pharmacy 51.5 ml/min; Est GFR (Non-African American) 64.7 ml/min; Globulin 2.7 gm/dl (2.5-4.0); Potassium 3.3 mmol/L (3.5-5.1); Total Protein 6.8 gm/dl (6.0-8.3)
[2023-12-09 00:42] LABS: Troponin I High Sensitivity 45.6 pg/ml (0-14)
[2023-12-09 00:51] LABS: Partial Thromboplastin Ratio 0.9; Partial Thromboplastin Time 25 Seconds (21-31); Prothrombin Time 11.1 Seconds (9.0-12.0)
[2023-12-09] MEDS ORDERED: POTASSIUM CHLORIDE CRTAB 20 MEQ TABCR PO STA (00:57)
[2023-12-09 01:22] LABS: Adenovirus PCR Not Detected (NotDetected); Bordetella parapertussis PCR Not Detected (NotDetected); Bordetella pertussis PCR Not Detected (NotDetected); Chlamydia pneumoniae PCR Not Detected (NotDetected); Coronavirus 229E PCR Not Detected (NotDetected); Coronavirus CoV-2 (COVID19)PCR Not Detected (NotDetected); Coronavirus HKU1 PCR Not Detected (NotDetected); Coronavirus NL63 PCR Not Detected (NotDetected); Coronavirus OC43PCR Not Detected (NotDetected); Human Metapneumovirus PCR Not Detected (NotDetected); Influenza A PCR Not Detected (NotDetected); Influenza B PCR Not Detected (NotDetected); Mycoplasma pneumoniae PCR Not Detected (NotDetected); Parainfluenza Virus 1 PCR Not Detected (NotDetected); Parainfluenza Virus 2 PCR Not Detected (NotDetected); Parainfluenza Virus 3 PCR Not Detected (NotDetected); Parainfluenza Virus 4 PCR Not Detected (NotDetected); Respiratory Syncytial VirusPCR Not Detected (NotDetected); Rhinovirus/Enterovirus PCR Not Detected (NotDetected)
[2023-12-09] MEDS ORDERED: ASPIRIN CHEW 324 MG PO STA (02:30)
--- NOTE | 2023-12-09 03:42 | History & Physical Report ---
Date of Service December 09, 2023 Assessment & Plan (1) Acute on chronic respiratory failure with hypoxia: (2) COPD exacerbation: (3) Anxiety as acute reaction to exceptional stress: (4) Hypothyroidism: (5) Tobacco dependence: (6) Alcohol dependence: (7) Hyperlipidemia: (8) Hypertension: (9) Vocal cord mass: Plan Acute on chronic respiratory failure with hypoxia/COPD exacerbation- Admit to monitored bed From the ED received the following: DuoNeb, Solu-Medrol 125 mg IV, second DuoNeb, Klor-Con 20 mill equivalents p.o., and aspirin 324 mg Continue Anoro Ellipta, Arnuity Ellipta Duonebs every 4 hours while awake and every 2 hours when necessary. Methylprednisolone 40 mg IV every 8 hours Azithromycin 500 mg IV daily Increase guaifenesin extended release from 600 mg daily to 1200 mg p.o. twice daily BioFire test negative Chest x-ray with bibasilar atelectasis versus infiltrate Patient uses auto titrated CPAP at home. Will Rx CPAP inpatient, and can use auto titrating CPAP if she can have someone bring it in Elevated troponin/hypertension- Troponin 149.8 on admission EKG without acute changes The patient will be admitted to telemetry for serial cardiac enzymes, serial EKG's, cardiac rhythm monitoring and a 2-D echocardiogram with Dopplers Continue aspirin, atorvastatin Holding HCTZ and lisinopril Enoxaparin 40 mg subcu every 24 hours Anxiety- Continue escitalopram History of Present Illness Chief Complaint: The patient presents to the emergency department with an acute worsening of her chronic shortness of breath over the past 24 hours, leading her to have worsening of her anxiety, and she felt like she was having a panic attack. Primary Care Provider: Artem Luna DO The patient is a 78-year-old female with a past medical history including COPD, anxiety, hypothyroidism, tobacco dependence, alcohol dependence, GERD, angiomyolipoma, hypertension, hyperlipidemia, bladder spasms and vocal cord mass. She presents to the emergency department with acute worsening of her chronic shortness of breath, increasing anxiety and sense of a panic attack, and auditory wheezing. Allergies Allergy/AdvReac Type Severity Reaction Status Date / Time amlodipine AdvReac Unknown Unknown Verified 07/22/23 09:30 Home Medications Medication Instructions Recorded Confirmed Type ibuprofen 200 mg tablet 400 mg PO Q6H PRN Fever Or Pain 05/17/20 12/09/23 History aspirin 81 mg tablet,delayed 81 mg PO QAM 10/21/20 12/09/23 History release guaifenesin 600 mg tablet, 600 mg PO BID PRN congestion #60 09/21/22 12/09/23 Rx extended release 12 hr (Mucinex) tabs polyethylene glycol 3350 17 17 g PO Q2D 12/22/22 12/09/23 History gram/dose oral powder (Miralax) Auto Titrating CPAP #1 ea 01/26/23 12/09/23 Rx CPAP Supplies #1 ea 01/26/23 12/09/23 Rx albuterol sulfate 90 mcg/actuation 2 puff inhalation QID PRN 01/26/23 12/09/23 Rx aerosol inhaler (Ventolin HFA) Shortness Of Breath #1 inhaler fluticasone fur. 100 mcg-umeclid 1 inh inhalation DAILY #60 ea 01/26/23 12/09/23 Rx 62.5 mcg-vilant 25 mcg inhalat.powder (Trelegy Ellipta) pantoprazole 40 mg tablet,delayed 40 mg PO DAILY #90 tabs 03/09/23 12/09/23 Rx release levothyroxine 125 mcg tablet 125 mcg PO QAM #90 tabs 07/26/23 12/09/23 Rx lisinopril 40 mg tablet 40 mg PO QAM #90 tabs 07/26/23 12/09/23 Rx buspirone 5 mg tablet 5 mg PO BID #60 tabs 10/18/23 12/09/23 Rx atorvastatin 20 mg tablet 20 mg PO QAM #90 tabs 11/17/23 12/09/23 Rx escitalopram oxalate 20 mg tablet 20 mg PO DAILY #90 tabs 11/17/23 12/09/23 Rx hydrochlorothiazide 25 mg tablet 25 mg PO QAM #90 tabs 11/17/23 12/09/23 Rx Past Med/Surg History Medical History (Updated 12/09/23 @ 07:37 by Ron Ceron MD) Sleep apnea GREGORY diagnosis within past few months, has not received CPAP device yet Vocal cord mass History of radioactive iodine thyroid ablation Angiomyolipoma Osteopenia Complex renal cyst Per records, pt unaware GERD (gastroesophageal reflux disease) Diverticular disease Anxiety situational Cardiac murmur since childhood COPD (chronic obstructive pulmonary disease) Stable Ileus seen in ED for this 06/17/21 [facility], placed on liquid diet for a week/ Zofran added - resolved, no issues sofia Hyperlipidemia Mixed hearing loss, bilateral Psoriasis Hyperthyroidism Graves disease treated with radiation Hypertension Surgical History (Updated 07/22/23 @ 09:50 by Artem Luna, ) History of colostomy History of cataract surgery bilateral History of esophagogastroduodenoscopy (EGD) History of colonoscopy History of tooth extraction History of colostomy reversal Sep 2020 S/P partial colectomy (06/04/20) [facility] Dr. Elton Cast, performed due to diverticular stricture/mass, colostomy formed> since reversed History of vaginal hysterectomy History of tubal ligation History of tonsillectomy Family History Mother Ovarian cancer Father Myocardial infarction Other No family history of adverse response to anesthesia No family history of bleeding disorder Denies family history of Prostate cancer Breast cancer Colorectal cancer Social History Smoking Status: Current every day smoker Tobacco Type: Cigarettes Age Started Using Tobacco: 24; packs per day: 2; Cigarettes Per Day: 30 cigs/day x 30+ years; Second Hand Exposure: Yes; Do You Dip or Chew Tobacco: No; Hx Alcohol Use: No Hx Substance Use: No Preferred Language: Lithuanian Communication Ability: Effective Visual Impairment: No Limitations Hearing Ability: Normal Timber Cruiser Required: No Beliefs That Will Affect Care: None marital status: Current Living Situation: Spouse current occupational status: retired current occupation: retired from [employer] 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 Feels Safe at Home: Yes Childhood Exposure to Second-Hand Smoke: Yes Diet: regular Dental Care, Regularly: No Physical Activity Frequency: Daily Seatbelt Use: always Sunscreen Use: No Assistive Devices: Denture - Upper, Denture - Lower and Glasses Review of Systems Review of Systems: The patient denies chest pain, palpitations, shortness of breath, dyspnea on exertion, cough, lower extremity swelling, sore throat, fevers, chills, sweats, weight change, fatigue, nausea, vomiting, diarrhea , constipation, abdominal pain, pelvic pain, blood in urine or stool, dysuria, urinary frequency or urgency, lightheadedness, dizziness, headache, memory loss, loss of consciousness, rash, abnormal bruising or bleeding, imbalance, focal or generalized weakness, numbness or tingling in arms or legs, generalized arthralgias or myalgias, back or neck pain, or night sweats. The review of systems is otherwise negative other than for that already noted above, and at least 10 systems have been reviewed. Physical Exam Physical Exam: The patient was resting comfortably sleeping, as she was woken up, she developed extreme coughing spell, which resolved spontaneously HEENT--PERRL, EOMI, mucous membranes and oropharynx dry. Neck--supple. No JVD. No bruits. Thyroid normal, trachea midline, no adenopathy. Heart--normal S1 and S2. No murmurs, rubs or gallops. Lungs--coarse breath sounds with wheezes bilaterally. No respiratory distress, no accessory muscle use. Abdomen--normal bowel sounds and soft. Nontender. Nondistended, no hernias or masses, no organomegaly. Extremities--no cyanosis or clubbing. No edema. There are good distal pulses b/l. Dermatologic--normal skin turgor, normal color, no abnormal lymph nodes, no rash. Neurologic--cranial nerves II through XII grossly intact. Rheumatologic--normal range of motion. Psychiatric--anxious Results & Data Results & Data Vital Signs (Past 12 Hours) Vital Signs Temp Pulse Resp BP Pulse Ox O2 Del Method 12/08/23 23:43 94 H 12/08/23 23:23 Room Air 12/08/23 23:00 94 Room Air 12/08/23 23:00 36.5 C 110 H 22 142/98 H 94 Room Air Laboratory Results Laboratory Results WBC 7.66 K/ul (4.8-10.8) 12/09/23 00:03 RBC 3.99 M/uL (4.20-5.40) L 12/09/23 00:03 Hgb 13.2 g/dl (12.0-16.0) 12/09/23 00:03 Hct 39.3 % (37.0-47.0) 12/09/23 00:03 MCV 98.5 fL (80.0-100.0) 12/09/23 00:03 MCH 33.1 pg (25.0-34.0) 12/09/23 00:03 MCHC 33.6 g/dL (32.0-36.0) 12/09/23 00:03 RDW Std Deviation 47.6 fL (36.4-46.3) H 12/09/23 00:03 RDW Coeff of Alan 13.0 % (11.5-14.5) 12/09/23 00:03 Plt Count 224 K/uL (130-400) 12/09/23 00:03 MPV 10.4 fL (9.4-12.4) 12/09/23 00:03 Immature Gran % (Auto) 0.3 % 12/09/23 00:03 Neut % (Auto) 68.3 % 12/09/23 00:03 Lymph % (Auto) 20.9 % 12/09/23 00:03 [place] % (Auto) 6.3 % 12/09/23 00:03 Eos % (Auto) 2.9 % 12/09/23 00:03 Baso % (Auto) 1.3 % 12/09/23 00:03 Neut # (Auto) 5.24 K/uL (1.40-6.50) 12/09/23 00:03 Lymph # (Auto) 1.60 K/uL (1.20-3.40) 12/09/23 00:03 [place] # (Auto) 0.48 K/uL (0.11-0.59) 12/09/23 00:03 Eos # (Auto) 0.22 K/uL (0.00-0.50) 12/09/23 00:03 Baso # (Auto) 0.10 K/uL (0.00-0.20) 12/09/23 00:03 Immature Gran # (Auto) 0.02 K/uL (0.01-0.20) 12/09/23 00:03 PT 11.1 Seconds (9.0-12.0) 12/09/23 00:03 INR 1.0 (0.9-1.1) 12/09/23 00:03 APTT 25 Seconds (21-31) 12/09/23 00:03 PTT Ratio 0.9 12/09/23 00:03 VBG pH 7.37 (7.36-7.41) 12/09/23 00:12 VBG pCO2 50 mmHg (38-50) 12/09/23 00:12 VBG pO2 23 mmHg 12/09/23 00:12 VBG HCO3 29 mmol/L 12/09/23 00:12 VBG O2 Saturation < 60.0 % 12/09/23 00:12 VBG Base Excess 2.7 mEq/L 12/09/23 00:12 Sodium 135 mmol/L (136-145) L 12/09/23 00:03 Potassium 3.3 mmol/L (3.5-5.1) L 12/09/23 00:03 Chloride 100 mmol/L (98-107) 12/09/23 00:03 Carbon Dioxide 26 mmol/L (21-32) 12/09/23 00:03 Anion Gap 9 (3-11) 12/09/23 00:03 BUN 19 mg/dl (6-23) 12/09/23 00:03 Creatinine 0.87 mg/dl (0.6-1.2) 12/09/23 00:03 Est Cr Clr Drug Dosing 51.5 ml/min 12/09/23 00:03 Est GFR ( Amer) 75.0 ml/min 12/09/23 00:03 Est GFR (Non-Af Amer) 64.7 ml/min 12/09/23 00:03 BUN/Creatinine Ratio 21.8 (10-20) H 12/09/23 00:03 Glucose 109 mg/dl (70-99(Fasting)) H 12/09/23 00:03 Calcium 9.0 mg/dl (8.6-10.3) 12/09/23 00:03 Total Bilirubin 0.3 mg/dl (0.2-1.0) 12/09/23 00:03 AST 12 U/L (13-39) L 12/09/23 00:03 ALT 10 U/L (7-52) 12/09/23 00:03 Alkaline Phosphatase 57 U/L (34-104) 12/09/23 00:03 Troponin I High Sens 195.7 pg/ml (0-14) H* D 12/09/23 06:40 B-Natriuretic Peptide 66 pg/ml (0-100) 12/09/23 00:03 Total Protein 6.8 gm/dl (6.0-8.3) 12/09/23 00:03 Albumin 4.1 gm/dl (3.4-5.0) 12/09/23 00:03 Globulin 2.7 gm/dl (2.5-4.0) 12/09/23 00:03 Albumin/Globulin Ratio 1.5 (0.9-2) 12/09/23 00:03 Adenovirus (PCR) Not Detected (NotDetected) 12/09/23 00:20 B. pertussis DNA (PCR) Not Detected (NotDetected) 12/09/23 00:20 B.parapertussis DNA PCR Not Detected (NotDetected) 12/09/23 00:20 C. pneumoniae DNA (PCR) Not Detected (NotDetected) 12/09/23 00:20 Coronavirus OC43 (PCR) Not Detected (NotDetected) 12/09/23 00:20 Coronavirus HKU1 (PCR) Not Detected (NotDetected) 12/09/23 00:20 Coronavirus 229E (PCR) Not Detected (NotDetected) 12/09/23 00:20 SARS-CoV-2 (PCR) Not Detected (NotDetected) 12/09/23 00:20 Coronavirus NL63 (PCR) Not Detected (NotDetected) 12/09/23 00:20 Human Metapneumovir PCR Not Detected (NotDetected) 12/09/23 00:20 Influenza Type A (PCR) Not Detected (NotDetected) 12/09/23 00:20 Influenza Type B (PCR) Not Detected (NotDetected) 12/09/23 00:20 M. pneumoniae (PCR) Not Detected (NotDetected) 12/09/23 00:20 Parainfluenza 1 (PCR) Not Detected (NotDetected) 12/09/23 00:20 Parainfluenza 2 (PCR) Not Detected (NotDetected) 12/09/23 00:20 Parainfluenza 3 (PCR) Not Detected (NotDetected) 12/09/23 00:20 Parainfluenza 4 (PCR) Not Detected (NotDetected) 12/09/23 00:20 RSV (PCR) Not Detected (NotDetected) 12/09/23 00:20 Entero/Rhino (PCR) Not Detected (NotDetected) 12/09/23 00:20 Impressions Chest X-Ray 12/08/23 23:23 XR chest 1V portable HISTORY: 78 years-old Female Dyspnea acute shortness of breath COMPARISON: 08/10/2023 TECHNIQUE: AP view of the chest FINDINGS: Cardiomegaly. Emphysema with chronic interstitial coarsening. Mild bibasilar atelectasis versus scarring without pneumothorax, pleural effusion or overt pulmonary edema. IMPRESSION: 1. Emphysema without acute process. 2. Mild bibasilar atelectasis/scarring. ACT 112: Negative or not required by law. The above report was generated using voice recognition software. It may contain grammatical, syntax or spelling errors. Electronically signed by: Magno De Jesus M.D. 12/09/2023 7:23 AM Code Status & VTE Plan Code Status Full code VTE Prophylaxis Plan VTE Prophylaxis will be ordered: Yes PG Care Time/CCT Total # of Minutes Spent Total Time Spent with Patient: Total time spent is greater than 50% in coordination of care (as documented) at patient's floor/unit and/or counseling patient: Coding Level of Care Code 39178 INT INP/OBS CARE 3/75MIN Diagnoses Acute on chronic respiratory failure with hypoxia J96.21 COPD exacerbation J44.1 Anxiety as acute reaction to exceptional stress F41.1; F43.0 Acquired hypothyroidism E03.9 Hypothyroidism type: acquired Tobacco dependence F17.200 Uncomplicated alcohol dependence F10.20 Substance use status: uncomplicated Hyperlipidemia E78.5 Essential hypertension I10 Hypertension type: essential hypertension Vocal cord mass J38.3 (4) Hypothyroidism Hypothyroidism type: acquired Qualified Code(s): E03.9 - Hypothyroidism, unspecified (6) Alcohol dependence Substance use status: uncomplicated Qualified Code(s): F10.20 - Alcohol dependence, uncomplicated (8) Hypertension Hypertension type: essential hypertension Qualified Code(s): I10 - Essential (primary) hypertension
[2023-12-09] MEDS ORDERED: ONDANSETRON INJ 2 MG/ML 2 ML VIAL IV PRN (05:03)
[2023-12-09] MEDS ORDERED: ACETAMINOPHEN 325 MG TAB PO PRN (05:03)
[2023-12-09] MEDS: AZITHROMYCIN 500 MG in DEXTROSE 5% 250 ML IV SCH (07:15)
--- NOTE | 2023-12-09 07:24 | XRay Report ---
XR chest 1V portable HISTORY: 78 years-old Female Dyspnea acute shortness of breath COMPARISON: 08/10/2023 TECHNIQUE: AP view of the chest FINDINGS: Cardiomegaly. Emphysema with chronic interstitial coarsening. Mild bibasilar atelectasis versus scarr ing without pneumothorax, pleural effusion or overt pulmonary edema. IMPRESSION: 1. Emphysema without acute process. 2. Mild bibasilar atelectasis/scarring. ACT 112: Negative or not required by law. The above report was generated using voice recognition software. It may contain grammatical, syntax o r spelling errors. Electronically signed by: Magno De Jesus M.D. 12/09/2023 7:23 AM
[2023-12-09] MEDS: ALBUT/IPRATROP 3MG/0.5MG NEB 3 ML VIAL NEB SCH ×4 (07:25→18:09)
[2023-12-09] MEDS: LEVOTHYROXINE SODIUM 125 MCG TABLET PO SCH (07:55)
[2023-12-09] MEDS: methylPREDNISolone 40 MG in SYRINGE 0 ML IV SCH ×2 (08:14→18:09)
[2023-12-09] MEDS: ATORVASTATIN 20 MG TAB PO SCH (08:42)
[2023-12-09] MEDS: PANTOprazole 40 MG TAB PO SCH (08:43)
[2023-12-09] MEDS: ASPIRIN 81 MG ECTAB PO SCH (08:43)
[2023-12-09] MEDS: busPIRone 5 MG TAB PO SCH ×2 (08:44→19:28)
[2023-12-09] MEDS: ESCITALOPRAM OXALATE 20 MG TAB PO SCH (08:45)
[2023-12-09] MEDS: guaiFENesin 600 MG TABCR PO SCH ×2 (08:45→19:28)
[2023-12-09] MEDS: POLYETHYLENE (MIRALAX) 17 GM PACK PO SCH (08:46)
[2023-12-09] MEDS: ENOXAPARIN INJ 40 MG/0.4 ML SYR SQ SCH (08:48)
[2023-12-09] MEDS ORDERED: NON-FORMULARY MEDICATION (Fluticasone-Umeclidin-Vilanter [Trelegy Ellipta] 100-62.5-25 mcg INH SCH (09:00)
[2023-12-09] MEDS: FLUTICASONE FUROATE 100MCG 14 PUFFS/INHALER INH SCH (09:40)
[2023-12-09] MEDS: UMECLIDINIUM/VILANTEROL 62.5/25MCG 7 PUFFS/INHALER INH SCH (09:40)
[2023-12-09 11:02] LABS: Appearance Urine Clear (Clear); Bacteria Urine Automated Negative (Negative); Bilirubin Urine Negative (Negative); Blood Urine 2+ (Negative); Cast Urine Automated 0 /lpf (0-5); Color Urine Yellow; Glucose Urine UA Negative (Negative); Ketones Urine Negative (Negative); Leukocyte Esterase Urine Negative (Negative); Nitrite Urine Negative (Negative); Protein Urine Negative (Negative); Specific Gravity Urine 1.014 (1.000-1.030); Urobilinogen Urine Negative (Negative)
--- NOTE | 2023-12-09 12:34 | Hospitalist Progress Note ---
Date of Service December 09, 2023 Assessment & Plan (1) Acute hypoxic respiratory failure: Plan: - Continue Anoro Ellipta, Arnuity Ellipta - Duonebs every 4 hours while awake and every 2 hours when necessary, wean as we can. - Methylprednisolone 40 mg IV every 8 hours - Azithromycin 500 mg IV daily - Increase guaifenesin extended release from 600 mg daily to 1200 mg p.o. twice daily (2) Hypertension: Plan: - Restart HCTZ and lisinopril (3) Elevated troponin: Plan: - continuous cardiac monitoring, serial 12-lead ECG, serial troponin measurement, trend until peak. - continue aspirin and enoxaparin 40mg every 24 hours - continue atorvastatin - pending 2D echocardiogram with Doppler (4) Hypokalemia: Plan: - oral repletion of potassium (5) Anxiety as acute reaction to exceptional stress: Plan: - continue escitalopram Admission and Anticipated Discharge Date Admission Date: December 09, 2023 Supervising Physician Co-Signing Physician Notes see resident documentation for plan and history. Subjective No overnight events. Patient mentions she feels back to normal. She is sitting comfortably on room air. She currently denies chest pain, SOB, chills, or palpitations. Review of Systems Review of Systems: The review of systems is otherwise negative other than for that already noted above, and at least 10 systems have been reviewed. Physical Exam Physical Exam: HEENT: PERRL, EOMI, mucous membranes and oropharynx dry. Neck: Thyroid normal, trachea midline, no adenopathy. Heart: RRR, normal S1 and S2. No murmurs, rubs or gallops. Lungs: Coarse breath sounds with wheezes bilaterally. No respiratory distress, no accessory muscle use. Abdomen: Normal bowel sounds and soft. Nontender. Extremities: No edema. There are good distal pulses b/l. Dermatologic: Normal skin turgor, normal color, no abnormal lymph nodes, no rash. Psychiatric: Anxious Results & Data Results & Data Vital Signs (Past 12 Hours) Vital Signs Temp Pulse Pulse Resp BP BP Pulse Ox 12/09/23 08:17 83 20 134/75 90 12/09/23 07:41 12/09/23 07:29 91 H 12/09/23 07:25 69 16 93 12/09/23 06:47 18 140/75 95 12/09/23 04:06 87 12/08/23 23:43 94 H 12/08/23 23:23 12/08/23 23:00 94 12/08/23 23:00 36.5 C 110 H 22 142/98 H 94 O2 Del Method 12/09/23 08:17 Room Air 12/09/23 07:41 Room Air 12/09/23 07:29 12/09/23 07:25 Room Air 12/09/23 06:47 Room Air 12/09/23 04:06 12/08/23 23:43 12/08/23 23:23 Room Air 12/08/23 23:00 Room Air 12/08/23 23:00 Room Air (2) Hypertension Hypertension type: essential hypertension Qualified Code(s): I10 - Essential (primary) hypertension
--- NOTE | 2023-12-09 14:16 | XCELERA ---
[id number] [id number]
--- NOTE | 2023-12-09 14:31 | Hospitalist Progress Note ---
Date of Service December 09, 2023 Assessment & Plan (1) Acute on chronic respiratory failure with hypoxia: (2) COPD exacerbation: (3) Anxiety as acute reaction to exceptional stress: (4) Hypothyroidism: (5) Tobacco dependence: (6) Alcohol dependence: (7) Hyperlipidemia: (8) Vocal cord mass: (9) Hypertension: Plan # Acute on chronic respiratory failure with hypoxia/COPD exacerbation- DuoNeb, Solu-Medrol 125 mg IV, second DuoNeb, Klor-Con 20 mill equivalents p.o., and aspirin 324 mg Continue Anoro Ellipta, Arnuity Ellipta Duonebs every 4 hours while awake and every 2 hours when necessary. Methylprednisolone 40 mg IV every 8 hours Azithromycin 500 mg IV daily Guaifenesin extended release 1200 mg p.o. twice daily BioFire test negative Chest x-ray with bibasilar atelectasis versus infiltrate Patient uses auto titrated CPAP at home. Will Rx CPAP inpatient, and can use auto titrating CPAP if she can have someone bring it in # Elevated troponin/hypertension- Troponin 149.8, peak at 195.7, to 174.8 EKG without acute changes Echo normal Continue aspirin, atorvastatin, HCTZ, lisinopril Enoxaparin 40 mg subcu every 24 hours # Anxiety Continue escitalopram Admission and Anticipated Discharge Date Admission Date: December 09, 2023 Supervising Physician Co-Signing Physician Notes Attending attestation Pt seen and examined in concert with Dr. Andrea. In agreement with the documented findings as noted in the resident documentation with any exceptions or additions as noted here. Marginal improvement in shortness of breath with resolution of anxiety symptoms at the point. On examination, S1/S2 nl RRR no MCG. Scattered wheezes and decreased breath sounds. Abd NT/ND BS+ve Acute hypoxic respiratory failure in the setting of COPD with exacerbation - Duonebs, methylpred q8, azithromyin 500mg, symptomatic control. Continue inhaler regimen. Taper steroid to q12 or PO tomorrow based on response Elevated troponin - trend to peak. Continue ASA, statin therapy HTN - restart HCTZ-lisinopril, monitor Cr Else see resident documentation as noted. Subjective No acute events overnight. Pt attributes her symptoms to panic attack, however symptoms resolved with duoneb treatment. Trop trended to peak. Echo normal. Other labs WNL. Review of Systems Review of Systems: reviewed, per HPI Physical Exam Physical Exam: General: patient resting comfortably, NAD, non-toxic in appearance, answers questions appropriately and follows commands. Skin: warm, dry, intact HEENT: NC/AT, anicteric sclera, conjunctiva without injection, moist mucus membranes Heart: +S1/S2, regular, no m/r/g Lungs: b/l wheeze. good air entry. prolonged expiratory phase Abd: +BS, soft, NT/ND Ext: warm, no clubbing/cyanosis or edema Neuro: nonfocal, speech intact, no facial droop, moving all extremities on command. Results & Data Results & Data Vital Signs (Past 12 Hours) Vital Signs Temp Pulse Resp BP BP Pulse Ox O2 Del Method 12/09/23 06:47 18 140/75 95 Room Air 12/09/23 04:06 87 12/08/23 23:43 94 H 12/08/23 23:23 Room Air 12/08/23 23:00 94 Room Air 12/08/23 23:00 36.5 C 110 H 22 142/98 H 94 Room Air (4) Hypothyroidism Hypothyroidism type: acquired Qualified Code(s): E03.9 - Hypothyroidism, unspecified (6) Alcohol dependence Substance use status: uncomplicated Qualified Code(s): F10.20 - Alcohol dependence, uncomplicated (9) Hypertension Hypertension type: essential hypertension Qualified Code(s): I10 - Essential (primary) hypertension
--- NOTE | 2023-12-09 19:52 | Electrocardiogram Report ---
Test Reason : Blood Pressure : / mmHG Vent. Rate : 096 BPM Atrial Rate : 096 BPM P-R Int : 236 ms QRS Dur : 072 ms QT Int : 330 ms P-R-T Axes : 000 126 171 degrees QTc Int : 416 ms Probable limb lead reversal Sinus rhythm with 1st degree A-V block with Premature atrial complexes Lateral infarct , age undetermined Abnormal ECG When compared with ECG of 16-FEB-2023 14:25, QRS axis Shifted right Lateral infarct is now Present Nonspecific T wave abnormality, worse in Anterolateral leads Confirmed by Saravanan Sims ([id number]) on 12/09/2023 7:51:46 PM Referred By: REFERRED SELF Confirmed By:Benoit Sims
[2023-12-10] MEDS: methylPREDNISolone 40 MG in SYRINGE 0 ML IV SCH ×3 (00:22→17:36)
[2023-12-10] MEDS: LEVOTHYROXINE SODIUM 125 MCG TABLET PO SCH (06:00)
[2023-12-10 06:33] LABS: Hematocrit (blood only) 34.8 % (37.0-47.0); Hemoglobin 12.1 g/dl (12.0-16.0); Mean Corpuscular Hemoglobin 33.6 pg (25.0-34.0); Mean Corpuscular Hgb Conc 34.8 g/dL (32.0-36.0); Mean Corpuscular Volume 96.7 fL (80.0-100.0); Mean Platelet Volume 10.1 fL (9.4-12.4); Platelet Count 218 K/uL (130-400); RDW Coefficient of Variation 13.1 % (11.5-14.5); RDW Standard Deviation 47.1 fL (36.4-46.3)
[2023-12-10] MEDS: AZITHROMYCIN 500 MG in DEXTROSE 5% 250 ML IV SCH (06:33)
[2023-12-10] MEDS: ALBUT/IPRATROP 3MG/0.5MG NEB 3 ML VIAL NEB SCH ×4 (07:09→19:14)
[2023-12-10 07:12] LABS: Albumin Globulin Ratio 1.8 (0.9-2); Albumin Level 3.9 gm/dl (3.4-5.0); BUN Creatinine Ratio 27.6 (10-20); Bilirubin,Total 0.4 mg/dl (0.2-1.0); Calcium 9.2 mg/dl (8.6-10.3); Est GFR (African American) 88.3 ml/min; Est GFR (Non-African American) 76.2 ml/min; Globulin 2.2 gm/dl (2.5-4.0); Potassium 4.2 mmol/L (3.5-5.1); Total Protein 6.1 gm/dl (6.0-8.3)
[2023-12-10 07:35] LABS: Basophils # (auto) 0.01 K/uL (0.00-0.20); Basophils % (auto) 0.1 %; Immature Granulocytes # (auto) 0.05 K/uL (0.01-0.20); Immature Granulocytes % (auto) 0.5 %; Lymphocytes # (auto) 0.59 K/uL (1.20-3.40); Lymphocytes % (auto) 5.8 %; Monocytes # (auto) 0.22 K/uL (0.11-0.59); Monocytes % (auto) 2.2 %; Neutrophils # (auto) 9.23 K/uL (1.40-6.50); Neutrophils % (auto) 91.4 %
[2023-12-10] MEDS: ATORVASTATIN 20 MG TAB PO SCH (08:39)
[2023-12-10] MEDS: lisinopril 40 MG TAB PO SCH (08:39)
[2023-12-10] MEDS: hydroCHLOROthiazide 25 MG TAB PO SCH (08:39)
[2023-12-10] MEDS: PANTOprazole 40 MG TAB PO SCH (08:39)
[2023-12-10] MEDS: ENOXAPARIN INJ 40 MG/0.4 ML SYR SQ SCH (08:39)
[2023-12-10] MEDS: guaiFENesin 600 MG TABCR PO SCH ×2 (08:39→20:20)
[2023-12-10] MEDS: FLUTICASONE FUROATE 100MCG 14 PUFFS/INHALER INH SCH (08:40)
[2023-12-10] MEDS: ASPIRIN 81 MG ECTAB PO SCH (08:40)
[2023-12-10] MEDS: busPIRone 5 MG TAB PO SCH ×2 (08:40→20:20)
[2023-12-10] MEDS: ESCITALOPRAM OXALATE 20 MG TAB PO SCH (08:40)
[2023-12-10] MEDS: UMECLIDINIUM/VILANTEROL 62.5/25MCG 7 PUFFS/INHALER INH SCH (08:41)
--- NOTE | 2023-12-10 13:50 | Hospitalist Progress Note ---
Date of Service December 10, 2023 Assessment & Plan (1) Acute on chronic respiratory failure with hypoxia: (2) COPD exacerbation: (3) Anxiety as acute reaction to exceptional stress: (4) Hypothyroidism: (5) Tobacco dependence: (6) Alcohol dependence: (7) Hyperlipidemia: (8) Vocal cord mass: (9) Hypertension: Plan # Acute on chronic respiratory failure with hypoxia/COPD exacerbation- Continue Anoro Ellipta, Arnuity Ellipta Duonebs every 4 hours while awake and every 2 hours when necessary. Methylprednisolone 40 mg IV every 8 hours Azithromycin 500 mg IV daily Guaifenesin extended release 1200 mg p.o. twice daily BioFire test negative Chest x-ray with bibasilar atelectasis versus infiltrate Patient uses auto titrated CPAP at home. Will Rx CPAP inpatient, and can use auto titrating CPAP if she can have someone bring it in # Elevated troponin/hypertension- Troponin 149.8, peak at 195.7, to 174.8 EKG without acute changes Echo normal Continue aspirin, atorvastatin, HCTZ, lisinopril Enoxaparin 40 mg subcu every 24 hours # Anxiety Continue escitalopram Admission and Anticipated Discharge Date Admission Date: December 09, 2023 Supervising Physician Co-Signing Physician Notes ATTESTATION I also saw the patient and confirmed anderson portions of the history and exam. I agree with the impression and plan in the resident documentation, and as summarized below. Upon exam, patient lying semireclined in bed. She thinks her breathing is a bit better. We talked about her previous history of home oxygen; about 3 to 4 years ago, she did use oxygen on as needed basis. He has since been removed since she rarely used it. We looked back at some of her recent outpatient visits and she actually has SpO2 readings of anywhere between 92% and 98% on room air. EXAM 124/69, 94, 18, 36.5, 91% on nasal cannula -at the time of my exam, she was on 1 L/min She is alert. Respirations are nonlabored; bilateral wheeze but good air exchange Heart regular rate and rhythm IMPRESSION & PLAN Acute hypoxic respiratory failure in the setting of COPD with exacerbation Slow improvement Continue inhaler regimen and methylprednisolone Will attempt to wean oxygen Given her extensive smoking, would rather her not have oxygen at home due to the fire risk; we did discuss, and she does voice awareness of the risk of oxygen in the home of a smoker Additional per resident documentation Subjective No acute events overnight. Patient seen and evaluated at bedside this morning. Feeling better today. Now on <1L O2. Labs reviewed and largely unremarkable. Review of Systems Review of Systems: reviewed, per HPI Physical Exam Physical Exam: General: patient resting comfortably, NAD, non-toxic in appearance, answers questions appropriately and follows commands. Skin: warm, dry, intact HEENT: NC/AT, anicteric sclera, conjunctiva without injection, moist mucus membranes Heart: +S1/S2, regular, no m/r/g Lungs: b/l wheeze. good air entry. prolonged expiratory phase Abd: +BS, soft, NT/ND Ext: warm, no clubbing/cyanosis or edema Neuro: nonfocal, speech intact, no facial droop, moving all extremities on command. Results & Data Results & Data Vital Signs (Past 12 Hours) Vital Signs Temp Pulse Pulse Resp BP Pulse Ox O2 Del Method 12/10/23 11:34 22 96 Nasal Cannula 12/10/23 10:48 36.7 C 96 H 17 134/76 95 Nasal Cannula 12/10/23 07:34 91 H 20 93 Nasal Cannula 12/10/23 07:22 36.7 C 85 19 121/69 92 Room Air 12/10/23 07:00 85 12/10/23 03:25 36.7 C 98 H 18 164/91 H 93 Room Air O2 Flow Rate 12/10/23 11:34 2 12/10/23 10:48 2 12/10/23 07:34 2 12/10/23 07:22 12/10/23 07:00 12/10/23 03:25 (4) Hypothyroidism Hypothyroidism type: acquired Qualified Code(s): E03.9 - Hypothyroidism, unspecified (6) Alcohol dependence Substance use status: uncomplicated Qualified Code(s): F10.20 - Alcohol dependence, uncomplicated (9) Hypertension Hypertension type: essential hypertension Qualified Code(s): I10 - Essential (primary) hypertension
[2023-12-11] MEDS: methylPREDNISolone 40 MG in SYRINGE 0 ML IV SCH ×2 (00:12→08:33)
[2023-12-11] MEDS: AZITHROMYCIN 500 MG in DEXTROSE 5% 250 ML IV SCH (06:15)
[2023-12-11] MEDS: LEVOTHYROXINE SODIUM 125 MCG TABLET PO SCH (06:15)
[2023-12-11 06:36] LABS: Hematocrit (blood only) 35.4 % (37.0-47.0); Hemoglobin 12.2 g/dl (12.0-16.0); Mean Corpuscular Hemoglobin 33.3 pg (25.0-34.0); Mean Corpuscular Hgb Conc 34.5 g/dL (32.0-36.0); Mean Corpuscular Volume 96.7 fL (80.0-100.0); Mean Platelet Volume 10.5 fL (9.4-12.4); Platelet Count 207 K/uL (130-400); RDW Coefficient of Variation 13.1 % (11.5-14.5); RDW Standard Deviation 46.7 fL (36.4-46.3); Red Blood Count 3.66 M/uL (4.20-5.40); White Blood Count 8.25 K/ul (4.8-10.8)
[2023-12-11 06:50] LABS: BUN Creatinine Ratio 32.5 (10-20); Calcium 9.1 mg/dl (8.6-10.3); Creatinine Clr Calc Pharmacy 67.7 ml/min; Est GFR (African American) 86.9 ml/min; Magnesium 2.1 mg/dl (1.7-2.4)
[2023-12-11 06:58] LABS: Immature Granulocytes # (auto) 0.07 K/uL (0.01-0.20); Immature Granulocytes % (auto) 0.8 %; Lymphocytes # (auto) 0.58 K/uL (1.20-3.40); Monocytes # (auto) 0.14 K/uL (0.11-0.59); Monocytes % (auto) 1.7 %; Neutrophils # (auto) 7.46 K/uL (1.40-6.50); Neutrophils % (auto) 90.5 %
[2023-12-11] MEDS: ALBUT/IPRATROP 3MG/0.5MG NEB 3 ML VIAL NEB SCH ×2 (07:19→11:27)
--- NOTE | 2023-12-11 07:25 | Hospitalist Progress Note ---
Date of Service December 11, 2023 Assessment & Plan (1) Acute on chronic respiratory failure with hypoxia: (2) COPD exacerbation: (3) Anxiety as acute reaction to exceptional stress: (4) Hypothyroidism: (5) Tobacco dependence: (6) Alcohol dependence: (7) Hyperlipidemia: (8) Vocal cord mass: (9) Hypertension: Plan # Acute on chronic respiratory failure with hypoxia/COPD exacerbation- Continue Anoro Ellipta, Arnuity Ellipta Duonebs every 4 hours while awake and every 2 hours when necessary. Methylprednisolone 40 mg IV every 8 hours Azithromycin 500 mg IV daily Guaifenesin extended release 1200 mg p.o. twice daily BioFire test negative Chest x-ray with bibasilar atelectasis versus infiltrate Patient uses auto titrated CPAP at home. Will Rx CPAP inpatient, and can use auto titrating CPAP if she can have someone bring it in # Elevated troponin/hypertension- Troponin 149.8, peak at 195.7, to 174.8 EKG without acute changes Echo normal Continue aspirin, atorvastatin, HCTZ, lisinopril Enoxaparin 40 mg subcu every 24 hours # Anxiety Continue escitalopram Admission and Anticipated Discharge Date Admission Date: December 09, 2023 Subjective No acute events overnight. Patient seen and evaluated at bedside this morning. Feeling better today. Now on <1L O2. Labs reviewed and largely unremarkable. Review of Systems Review of Systems: reviewed, per HPI Physical Exam Physical Exam: General: patient resting comfortably, NAD, non-toxic in appearance, answers questions appropriately and follows commands. Skin: warm, dry, intact HEENT: NC/AT, anicteric sclera, conjunctiva without injection, moist mucus membranes Heart: +S1/S2, regular, no m/r/g Lungs: b/l wheeze. good air entry. prolonged expiratory phase Abd: +BS, soft, NT/ND Ext: warm, no clubbing/cyanosis or edema Neuro: nonfocal, speech intact, no facial droop, moving all extremities on command. Results & Data Results & Data Vital Signs (Past 12 Hours) Vital Signs Temp Pulse Pulse Resp BP BP Pulse Ox 12/11/23 07:21 62 17 90 12/11/23 07:11 37.1 C 79 19 148/75 H 92 12/11/23 03:10 37.1 C 68 18 135/75 94 12/11/23 00:00 98 H 12/10/23 22:15 36.9 C 91 H 18 110/55 L 91 O2 Del Method O2 Flow Rate FiO2 12/11/23 07:21 Room Air 21 12/11/23 07:11 Room Air 12/11/23 03:10 Nasal Cannula 2 12/11/23 00:00 12/10/23 22:15 Nasal Cannula 2 (4) Hypothyroidism Hypothyroidism type: acquired Qualified Code(s): E03.9 - Hypothyroidism, unspecified (6) Alcohol dependence Substance use status: uncomplicated Qualified Code(s): F10.20 - Alcohol dependence, uncomplicated (9) Hypertension Hypertension type: essential hypertension Qualified Code(s): I10 - Essential (primary) hypertension
[2023-12-11] MEDS: ASPIRIN 81 MG ECTAB PO SCH (08:33)
[2023-12-11] MEDS: ESCITALOPRAM OXALATE 20 MG TAB PO SCH (08:33)
[2023-12-11] MEDS: lisinopril 40 MG TAB PO SCH (08:33)
[2023-12-11] MEDS: hydroCHLOROthiazide 25 MG TAB PO SCH (08:33)
[2023-12-11] MEDS: ENOXAPARIN INJ 40 MG/0.4 ML SYR SQ SCH (08:34)
[2023-12-11] MEDS: UMECLIDINIUM/VILANTEROL 62.5/25MCG 7 PUFFS/INHALER INH SCH (08:34)
[2023-12-11] MEDS: PANTOprazole 40 MG TAB PO SCH (08:34)
[2023-12-11] MEDS: busPIRone 5 MG TAB PO SCH (08:34)
[2023-12-11] MEDS: FLUTICASONE FUROATE 100MCG 14 PUFFS/INHALER INH SCH (08:34)
[2023-12-11] MEDS: POLYETHYLENE (MIRALAX) 17 GM PACK PO SCH (08:34)
[2023-12-11] MEDS: ATORVASTATIN 20 MG TAB PO SCH (08:34)
[2023-12-11] MEDS: guaiFENesin 600 MG TABCR PO SCH (08:39)
[2023-12-11] MEDS ORDERED: NICOTINE 21 MG/24 HR TDSY TD SCH (09:00)
--- NOTE | 2023-12-11 12:32 | Discharge Summary ---
Date of Service December 11, 2023 Admission HPI Per Admitting Provider The patient is a 78-year-old female with a past medical history including COPD, anxiety, hypothyroidism, tobacco dependence, alcohol dependence, GERD, angiomyolipoma, hypertension, hyperlipidemia, bladder spasms and vocal cord mass. She presents to the emergency department with acute worsening of her chronic shortness of breath, increasing anxiety and sense of a panic attack, and auditory wheezing. Admission Exam Per Admitting Provider The patient was resting comfortably sleeping, as she was woken up, she developed extreme coughing spell, which resolved spontaneously HEENT--PERRL, EOMI, mucous membranes and oropharynx dry. Neck--supple. No JVD. No bruits. Thyroid normal, trachea midline, no adenopathy. Heart--normal S1 and S2. No murmurs, rubs or gallops. Lungs--coarse breath sounds with wheezes bilaterally. No respiratory distress, no accessory muscle use. Abdomen--normal bowel sounds and soft. Nontender. Nondistended, no hernias or masses, no organomegaly. Extremities--no cyanosis or clubbing. No edema. There are good distal pulses b/l. Dermatologic--normal skin turgor, normal color, no abnormal lymph nodes, no rash. Neurologic--cranial nerves II through XII grossly intact. Rheumatologic--normal range of motion. Psychiatric--anxious Principal Diagnosis COPD exacerbation Discharge Exam General: patient resting comfortably, NAD, non-toxic in appearance, answers questions appropriately and follows commands. Skin: warm, dry, intact HEENT: NC/AT, anicteric sclera, conjunctiva without injection, moist mucus membranes Heart: +S1/S2, regular, no m/r/g Lungs: good air entry. prolonged expiratory phase. Very mild wheeze, no longer on supplemental O2 Abd: +BS, soft, NT/ND Ext: warm, no clubbing/cyanosis or edema Neuro: nonfocal, speech intact, no facial droop, moving all extremities on c ommand. Discharge Data Allergies Allergy/AdvReac Type Severity Reaction Status Date / Time amlodipine AdvReac Unknown Unknown Verified 07/22/23 09:30 Consultations 12/09/23 02:42 ED Decision to Admit Stat Hospital Course (1) Acute on chronic respiratory failure with hypoxia: (2) COPD exacerbation: (3) Anxiety as acute reaction to exceptional stress: (4) Hypothyroidism: (5) Tobacco dependence: (6) Alcohol dependence: (7) Hyperlipidemia: (8) Vocal cord mass: (9) Hypertension: Plan # Acute on chronic respiratory failure with hypoxia/COPD exacerbation- Continue Anoro Ellipta, Arnuity Ellipta Duonebs every 4 hours while awake and every 2 hours when necessary. Methylprednisolone 40 mg IV every 8 hours Azithromycin 500 mg IV daily Guaifenesin extended release 1200 mg p.o. twice daily BioFire test negative Chest x-ray with bibasilar atelectasis versus infiltrate Patient uses auto titrated CPAP at home. Will Rx CPAP inpatient, and can use auto titrating CPAP if she can have someone bring it in For Discharge: Prednisone burst 40mg daily x3 days Finish 5 day course azithromycin 250mg x3 further days # Elevated troponin/hypertension- Troponin 149.8, peak at 195.7, to 174.8 EKG without acute changes Echo normal Continue aspirin, atorvastatin, HCTZ, lisinopril Enoxaparin 40 mg subq every 24 hours # Anxiety Continue escitalopram Total Time Total Time Spent Total Time Spent (In Minutes): 25 minutes, including [id number] time with patient, review of chart, documentation Discharge Plan Discharge Items Patient Disposition: Home - Self-Care Reason For Visit: ACUTE ON CHRONIC RESP FAIL W/ HYPOXIA Discharge Diagnosis: COPD exacerbation Activity: Resume your previous activity Non-emergency contact: Primary Care Provider Call non-emergency contact if: you have any medication questions, your symptoms worsen and you have a fever Follow-up/Referrals: Artem Luna DO [Primary Care Provider] - 12/16/23 2:00 pm Diet: Heart Healthy Addtl Attending Provider Instructions: You were admitted to the hospital for increased work of breathing. You were treated with IV steroids, an antibiotic to decrease inflammation in your lungs, a medication to thin the mucous in your lungs, and your regular inhalers. A test for viral and bacterial causes of your symptoms was negative. A chest X ray was negative for pneumonia. You had an increase in a measurement (troponin) that we use to check if you are having a heart attack. This number meghan and fell quickly after you were admitted to the hospital indicating that you were not having an active heart attack. You will be discharged with an additional 3 days of steroid and antibiotics. You should take them as prescribed until they are gone. A discharge summary will be sent to your primary care physician to ensure continuity of care. Please bring this discharge summary with you to your next office appointment so that your provider can review it at that time. Follow-up appointments: Make a follow-up appointment with your PCP within the next week. It is very important that you follow up with them shortly after discharge from the hospital. Keep all your follow-up appointments as already scheduled. If you cannot make an appointment, notify your provider. Medications: Your medication list has been reviewed and reconciled upon discharge to ensure accuracy and continuity of care. An updated list of all your medications is included with your hospital discharge paperwork. Please review this list closely, and make note of any changes. We sent a new medication called prednisone to your pharmacy. Take prednisone (40mg) daily for 3 days. We sent a new medication called azithromycin to your pharmacy. Take azithromycin (250mg) one tablet daily for 3 days. We sent a new medication: nicotine patch to your pharmacy. Use one patch per day. Do not use more than one patch at a time. Do not smoke while using the patch. If you have any issues filling these prescriptions, please call [phone] and ask to leave a message for Dr. Anshul Andrea. Take your medications as instructed; do not skip a dose of your medicines. Make sure all of your doctors know every medicine you are taking (including [id number] medicines, vitamins, and supplements). Call your primary care provider before taking any new medicines (including cgby-lzs-ywdydxe medicines, vitamins, and supplements), because some of these may interact with your current medications, or may make your symptoms worse. Tell your primary care provider if you cannot afford your medications. CONTACT YOUR PRIMARY CARE PROVIDER if you experience any of the following: fever increased shortness of breath Difficulty following your treatment plan, or difficulty taking medications CALL 911 OR GO TO THE EMERGENCY DEPARTMENT if you experience any of the following: Sudden, severe abdominal pain or nausea/vomiting Severe chest pain, or chest pain that radiates (moves) to your jaw or arm Sudden, severe shortness of breath or difficulty breathing Thank you for allowing us to participate in your care. Pending Studies at Discharge: No Stand-Alone Forms: My [facility], Smoking Cessation Medications and DC Order Prescriptions: New nicotine [Nicoderm CQ] 21 mg/24 hr Patch 24 Hour 21 mg transdermal QAM Qty: 14 0RF prednisone 20 mg tablet 40 mg PO DAILY 3 Days Qty: 6 0RF azithromycin 250 mg tablet 250 mg PO DAILY Qty: 3 0RF Continued lisinopril 40 mg tablet 40 mg PO QAM Qty: 90 3RF levothyroxine 125 mcg tablet 125 mcg PO QAM Qty: 90 3RF buspirone 5 mg tablet 5 mg PO BID Qty: 60 2RF atorvastatin 20 mg tablet 20 mg PO QAM Qty: 90 3RF escitalopram oxalate 20 mg tablet 20 mg PO DAILY Qty: 90 3RF hydrochlorothiazide 25 mg tablet 25 mg PO QAM Qty: 90 3RF pantoprazole 40 mg tablet,delayed release (DR/EC) 40 mg PO DAILY Qty: 90 3RF guaifenesin [Mucinex] 600 mg tablet extended release 12hr 600 mg PO BID PRN (Reason: congestion) Qty: 60 1RF Rx Instructions: Take 1 tab p.o. twice a day for 7 days and then as needed albuterol sulfate [Ventolin HFA] 90 mcg/actuation HFA aerosol inhaler 2 puff inhalation QID PRN (Reason: Shortness Of Breath) Qty: 1 3RF Trelegy Ellipta 100-62.5-25 mcg blister with device 1 inh inhalation DAILY Qty: 60 8RF (DME) Auto Titrating CPAP Misc See Rx Instructions .MEDSUPPLY Qty: 1 0RF Rx Instructions: Auto PAP with 5-15 cm H20. Lifetime usage. G47.33 (DME) CPAP Supplies Misc See Rx Instructions .MEDSUPPLY Qty: 1 0RF Rx Instructions: CPAP supplies, mask, headgear, filters, tubing, water chamber. G47.33 ibuprofen 200 mg Tablet 400 mg PO Q6H PRN (Reason: Fever Or Pain) aspirin 81 mg Tablet,Delayed Release (Dr/Ec) 81 mg PO QAM polyethylene glycol 3350 [Miralax] 17 gram/dose Powder 17 g PO Q2D Discharge Orders: Discharge Order (Routine); Ordered 12/11/23 Ordered By: Anshul Andrea Admission Data Admit Date/Time: 12/09/23 03:41 Attending Provider: Anson Kinney Admit Provider: Ron Ceron Primary Care Provider: Artem Luna Other Providers: Ron Ceron Other Interventions: Discharge Summary Assessment (RN) Last Done: 12/11/23 12:59 Supervising Physician Co-Signing Physician Notes ATTESTATION I also saw the patient and confirmed anderson portions of the history and exam. I agree with the impression and plan in the resident documentation, and as summarized below. Patient now maintaining oxygen saturations of 96 percent on room air. She feels ready to go home. EXAM 148/75, 78, 20, 37.1, 96% on room air She is alert. No distress appreciated. She can speak in full complete sentences without pause Respirations are nonlabored; very slight end expiratory wheeze, excellent air exchange Heart regular rate and rhythm IMPRESSION & PLAN Acute hypoxic respiratory failure in the setting of COPD with exacerbation Continues to improve; now maintaining adequate oxygenation on room air Continue inhaler regimen; convert steroids to oral Discussed smoking cessation; she would like to continue the nicotine patch upon discharge Discussed signs and symptoms for which to return to the hospital Follow-up with PCP 1-2 weeks Additional per resident documentation
== END 2023-12-11 13:40 | disposition home or self-care (01) | DRG 190 ==
LOC: ED 23:09 → SUATTDRO 12-09 03:41 → EDINP 12-09 03:41 → 2S 12-09 05:04
DX: Z79.82 Long term (current) use of aspirin; E78.5 Hyperlipidemia, unspecified; J98.11 Atelectasis; D17.9 Benign lipomatous neoplasm, unspecified; F10.20 Alcohol dependence, uncomplicated; J44.1 Chronic obstructive pulmonary disease with (acute) exacerbation; F41.9 Anxiety disorder, unspecified; I10 Essential (primary) hypertension; Z92.3 Personal history of irradiation; Z93.3 Colostomy status; J96.21 Acute and chronic respiratory failure with hypoxia; J38.2 Nodules of vocal cords; F17.210 Nicotine dependence, cigarettes, uncomplicated